=== PATIENT | female | born 1995 | race Caucasian/White ===

== ENCOUNTER 2025-03-20 10:41 | Outpatient (AMB) | payer OTHER, SELFPAY ==
--- NOTE | 2025-03-20 10:44 | A.OFFPC_ITS ---
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 The patient has breast cancer diagnosed in early 2022, leading to surgical intervention and current adjuvant therapy. The cancer diagnosis involved bilateral mastectomy, chemotherapy, and continued use of medications including Exemestane, Prolia, and Zoladex. The detection was credited to self-examination prompted by a partner. While the patient did not undergo reconstructive surgery post-mastectomy, regular imaging or mammography is reportedly unnecessary presently. Concerning the anal region, a chronic lesion described as a skin tag or possibly an external hemorrhoid causes mild discomfort primarily noted during hygiene activities. Diagnostic workup by a imaging engineer earlier this year attributed digestive concerns to stress after ruling out other underlying conditions. The patient seeks referral for potential excision. The patient?s history also includes asthma managed without significant intervention and ADHD, for which Adderall is desired. Inquiries about compatibility with ongoing cancer management have been made, but the primary oncologist has yet to respond. Family cancer history includes the mother with breast cancer and maternal figures with ovarian cancer, necessitating increased vigilance considering the patient?s BRCA mutation status. 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, abstains from recreational substances post-diagnosis [facility] Medical History (Updated 03/20/25 @ 11:44 by Theresa Cruz PA-C) Thyroid nodule Asthma ADHD Establishing care with new doctor, encounter for External hemorrhoid BRCA gene mutation positive History of breast cancer Surgical History (Updated 03/20/25 @ 11:39 by Theresa Cruz PA-C) Hx of bilateral mastectomy Family History Mother Breast CA Father Crohn's disease Social History Housing: House Alcohol intake: current Alcohol intake frequency: does not drink Patient Tobacco Use Status: Former Tobacco user service: No Current occupational status: employed Cognitive needs: No Hearing needs: No Vision needs: Yes (rx glasses) Questionnaire PHQ-9 Over the last 2 weeks, how often have you been bothered by any of the following problems? 1. Little interest or pleasure in doing things: not at all 2. Feeling down, depressed, or hopeless: not at all 3. Trouble falling or staying asleep, or sleeping too much: not at all 4. Feeling tired or having little energy: not at all 5. Poor appetite or overeating: not at all 6. Feeling bad about yourself - or that you are a failure or have let yourself or your family down: not at all 7. Trouble concentrating on things, such as reading the newspaper or watching television: not at all 8. Moving or speaking so slowly that other people could have noticed. Or the opposite - being so fidgety or restless that you have been moving around a lot more than usual: not at all 9. Thoughts that you would be better off or of hurting yourself in some way: not at all Total score: 0 Depression Screening Interpretation: Negative Depression Screening Done: Yes 96025 - PHQ-9 Billing: Yes Source: Developed by Drs. Ramos Gutierrez, Meg Ortiz, Chetan Key and colleagues, with an educational ilsa from [employer]. Thrive Questionnaire Date Thrive assessed: 03/20/25 I am a: Patient What is your living situation today?: I have a steady place to live Within the past 12 months, did the food you bought not last and you didn't have the money to get more?: Never true Within the past 12 months, did you worry whether your food would run out before you got money to buy more?: Never true Do you have trouble paying for medicines?: No Do you have trouble getting transportation to medical appointments?: No Do you have trouble paying your heating and electricity bill?: No Do you have trouble taking care of your child, family member or friend?: No Do you have trouble with day-to-day activities such as bathing, preparing meals, shopping, managing finances, etc.?: No Are you currently unemployed and looking for a job?: No Are you interested in more education?: No Please select the resources that you would like help with: None THRIVE Score: 0 AUDIT C Alcohol Use Questionnaire (AUDIT-C) 1. How often do you have a drink containing alcohol?: Never 3. How often do you have six or more drinks on one occasion?: Never Total Score: 0 Score Reviewed/Action Taken: No EZEQUIEL-7 AMB Questionnaire EZEQUIEL-7 Date EZEQUIEL - 7 assessed: 03/20/25 Feeling nervous, anxious, or on edge: 2 = More than half the days Not being able to stop or control worryin = Several days Worrying too much about different things: 1 = Several days Trouble relaxin = Several days Being so restless that it is hard to sit still: 1 = Several days Becoming easily annoyed or irritable: 0 = Not at all Feeling afraid as if something awful might happen: 1 = Several days Total EZEQUIEL-7 score (0-4 normal; 5-9 mild; 10-14 moderate; 15-21 severe): 7 Source: Developed by Drs. Ramos Gutierrez, Meg Ortiz, Chetan Key and colleagues, with an educational ilsa from [employer]. EZEQUIEL-7 Assessment Billing EZEQUIEL-7 Assessment Tool: EZEQUIEL-7 Assessment 58068 Review of Systems Const Details: - Breast: Reports history of breast cancer, post-mastectomy status, ongoing medication - Gastrointestinal: Reports skin tag/external hemorrhoid, denies significant issues except mild discomfort during hygiene - Respiratory: Denies asthma exacerbations - Neurologic: Reports ADHD - Integumentary: Reports BRCA mutation with concern for skin cancer risk - Family History: Reports extensive maternal and paternal cancer history Physical exam (Primary Care) Vital Signs: Last Vital Signs Temp 97.6 F 03/20/25 10:47 Pulse 58 03/20/25 10:47 Resp 16 03/20/25 10:47 BP 106/60 03/20/25 10:47 Pulse Ox 99 03/20/25 10:47 Oxygen Delivery Method Room Air 03/20/25 10:47 Care Plan Goal for BP management: <130/90 at Goal BMI result Body Mass Index 18.7 normal bmi Tobacco/Smoking Status: Tobacco use Status Tobacco use date assessed 03/20/25 03/20/25 10:55 Patient Tobacco Use Status Former Tobacco user 03/20/25 10:55 PHQ-9: PHQ-9 Score PHQ-9: Total score 0 03/20/25 10:55 Depression Screening Interpretation: Negative Thrive Assessment: Date of Thrive Assessment Date Thrive assessed 03/20/25 03/20/25 10:55 Const Other: Appearance: Alert. Oriented X3. No acute distress. Head: Normal external exam. Normocephalic. Atraumatic. Eyes: Pupils are equal, round, and reactive to light. Extraocular movements intact. Conjunctiva and sclera normal. Eyelids normal. Patient wears glasses for distance. Ears: External auditory canal normal. Tympanic membranes normal. Throat: Pharynx normal. Uvula midline. Moist mucous membranes. Neck: Normal inspection. Neck supple. Full range of motion. No adenopathy. No meningeal signs. No neck mass noted. Patient to be referred for thyroid ultrasound due to palpable area on right side of thyroid. Cardiovascular: Normal heart rate and rhythm. Heart sound normal. No murmurs noted. Pulses normal throughout. Respiratory: No respiratory distress. Painless inspiration. Breath sounds normal. No wheezes/rales/rhonchi noted. Chest nontender. No accessory muscle usage noted or decreased air movement noted. Abdomen: Soft and nontender. Bowel sounds normal in all 4 quadrants. No distention noted. No organomegaly noted. No visible injury noted. Back: No costovertebral angle tenderness. Full range of motion noted. Skin: Skin warm and dry. Normal skin color. Normal skin turgor. No rashes/lesions/lacerations noted. Patient has a skin tag/external hemorrhoid near the anus, referral to general surgery recommended. Extremities: No lower extremity edema. Extremities exhibit normal range of motion. Extremities nontender. Neuro: Oriented X 3. No motor deficit. No sensory deficit. Reflexes normal. Coding Level of Care Code New Pt Level 4 (39862) Complex EM visit Add On G2211 Diagnoses Establishing care with new doctor, encounter for Z76.89 History of breast cancer Z85.3 BRCA gene mutation positive Z15.01; Z15.09 External hemorrhoid K64.4 ADHD F90.9 Asthma J45.909 Additional Codes PHQ-9 - 57713 - PHQ-9 Billing: Yes ([id number]) EZEQUIEL-7 Assessment Billing - EZEQUIEL-7 Assessment Tool: EZEQUIEL-7 Assessment 61172 ([id number]) Assessment & Plan Assessment & Plan (1) Establishing care with new doctor, encounter for: Code(s): Z76.89 - Persons encountering health services in other specified circumstances Category: Medical (2) History of breast cancer: Code(s): Z85.3 - Personal history of malignant neoplasm of breast Category: Medical Plan: Status post bilateral mastectomy. Continue oncological therapies. Condition is chronic and stable continue to monitor. (3) BRCA gene mutation positive: Code(s): Z15.01 - Genetic susceptibility to malignant neoplasm of breast; Z15.09 - Genetic susceptibility to other malignant neoplasm Category: Medical Plan: Dermatology follow-up for ongoing surveillance. Condition is stable will continue to monitor. (4) External hemorrhoid: Code(s): K64.4 - Residual hemorrhoidal skin tags Category: Medical Plan: General surgery consultation for evaluation of anal lesion. Condition is chronic and stable continue to monitor. (5) ADHD: Code(s): F90.9 - Attention-deficit hyperactivity disorder, unspecified type Category: Medical Plan: Pursue medication coordination with psychiatry. Condition is chronic and stable continue to monitor. (6) Asthma: Code(s): J45.909 - Unspecified asthma, uncomplicated Category: Medical Plan: No immediate interventions required. Condition is chronic and stable continue to monitor. Plan Plan Patient was informed and verbally consented to the use of an ambient scribe for clinic note documentation during this visit. 1. Breast Cancer Continue oncological therapies; await oncologist's input on ADHD medication compatibility. 2. Skin Tag/External Hemorrhoid General surgery consultation for evaluation of anal lesion. 3. Adhd Pursue medication coordination with psychiatry. 4. Mild Asthma No immediate interventions required. 5. Brca Gene Mutation Dermatology follow-up for ongoing surveillance. 6. Family History Of Cancer Encourage ongoing vigilance due to extensive cancer history. Today, I discussed with the patient the ongoing management of her breast cancer and coordination of care concerning her ADHD treatment, particularly the use of Adderall alongside her current cancer medications. We reviewed her family?s cancer history and the significance of her BRCA status, agreeing that dermatology follow-up is essential for possible skin cancer prevention. Discussed the anal lesion, and a potential referral to general surgery was made to address it further. Emphasized routine follow-ups regarding her cancer surveillance and encouraged proactive engagement in preventive measures. Orders: Orders US thyroid Today E04.1 - Nontoxic single thyroid nodule Referrals General Surgery Referral K64.4 - Residual hemorrhoidal skin tags Dermatology Referral Z15.01 - Genetic susceptibility to malignant neoplasm of breast, Z15.09 - Genetic susceptibility to other malignant neoplasm, Z85.3 - Personal history of malignant neoplasm of breast Patient Instructions: - Continue prescribed cancer medications as directed by your oncologist. - Schedule and attend general surgery consultation for the anal lesion. - Visit a room inspector for skin examination due to BRCA mutation. - Coordinate with your psychiatrist regarding ADHD medication management. - Attend a thyroid ultrasound as scheduled. - Follow-up in six months or as needed for ongoing management.
[2025-03-20 10:47] VITALS: BP 106/60; PULSE 58; RESP 16; TEMP 36.4; O2SAT 99; BMI 18.7
--- OUTSIDE RECORDS SUMMARY | 2025-03-20 11:23 | XMS_ITS | Continuity of Care Document ---
Author Organization [facility] Address [address] [place] [address] Phone Care Team Providers Care Flosser Name Role Phone Radha Murphy PA-C, PA-C [...] Diagnoses Date Provider Providers Copied on Encounter [facility], [address] [place] [address], [address] [place] [address] , [phone] Medical Records No Information 4 Katherine Garcia. [address] [place] [address], [id number] , . tel:[phone] Office/Outpa tient Visit, [facility], [address] [place] [address], [id number] , tel:[phone] Katherine Barton patient allergy (chief complaint) Other allergic rhinitisAnterior cervical lymphadenopathyMalign ant neoplasm of left breast in female, estrogen receptor positive, unspecified site of breastEstrogen receptor positive status [ER+] 4 Katherine Garcia. [address] [place], [place], [id number] , . [phone] Referring Provider: Harmony Ewing MD, [address] [place] [address], [place], [address]. tel:[phone] Family History Family Member Type Diagnosis Age At Onset Brother Problem (finding) Alive and Doing Well Mother Problem (finding) Environmental Allergies Father Problem (finding) Environmental Allergies Mother Problem (finding) Asthma Mother Problem (finding) Cancer Mother Problem (finding) Alive and Doing Well Father Problem (finding) Alive and Doing Well Payers Payer name Insurance type Covered constitution party ID Jabier sinha(s) HUNG [id number] Social History Type Description Quantity Date Captured [...]
--- OUTSIDE RECORDS SUMMARY | 2025-03-20 11:24 | XMS_ITS ---
Author Name Interface, [id number] lity Address [address] [place] [address] [facility] matology Address [address] [place] [address] Care Team Providers Care Farrowing Manager Name Role Phone Roger Reynolds Unavailable Unavailable Allergies and Adverse Reactions Medication/Group Name Reaction Severity Date Penicillins 07/11/2024 Plan Date Type Value 08/26/2024 APPOINTMENT NON CHEMO INJECT ION 15 MIN 08/20/2024 APPOINTMENT INJECTION 15 MIN 08/15/[address] SVC E [facility] PATIENT 15 MIN 07/11/2024 APPOINTMENT TELEPHONE VISIT 15 MINS 06/12/2024 APPOINTMENT TELEHEALTH SVC E ST PATIENT 15 MIN 05/30/2024 APPOINTMENT TELEPHONE VISIT 15 MINS 05/30/2024 APPOINTMENT TELEHEALTH SVC E ST PATIENT 15 MIN 05/28/2024 APPOINTMENT NON CHEMO INJECT ION 15 MIN 05/09/2024 APPOINTMENT TELEHEALTH SVC E ST PATIENT 15 MIN 05/08/2024 APPOINTMENT TELEHEALTH SVC E ST PATIENT 15 MIN 04/30/2024 APPOINTMENT LAB 15 MIN-OV 15 MIN 04/30/2024 APPOINTMENT LAB 15 MIN-OV 15 MIN 04/24/2024 APPOINTMENT NEW PT CONSULT 4 5 MIN 04/23/2024 APPOINTMENT OUTSIDE TEST 5 M IN 04/02/2024 APPOINTMENT NEW PT CONSULT 4 5 MIN 03/28/2024 APPOINTMENT TX 1 HR 03/28/2024 APPOINTMENT OV 15 MIN 03/14/2024 APPOINTMENT OV 15 MIN-LAB 15 MIN-TX 1 HR 03/14/2024 APPOINTMENT OV 15 MIN-LAB 15 MIN-TX 1 HR 03/14/2024 APPOINTMENT OV 15 MIN-LAB 15 MIN-TX 1 HR 02/28/2024 APPOINTMENT OUTSIDE TEST 5 M IN 02/15/2024 APPOINTMENT NON CHEMO INJECT ION 15 MIN 02/15/2024 APPOINTMENT LAB 15 MIN-OV 15 MIN 02/15/2024 APPOINTMENT LAB 15 MIN-OV 15 MIN 02/15/2024 APPOINTMENT LAB/OV 02/15/2024 APPOINTMENT LAB/OV 02/14/2024 APPOINTMENT NON CHEMO INJECT ION 15 MIN 02/13/2024 APPOINTMENT LAB 15 MIN-OV 15 MIN 02/13/2024 APPOINTMENT LAB 15 MIN-OV 15 MIN 01/17/2024 APPOINTMENT NON CHEMO INJECT ION 15 MIN 12/20/2023 APPOINTMENT NON CHEMO INJECT ION 15 MIN 12/19/2023 APPOINTMENT LAB 15 MIN-OV 30 MIN 12/19/2023 APPOINTMENT LAB 15 MIN-OV 30 MIN 11/22/2023 APPOINTMENT TX 2 HR 11/20/2023 APPOINTMENT LAB 15 MIN-OV 30 MIN 11/20/2023 APPOINTMENT LAB 15 MIN-OV 30 MIN 11/15/2023 APPOINTMENT TX 2 HR 11/14/2023 APPOINTMENT LAB 15 MIN 11/08/2023 APPOINTMENT TX 2 HR 11/07/2023 APPOINTMENT LAB 15 MIN 11/01/2023 APPOINTMENT TX 2 HR 10/31/2023 APPOINTMENT LAB 15 MIN-OV 30 MIN 10/31/2023 APPOINTMENT LAB 15 MIN-OV 30 MIN 10/31/2023 APPOINTMENT LAB 15 MIN-OV 15 MIN 10/31/2023 APPOINTMENT LAB 15 MIN-OV 15 MIN 10/25/2023 APPOINTMENT TX 2 HR 10/24/2023 APPOINTMENT LAB 15 MIN 10/11/2023 APPOINTMENT TX 2 HR 10/10/2023 APPOINTMENT LAB 15 MIN 10/04/2023 APPOINTMENT TX 2 HR 10/03/2023 APPOINTMENT LAB 15 MIN-OV 30 MIN 10/03/2023 APPOINTMENT LAB 15 MIN-OV 30 MIN 09/27/2023 APPOINTMENT TX 2 HR 09/26/2023 APPOINTMENT LAB 15 MIN 09/26/2023 APPOINTMENT TX 2 HR 09/20/2023 APPOINTMENT TX 2 HR 09/19/2023 APPOINTMENT LAB 15 MIN 09/19/2023 APPOINTMENT TX 2 HR 09/17/2023 APPOINTMENT NON CHEMO INJECT ION 15 MIN 09/15/2023 APPOINTMENT NON CHEMO INJECT ION 15 MIN 09/14/2023 APPOINTMENT NON CHEMO INJECT ION 15 MIN 09/13/2023 APPOINTMENT TX 2 HR 09/12/2023 APPOINTMENT LAB 15 MIN-OV 15 MIN 09/12/2023 APPOINTMENT LAB 15 MIN-OV 15 MIN 09/12/2023 APPOINTMENT LAB 15 MIN-OV 15 MIN 09/12/2023 APPOINTMENT LAB 15 MIN-OV 15 MIN 09/06/2023 APPOINTMENT TX 2 HR 09/05/2023 APPOINTMENT LAB 15 MIN 09/03/2023 APPOINTMENT NON CHEMO INJECT ION 15 MIN 09/01/2023 APPOINTMENT NON CHEMO INJECT ION 15 MIN 08/31/2023 APPOINTMENT NON CHEMO INJECT ION 15 MIN 08/30/2023 APPOINTMENT TX 2 HR 08/29/2023 APPOINTMENT LAB 15 MIN 08/29/2023 APPOINTMENT LAB 15 MIN 08/23/2023 APPOINTMENT TX 2 HR 08/22/2023 APPOINTMENT LAB 15 MIN-OV 15 MIN 08/22/2023 APPOINTMENT LAB 15 MIN-OV 15 MIN 08/20/2023 APPOINTMENT HYDRATION 2 HR 08/17/2023 APPOINTMENT HYDRATION 2 HR 08/15/2023 APPOINTMENT HYDRATION 2 HR 08/13/2023 APPOINTMENT HYDRATION 2 HR 08/10/2023 APPOINTMENT HYDRATION 2 HR 08/10/2023 APPOINTMENT NON CHEMO INJECT ION 15 MIN 08/09/2023 APPOINTMENT TX 2 HR 08/07/2023 APPOINTMENT LAB 15 MIN-OV 15 MIN 08/07/2023 APPOINTMENT LAB 15 MIN-OV 15 MIN 08/07/2023 APPOINTMENT LAB 15 MIN-OV 15 MIN 08/07/2023 APPOINTMENT LAB 15 MIN-OV 15 MIN 08/07/2023 APPOINTMENT LAB 15 MIN-OV 15 MIN 08/06/2023 APPOINTMENT LAB 15 MIN 08/06/2023 APPOINTMENT HYDRATION 2 HR 08/03/2023 APPOINTMENT HYDRATION 2 HR 08/02/2023 APPOINTMENT LAB 15 MIN 08/02/2023 APPOINTMENT HYDRATION 2 HR 08/01/2023 APPOINTMENT HYDRATION 2 HR 07/27/2023 APPOINTMENT HYDRATION 2 HR 07/27/2023 APPOINTMENT NON CHEMO INJECT ION 15 MIN 07/26/2023 APPOINTMENT TX 2 HR 07/25/2023 APPOINTMENT LAB 15 MIN-OV 15 MIN 07/25/2023 APPOINTMENT LAB 15 MIN-OV 15 MIN 07/19/2023 APPOINTMENT NURSE VISIT 15 M IN 07/13/2023 APPOINTMENT INJECTION 30 MIN 07/12/2023 APPOINTMENT TX 2 HR 07/10/2023 APPOINTMENT LAB 15 MIN-OV 15 MIN 07/10/2023 APPOINTMENT LAB 15 MIN-OV 15 MIN 06/29/2023 APPOINTMENT NON CHEMO INJECT ION 15 MIN 06/28/2023 APPOINTMENT TX 2 HR 06/28/2023 APPOINTMENT LAB 15 MIN 06/27/2023 APPOINTMENT OUTSIDE TEST 5 M IN 06/26/2023 APPOINTMENT LAB 15 MIN-OV 15 MIN 06/26/2023 APPOINTMENT LAB 15 MIN-OV 15 MIN 06/21/2023 APPOINTMENT LAB 15 MIN 06/21/2023 APPOINTMENT TX TEACH 60 MIN 06/21/2023 APPOINTMENT OUTSIDE TEST 5 M IN 06/21/2023 APPOINTMENT LAB 15 MIN 06/21/2023 APPOINTMENT TX TEACH 60 MIN 06/11/2023 APPOINTMENT NEW PT CONSULT 6 0 MIN 01/30/2022 APPOINTMENT TELEHEALTH SVC E ST PATIENT 30 MIN 01/23/2022 APPOINTMENT TELEHEALTH SVC E ST PATIENT 30 MIN 01/12/2022 APPOINTMENT GENETICS 60 MIN- LAB 15 MIN 01/12/2022 APPOINTMENT GENETICS 60 MIN- LAB 15 MIN 06/14/2023 LABORDER Echography, M-mo de 06/21/2023 LABORDER Hepatitis C anti body panel 06/21/2023 LABORDER Hepatitis B core ab, total panel 06/21/2023 LABORDER Hepatitis B surf stephanie ab panel, qual 06/21/2023 LABORDER Hepatitis B surf stepahnie antigen panel 06/21/2023 LABORDER CMP 06/21/2023 LABORDER CBC w/ auto diff 06/21/2023 LABORDER Oncotype DX 06/28/2023 LABORDER test u rine panel 07/10/2023 LABORDER CBC w/ auto diff 07/10/2023 LABORDER CMP 07/25/2023 LABORDER CBC w/ auto diff 07/25/2023 LABORDER CMP 08/02/2023 LABORDER CMP 08/02/2023 LABORDER CBC w/ auto diff 08/02/2023 LABORDER Magnesium panel 08/06/2023 LABORDER CBC w/ auto diff 08/06/2023 LABORDER CMP 08/06/2023 LABORDER Magnesium panel 08/07/2023 LABORDER CBC w/ auto diff 08/07/2023 LABORDER CMP 08/22/2023 LABORDER CBC w/ auto diff 08/22/2023 LABORDER CMP 08/22/2023 LABORDER Magnesium panel 08/29/2023 LABORDER CBC w/ auto diff 08/29/2023 LABORDER CMP 09/05/2023 LABORDER CBC w/ auto diff 09/05/2023 LABORDER CMP 09/12/2023 LABORDER CBC w/ auto diff 09/12/2023 LABORDER CMP 09/19/2023 LABORDER CBC w/ auto diff 09/19/2023 LABORDER CMP 09/26/2023 LABORDER CBC w/ auto diff 09/26/2023 LABORDER CMP 10/03/2023 LABORDER CBC w/ auto diff 10/03/2023 LABORDER CMP 10/10/2023 LABORDER CBC w/ auto diff 10/10/2023 LABORDER CMP 10/24/2023 LABORDER CMP 10/24/2023 LABORDER CBC w/ auto diff 10/30/2023 LABORDER CMP 10/30/2023 LABORDER CBC w/ auto diff 11/07/2023 LABORDER CMP 11/07/2023 LABORDER CBC w/ auto diff 11/14/2023 LABORDER CBC w/ auto diff 11/14/2023 LABORDER CMP 11/20/2023 LABORDER CBC w/ auto diff 11/20/2023 LABORDER CMP 12/19/2023 LABORDER CBC w/ auto diff 12/19/2023 LABORDER CMP 12/19/2023 LABORDER Magnesium panel 02/15/2024 LABORDER CMP 02/15/2024 LABORDER Vitamin D monito ring panel 02/15/2024 LABORDER Estradiol, ultra sensitive panel 02/15/2024 LABORDER Magnesium panel 02/15/2024 LABORDER CBC w/auto diff with reflex 02/15/2024 LABORDER TSH panel 02/15/2024 LABORDER Phosphorus panel 02/17/2024 LABORDER DEXA scan 03/28/2024 LABORDER CBC w/auto diff with reflex 03/28/2024 LABORDER CMP 03/28/2024 LABORDER Estradiol, ultra sensitive panel 03/28/2024 LABORDER Magnesium panel 03/28/2024 LABORDER CBC w/auto diff with reflex 03/28/2024 LABORDER CMP 03/28/2024 LABORDER Magnesium panel 03/28/2024 LABORDER Estradiol, ultra sensitive panel 04/24/2024 LABORDER U/S pelvis 04/30/2024 LABORDER Estradiol, ultra sensitive panel 04/30/2024 LABORDER CA 125 panel 04/30/2024 LABORDER CBC w/auto diff with reflex 04/30/2024 LABORDER CMP 04/30/2024 LABORDER Estradiol, ultra sensitive panel 04/30/2024 LABORDER Magnesium panel Reason for Visit NON CHEMO INJECTION 15 MIN Encounters Date Name 01/12/2022 ADHD 01/12/2022 Anterior cervical ly mphadenopathy (disorder) 01/12/2022 Bone pain 01/12/2022 Breast cancer, femal e 01/12/2022 Cancer risk assessme nt 01/12/2022 Chemotherapy-induced nausea and vomiting (disorder) 01/12/2022 Diarrhea caused by d rug (disorder) 01/12/2022 Drug-induced mucosit is (disorder) 01/12/2022 Drug-related alopeci a (disorder) 01/12/2022 Dysgeusia 01/12/2022 Estrogen receptor po sitive status [ER+] 01/12/2022 Family history of BR CA2 gene mutation 01/12/2022 Family history of ma lignant neoplasm of breast (situation) 01/12/2022 Family history of ma lignant neoplasm of ovary (situation) 01/12/2022 Hot flashes 01/12/2022 Inherited mutation o f BRCA2 gene 01/12/2022 Nausea 01/12/2022 Neutropenia 01/12/2022 Other long-term curr ent use of drug therapy 01/12/2022 Vitamin D deficiency (disorder) 01/12/2022 Weight loss Immunizations Date Name Route Dose Instructions Refusal Reason Stat us Flu vaccine - Adult Other Diagnostic Results Date Type Test Units Lower Limit Upper Limit Result Flag Comments Status Ordered By Specimen Source Lab Address 06/21 Hepat itis C antib nikki panel Hepat itis C antib nikki, qual Non-ovi ctive Test performed on [employer] at [facility] [address] [place] [address] [place] [address] FINAL [facility], [address] [facility] [id number] 0 06/21 Hepat itis B surfa ce ab panel , qual Hepat itis B surfa ce ab, quant mIU/mL Reactiv e Test performed on [employer] at [facility] [address] [place] [address] [place] [address] [facility] [address] [facility] [id number] 0 06/21 Hepat itis B surfa ce antig en panel Hepat itis B surfa ce antig en Non-ovi ctive Test performed on [employer] at [facility] [address] [facility] [address] FINAL [facility] Tomeka Espinozaterda m, [address] [facility] [place] [id number] 0 06/21 Hepat itis B core ab, total panel Hepat itis B core antib nikki, total Non-ovi ctive Test performed on [employer] at [facility] [address] [facility], [place] [address] FINAL Ami Víctorandhi Amsterda m, [address] [facility] [place] [id number] 0 06/21 CBC w/ auto diff WBC x10^3/ uL 4.4 10.4 3.68 Low FINAL [facility], [address] [facility] [id number] 0 06/21 CBC w/ auto diff RBC x10^6/ uL 4.2 5.4 4.00 Low FINAL [facility], [address] [facility] [id number] 0 06/21 CBC w/ auto diff HGB g/dL 12.0 16.0 11.3 Low FINAL [facility], [address] [place], [place] [address] [facility] [id number] 0 06/21 CBC w/ auto diff HCT % 37.0 47.0 35.4 Low FINAL [facility], [address] [facility] [id number] 0 06/21 CBC w/ auto diff MCV fL 80.0 98.0 88.5 FINAL [facility], [address] [facility] [id number] 0 06/21 CBC w/ auto diff MCH pg 28.0 32.0 28.3 FINAL [facility], [address] [facility] [id number] 0 06/21 CBC w/ auto diff MCHC g/dL 30.7 34.7 31.9 FINAL [facility], [address] [facility] [id number] 0 06/21 CBC w/ auto diff RDW-S D 37.0 54.0 42.20 FINAL [facility], [address] [facility] [id number] 0 06/21 CBC w/ auto diff RDW % 11.5 14.5 13.0 FINAL [facility], [address] [facility] [id number] 0 06/21 CBC w/ auto diff PLT x10^3/ uL 120.0 400.0 236 FINAL [facility], [address] [facility] [id number] 0 06/21 CBC w/ auto diff MPV fL 6.5 12.0 8.6 FINAL [facility], [address] [facility] [id number] 0 06/21 CBC w/ auto diff Smear revie w None FINAL [facility], [address] [facility] [id number] 0 06/21 CBC w/ auto diff NRBC % /100WB C 0.0 9.0 0.0 FINAL [facility], [address] [facility] [id number] 0 06/21 CBC w/ auto diff NRBC, absol [place], x 10^3/ uL x10^3/ uL 0.0 0.1 0.00 FINAL [facility], [address] [facility] [id number] 0 06/21 CBC w/ auto diff Emily % % 40.0 70.0 57.9 FINAL [facility], [address] [facility] [id number] 0 06/21 CBC w/ auto diff LY % % 15.0 41.0 30.7 FINAL [facility], [address] [facility] [id number] 0 06/21 CBC w/ auto diff MO % % 2.0 8.0 8.4 High FINAL [facility], [address] [facility] [id number] 0 06/21 CBC w/ auto diff EO % % 0.0 3.0 2.2 FINAL [facility], [address] [facility] [id number] 0 06/21 CBC w/ auto diff BA % % 0.0 1.0 0.5 FINAL [facility] [place], [address] [facility] [id number] 0 06/21 CBC w/ auto diff IG % % 0.0 1.0 0.3 FINAL [facility] [place], [address] [facility] [id number] 0 06/21 CBC w/ auto diff Emily # (ANC) x10^3/ uL 2.0 8.4 2.13 FINAL [facility], [address] [facility] [id number] 0 06/21 CBC w/ auto diff LY # x10^3/ uL 0.7 5.1 1.13 FINAL [facility], [address] [facility] [id number] 0 06/21 CBC w/ auto diff MO # x10^3/ uL 0.0 1.6 0.31 FINAL [facility], [address] [facility] [id number] 0 06/21 CBC w/ auto diff EO # x10^3/ uL 0.0 1.1 0.08 FINAL [facility], [address] [facility] [id number] 0 06/21 CBC w/ auto diff BA # x10^3/ uL 0.0 0.2 0.02 FINAL [facility], [address] [facility] [id number] 0 06/21 CBC w/ auto diff IG # x10^3/ uL 0.0 0.1 0.01 FINAL [facility], [address] [facility] [id number] 0 06/21 CMP Bilir ubin, total mg/dL 0.3 1.0 0.5 FINAL [facility], [address] [facility] [id number] 0 06/21 CMP AST/S GOT U/L 13.0 39.0 15 FINAL [facility], [address] [facility] [id number] 0 06/21 CMP ALT/S GPT U/L 7.0 52.0 9 FINAL [facility], [address] [facility] [id number] 0 06/21 CMP Alkal ine phosp hatas e U/L 34.0 104.0 49 FINAL [facility], [address] [facility] [id number] 0 06/21 CMP Gluco se mg/dL 70.0 105.0 92 FINAL [facility], [address] [facility] [id number] 0 06/21 CMP BUN mg/dL 7.0 25.0 10 FINAL [facility], [address] [facility] [id number] 0 06/21 CMP Creat inine mg/dL 0.6 1.3 0.86 FINAL [facility], [address] [facility] [facility] [id number] 0 06/21 CMP Calci um mg/dL 8.4 10.5 9.2 FINAL [facility], [address] [facility] [id number] 0 06/21 CMP Total prote in g/dL 6.3 8.2 7.2 FINAL [facility], [address] [facility] [id number] 0 06/21 CMP Album in g/dL 3.5 5.0 4.5 FINAL [facility], [address] [facility] [facility] [id number] 0 06/21 CMP Sodiu m mEq/L 135.0 145.0 135 FINAL [facility], [address] [facility] [id number] 0 06/21 CMP Potas sium mEq/L 3.4 5.0 3.9 FINAL [facility], [address] [facility] [id number] 0 06/21 CMP Chlor uri, mEq/L mEq/L 96.0 107.0 102 FINAL [facility], [address] [facility] [id number] 0 06/21 CMP CO2 whitney nt mEq/L 21.0 31.0 30 FINAL [facility], [address] [facility] [id number] 0 06/21 CMP GFR estim ate mL/min /1.73m 2 78 Normal Range:Nor mal renal function >or= 60Moderat srinivas decreased 30 - 59Severel y decreased 15 - 29Renal Failure < 15Please note the GFR value should be multiplie d by 1.210 if the patient is -A merican. FINAL [facility], [address] [facility]. [facility] [id number] 0 06/28 Pregn brandt test urine panel Pregn brandt test, urine , qual NEGATIV E FINAL [facility], [address] [facility]. [facility] [id number] 0 07/10 CMP Bilir ubin, total mg/dL 0.3 1.0 0.2 Low FINAL [facility], [address] [facility]. [facility] [id number] 0 07/10 CMP AST/S GOT U/L 13.0 39.0 14 FINAL [facility], [address] [facility]. [facility] [id number] 0 07/10 CMP ALT/S GPT U/L 7.0 52.0 11 FINAL [facility], [address] [facility]. [facility] [id number] 0 07/10 CMP Alkal ine phosp hatas e U/L 34.0 104.0 64 FINAL [facility], [address] [facility] [id number] 0 07/10 CMP Gluco se mg/dL 70.0 105.0 96 FINAL [facility], [address] [facility] [id number] 0 07/10 CMP BUN mg/dL 7.0 25.0 11 FINAL [facility], [address] [place], [place] [address]. [facility] [id number] 0 07/10 CMP Creat inine mg/dL 0.6 1.3 0.85 FINAL [facility], [address] [facility] [id number] 0 07/10 CMP Calci um mg/dL 8.4 10.5 9.0 FINAL [facility], [address] [facility] [id number] 0 07/10 CMP Total prote in g/dL 6.3 8.2 7.2 FINAL [facility], [address] [facility] [id number] 0 07/10 CMP Album in g/dL 3.5 5.0 4.5 FINAL [facility], [address] [facility]. [facility] [id number] 0 07/10 CMP Sodiu m mEq/L 135.0 145.0 136 FINAL [facility], [address] [facility]. [facility] [id number] 0 07/10 CMP Potas sium mEq/L 3.4 5.0 4.3 FINAL [facility], [address] [facility]. [facility] [id number] 0 07/10 CMP Chlor uri, mEq/L mEq/L 96.0 107.0 104 FINAL [facility], [address] [facility]. [facility] [id number] 0 07/10 CMP CO2 whitney nt mEq/L 21.0 31.0 27 FINAL [facility], [address] [facility]. [facility] [id number] 0 07/10 CMP GFR estim ate mL/min /1.73m 2 79 Normal Range:Nor mal renal function >or= 60Moderat srinivas decreased 30 - 59Severel y decreased 15 - 29Renal Failure < 15Please note the GFR value should be multiplie d by 1.210 if the patient is -A merican. FINAL [facility], [address] [facility]. [facility] [id number] 0 07/10 CBC w/ auto diff WBC x10^3/ uL 4.4 10.4 11.18 High FINAL [facility], [address] [facility] [id number] 0 07/10 CBC w/ auto diff RBC x10^6/ uL 4.2 5.4 4.29 FINAL [facility], [address] [facility] [id number] 0 07/10 CBC w/ auto diff HGB g/dL 12.0 16.0 12.1 FINAL [facility], [address] [facility] [id number] 0 07/10 CBC w/ auto diff HCT % 37.0 47.0 37.9 FINAL [facility], [address] [facility] [id number] 0 07/10 CBC w/ auto diff MCV fL 80.0 98.0 88.3 FINAL [facility], [address] [facility] [id number] 0 07/10 CBC w/ auto diff MCH pg 28.0 32.0 28.2 FINAL [facility], [address] [facility] [id number] 0 07/10 CBC w/ auto diff MCHC g/dL 30.7 34.7 31.9 FINAL [facility], [address] [facility] [id number] 0 07/10 CBC w/ auto diff RDW-S D 37.0 54.0 41.00 FINAL [facility], [address] [facility] [id number] 0 07/10 CBC w/ auto diff RDW % 11.5 14.5 12.9 FINAL [facility], [address] [facility] [id number] 0 07/10 CBC w/ auto diff PLT x10^3/ uL 120.0 400.0 187 FINAL [facility], [address] [facility] [id number] 0 07/10 CBC w/ auto diff MPV fL 6.5 12.0 9.4 FINAL [facility], [address] [facility] [id number] 0 07/10 CBC w/ auto diff NRBC % /100WB C 0.0 9.0 0.2 FINAL [facility], [address] [facility] [id number] 0 07/10 CBC w/ auto diff NRBC, absol [place], x 10^3/ uL x10^3/ uL 0.0 0.1 0.02 FINAL [facility], [address] [facility] [id number] 0 07/10 CBC w/ auto diff Emily # (ANC) x10^3/ uL 2.0 8.4 5.21 FINAL [facility], [address] [facility] [id number] 0 07/10 Manua l diffe renti al Neutr ophil % (M) % 35.0 65.0 57 FINAL [facility], [address] [facility] [id number] 0 07/10 Manua l diffe renti al Band % % 0.0 5.0 6 High FINAL [facility], [address] [facility] [id number] 0 07/10 Manua l diffe renti al Lymph ocyte % % 15.0 41.0 10 Low FINAL [facility], [address] [facility] [id number] 0 07/10 Manua l diffe renti al Monoc yte % % 4.0 10.0 9 FINAL [facility], [address] [facility] [id number] 0 07/10 Manua l diffe renti al Eosin ophil % % 0.0 6.0 1 FINAL [facility], [address] [facility] [id number] 0 07/10 Manua l diffe renti al Basop hil % % 0.0 2.0 0 FINAL [facility], [address] [facility] [id number] 0 07/10 Manua l diffe renti al Metam yeloc yte % % 0.0 0.0 11 High FINAL [facility], [address] [place] [id number] 0 07/10 Manua l diffe renti al Myelo cyte % % 0.0 0.0 4 High FINAL [facility], [address] [place] [id number] 0 07/10 Manua l diffe renti al Promy elocy te % % 0.0 0.0 1 High FINAL [facility], [address] [place] [id number] 0 07/10 Manua l diffe renti al Blast s % % 0.0 0.0 0 FINAL [facility], [address] [place] [id number] 0 07/10 Manua l diffe renti al Atypi susan/V efren t I lymph ocyte % % 0.0 0.0 0 FINAL [facility], [address] [place] [id number] 0 07/10 Manua l diffe renti al Hairy cell % 0.0 0.0 0 FINAL [facility], [address] [place] [id number] 0 07/10 Manua l diffe renti al Plasm a cell % 0.0 0.0 0 FINAL [facility], [address] [place] [id number] 0 07/10 Manua l diffe renti al Immat ure cell, % (M) % 0.0 0.0 1 High FINAL [facility], [address] [place] [id number] 0 07/10 Manua l diffe renti al NRBC (M) % 0.0 0.0 0 FINAL [facility], [address] [place] [id number] 0 07/10 Manua l diffe renti al Plate let estim ate Adequat e FINAL [facility], [address] [place] [id number] 0 07/10 Manua l diffe renti al Manua l diff other None FINAL [facility], [address] [facility] [id number] 0 07/25 CBC w/ auto diff EO % % 0.0 3.0 0.1 FINAL [facility], [address] [facility] [id number] 0 07/25 CBC w/ auto diff BA % % 0.0 1.0 0.5 FINAL [facility], [address] [facility] [id number] 0 07/25 CBC w/ auto diff IG % % 0.0 1.0 28.8 High FINAL [facility], [address] [facility] [id number] 0 07/25 CBC w/ auto diff Emily # (ANC) x10^3/ uL 2.0 8.4 9.04 High FINAL [facility], [address] [facility] [id number] 0 07/25 CBC w/ auto diff LY # x10^3/ uL 0.7 5.1 1.43 FINAL [facility], [address] [facility] [id number] 0 07/25 CBC w/ auto diff MO # x10^3/ uL 0.0 1.6 1.29 FINAL [facility], [address] [facility] [id number] 0 07/25 CBC w/ auto diff EO # x10^3/ uL 0.0 1.1 0.01 FINAL [facility], [address] [facility] [id number] 0 07/25 CBC w/ auto diff BA # x10^3/ uL 0.0 0.2 0.08 FINAL [facility], [address] [facility] [id number] 0 07/25 CBC w/ auto diff IG # x10^3/ uL 0.0 0.1 4.80 High FINAL [facility], [address] [facility] [id number] 0 07/25 CBC w/ auto diff WBC x10^3/ uL 4.4 10.4 16.65 High FINAL [facility], [address] [facility] [id number] 0 07/25 CBC w/ auto diff RBC x10^6/ uL 4.2 5.4 3.99 Low FINAL [facility], [address] [facility] [id number] 0 07/25 CBC w/ auto diff HGB g/dL 12.0 16.0 11.3 Low FINAL [facility], [address] [facility] [id number] 0 07/25 CBC w/ auto diff HCT % 37.0 47.0 35.5 Low FINAL [facility], [address] [facility] [facility] [id number] 0 07/25 CBC w/ auto diff MCV fL 80.0 98.0 89.0 FINAL [facility], [address] [facility] [facility] [id number] 0 07/25 CBC w/ auto diff MCH pg 28.0 32.0 28.3 FINAL [facility], [address] [facility] [id number] 0 07/25 CBC w/ auto diff MCHC g/dL 30.7 34.7 31.8 FINAL [facility], [address] [place], [place] [address]on [facility] [id number] 0 07/25 CBC w/ auto diff RDW-S D 37.0 54.0 41.20 FINAL [facility], [address] [facility] [id number] 0 07/25 CBC w/ auto diff RDW % 11.5 14.5 13.5 [facility], [address] [place], [place] [address]on [facility] [id number] 0 07/25 CBC w/ auto diff PLT x10^3/ uL 120.0 400.0 181 FINAL [facility], [address] [facility] [id number] 0 07/25 CBC w/ auto diff MPV fL 6.5 12.0 8.9 FINAL [facility], [address] [facility] [id number] 0 07/25 CBC w/ auto diff Smear revie w None FINAL [facility], [address] [facility] [id number] 0 07/25 CBC w/ auto diff NRBC % /100WB C 0.0 9.0 0.1 FINAL [facility], [address] [facility] [id number] 0 07/25 CBC w/ auto diff NRBC, absol [place], x 10^3/ uL x10^3/ uL 0.0 0.1 0.02 FINAL [facility], [address] [facility] [id number] 0 07/25 CBC w/ auto diff Emily % % 40.0 70.0 54.3 FINAL [facility], [address] [facility] [id number] 0 07/25 CBC w/ auto diff LY % % 15.0 41.0 8.6 Low FINAL [facility], [address] [facility] [id number] 0 07/25 CBC w/ auto diff MO % % 2.0 8.0 7.7 FINAL [facility], [address] [facility] [id number] 0 07/25 CMP Bilir ubin, total mg/dL 0.3 1.0 0.3 FINAL [facility], [address] [facility] [id number] 0 07/25 CMP AST/S GOT U/L 13.0 39.0 15 FINAL [facility], [address] [facility] [id number] 0 07/25 CMP ALT/S GPT U/L 7.0 52.0 11 FINAL [facility], [address] [facility] [id number] 0 07/25 CMP Alkal ine phosp hatas e U/L 34.0 104.0 89 [facility], [address] [facility] [id number] 0 07/25 CMP Gluco se mg/dL 70.0 105.0 96 FINAL [facility], [address] [facility] [id number] 0 07/25 CMP BUN mg/dL 7.0 25.0 9 FINAL [facility], [address] [facility] [facility] [id number] 0 07/25 CMP Creat inine mg/dL 0.6 1.3 0.83 FINAL [facility], [address] [facility] [id number] 0 07/25 CMP Calci um mg/dL 8.4 10.5 9.0 FINAL [facility], [address] [facility] [facility] [id number] 0 07/25 CMP Total prote in g/dL 6.3 8.2 7.3 FINAL [facility], [address] [facility] [facility] [id number] 0 07/25 CMP Album in g/dL 3.5 5.0 4.5 FINAL [facility], [address] [facility] [facility] [id number] 0 07/25 CMP Sodiu m mEq/L 135.0 145.0 138 FINAL [facility], [address] [facility] [facility] [id number] 0 07/25 CMP Potas sium mEq/L 3.4 5.0 3.6 FINAL [facility], [address] [place], [place] [address]on [place] [address] [facility] [id number] 0 07/25 CMP Chlor uri, mEq/L mEq/L 96.0 107.0 103 FINAL [facility], [address] [facility] [place] [address] [facility] [id number] 0 07/25 CMP CO2 whitney nt mEq/L 21.0 31.0 28 FINAL [facility], [address] [facility] [id number] 0 07/25 CMP GFR estim ate mL/min /1.73m 2 82 Normal Range:Nor mal renal function >or= 60Moderat srinivas decreased 30 - 59Severel y decreased 15 - 29Renal Failure < 15Please note the GFR value should be multiplie d by 1.210 if the patient is -A merican. FINAL [facility], [address] [facility] [id number] 0 08/02 CMP Bilir ubin, total mg/dL 0.3 1.0 0.6 FINAL [facility], [address] [facility] [id number] 0 08/02 CMP AST/S GOT U/L 13.0 39.0 11 Low FINAL [facility], [address] [facility] [id number] 0 08/02 CMP ALT/S GPT U/L 7.0 52.0 10 FINAL [facility], [address] [facility] [id number] 0 08/02 CMP Alkal ine phosp hatas e U/L 34.0 104.0 104 FINAL [facility], [address] [facility] [id number] 0 08/02 CMP Gluco se mg/dL 70.0 105.0 102 FINAL [facility], [address] [facility] [id number] 0 08/02 CMP BUN mg/dL 7.0 25.0 12 FINAL [facility], [address] [facility] [id number] 0 08/02 CMP Creat inine mg/dL 0.6 1.3 0.69 FINAL [facility], [address] [facility] [id number] 0 08/02 CMP Calci um mg/dL 8.4 10.5 9.6 FINAL [facility], [address] [facility] [id number] 0 08/02 CMP Total prote in g/dL 6.3 8.2 7.7 FINAL [facility], [address] [facility] [id number] 0 08/02 CMP Album in g/dL 3.5 5.0 4.8 FINAL [facility], [address] [facility] [id number] 0 08/02 CMP Sodiu m mEq/L 135.0 145.0 137 FINAL [facility], [address] [facility] [address] [facility] [id number] 0 08/02 CMP Potas sium mEq/L 3.4 5.0 4.1 FINAL [facility], [address] [facility] [id number] 0 08/02 CMP Chlor uri, mEq/L mEq/L 96.0 107.0 101 FINAL [facility], [address] [facility] [id number] 0 08/02 CMP CO2 whitney nt mEq/L 21.0 31.0 28 FINAL [facility], [address] [facility] [id number] 0 08/02 CMP GFR estim ate mL/min /1.73m 2 101 Normal Range:Nor mal renal function >or= 60Moderat srinivas decreased 30 - 59Severel y decreased 15 - 29Renal Failure < 15Please note the GFR value should be multiplie d by 1.210 if the patient is -A merican. FINAL [facility], [address] [facility] [id number] 0 08/02 CBC w/ auto diff WBC x10^3/ uL 4.4 10.4 1.02 Criti susan Low FINAL [facility], [address] [facility] [facility] [id number] 0 08/02 CBC w/ auto diff RBC x10^6/ uL 4.2 5.4 3.76 Low FINAL [facility], [address] [facility] [id number] 0 08/02 CBC w/ auto diff HGB g/dL 12.0 16.0 10.6 Low FINAL [facility], [address] [facility] [id number] 0 08/02 CBC w/ auto diff HCT % 37.0 47.0 32.9 Low FINAL [facility], [address] [facility] [id number] 0 08/02 CBC w/ auto diff MCV fL 80.0 98.0 87.5 FINAL [facility], [address] [facility] [id number] 0 08/02 CBC w/ auto diff MCH pg 28.0 32.0 28.2 FINAL [facility], [address] [facility] [id number] 0 08/02 CBC w/ auto diff MCHC g/dL 30.7 34.7 32.2 FINAL [facility], [address] [facility] [id number] 0 08/02 CBC w/ auto diff RDW-S D 37.0 54.0 41.70 FINAL [facility], [address] [facility] [id number] 0 08/02 CBC w/ auto diff RDW % 11.5 14.5 13.8 FINAL [facility], [address] [facility] [id number] 0 08/02 CBC w/ auto diff PLT x10^3/ uL 120.0 400.0 182 FINAL [facility], [address] [facility] [id number] 0 08/02 CBC w/ auto diff MPV fL 6.5 12.0 9.0 FINAL [facility], [address] [facility] [id number] 0 08/02 CBC w/ auto diff Smear revie w None FINAL [facility], [address] [facility] [id number] 0 08/02 CBC w/ auto diff NRBC % /100WB C 0.0 9.0 0.0 FINAL [facility], [address] [facility] [id number] 0 08/02 CBC w/ auto diff NRBC, absol [place], x 10^3/ uL x10^3/ uL 0.0 0.1 0.00 FINAL [facility], [address] [facility] [id number] 0 08/02 CBC w/ auto diff Emily % % 40.0 70.0 55.9 FINAL [facility], [address] [facility] [id number] 0 08/02 CBC w/ auto diff LY % % 15.0 41.0 27.5 FINAL [facility], [address] [facility] [id number] 0 08/02 CBC w/ auto diff MO % % 2.0 8.0 12.7 High FINAL [facility], [address] [facility] [id number] 0 08/02 CBC w/ auto diff EO % % 0.0 3.0 0.0 FINAL [facility], [address] [facility] [id number] 0 08/02 CBC w/ auto diff BA % % 0.0 1.0 2.9 High FINAL [facility], [address] [facility] [id number] 0 08/02 CBC w/ auto diff IG % % 0.0 1.0 1.0 FINAL [facility], [address] [facility] [id number] 0 08/02 CBC w/ auto diff Emily # (ANC) x10^3/ uL 2.0 8.4 0.57 Low FINAL [facility], [address] [facility] [id number] 0 08/02 CBC w/ auto diff LY # x10^3/ uL 0.7 5.1 0.28 Low FINAL [facility], [address] [facility] [id number] 0 08/02 CBC w/ auto diff MO # x10^3/ uL 0.0 1.6 0.13 FINAL [facility], [address] [facility] [id number] 0 08/02 CBC w/ auto diff EO # x10^3/ uL 0.0 1.1 0.00 FINAL [facility], [address] [facility] [id number] 0 08/02 CBC w/ auto diff BA # x10^3/ uL 0.0 0.2 0.03 FINAL [facility], [address] [facility] [id number] 0 08/02 CBC w/ auto diff IG # x10^3/ uL 0.0 0.1 0.01 FINAL [facility], [address] [facility] [id number] 0 08/02 Magne sium panel Magne sium, mg/dL mg/dL 1.6 2.3 1.95 FINAL [facility], [address] [facility] [id number] 0 08/06 Manua l diffe renti al Neutr ophil % (M) % 35.0 65.0 58 FINAL [facility], [address] [facility] [id number] 0 08/06 Manua l diffe renti al Band % % 0.0 5.0 7 High FINAL [facility], [address] [facility] [id number] 0 08/06 Manua l diffe renti al Lymph ocyte % % 15.0 41.0 9 Low FINAL [facility], [address] [facility] [id number] 0 08/06 Manua l diffe renti al Monoc yte % % 4.0 10.0 7 FINAL [facility], [address] [facility] [id number] 0 08/06 Manua l diffe renti al Eosin ophil % % 0.0 6.0 0 FINAL [facility], [address] [facility] [id number] 0 08/06 Manua l diffe renti al Basop hil % % 0.0 2.0 1 FINAL [facility], [address] [facility] [id number] 0 08/06 Manua l diffe renti al Metam yeloc yte % % 0.0 0.0 13 High FINAL [facility], [address] [facility] [id number] 0 08/06 Manua l diffe renti al Myelo cyte % % 0.0 0.0 5 High FINAL [facility], [address] [facility] [id number] 0 08/06 Manua l diffe renti al Promy elocy te % % 0.0 0.0 0 FINAL [facility], [address] [facility] [id number] 0 08/06 Manua l diffe renti al Blast s % % 0.0 0.0 0 FINAL [facility], [address] [facility] [id number] 0 08/06 Manua l diffe renti al Atypi susan/V efren t I lymph ocyte % % 0.0 0.0 0 FINAL [facility], [address] [facility] [id number] 0 08/06 Manua l diffe renti al Hairy cell % 0.0 0.0 0 FINAL [facility], [address] [facility] [id number] 0 08/06 Manua l diffe renti al Plasm a cell % 0.0 0.0 0 FINAL [facility], [address] [facility] [id number] 0 08/06 Manua l diffe renti al Immat ure cell, % (M) % 0.0 0.0 0 FINAL [facility], [address] [facility] [id number] 0 08/06 Manua l diffe renti al NRBC (M) % 0.0 0.0 0 FINAL [facility], [address] [facility] [id number] 0 08/06 Manua l diffe renti al Plate let estim ate Adequat e FINAL [facility], [address] [facility] [id number] 0 08/06 Manua l diffe renti al Aniso cytos is (size ) 1+ FINAL [facility], [address] [facility] [id number] 0 08/06 Manua l diffe renti al Polyc hroma slim (M) 1+ FINAL [facility], [address] [facility] [id number] 0 08/06 Manua l diffe renti al Manua l diff other None FINAL [facility], [address] [facility] [id number] 0 08/06 CMP Bilir ubin, total mg/dL 0.3 1.0 0.2 Low FINAL [facility], [address] [facility] [id number] 0 08/06 CMP AST/S GOT U/L 13.0 39.0 18 FINAL [facility], [address] [facility] [id number] 0 08/06 CMP ALT/S GPT U/L 7.0 52.0 13 FINAL [facility], [address] [facility] [id number] 0 08/06 CMP Alkal ine phosp hatas e U/L 34.0 104.0 100 FINAL [facility], [address] [facility] [id number] 0 08/06 CMP Gluco se mg/dL 70.0 105.0 100 FINAL [facility], [address] [facility] [id number] 0 08/06 CMP BUN mg/dL 7.0 25.0 6 Low FINAL [facility], [address] [facility] [id number] 0 08/06 CMP Creat inine mg/dL 0.6 1.3 0.92 FINAL [facility], [address] [facility] [id number] 0 08/06 CMP Calci um mg/dL 8.4 10.5 9.8 FINAL [facility], [address] [facility] [id number] 0 08/06 CMP Total prote in g/dL 6.3 8.2 8.0 FINAL [facility], [address] [facility] [id number] 0 08/06 CMP Album in g/dL 3.5 5.0 5.0 FINAL [facility] [address] [facility] [address] [facility] [id number] 0 08/06 CMP Sodiu m mEq/L 135.0 145.0 137 FINAL [facility], [address] [facility] [id number] 0 08/06 CMP Potas sium mEq/L 3.4 5.0 4.5 FINAL [facility], [address] [facility] [id number] 0 08/06 CMP Chlor uri, mEq/L mEq/L 96.0 107.0 100 FINAL [facility], [address] [facility] [id number] 0 08/06 CMP CO2 whitney nt mEq/L 21.0 31.0 28 FINAL [facility], [address] [facility] [id number] 0 08/06 CMP GFR estim ate mL/min /1.73m 2 72 Normal Range:Nor mal renal function >or= 60Moderat srinivas decreased 30 - 59Severel y decreased 15 - 29Renal Failure < 15Please note the GFR value should be multiplie d by 1.210 if the patient is -A merican. FINAL [facility], [address] [facility] [id number] 0 08/06 Magne sium panel Magne sium, mg/dL mg/dL 1.6 2.3 2.06 FINAL [facility], [address] [facility] [id number] 0 08/06 CBC w/ auto diff WBC x10^3/ uL 4.4 10.4 18.13 High FINAL [facility], [address] [facility] [id number] 0 08/06 CBC w/ auto diff RBC x10^6/ uL 4.2 5.4 3.95 Low FINAL [facility], [address] [facility] [id number] 0 08/06 CBC w/ auto diff HGB g/dL 12.0 16.0 11.2 Low FINAL [facility], [address] [facility] [id number] 0 08/06 CBC w/ auto diff HCT % 37.0 47.0 34.5 Low FINAL [facility], [address] [facility] [id number] 0 08/06 CBC w/ auto diff MCV fL 80.0 98.0 87.3 FINAL [facility], [address] [facility] [id number] 0 08/06 CBC w/ auto diff MCH pg 28.0 32.0 28.4 FINAL [facility], [address] [facility] [id number] 0 08/06 CBC w/ auto diff MCHC g/dL 30.7 34.7 32.5 FINAL [facility], [address] [facility] [id number] 0 08/06 CBC w/ auto diff RDW-S D 37.0 54.0 41.50 FINAL [facility], [address] [facility] [id number] 0 08/06 CBC w/ auto diff RDW % 11.5 14.5 14.8 High FINAL [facility], [address] [facility] [id number] 0 08/06 CBC w/ auto diff PLT x10^3/ uL 120.0 400.0 205 FINAL [facility], [address] [facility] [id number] 0 08/06 CBC w/ auto diff MPV fL 6.5 12.0 8.8 FINAL [facility], [address] [facility] [id number] 0 08/06 CBC w/ auto diff NRBC % /100WB C 0.0 9.0 0.4 FINAL [facility], [address] [facility] [id number] 0 08/06 CBC w/ auto diff NRBC, absol [place], x 10^3/ uL x10^3/ uL 0.0 0.1 0.07 FINAL Kathrine [facility], [address] [facility] [id number] 0 08/06 CBC w/ auto diff Emily # (ANC) x10^3/ uL 2.0 8.4 9.62 High FINAL Kathrine [facility], [address] [facility] [id number] 0 08/07 Manua l diffe renti al Neutr ophil % (M) % 35.0 65.0 59 FINAL [facility], [address] [facility] [id number] 0 08/07 Manua l diffe renti al Band % % 0.0 5.0 11 High FINAL Kathrine [facility], [address] [facility] [id number] 0 08/07 Manua l diffe renti al Lymph ocyte % % 15.0 41.0 9 Low FINAL Kathrine [facility], [address] [facility] [id number] 0 08/07 Manua l diffe renti al Monoc yte % % 4.0 10.0 4 FINAL [facility], [address] [facility] [id number] 0 08/07 Manua l diffe renti al Eosin ophil % % 0.0 6.0 0 FINAL [facility], [address] [facility] [id number] 0 08/07 Manua l diffe renti al Basop hil % % 0.0 2.0 1 FINAL [facility], [address] [facility] [id number] 0 08/07 Manua l diffe renti al Metam yeloc yte % % 0.0 0.0 12 High FINAL [facility], [address] [facility] [id number] 0 08/07 Manua l diffe renti al Myelo cyte % % 0.0 0.0 4 High FINAL [facility], [address] [facility] [id number] 0 08/07 Manua l diffe renti al Promy elocy te % % 0.0 0.0 0 FINAL [facility], [address] [facility] [id number] 0 08/07 Manua l diffe renti al Blast s % % 0.0 0.0 0 FINAL [facility], [address] [facility] [id number] 0 08/07 Manua l diffe renti al Atypi susan/V efren t I lymph ocyte % % 0.0 0.0 0 FINAL [facility], [address] [facility] [id number] 0 08/07 Manua l diffe renti al Hairy cell % 0.0 0.0 0 FINAL [facility], [address] [facility] [id number] 0 08/07 Manua l diffe renti al Plasm a cell % 0.0 0.0 0 FINAL [facility], [address] [facility] [id number] 0 08/07 Manua l diffe renti al Immat ure cell, % (M) % 0.0 0.0 0 FINAL [facility], [address] [place] [id number] 0 08/07 Manua l diffe renti al NRBC (M) % 0.0 0.0 0 FINAL [facility], [address] [place] [id number] 0 08/07 Manua l diffe renti al Plate let estim ate Adequat e FINAL [facility], [address] [place] [id number] 0 08/07 Manua l diffe renti al Aniso cytos is (size ) 1+ FINAL [facility], [address] [facility] [id number] 0 08/07 Manua l diffe renti al Manua l diff other None FINAL [facility], [address] [place] [id number] 0 08/07 CMP Bilir ubin, total mg/dL 0.3 1.0 0.2 Low FINAL [facility], [address] [place] [id number] 0 08/07 CMP AST/S GOT U/L 13.0 39.0 18 FINAL [facility], [address] [facility] [id number] 0 08/07 CMP ALT/S GPT U/L 7.0 52.0 12 FINAL [facility], [address] [place] [id number] 0 08/07 CMP Alkal ine phosp hatas e U/L 34.0 104.0 98 FINAL [facility], [address] [place] [id number] 0 08/07 CMP Gluco se mg/dL 70.0 105.0 93 FINAL [facility], [address] [facility] [id number] 0 08/07 CMP BUN mg/dL 7.0 25.0 6 Low FINAL [facility], [address] [facility] [id number] 0 08/07 CMP Creat inine mg/dL 0.6 1.3 0.95 FINAL [facility], [address] [facility] [id number] 0 08/07 CMP Calci um mg/dL 8.4 10.5 9.3 FINAL [facility], [address] [facility] [id number] 0 08/07 CMP Total prote in g/dL 6.3 8.2 7.6 FINAL [facility], [address] [facility] [id number] 0 08/07 CMP Album in g/dL 3.5 5.0 4.8 FINAL [facility], [address] [facility] [id number] 0 08/07 CMP Sodiu m mEq/L 135.0 145.0 135 FINAL [facility], [address] [facility] [id number] 0 08/07 CMP Potas sium mEq/L 3.4 5.0 3.6 FINAL [facility], [address] [facility] [id number] 0 08/07 CMP Chlor uri, mEq/L mEq/L 96.0 107.0 100 FINAL [facility], [address] [facility] [id number] 0 08/07 CMP CO2 whitney nt mEq/L 21.0 31.0 29 FINAL [facility], [address] [facility] [id number] 0 08/07 CMP GFR estim ate mL/min /1.73m 2 70 Normal Range:Nor mal renal function >or= 60Moderat srinivas decreased 30 - 59Severel y decreased 15 - 29Renal Failure < 15Please note the GFR value should be multiplie d by 1.210 if the patient is -A merican. FINAL Kathrine [facility], [address] [facility] [id number] 0 08/07 CBC w/ auto diff WBC x10^3/ uL 4.4 10.4 18.48 High FINAL Kath[facility], [address] [facility] [id number] 0 08/07 CBC w/ auto diff RBC x10^6/ uL 4.2 5.4 3.78 Low FINAL Kathrine [facility], [address] [facility] [id number] 0 08/07 CBC w/ auto diff HGB g/dL 12.0 16.0 10.8 Low FINAL Kathrine [facility], [address] [facility] [id number] 0 08/07 CBC w/ auto diff HCT % 37.0 47.0 33.6 Low FINAL [facility], [address] [facility] [id number] 0 08/07 CBC w/ auto diff MCV fL 80.0 98.0 88.9 FINAL [facility], [address] [facility] [id number] 0 08/07 CBC w/ auto diff MCH pg 28.0 32.0 28.6 FINAL [facility], [address] [facility] [id number] 0 08/07 CBC w/ auto diff MCHC g/dL 30.7 34.7 32.1 FINAL [facility], [address] [facility] [id number] 0 08/07 CBC w/ auto diff RDW-S D 37.0 54.0 43.10 FINAL Kathrine [facility], [address] [facility] [id number] 0 08/07 CBC w/ auto diff RDW % 11.5 14.5 15.4 High FINAL [facility], [address] [facility] [id number] 0 08/07 CBC w/ auto diff PLT x10^3/ uL 120.0 400.0 185 FINAL [facility], [address] [facility] [id number] 0 08/07 CBC w/ auto diff MPV fL 6.5 12.0 9.3 FINAL [facility], [address] [facility] [id number] 0 08/07 CBC w/ auto diff NRBC % /100WB C 0.0 9.0 0.2 FINAL [facility], [address] [facility] [id number] 0 08/07 CBC w/ auto diff NRBC, absol [place], x 10^3/ uL x10^3/ uL 0.0 0.1 0.03 FINAL [facility], [address] [facility] [id number] 0 08/07 CBC w/ auto diff Emily # (ANC) x10^3/ uL 2.0 8.4 10.45 High FINAL [facility], [address] [facility] [id number] 0 08/22 Magne sium panel Magne sium, mg/dL mg/dL 1.6 2.3 2.03 FINAL [facility], [address] [facility] [id number] 0 08/22 CBC w/ auto diff WBC x10^3/ uL 4.4 10.4 7.93 FINAL [facility], [address] [facility] [id number] 0 08/22 CBC w/ auto diff RBC x10^6/ uL 4.2 5.4 3.45 Low FINAL [facility], [address] [facility] [id number] 0 08/22 CBC w/ auto diff HGB g/dL 12.0 16.0 9.9 Low FINAL [facility], [address] [facility] [id number] 0 08/22 CBC w/ auto diff HCT % 37.0 47.0 31.3 Low FINAL [facility], [address] [facility] [id number] 0 08/22 CBC w/ auto diff MCV fL 80.0 98.0 90.7 FINAL [facility], [address] [facility] [id number] 0 08/22 CBC w/ auto diff MCH pg 28.0 32.0 28.7 FINAL [facility], [address] [facility] [id number] 0 08/22 CBC w/ auto diff MCHC g/dL 30.7 34.7 31.6 FINAL [facility], [address] [facility] [id number] 0 08/22 CBC w/ auto diff RDW-S D 37.0 54.0 49.40 FINAL [facility], [address] [facility] [id number] 0 08/22 CBC w/ auto diff RDW % 11.5 14.5 16.8 High FINAL [facility], [address] [facility] [id number] 0 08/22 CBC w/ auto diff PLT x10^3/ uL 120.0 400.0 149 FINAL [facility], [address] [facility] [id number] 0 08/22 CBC w/ auto diff MPV fL 6.5 12.0 9.7 FINAL [facility], [address] [facility] [id number] 0 08/22 CBC w/ auto diff Smear revie w None FINAL [facility], [address] [facility] [id number] 0 08/22 CBC w/ auto diff NRBC % /100WB C 0.0 9.0 0.3 FINAL [facility], [address] [facility] [id number] 0 08/22 CBC w/ auto diff NRBC, absol [place], x 10^3/ uL x10^3/ uL 0.0 0.1 0.02 FINAL [facility], [address] [place] [id number] 0 08/22 CBC w/ auto diff Emily % % 40.0 70.0 51.4 FINAL [facility] [place], [address] [place] [id number] 0 08/22 CBC w/ auto diff LY % % 15.0 41.0 10.2 Low FINAL [facility], [address] [place] [id number] 0 08/22 CBC w/ auto diff MO % % 2.0 8.0 10.5 High FINAL [facility], [address] [place] [id number] 0 08/22 CBC w/ auto diff EO % % 0.0 3.0 0.1 FINAL [facility], [address] [place] [id number] 0 08/22 CBC w/ auto diff BA % % 0.0 1.0 0.6 FINAL [facility], [address] [place] [id number] 0 08/22 CBC w/ auto diff IG % % 0.0 1.0 27.2 High FINAL [facility], [address] [place] [id number] 0 08/22 CBC w/ auto diff Emily # (ANC) x10^3/ uL 2.0 8.4 4.07 FINAL [facility], [address] [place] [id number] 0 08/22 CBC w/ auto diff LY # x10^3/ uL 0.7 5.1 0.81 FINAL [facility], [address] [place] [id number] 0 08/22 CBC w/ auto diff MO # x10^3/ uL 0.0 1.6 0.83 FINAL [facility] [place], [address] [place] [id number] 0 08/22 CBC w/ auto diff EO # x10^3/ uL 0.0 1.1 0.01 FINAL [facility] [place], [address] [facility] [id number] 0 08/22 CBC w/ auto diff BA # x10^3/ uL 0.0 0.2 0.05 FINAL [facility], [address] [facility] [id number] 0 08/22 CBC w/ auto diff IG # x10^3/ uL 0.0 0.1 2.16 High FINAL [facility], [address] [facility] [id number] 0 08/22 CMP Bilir ubin, total mg/dL 0.3 1.0 0.3 FINAL [facility], [address] [facility] [id number] 0 08/22 CMP AST/S GOT U/L 13.0 39.0 13 FINAL [facility], [address] [facility] [id number] 0 08/22 CMP ALT/S GPT U/L 7.0 52.0 9 FINAL [facility], [address] [facility] [id number] 0 08/22 CMP Alkal ine phosp hatas e U/L 34.0 104.0 79 FINAL [facility], [address] [facility] [id number] 0 08/22 CMP Gluco se mg/dL 70.0 105.0 88 FINAL [facility], [address] [facility] [id number] 0 08/22 CMP BUN mg/dL 7.0 25.0 12 FINAL [facility], [address] [facility] [id number] 0 08/22 CMP Creat inine mg/dL 0.6 1.3 0.66 FINAL [facility], [address] [facility] [id number] 0 08/22 CMP Calci um mg/dL 8.4 10.5 9.2 FINAL [facility], [address] [facility] [id number] 0 09/27 /2023 CMP Total prote in g/dL 6.3 8.2 7.0 FINAL [facility] [address] [facility] [address] [facility] [id number] 0 08/22 CMP Album in g/dL 3.5 5.0 4.6 FINAL [facility] [address] [facility] [address] [address] [facility] [id number] 0 08/22 CMP Sodiu m mEq/L 135.0 145.0 137 FINAL [facility] [address] [facility] [facility] [id number] 0 08/22 CMP Potas sium mEq/L 3.4 5.0 3.9 FINAL [facility] [address] [facility] [address] [facility] [id number] 0 08/22 CMP Chlor uri, mEq/L mEq/L 96.0 107.0 102 FINAL [facility] [address] [facility] [id number] 0 08/22 CMP CO2 whitney nt mEq/L 21.0 31.0 30 FINAL [facility] [address] [facility] [id number] 0 08/22 CMP GFR estim ate mL/min /1.73m 2 106 Normal Range:Nor mal renal function >or= 60Moderat srinivas decreased 30 - 59Severel y decreased 15 - 29Renal Failure < 15Please note the GFR value should be multiplie d by 1.210 if the patient is -A merican. FINAL [facility] [address] [facility] [id number] 0 08/29 CMP Bilir ubin, total mg/dL 0.3 1.0 0.4 FINAL [facility] [address] [facility] [id number] 0 08/29 CMP AST/S GOT U/L 13.0 39.0 24 FINAL [facility] [address] [facility] [facility] [id number] 0 08/29 CMP ALT/S GPT U/L 7.0 52.0 36 FINAL [facility], [address] [facility] [id number] 0 08/29 CMP Alkal ine phosp hatas e U/L 34.0 104.0 62 FINAL [facility], [address] [facility] [id number] 0 08/29 CMP Gluco se mg/dL 70.0 105.0 93 FINAL [facility], [address] [facility] [id number] 0 08/29 CMP BUN mg/dL 7.0 25.0 12 FINAL [facility], [address] [facility] [id number] 0 08/29 CMP Creat inine mg/dL 0.6 1.3 0.67 FINAL [facility] [address] [facility] [place] [facility] [address] [id number] 0 08/29 CMP Calci um mg/dL 8.4 10.5 9.1 FINAL [facility] [address] [facility] [address] [id number] 0 08/29 CMP Total prote in g/dL 6.3 8.2 7.0 FINAL [facility], [address] [facility] [id number] 0 08/29 CMP Album in g/dL 3.5 5.0 4.5 FINAL [facility], [address] [facility] [id number] 0 08/29 CMP Sodiu m mEq/L 135.0 145.0 138 FINAL [facility], [address] [facility] [id number] 0 08/29 CMP Potas sium mEq/L 3.4 5.0 4.1 FINAL [facility], [address] [facility] [id number] 0 08/29 CMP Chlor uri, mEq/L mEq/L 96.0 107.0 101 FINAL [facility], [address] [facility] [id number] 0 08/29 CMP CO2 whitney nt mEq/L 21.0 31.0 29 FINAL [facility], [address] [facility] [id number] 0 08/29 CMP GFR estim ate mL/min /1.73m 2 104 Normal Range:Nor mal renal function >or= 60Moderat srinivas decreased 30 - 59Severel y decreased 15 - 29Renal Failure < 15Please note the GFR value should be multiplie d by 1.210 if the patient is -A merican. FINAL [facility] [address] [facility] [facility] [id number] 0 08/29 CBC w/ auto diff WBC x10^3/ uL 4.4 10.4 1.89 Low FINAL [facility], [address] [facility] [facility] [id number] 0 08/29 CBC w/ auto diff RBC x10^6/ uL 4.2 5.4 3.26 Low FINAL [facility], [address] [place], [place] [address]on [facility] [id number] 0 08/29 CBC w/ auto diff HGB g/dL 12.0 16.0 9.5 Low FINAL [facility], [address] [place], [place] [address]on [facility] [id number] 0 08/29 CBC w/ auto diff HCT % 37.0 47.0 29.9 Low FINAL [facility], [address] [facility] [place] [facility] [address] [id number] 0 08/29 CBC w/ auto diff MCV fL 80.0 98.0 91.7 FINAL [facility] [address] [facility] [address] [id number] 0 08/29 CBC w/ auto diff MCH pg 28.0 32.0 29.1 FINAL [facility], [address] [facility] [place] [facility] [address] [id number] 0 08/29 CBC w/ auto diff MCHC g/dL 30.7 34.7 31.8 FINAL [facility] [address] [facility] [facility] [id number] 0 08/29 CBC w/ auto diff RDW-S D 37.0 54.0 55.50 High FINAL [facility], [address] [place], [place] [address]on [address] [facility] [id number] 0 08/29 CBC w/ auto diff RDW % 11.5 14.5 17.5 High FINAL [facility], [address] [address] [facility] [id number] 0 08/29 CBC w/ auto diff PLT x10^3/ uL 120.0 400.0 285 FINAL [facility], [address] [facility] [id number] 0 08/29 CBC w/ auto diff MPV fL 6.5 12.0 9.2 FINAL [facility], [address] [facility] [id number] 0 08/29 CBC w/ auto diff Smear revie w None FINAL [facility], [address] [facility] [id number] 0 08/29 CBC w/ auto diff NRBC % /100WB C 0.0 9.0 0.0 FINAL [facility], [address] [facility] [id number] 0 08/29 CBC w/ auto diff NRBC, absol [place], x 10^3/ uL x10^3/ uL 0.0 0.1 0.00 FINAL [facility], [address] [facility] [id number] 0 08/29 CBC w/ auto diff Emily % % 40.0 70.0 62.4 FINAL [facility], [address] [facility] [id number] 0 08/29 CBC w/ auto diff LY % % 15.0 41.0 18.0 FINAL [facility], [address] [facility] [id number] 0 08/29 CBC w/ auto diff MO % % 2.0 8.0 15.9 High FINAL [facility], [address] [facility] [id number] 0 08/29 CBC w/ auto diff EO % % 0.0 3.0 0.5 FINAL [facility], [address] [facility] [id number] 0 08/29 CBC w/ auto diff BA % % 0.0 1.0 2.1 High FINAL Ami Negandhi [facility], [address] [place] [id number] 0 08/29 CBC w/ auto diff IG % % 0.0 1.0 1.1 High FINAL Ami Negandhi Geraldine, [address] [place] [id number] 0 08/29 CBC w/ auto diff Emily # (ANC) x10^3/ uL 2.0 8.4 1.18 Low [facility], [address] [facility] [id number] 0 08/29 CBC w/ auto diff LY # x10^3/ uL 0.7 5.1 0.34 Low [facility], [address] [facility] [id number] 0 08/29 CBC w/ auto diff MO # x10^3/ uL 0.0 1.6 0.30 FINAL [facility] [address] [facility] [id number] 0 08/29 CBC w/ auto diff EO # x10^3/ uL 0.0 1.1 0.01 FINAL [facility] [address] [facility] [id number] 0 08/29 CBC w/ auto diff BA # x10^3/ uL 0.0 0.2 0.04 FINAL [facility] [address] [facility] [id number] 0 08/29 CBC w/ auto diff IG # x10^3/ uL 0.0 0.1 0.02 FINAL [facility], [address] [facility] [id number] 0 09/05 CMP Bilir ubin, total mg/dL 0.3 1.0 0.5 FINAL Ami Negandhi Geraldine, [address] [facility] [id number] 0 09/05 CMP AST/S GOT U/L 13.0 39.0 21 FINAL Ami [facility] [place], [address] [facility] [id number] 0 09/05 CMP ALT/S GPT U/L 7.0 52.0 30 FINAL Ami [facility], [address] [facility] [id number] 0 09/05 CMP Alkal ine phosp hatas e U/L 34.0 104.0 66 FINAL Ami [facility], [address] [facility] [id number] 0 09/05 CMP Gluco se mg/dL 70.0 105.0 113 High FINAL [facility], [address] [facility] [id number] 0 09/05 CMP BUN mg/dL 7.0 25.0 9 FINAL [facility], [address] [facility] [id number] 0 09/05 CMP Creat inine mg/dL 0.6 1.3 0.77 FINAL [facility], [address] [facility] [id number] 0 09/05 CMP Calci um mg/dL 8.4 10.5 9.5 FINAL [facility], [address] [facility] [id number] 0 09/05 CMP Total prote in g/dL 6.3 8.2 7.5 FINAL [facility], [address] [facility] [id number] 0 09/05 CMP Album in g/dL 3.5 5.0 4.8 FINAL [facility], [address] [facility] [id number] 0 09/05 CMP Sodiu m mEq/L 135.0 145.0 136 FINAL [facility], [address] [facility] [id number] 0 09/05 CMP Potas sium mEq/L 3.4 5.0 3.5 FINAL Am[facility], [address] [facility] [id number] 0 09/05 CMP Chlor uri, mEq/L mEq/L 96.0 107.0 101 FINAL Am[facility], [address] [facility] [id number] 0 09/05 CMP CO2 whitney nt mEq/L 21.0 31.0 29 FINAL [facility], [address] [facility] [id number] 0 09/05 CMP GFR estim ate mL/min /1.73m 2 89 Normal Range:Nor mal renal function >or= 60Moderat srinivas decreased 30 - 59Severel y decreased 15 - 29Renal Failure < 15Please note the GFR value should be multiplie d by 1.210 if the patient is -A merican. FINAL Ami [facility], [address] [facility]. [facility] [id number] 0 09/05 CBC w/ auto diff WBC x10^3/ uL 4.4 10.4 2.66 Low FINAL [facility], [address] [facility]. [facility] [id number] 0 09/05 CBC w/ auto diff RBC x10^6/ uL 4.2 5.4 3.68 Low FINAL [facility], [address] [place] [address]. [facility] [id number] 0 09/05 CBC w/ auto diff HGB g/dL 12.0 16.0 10.9 Low FINAL [facility], [address] [facility]. [facility] [id number] 0 09/05 CBC w/ auto diff HCT % 37.0 47.0 33.9 Low FINAL [facility], [address] [place] [address]. [facility] [id number] 0 09/05 CBC w/ auto diff MCV fL 80.0 98.0 92.1 FINAL [facility], [address] [facility]. [facility] [id number] 0 09/05 CBC w/ auto diff MCH pg 28.0 32.0 29.6 FINAL [facility], [address] [facility] [id number] 0 09/05 CBC w/ auto diff MCHC g/dL 30.7 34.7 32.2 FINAL Am[facility], [address] [facility] [id number] 0 09/05 CBC w/ auto diff RDW-S D 37.0 54.0 59.20 High FINAL Am[facility], [address] [facility] [id number] 0 09/05 CBC w/ auto diff RDW % 11.5 14.5 18.6 High FINAL Am[facility], [address] [facility] [id number] 0 09/05 CBC w/ auto diff PLT x10^3/ uL 120.0 400.0 235 FINAL [facility], [address] [facility] [id number] 0 09/05 CBC w/ auto diff MPV fL 6.5 12.0 9.3 FINAL [facility], [address] [facility] [id number] 0 09/05 CBC w/ auto diff Smear revie w None FINAL [facility], [address] [facility] [id number] 0 09/05 CBC w/ auto diff NRBC % /100WB C 0.0 9.0 0.8 FINAL [facility], [address] [facility] [id number] 0 09/05 CBC w/ auto diff NRBC, absol [place], x 10^3/ uL x10^3/ uL 0.0 0.1 0.02 FINAL [facility], [address] [facility] [id number] 0 09/05 CBC w/ auto diff Emily % % 40.0 70.0 7.5 Low FINAL [facility], [address] [facility] [id number] 0 09/05 CBC w/ auto diff LY % % 15.0 41.0 16.9 FINAL [facility], [address] [facility] [id number] 0 09/05 CBC w/ auto diff MO % % 2.0 8.0 39.5 High FINAL Am[facility], [address] [facility] [id number] 0 09/05 CBC w/ auto diff EO % % 0.0 3.0 1.5 FINAL Ami Negandhi Geraldine, [address] [place] [id number] 0 09/05 CBC w/ auto diff BA % % 0.0 1.0 1.5 High FINAL Ami Negandhi Geraldine, [address] [place] [id number] 0 09/05 CBC w/ auto diff IG % % 0.0 1.0 33.1 High FINAL Ami Negandhi Geraldine, [address] [place] [id number] 0 09/05 CBC w/ auto diff EO # x10^3/ uL 0.0 1.1 0.04 FINAL Ami Negandhi Geraldine, [address] [place] [id number] 0 09/05 CBC w/ auto diff Emily # (ANC) x10^3/ uL 2.0 8.4 0.20 Low [facility]AL [facility], [address] [facility] [id number] 0 09/05 CBC w/ auto diff LY # x10^3/ uL 0.7 5.1 0.45 Low FINAL [facility], [address] [place] [id number] 0 09/05 CBC w/ auto diff MO # x10^3/ uL 0.0 1.6 1.05 FINAL [facility], [address] [place] [id number] 0 09/05 CBC w/ auto diff BA # x10^3/ uL 0.0 0.2 0.04 FINAL Ami Negandhi [place], [address] [place] [id number] 0 09/05 CBC w/ auto diff IG # x10^3/ uL 0.0 0.1 0.88 High FINAL Ami Negandhi Geraldine, [address] [place] [id number] 0 09/12 CMP Bilir ubin, total mg/dL 0.3 1.0 0.5 FINAL Debbie e [place] Geraldine, [address] [facility] [id number] 0 09/12 CMP AST/S GOT U/L 13.0 39.0 19 FINAL Debbie jolly [facility], [address] [facility] [id number] 0 09/12 CMP ALT/S GPT U/L 7.0 52.0 22 FINAL Debbie jolly [facility], [address] [facility] [id number] 0 09/12 CMP Alkal ine phosp hatas e U/L 34.0 104.0 58 FINAL Debbie jolly [facility], [address] [facility] [id number] 0 09/12 CMP Gluco se mg/dL 70.0 105.0 97 FINAL [facility] jolly [facility], [address] [facility] [id number] 0 09/12 CMP BUN mg/dL 7.0 25.0 10 FINAL [facility] jolly [facility], [address] [facility] [id number] 0 09/12 CMP Creat inine mg/dL 0.6 1.3 0.88 FINAL Debbie jolly [facility], [address] [facility] [id number] 0 09/12 CMP Calci um mg/dL 8.4 10.5 9.4 FINAL [facility] jolly [facility], [address] [facility] [id number] 0 09/12 CMP Total prote in g/dL 6.3 8.2 7.6 FINAL Debbie jolly [facility], [address] [facility] [id number] 0 09/12 CMP Album in g/dL 3.5 5.0 4.7 FINAL Debbie jolly [facility], [address] [facility] [id number] 0 09/12 CMP Sodiu m mEq/L 135.0 145.0 136 FINAL Debbie jolly [facility], [address] [facility] [id number] 0 09/12 CMP Potas sium mEq/L 3.4 5.0 3.7 FINAL [place], [address] [facility] [address] [facility] [id number] 0 09/12 CMP Chlor uri, mEq/L mEq/L 96.0 107.0 102 FINAL Rosendo Hines, [address] [facility] [address] [address] [facility] [id number] 0 09/12 CMP CO2 whitney nt mEq/L 21.0 31.0 29 FINAL [place], [address] [facility] [address] [facility] [id number] 0 09/12 CMP GFR estim ate mL/min /1.73m 2 76 Normal Range:Nor mal renal function >or= 60Moderat srinivas decreased 30 - 59Severel y decreased 15 - 29Renal Failure < 15Please note the GFR value should be multiplie d by 1.210 if the patient is -A merican. FINAL [facility] [place], [address] [facility] [id number] 0 09/12 CBC w/ auto diff WBC x10^3/ uL 4.4 10.4 3.40 Low FINAL Debbie Sánchez Geraldine, [address] [facility]. [facility] [id number] 0 09/12 CBC w/ auto diff RBC x10^6/ uL 4.2 5.4 3.95 Low FINAL Debbie Sánchez Geraldine, [address] [facility]. [facility] [id number] 0 09/12 CBC w/ auto diff HGB g/dL 12.0 16.0 11.4 Low FINAL [place], [address] [facility] [id number] 0 09/12 CBC w/ auto diff HCT % 37.0 47.0 36.2 Low FINAL Rosendo Hines, [address] [facility] [address] [facility] [id number] 0 09/12 CBC w/ auto diff MCV fL 80.0 98.0 91.6 FINAL [place], [address] [facility] [address] [facility] [id number] 0 09/12 CBC w/ auto diff MCH pg 28.0 32.0 28.9 FINAL Debbie Sánchez Geraldine, [address] [facility] [id number] 0 09/12 CBC w/ auto diff MCHC g/dL 30.7 34.7 31.5 FINAL Debbie Sánchez [place], [address] [facility] [id number] 0 09/12 CBC w/ auto diff RDW-S D 37.0 54.0 59.10 High FINAL Debbie Sánchez [place], [address] [facility] [id number] 0 09/12 CBC w/ auto diff RDW % 11.5 14.5 17.7 High FINAL Debbie Sánchez Gerald[place], [address] [facility] [id number] 0 09/12 CBC w/ auto diff PLT x10^3/ uL 120.0 400.0 183 FINAL Debbie Sánchez [place], [address] [facility] [id number] 0 09/12 CBC w/ auto diff MPV fL 6.5 12.0 8.9 FINAL Debbie Sánchez [place], [address] [facility] [id number] 0 09/12 CBC w/ auto diff Smear revie w None FINAL Debbie Sánchez Gerald[place], [address] [facility] [id number] 0 09/12 CBC w/ auto diff NRBC % /100WB C 0.0 9.0 0.0 FINAL Debbie Sánchez Gerald[place], [address] [facility] [id number] 0 09/12 CBC w/ auto diff NRBC, absol [place], x 10^3/ uL x10^3/ uL 0.0 0.1 0.00 FINAL Debbie Sánchez Gerald[place], [address] [facility] [id number] 0 09/12 CBC w/ auto diff Emily % % 40.0 70.0 32.0 Low FINAL Debbie Sánchez [place], [address] [facility] [id number] 0 09/12 CBC w/ auto diff LY % % 15.0 41.0 45.3 High FINAL Debbie e [place], [address] [place] [id number] 0 09/12 CBC w/ auto diff MO % % 2.0 8.0 10.9 High FINAL Debbie e [place] Geraldine, [address] [facility] [id number] 0 09/12 CBC w/ auto diff EO % % 0.0 3.0 3.8 High FINAL Debbie e [place], [address] [facility] [id number] 0 09/12 CBC w/ auto diff BA % % 0.0 1.0 1.8 High FINAL Debbie e [place], [address] [facility] [id number] 0 09/12 CBC w/ auto diff IG % % 0.0 1.0 6.2 High FINAL Debbie e [place] Geraldine, [address] [facility] [id number] 0 09/12 CBC w/ auto diff Emily # (ANC) x10^3/ uL 2.0 8.4 1.09 Low FINAL Debbie e [place] Geraldine, [address] [facility] [id number] 0 09/12 CBC w/ auto diff LY # x10^3/ uL 0.7 5.1 1.54 FINAL Debbie e [place] Geraldine, [address] [facility] [id number] 0 09/12 CBC w/ auto diff MO # x10^3/ uL 0.0 1.6 0.37 FINAL Debbie e [place] Geraldine, [address] [facility] [id number] 0 09/12 CBC w/ auto diff EO # x10^3/ uL 0.0 1.1 0.13 FINAL Debbie e [place]ine, [address] [facility] [id number] 0 09/12 CBC w/ auto diff BA # x10^3/ uL 0.0 0.2 0.06 FINAL Debbie e [place]ine, [address] [facility] [id number] 0 09/12 CBC w/ auto diff IG # x10^3/ uL 0.0 0.1 0.21 High FINAL Debbie Sánchez Gerald[place], [address] [facility] [id number] 0 09/19 Magne sium panel Magne sium, mg/dL mg/dL 1.6 2.3 1.96 FINAL [facility], [address] [facility] [id number] 0 09/19 CBC w/ auto diff WBC x10^3/ uL 4.4 10.4 7.11 FINAL [facility], [address] [facility] [id number] 0 09/19 CBC w/ auto diff RBC x10^6/ uL 4.2 5.4 3.70 Low FINAL [facility], [address] [facility] [id number] 0 09/19 CBC w/ auto diff HGB g/dL 12.0 16.0 11.0 Low FINAL [facility], [address] [facility] [id number] 0 09/19 CBC w/ auto diff HCT % 37.0 47.0 34.1 Low FINAL [facility], [address] [facility] [id number] 0 09/19 CBC w/ auto diff MCV fL 80.0 98.0 92.2 FINAL [facility], [address] [facility] [id number] 0 09/19 CBC w/ auto diff MCH pg 28.0 32.0 29.7 FINAL [facility], [address] [facility] [id number] 0 09/19 CBC w/ auto diff MCHC g/dL 30.7 34.7 32.3 FINAL [facility], [address] [facility] [id number] 0 09/19 CBC w/ auto diff RDW-S D 37.0 54.0 58.20 High FINAL [facility], [address] [facility] [id number] 0 09/19 CBC w/ auto diff RDW % 11.5 14.5 17.2 High FINAL [facility], [address] [facility] [id number] 0 09/19 CBC w/ auto diff PLT x10^3/ uL 120.0 400.0 207 FINAL [facility], [address] [facility] [id number] 0 09/19 CBC w/ auto diff MPV fL 6.5 12.0 8.9 FINAL [facility], [address] [facility] [id number] 0 09/19 CBC w/ auto diff Smear revie w None FINAL [facility], [address] [facility] [id number] 0 09/19 CBC w/ auto diff NRBC % /100WB C 0.0 9.0 0.0 FINAL [facility], [address] [facility] [id number] 0 09/19 CBC w/ auto diff NRBC, absol [place], x 10^3/ uL x10^3/ uL 0.0 0.1 0.00 FINAL [facility], [address] [facility] [id number] 0 09/19 CBC w/ auto diff Emily % % 40.0 70.0 59.6 FINAL [facility], [address] [facility] [id number] 0 09/19 CBC w/ auto diff LY % % 15.0 41.0 13.9 Low FINAL [facility], [address] [facility] [id number] 0 09/19 CBC w/ auto diff MO % % 2.0 8.0 13.1 High FINAL [facility], [address] [facility] [id number] 0 09/19 CBC w/ auto diff EO % % 0.0 3.0 4.2 High FINAL [facility], [address] [facility] [id number] 0 09/19 CBC w/ auto diff BA % % 0.0 1.0 2.0 High FINAL [facility], [address] [facility] [id number] 0 09/19 CBC w/ auto diff IG % % 0.0 1.0 7.2 High FINAL [facility], [address] [facility] [id number] 0 09/19 CBC w/ auto diff Emily # (ANC) x10^3/ uL 2.0 8.4 4.24 FINAL [facility], [address] [facility] [id number] 0 09/19 CBC w/ auto diff LY # x10^3/ uL 0.7 5.1 0.99 FINAL [facility], [address] [facility] [id number] 0 09/19 CBC w/ auto diff MO # x10^3/ uL 0.0 1.6 0.93 FINAL [facility], [address] [facility] [id number] 0 09/19 CBC w/ auto diff EO # x10^3/ uL 0.0 1.1 0.30 FINAL [facility], [address] [facility] [id number] 0 09/19 CBC w/ auto diff BA # x10^3/ uL 0.0 0.2 0.14 FINAL [facility], [address] [facility] [id number] 0 09/19 CBC w/ auto diff IG # x10^3/ uL 0.0 0.1 0.51 High FINAL [facility], [address] [facility] [id number] 0 09/19 CMP Bilir ubin, total mg/dL 0.3 1.0 0.3 FINAL [facility], [address] [facility] [id number] 0 09/19 CMP AST/S GOT U/L 13.0 39.0 16 FINAL [facility], [address] [facility] [id number] 0 09/19 CMP ALT/S GPT U/L 7.0 52.0 20 FINAL [facility], [address] [place] [address] [facility] [id number] 0 09/19 CMP Alkal ine phosp hatas e U/L 34.0 104.0 107 High FINAL [facility], [address] [facility] [id number] 0 09/19 CMP Gluco se mg/dL 70.0 105.0 86 FINAL [facility], [address] [facility] [id number] 0 09/19 CMP BUN mg/dL 7.0 25.0 11 FINAL [facility] [address] [facility] [place] [address] [facility] [id number] 0 09/19 CMP Creat inine mg/dL 0.6 1.3 0.71 FINAL [facility], [address] [facility] [id number] 0 09/19 CMP Calci um mg/dL 8.4 10.5 9.3 FINAL [facility], [address] [place] [address] [facility] [id number] 0 09/19 CMP Total prote in g/dL 6.3 8.2 7.5 FINAL [facility], [address] [facility] [place] [address] [facility] [id number] 0 09/19 CMP Album in g/dL 3.5 5.0 4.7 FINAL [facility], [address] [place] [address] [facility] [id number] 0 09/19 CMP Sodiu m mEq/L 135.0 145.0 139 FINAL [facility], [address] [facility] [id number] 0 09/19 CMP Potas sium mEq/L 3.4 5.0 3.5 FINAL [facility], [address] [facility] [id number] 0 09/19 CMP Chlor uri, mEq/L mEq/L 96.0 107.0 102 FINAL [facility], [address] [facility] [id number] 0 09/19 CMP CO2 whitney nt mEq/L 21.0 31.0 33 High FINAL [facility], [address] [facility] [id number] 0 09/19 CMP GFR estim ate mL/min /1.73m 2 98 Normal Range:Nor mal renal function >or= 60Moderat srinivas decreased 30 - 59Severel y decreased 15 - 29Renal Failure < 15Please note the GFR value should be multiplie d by 1.210 if the patient is -A merican. FINAL [facility], [address] [facility] [id number] 0 09/26 CBC w/ auto diff WBC x10^3/ uL 4.4 10.4 10.01 FINAL [facility], [address] [facility] [id number] 0 09/26 CBC w/ auto diff RBC x10^6/ uL 4.2 5.4 3.61 Low FINAL [facility], [address] [place] [address]. [facility] [id number] 0 09/26 CBC w/ auto diff HGB g/dL 12.0 16.0 10.8 Low FINAL [facility], [address] [place] [address]. [facility] [id number] 0 09/26 CBC w/ auto diff HCT % 37.0 47.0 34.3 Low FINAL [facility], [address] [facility] [id number] 0 09/26 CBC w/ auto diff MCV fL 80.0 98.0 95.0 FINAL [facility], [address] [facility] [id number] 0 09/26 CBC w/ auto diff MCH pg 28.0 32.0 29.9 FINAL [facility], [address] [facility] [place] [address] [facility] [id number] 0 09/26 CBC w/ auto diff MCHC g/dL 30.7 34.7 31.5 FINAL [facility], [address] [facility] [id number] 0 09/26 CBC w/ auto diff RDW-S D 37.0 54.0 60.20 High FINAL [facility], [address] [facility] [id number] 0 09/26 CBC w/ auto diff RDW % 11.5 14.5 17.4 High FINAL [facility], [address] [facility] [id number] 0 09/26 CBC w/ auto diff PLT x10^3/ uL 120.0 400.0 211 FINAL [facility], [address] [facility] [id number] 0 09/26 CBC w/ auto diff MPV fL 6.5 12.0 9.1 FINAL [facility], [address] [facility] [id number] 0 09/26 CBC w/ auto diff Smear revie w None FINAL [facility], [address] [facility] [id number] 0 09/26 CBC w/ auto diff NRBC % /100WB C 0.0 9.0 0.0 FINAL [facility], [address] [facility] [id number] 0 09/26 CBC w/ auto diff NRBC, absol [place], x 10^3/ uL x10^3/ uL 0.0 0.1 0.00 FINAL [facility], [address] [facility] [id number] 0 09/26 CBC w/ auto diff Emily % % 40.0 70.0 65.6 FINAL [facility], [address] [facility] [id number] 0 09/26 CBC w/ auto diff LY % % 15.0 41.0 11.0 Low FINAL [facility], [address] [facility] [id number] 0 09/26 CBC w/ auto diff MO % % 2.0 8.0 7.6 FINAL [facility], [address] [facility] [id number] 0 09/26 CBC w/ auto diff EO % % 0.0 3.0 2.2 FINAL [facility] [address] [facility] [id number] 0 09/26 CBC w/ auto diff BA % % 0.0 1.0 0.6 FINAL [facility], [address] [facility] [id number] 0 09/26 CBC w/ auto diff IG % % 0.0 1.0 13.0 High FINAL [facility], [address] [facility] [id number] 0 09/26 CBC w/ auto diff Emily # (ANC) x10^3/ uL 2.0 8.4 6.57 FINAL [facility], [address] [facility] [id number] 0 09/26 CBC w/ auto diff LY # x10^3/ uL 0.7 5.1 1.10 FINAL [facility], [address] [facility] [id number] 0 09/26 CBC w/ auto diff MO # x10^3/ uL 0.0 1.6 0.76 FINAL [facility], [address] [facility] [id number] 0 09/26 CBC w/ auto diff EO # x10^3/ uL 0.0 1.1 0.22 FINAL [facility], [address] [facility] [id number] 0 09/26 CBC w/ auto diff BA # x10^3/ uL 0.0 0.2 0.06 FINAL [facility], [address] [facility] [id number] 0 09/26 CBC w/ auto diff IG # x10^3/ uL 0.0 0.1 1.30 High FINAL [facility], [address] [facility] [id number] 0 09/26 CMP Bilir ubin, total mg/dL 0.3 1.0 0.4 FINAL [facility], [address] [facility] [id number] 0 11/01 /2023 CMP AST/S GOT U/L 13.0 39.0 17 FINAL [facility], [address] [facility] [id number] 0 09/26 CMP ALT/S GPT U/L 7.0 52.0 19 FINAL [facility], [address] [facility] [id number] 0 09/26 CMP Alkal ine phosp hatas e U/L 34.0 104.0 142 High FINAL [facility], [address] [facility] [id number] 0 09/26 CMP Gluco se mg/dL 70.0 105.0 90 FINAL [facility], [address] [facility] [id number] 0 09/26 CMP BUN mg/dL 7.0 25.0 9 FINAL [facility], [address] [facility] [id number] 0 09/26 CMP Creat inine mg/dL 0.6 1.3 0.70 FINAL [facility], [address] [facility] [id number] 0 09/26 CMP Calci um mg/dL 8.4 10.5 9.4 FINAL [facility], [address] [facility] [id number] 0 09/26 CMP Total prote in g/dL 6.3 8.2 7.3 FINAL [facility], [address] [facility] [id number] 0 09/26 CMP Album in g/dL 3.5 5.0 4.5 FINAL [facility], [address] [facility] [id number] 0 09/26 CMP Sodiu m mEq/L 135.0 145.0 137 FINAL [facility], [address] [facility] [id number] 0 09/26 CMP Potas sium mEq/L 3.4 5.0 4.1 FINAL [facility], [address] [facility] [id number] 0 09/26 CMP Chlor uri, mEq/L mEq/L 96.0 107.0 102 FINAL [facility], [address] [facility] [id number] 0 09/26 CMP CO2 whitney nt mEq/L 21.0 31.0 31 FINAL [facility], [address] [place] [address]. [facility] [id number] 0 09/26 CMP GFR estim ate mL/min /1.73m 2 99 Normal Range:Nor mal renal function >or= 60Moderat srinivas decreased 30 - 59Severel y decreased 15 - 29Renal Failure < 15Please note the GFR value should be multiplie d by 1.210 if the patient is -A merican. FINAL [facility], [address] [place] [address] [id number] 0 10/03 CMP Bilir ubin, total mg/dL 0.3 1.0 0.[address] [id number] 0 10/03 CMP AST/S GOT U/L 13.0 39.0 26 FINAL [facility], [address] [place] [address] [id number] 0 10/03 CMP ALT/S GPT U/L 7.0 52.0 [address] [id number] 0 10/03 CMP Alkal ine phosp hatas e U/L 34.0 104.0 137 High FINAL [address] [id number] 0 10/03 CMP Gluco se mg/dL 70.0 105.0 91 FINAL [facility], [address] [place] [address] [id number] 0 10/03 CMP BUN mg/dL 7.0 25.0 [address] [id number] 0 10/03 CMP Creat inine mg/dL 0.6 1.3 0.73 FINAL [facility], [address] [facility]. [facility] [id number] 0 10/03 CMP Calci um mg/dL 8.4 10.5 9.5 FINAL [facility], [address] [facility]. [facility] [id number] 0 10/03 CMP Total prote in g/dL 6.3 8.2 7.4 FINAL [facility], [address] [facility]. [facility] [id number] 0 10/03 CMP Album in g/dL 3.5 5.0 4.8 FINAL [facility], [address] [facility]. [facility] [id number] 0 10/03 CMP Sodiu m mEq/L 135.0 145.0 139 FINAL [facility], [address] [facility]. [facility] [id number] 0 10/03 CMP Potas sium mEq/L 3.4 5.0 3.8 FINAL [facility], [address] [facility]. [facility] [id number] 0 10/03 CMP Chlor uri, mEq/L mEq/L 96.0 107.0 102 FINAL [facility], [address] [facility]. [facility] [id number] 0 10/03 CMP CO2 whitney nt mEq/L 21.0 31.0 30 FINAL [facility], [address] [facility]. [facility] [id number] 0 10/03 CMP GFR estim ate mL/min /1.73m 2 95 Normal Range:Nor mal renal function >or= 60Moderat srinivas decreased 30 - 59Severel y decreased 15 - 29Renal Failure < 15Please note the GFR value should be multiplie d by 1.210 if the patient is -A merican. FINAL [facility], [address] [facility]. [facility] [id number] 0 10/03 CBC w/ auto diff WBC x10^3/ uL 4.4 10.4 7.48 FINAL [facility], [address] [facility]. [facility] [id number] 0 10/03 CBC w/ auto diff RBC x10^6/ uL 4.2 5.4 3.67 Low FINAL [facility], [address] [facility] [id number] 0 10/03 CBC w/ auto diff HGB g/dL 12.0 16.0 11.1 Low FINAL [facility], [address] [facility] [id number] 0 10/03 CBC w/ auto diff HCT % 37.0 47.0 35.0 Low FINAL [facility], [address] [facility] [id number] 0 10/03 CBC w/ auto diff MCV fL 80.0 98.0 95.4 FINAL [facility], [address] [facility] [id number] 0 10/03 CBC w/ auto diff MCH pg 28.0 32.0 30.2 FINAL [facility], [address] [facility] [id number] 0 10/03 CBC w/ auto diff MCHC g/dL 30.7 34.7 31.7 FINAL [facility], [address] [facility] [id number] 0 10/03 CBC w/ auto diff RDW-S D 37.0 54.0 59.40 High FINAL [facility], [address] [facility] [id number] 0 10/03 CBC w/ auto diff RDW % 11.5 14.5 17.0 High FINAL [facility], [address] [facility] [id number] 0 10/03 CBC w/ auto diff PLT x10^3/ uL 120.0 400.0 253 FINAL [facility], [address] [facility] [id number] 0 10/03 CBC w/ auto diff MPV fL 6.5 12.0 8.8 FINAL [facility], [address] [facility] [id number] 0 10/03 CBC w/ auto diff Smear revie w None FINAL [facility], [address] [facility] [id number] 0 10/03 CBC w/ auto diff NRBC % /100WB C 0.0 9.0 0.0 FINAL [facility], [address] [facility] [id number] 0 10/03 CBC w/ auto diff NRBC, absol [place], x 10^3/ uL x10^3/ uL 0.0 0.1 0.00 FINAL [facility], [address] [facility] [id number] 0 10/03 CBC w/ auto diff Emily % % 40.0 70.0 61.6 FINAL [facility], [address] [facility] [id number] 0 10/03 CBC w/ auto diff LY % % 15.0 41.0 12.7 Low FINAL [facility], [address] [facility] [id number] 0 10/03 CBC w/ auto diff MO % % 2.0 8.0 10.3 High FINAL [facility], [address] [facility] [id number] 0 10/03 CBC w/ auto diff EO % % 0.0 3.0 2.4 FINAL [facility], [address] [facility] [id number] 0 10/03 CBC w/ auto diff BA % % 0.0 1.0 2.7 High FINAL [facility], [address] [facility] [id number] 0 10/03 CBC w/ auto diff IG % % 0.0 1.0 10.3 High [facility]AL [facility] [address] [facility] [id number] 0 10/03 CBC w/ auto diff Emily # (ANC) x10^3/ uL 2.0 8.4 4.61 FINAL [facility] [address] [facility] [id number] 0 10/03 CBC w/ auto diff LY # x10^3/ uL 0.7 5.1 0.95 FINAL [facility], [address] [facility] [id number] 0 10/03 CBC w/ auto diff MO # x10^3/ uL 0.0 1.6 0.77 FINAL [facility], [address] [facility] [id number] 0 10/03 CBC w/ auto diff EO # x10^3/ uL 0.0 1.1 0.18 FINAL [facility], [address] [facility] [id number] 0 10/03 CBC w/ auto diff BA # x10^3/ uL 0.0 0.2 0.20 FINAL [facility], [address] [facility] [id number] 0 10/03 CBC w/ auto diff IG # x10^3/ uL 0.0 0.1 0.77 High FINAL [facility], [address] [facility] [id number] 0 10/10 Manua l diffe renti al Neutr ophil % (M) % 35.0 65.0 56 FINAL [facility], [address] [facility] [id number] 0 10/10 Manua l diffe renti al Band % % 0.0 5.0 6 High FINAL [facility], [address] [facility] [id number] 0 10/10 Manua l diffe renti al Lymph ocyte % % 15.0 41.0 23 FINAL [facility], [address] [facility] [id number] 0 10/10 Manua l diffe renti al Monoc yte % % 4.0 10.0 11 High FINAL [facility], [address] [facility] [id number] 0 10/10 Manua l diffe renti al Eosin ophil % % 0.0 6.0 0 FINAL [facility], [address] [facility] [id number] 0 10/10 Manua l diffe renti al Basop hil % % 0.0 2.0 0 FINAL [facility], [address] [place] [id number] 0 10/10 Manua l diffe renti al Metam yeloc yte % % 0.0 0.0 2 High FINAL [facility], [address] [facility] [id number] 0 10/10 Manua l diffe renti al Myelo cyte % % 0.0 0.0 2 High FINAL [facility], [address] [facility] [id number] 0 10/10 Manua l diffe renti al Promy elocy te % % 0.0 0.0 0 FINAL [facility], [address] [facility] [id number] 0 10/10 Manua l diffe renti al Blast s % % 0.0 0.0 0 FINAL [facility], [address] [facility] [id number] 0 10/10 Manua l diffe renti al Atypi susan/V efren t I lymph ocyte % % 0.0 0.0 0 FINAL [facility], [address] [facility] [id number] 0 10/10 Manua l diffe renti al Hairy cell % 0.0 0.0 0 FINAL [facility], [address] [facility] [id number] 0 10/10 Manua l diffe renti al Plasm a cell % 0.0 0.0 0 FINAL [facility], [address] [facility] [id number] 0 10/10 Manua l diffe renti al Immat ure cell, % (M) % 0.0 0.0 0 FINAL [facility], [address] [facility] [id number] 0 10/10 Manua l diffe renti al NRBC (M) % 0.0 0.0 0 FINAL [facility], [address] [facility] [id number] 0 10/10 Manua l diffe renti al Plate let estim ate Adequat e FINAL [facility], [address] [place] [id number] 0 10/10 Manua l diffe renti al Aniso cytos is (size ) 1+ FINAL [facility], [address] [place] [id number] 0 10/10 Manua l diffe renti al Ovalo cyte SLIGHT FINAL [facility], [address] [place] [id number] 0 10/10 Manua l diffe renti al Schis tocyt e Slight FINAL [facility], [address] [place] [id number] 0 10/10 Manua l diffe renti al Teard rop cells Slight FINAL [facility], [address] [facility] [id number] 0 10/10 Manua l diffe renti al Manua l diff other None FINAL [facility], [address] [facility] [id number] 0 10/10 CMP Bilir ubin, total mg/dL 0.3 1.0 0.4 FINAL [facility], [address] [facility] [id number] 0 10/10 CMP AST/S GOT U/L 13.0 39.0 27 FINAL [facility], [address] [place] [id number] 0 10/10 CMP ALT/S GPT U/L 7.0 52.0 51 FINAL [facility], [address] [facility] [id number] 0 10/10 CMP Alkal ine phosp hatas e U/L 34.0 104.0 117 High FINAL [facility], [address] [place] [id number] 0 10/10 CMP Gluco se mg/dL 70.0 105.0 87 FINAL [facility], [address] [place] [id number] 0 10/10 CMP BUN mg/dL 7.0 25.0 14 FINAL [facility] [address] [facility] [place] [facility] [address] [facility] [id number] 0 10/10 CMP Creat inine mg/dL 0.6 1.3 0.81 FINAL [facility], [address] [facility] [place] [facility] [address] [facility] [id number] 0 10/10 CMP Calci um mg/dL 8.4 10.5 9.2 FINAL [facility], [address] [facility] [place] [facility] [address] [facility] [id number] 0 10/10 CMP Total prote in g/dL 6.3 8.2 7.2 FINAL [facility] [address] [facility] [id number] 0 10/10 CMP Album in g/dL 3.5 5.0 4.6 FINAL [facility] [address] [facility] [id number] 0 10/10 CMP Sodiu m mEq/L 135.0 145.0 136 FINAL [facility] [address] [facility] [id number] 0 10/10 CMP Potas sium mEq/L 3.4 5.0 3.6 FINAL [facility] [address] [facility] [id number] 0 10/10 CMP Chlor uri, mEq/L mEq/L 96.0 107.0 102 FINAL [facility], [address] [facility] [id number] 0 10/10 CMP CO2 whitney nt mEq/L 21.0 31.0 29 FINAL [facility] [address] [facility] [id number] 0 10/10 CMP GFR estim ate mL/min /1.73m 2 84 Normal Range:Nor mal renal function >or= 60Moderat srinivas decreased 30 - 59Severel y decreased 15 - 29Renal Failure < 15Please note the GFR value should be multiplie d by 1.210 if the patient is -A merican. FINAL [facility] [place], [address] [address] [facility] [id number] 0 10/10 CBC w/ auto diff WBC x10^3/ uL 4.4 10.4 4.43 FINAL [facility], [address] [facility] [id number] 0 10/10 CBC w/ auto diff RBC x10^6/ uL 4.2 5.4 3.51 Low FINAL [facility], [address] [facility] [id number] 0 10/10 CBC w/ auto diff HGB g/dL 12.0 16.0 10.8 Low FINAL [facility], [address] [facility] [id number] 0 10/10 CBC w/ auto diff HCT % 37.0 47.0 33.5 Low FINAL [facility], [address] [facility] [id number] 0 10/10 CBC w/ auto diff MCV fL 80.0 98.0 95.4 FINAL [facility], [address] [facility] [id number] 0 10/10 CBC w/ auto diff MCH pg 28.0 32.0 30.8 FINAL [facility], [address] [facility] [id number] 0 10/10 CBC w/ auto diff MCHC g/dL 30.7 34.7 32.2 FINAL [facility], [address] [facility] [id number] 0 10/10 CBC w/ auto diff RDW-S D 37.0 54.0 57.60 High FINAL [facility], [address] [facility] [id number] 0 10/10 CBC w/ auto diff RDW % 11.5 14.5 16.5 High FINAL [facility], [address] [facility] [id number] 0 10/10 CBC w/ auto diff PLT x10^3/ uL 120.0 400.0 252 FINAL [facility], [address] [facility] [id number] 0 10/10 CBC w/ auto diff MPV fL 6.5 12.0 9.4 FINAL [facility] [address] [facility] [id number] 0 10/10 CBC w/ auto diff NRBC % /100WB C 0.0 9.0 0.0 FINAL [facility], [address] [facility] [id number] 0 10/10 CBC w/ auto diff NRBC, absol [place], x 10^3/ uL x10^3/ uL 0.0 0.1 0.00 FINAL [facility], [address] [facility] [id number] 0 10/10 CBC w/ auto diff Emily # (ANC) x10^3/ uL 2.0 8.4 2.46 FINAL [facility], [address] [facility] [id number] 0 10/24 CBC w/ auto diff WBC x10^3/ uL 4.4 10.4 2.47 Low FINAL [facility], [address] [facility] [id number] 0 10/24 CBC w/ auto diff RBC x10^6/ uL 4.2 5.4 3.48 Low FINAL [facility], [address] [facility] [id number] 0 10/24 CBC w/ auto diff HGB g/dL 12.0 16.0 10.6 Low FINAL [facility], [address] [facility] [id number] 0 10/24 CBC w/ auto diff HCT % 37.0 47.0 34.5 Low FINAL [facility], [address] [facility] [address] [facility] [id number] 0 10/24 CBC w/ auto diff MCV fL 80.0 98.0 99.1 High FINAL [facility], [address] [facility] [facility] [id number] 0 10/24 CBC w/ auto diff MCH pg 28.0 32.0 30.5 FINAL [facility], [address] [facility] [id number] 0 10/24 CBC w/ auto diff MCHC g/dL 30.7 34.7 30.7 FINAL [facility], [address] [facility] [id number] 0 10/24 CBC w/ auto diff RDW-S D 37.0 54.0 53.90 FINAL [facility], [address] [facility] [id number] 0 10/24 CBC w/ auto diff RDW % 11.5 14.5 14.7 High FINAL [facility], [address] [facility] [id number] 0 10/24 CBC w/ auto diff PLT x10^3/ uL 120.0 400.0 262 FINAL [facility], [address] [facility] [id number] 0 10/24 CBC w/ auto diff MPV fL 6.5 12.0 9.0 FINAL [facility], [address] [facility] [id number] 0 10/24 CBC w/ auto diff Smear revie w None FINAL [facility], [address] [facility] [id number] 0 10/24 CBC w/ auto diff NRBC % /100WB C 0.0 9.0 0.0 [facility], [address] [facility] [id number] 0 10/24 CBC w/ auto diff NRBC, absol [place], x 10^3/ uL x10^3/ uL 0.0 0.1 0.00 FINAL [facility], [address] [facility] [id number] 0 10/24 CBC w/ auto diff Emily % % 40.0 70.0 46.5 [facility], [address] [facility] [id number] 0 10/24 CBC w/ auto diff LY % % 15.0 41.0 33.6 FINAL [facility], [address] [place] [id number] 0 10/24 CBC w/ auto diff MO % % 2.0 8.0 12.6 High FINAL [facility], [address] [place] [id number] 0 10/24 CBC w/ auto diff EO % % 0.0 3.0 4.9 High FINAL [facility], [address] [place] [id number] 0 10/24 CBC w/ auto diff BA % % 0.0 1.0 1.2 High FINAL [facility], [address] [place] [id number] 0 10/24 CBC w/ auto diff IG % % 0.0 1.0 1.2 High FINAL [facility], [address] [facility] [id number] 0 10/24 CBC w/ auto diff Emily # (ANC) x10^3/ uL 2.0 8.4 1.15 Low [facility], [address] [facility] [id number] 0 10/24 CBC w/ auto diff LY # x10^3/ uL 0.7 5.1 0.83 [facility] [address] [facility] [id number] 0 10/24 CBC w/ auto diff MO # x10^3/ uL 0.0 1.6 0.31 [facility], [address] [facility] [id number] 0 10/24 CBC w/ auto diff EO # x10^3/ uL 0.0 1.1 0.12 FINAL [facility], [address] [place] [id number] 0 10/24 CBC w/ auto diff BA # x10^3/ uL 0.0 0.2 0.03 FINAL [facility], [address] [place] [id number] 0 10/24 CBC w/ auto diff IG # x10^3/ uL 0.0 0.1 0.03 [facility], [address] [facility] [id number] 0 10/24 CMP Bilir ubin, total mg/dL 0.3 1.0 0.5 FINAL [facility], [address] [facility] [id number] 0 10/24 CMP AST/S GOT U/L 13.0 39.0 17 FINAL [facility], [address] [facility] [id number] 0 10/24 CMP ALT/S GPT U/L 7.0 52.0 20 FINAL [facility], [address] [facility] [id number] 0 10/24 CMP Alkal ine phosp hatas e U/L 34.0 104.0 78 FINAL [facility], [address] [facility] [id number] 0 10/24 CMP Gluco se mg/dL 70.0 105.0 88 FINAL [facility], [address] [facility] [id number] 0 10/24 CMP BUN mg/dL 7.0 25.0 11 FINAL [facility], [address] [facility] [id number] 0 10/24 CMP Creat inine mg/dL 0.6 1.3 0.73 FINAL [facility], [address] [facility] [id number] 0 10/24 CMP Calci um mg/dL 8.4 10.5 9.4 FINAL [facility], [address] [facility] [id number] 0 10/24 CMP Total prote in g/dL 6.3 8.2 7.0 FINAL [facility], [address] [facility] [id number] 0 10/24 CMP Album in g/dL 3.5 5.0 4.5 FINAL [facility], [address] [facility] [id number] 0 10/24 CMP Sodiu m mEq/L 135.0 145.0 139 FINAL [facility], [address] [facility] [id number] 0 10/24 CMP Potas sium mEq/L 3.4 5.0 4.0 FINAL [facility], [address] [facility] [id number] 0 10/24 CMP Chlor uri, mEq/L mEq/L 96.0 107.0 103 FINAL [facility], [address] [facility] [facility] [id number] 0 10/24 CMP CO2 whitney nt mEq/L 21.0 31.0 31 FINAL [facility], [address] [facility] [id number] 0 10/24 CMP GFR estim ate mL/min /1.73m 2 94 Normal Range:Nor mal renal function >or= 60Moderat srinivas decreased 30 - 59Severel y decreased 15 - 29Renal Failure < 15Please note the GFR value should be multiplie d by 1.210 if the patient is -A merican. FINAL [facility], [address] [facility]. [facility] [id number] 0 10/31 Manua l diffe renti al Neutr ophil % (M) % 35.0 65.0 63 FINAL [facility], [address] [place] [address] [facility] [id number] 0 10/31 Manua l diffe renti al Band % % 0.0 5.0 2 FINAL [facility], [address] [facility] [id number] 0 10/31 Manua l diffe renti al Lymph ocyte % % 15.0 41.0 15 FINAL [facility], [address] [facility] [id number] 0 10/31 Manua l diffe renti al Monoc yte % % 4.0 10.0 9 FINAL [facility], [address] [facility] [id number] 0 10/31 Manua l diffe renti al Eosin ophil % % 0.0 6.0 1 FINAL [facility], [address] [facility] [id number] 0 10/31 Manua l diffe renti al Basop hil % % 0.0 2.0 1 FINAL [facility], [address] [facility] [id number] 0 10/31 Manua l diffe renti al Metam yeloc yte % % 0.0 0.0 7 High FINAL [facility], [address] [facility] [id number] 0 10/31 Manua l diffe renti al Myelo cyte % % 0.0 0.0 2 High FINAL [facility], [address] [facility] [id number] 0 10/31 Manua l diffe renti al Promy elocy te % % 0.0 0.0 0 FINAL [facility], [address] [facility] [id number] 0 10/31 Manua l diffe renti al Blast s % % 0.0 0.0 0 FINAL [facility], [address] [facility] [id number] 0 10/31 Manua l diffe renti al Atypi susan/V efren t I lymph ocyte % % 0.0 0.0 0 FINAL [facility], [address] [facility] [id number] 0 10/31 Manua l diffe renti al Hairy cell % 0.0 0.0 0 FINAL [facility], [address] [facility] [id number] 0 10/31 Manua l diffe renti al Plasm a cell % 0.0 0.0 0 FINAL [facility], [address] [facility] [id number] 0 10/31 Manua l diffe renti al Immat ure cell, % (M) % 0.0 0.0 0 FINAL [facility], [address] [facility] [id number] 0 10/31 Manua l diffe renti al NRBC (M) % 0.0 0.0 0 FINAL [facility], [address] [place] [id number] 0 10/31 Manua l diffe renti al Plate let estim ate Adequat e FINAL [facility], [address] [facility] [id number] 0 10/31 Manua l diffe renti al Aniso cytos is (size ) 1+ FINAL [facility], [address] [facility] [id number] 0 10/31 Manua l diffe renti al Poiki locyt osis (shap e) 1+ FINAL [facility], [address] [facility] [id number] 0 10/31 Manua l diffe renti al Polyc hroma slim (M) Slight FINAL [facility], [address] [facility] [id number] 0 10/31 Manua l diffe renti al Manua l diff other None FINAL [facility], [address] [facility] [id number] 0 10/31 CMP Bilir ubin, total mg/dL 0.3 1.0 0.3 FINAL [facility], [address] [facility] [id number] 0 10/31 CMP AST/S GOT U/L 13.0 39.0 19 FINAL [facility], [address] [facility] [id number] 0 10/31 CMP ALT/S GPT U/L 7.0 52.0 19 FINAL [facility], [address] [facility] [id number] 0 10/31 CMP Alkal ine phosp hatas e U/L 34.0 104.0 111 High FINAL [facility], [address] [facility] [id number] 0 10/31 CMP Gluco se mg/dL 70.0 105.0 91 FINAL [facility], [address] [facility] [id number] 0 10/31 CMP BUN mg/dL 7.0 25.0 11 FINAL [facility], [address] [facility] [id number] 0 10/31 CMP Creat inine mg/dL 0.6 1.3 0.79 FINAL [facility], [address] [facility] [facility] [id number] 0 10/31 CMP Calci um mg/dL 8.4 10.5 9.5 FINAL [facility], [address] [facility] [id number] 0 10/31 CMP Total prote in g/dL 6.3 8.2 7.4 FINAL [facility], [address] [facility]. [facility] [id number] 0 10/31 CMP Album in g/dL 3.5 5.0 4.6 FINAL [facility], [address] [facility]. [facility] [id number] 0 10/31 CMP Sodiu m mEq/L 135.0 145.0 136 FINAL [facility], [address] [facility] [id number] 0 10/31 CMP Potas sium mEq/L 3.4 5.0 3.9 FINAL [facility], [address] [facility] [id number] 0 10/31 CMP Chlor uri, mEq/L mEq/L 96.0 107.0 102 FINAL [facility], [address] [facility] [id number] 0 10/31 CMP CO2 whitney nt mEq/L 21.0 31.0 29 FINAL [facility], [address] [facility] [place] [facility] [address] [facility] [id number] 0 10/31 CMP GFR estim ate mL/min /1.73m 2 86 Normal Range:Nor mal renal function >or= 60Moderat srinivas decreased 30 - 59Severel y decreased 15 - 29Renal Failure < 15Please note the GFR value should be multiplie d by 1.210 if the patient is -A merican. FINAL [facility], [address] [facility] [id number] 0 10/31 CBC w/ auto diff WBC x10^3/ uL 4.4 10.4 7.46 FINAL [facility], [address] [facility] [id number] 0 10/31 CBC w/ auto diff RBC x10^6/ uL 4.2 5.4 3.48 Low FINAL [facility], [address] [facility] [id number] 0 10/31 CBC w/ auto diff HGB g/dL 12.0 16.0 10.7 Low FINAL [facility], [address] [facility] [address] [facility] [id number] 0 10/31 CBC w/ auto diff HCT % 37.0 47.0 33.6 Low FINAL [facility], [address] [facility] [address] [facility] [id number] 0 10/31 CBC w/ auto diff MCV fL 80.0 98.0 96.6 FINAL [facility], [address] [place], [place] [address] [facility] [id number] 0 10/31 CBC w/ auto diff MCH pg 28.0 32.0 30.7 FINAL [facility], [facility] [address] [facility] [id number] 0 10/31 CBC w/ auto diff MCHC g/dL 30.7 34.7 31.8 FINAL [facility], [address] [facility] [address] [facility] [id number] 0 10/31 CBC w/ auto diff RDW-S D 37.0 54.0 50.90 FINAL [facility], [facility] [address] [facility] [id number] 0 10/31 CBC w/ auto diff RDW % 11.5 14.5 14.6 High FINAL [facility], [address] [facility] [id number] 0 10/31 CBC w/ auto diff PLT x10^3/ uL 120.0 400.0 226 FINAL [facility], [address] [facility] [id number] 0 10/31 CBC w/ auto diff MPV fL 6.5 12.0 9.1 FINAL [facility], [address] [facility] [id number] 0 10/31 CBC w/ auto diff NRBC % /100WB C 0.0 9.0 0.0 FINAL [facility], [address] [facility] [id number] 0 10/31 CBC w/ auto diff NRBC, absol [place], x 10^3/ uL x10^3/ uL 0.0 0.1 0.00 FINAL [facility], [address] [facility] [id number] 0 10/31 CBC w/ auto diff Emily # (ANC) x10^3/ uL 2.0 8.4 4.26 FINAL [facility], [address] [facility] [id number] 0 11/07 CBC w/ auto diff WBC x10^3/ uL 4.4 10.4 9.63 FINAL [facility], [address] [facility] [id number] 0 11/07 CBC w/ auto diff RBC x10^6/ uL 4.2 5.4 3.59 Low FINAL [facility], [address] [facility] [id number] 0 11/07 CBC w/ auto diff HGB g/dL 12.0 16.0 10.9 Low FINAL [facility], [address] [facility] [id number] 0 11/07 CBC w/ auto diff HCT % 37.0 47.0 34.8 Low FINAL [facility], [address] [facility] [id number] 0 11/07 CBC w/ auto diff MCV fL 80.0 98.0 96.9 FINAL [facility], [address] [facility] [id number] 0 11/07 CBC w/ auto diff MCH pg 28.0 32.0 30.4 FINAL [facility], [address] [facility] [id number] 0 11/07 CBC w/ auto diff MCHC g/dL 30.7 34.7 31.3 FINAL [facility], [address] [facility] [id number] 0 11/07 CBC w/ auto diff RDW-S D 37.0 54.0 51.10 FINAL [facility], [address] [facility] [id number] 0 11/07 CBC w/ auto diff RDW % 11.5 14.5 14.5 FINAL [facility], [address] [facility] [id number] 0 11/07 CBC w/ auto diff PLT x10^3/ uL 120.0 400.0 188 FINAL [facility], [address] [facility] [address] [id number] 0 11/07 CBC w/ auto diff MPV fL 6.5 12.0 9.4 [facility], [address] [facility] [facility] [id number] 0 11/07 CBC w/ auto diff Smear revie w None FINAL [facility], [address] [facility] [id number] 0 11/07 CBC w/ auto diff NRBC % /100WB C 0.0 9.0 0.0 FINAL [facility], [address] [facility] [id number] 0 11/07 CBC w/ auto diff NRBC, absol [place], x 10^3/ uL x10^3/ uL 0.0 0.1 0.00 FINAL [facility], [address] [facility] [id number] 0 11/07 CBC w/ auto diff Emily % % 40.0 70.0 75.9 High [facility]AL [facility] [address] [facility] [id number] 0 11/07 CBC w/ auto diff LY % % 15.0 41.0 9.9 Low [facility]AL [facility] [address] [facility] [id number] 0 11/07 CBC w/ auto diff MO % % 2.0 8.0 6.7 [facility]AL [facility], [address] [facility] [id number] 0 11/07 CBC w/ auto diff EO % % 0.0 3.0 1.2 FINAL [facility], [address] [facility] [id number] 0 11/07 CBC w/ auto diff BA % % 0.0 1.0 0.4 FINAL [facility], [address] [facility] [id number] 0 11/07 CBC w/ auto diff IG % % 0.0 1.0 5.9 High FINAL [facility], [address] [facility] [id number] 0 11/07 CBC w/ auto diff Emily # (ANC) x10^3/ uL 2.0 8.4 7.30 FINAL [facility], [address] [facility] [id number] 0 11/07 CBC w/ auto diff LY # x10^3/ uL 0.7 5.1 0.95 FINAL [facility], [address] [facility] [id number] 0 11/07 CBC w/ auto diff MO # x10^3/ uL 0.0 1.6 0.65 FINAL [facility], [address] [facility] [id number] 0 11/07 CBC w/ auto diff EO # x10^3/ uL 0.0 1.1 0.12 [facility]AL [facility] [address] [facility] [id number] 0 11/07 CBC w/ auto diff BA # x10^3/ uL 0.0 0.2 0.04 FINAL [facility], [address] [facility] [id number] 0 11/07 CBC w/ auto diff IG # x10^3/ uL 0.0 0.1 0.57 High FINAL [facility], [address] [place] [facility] [address] [facility] [id number] 0 11/07 CMP Bilir ubin, total mg/dL 0.3 1.0 0.3 FINAL [facility], [address] [facility] [id number] 0 11/07 CMP AST/S GOT U/L 13.0 39.0 22 FINAL [facility], [address] [facility] [id number] 0 11/07 CMP ALT/S GPT U/L 7.0 52.0 25 FINAL [facility], [address] [facility] [id number] 0 11/07 CMP Alkal ine phosp hatas e U/L 34.0 104.0 146 High FINAL [facility], [address] [facility] [id number] 0 11/07 CMP Gluco se mg/dL 70.0 105.0 97 FINAL [facility], [address] [facility] [id number] 0 11/07 CMP BUN mg/dL 7.0 25.0 11 FINAL [facility], [address] [facility] [id number] 0 11/07 CMP Creat inine mg/dL 0.6 1.3 0.72 FINAL [facility], [address] [facility] [id number] 0 11/07 CMP Calci um mg/dL 8.4 10.5 9.5 FINAL [facility], [address] [facility] [id number] 0 11/07 CMP Total prote in g/dL 6.3 8.2 7.2 FINAL [facility], [address] [facility] [place] [facility] [address] [facility] [id number] 0 11/07 CMP Album in g/dL 3.5 5.0 4.4 FINAL [facility], [address] [facility] [place] [facility] [address] [facility] [id number] 0 11/07 CMP Sodiu m mEq/L 135.0 145.0 137 FINAL [facility], [address] [facility] [place] [facility] [address] [facility] [id number] 11/07 CMP Potas sium mEq/L 3.4 5.0 4.3 FINAL [facility], [address] [facility] [id number] 0 11/07 CMP Chlor uri, mEq/L mEq/L 96.0 107.0 103 FINAL [facility], [address] [facility] [id number] 0 11/07 CMP CO2 whitney nt mEq/L 21.0 31.0 30 FINAL [facility], [address] [facility] [id number] 0 11/07 CMP GFR estim ate mL/min /1.73m 2 96 Normal Range:Nor mal renal function >or= 60Moderat srinivas decreased 30 - 59Severel y decreased 15 - 29Renal Failure < 15Please note the GFR value should be multiplie d by 1.210 if the patient is -A merican. FINAL [facility], [address] [facility] [id number] 0 11/14 CMP Bilir ubin, total mg/dL 0.3 1.0 0.3 FINAL [facility], [address] [facility] [id number] 0 11/14 CMP AST/S GOT U/L 13.0 39.0 17 FINAL [facility], [address] [facility] [place] [facility] [address] [facility] [id number] 0 11/14 CMP ALT/S GPT U/L 7.0 52.0 19 FINAL [facility], [address] [facility] [place] [facility] [address] [facility] [id number] 0 11/14 CMP Alkal ine phosp hatas e U/L 34.0 104.0 139 High FINAL [facility], [address] [facility] [id number] 0 11/14 CMP Gluco se mg/dL 70.0 105.0 88 FINAL [facility], [address] [facility] [id number] 0 11/14 CMP BUN mg/dL 7.0 25.0 10 FINAL [facility], [address] [facility] [id number] 0 11/14 CMP Creat inine mg/dL 0.6 1.3 0.72 FINAL [facility], [address] [facility] [id number] 0 11/14 CMP Calci um mg/dL 8.4 10.5 9.0 FINAL [facility], [address] [facility] [facility] [id number] 0 11/14 CMP Total prote in g/dL 6.3 8.2 6.8 FINAL [facility], [address] [facility] [id number] 0 11/14 CMP Album in g/dL 3.5 5.0 4.3 FINAL [facility], [address] [address] [facility] [id number] 0 11/14 CMP Sodiu m mEq/L 135.0 145.0 136 FINAL [facility], [address] [facility] [facility] [id number] 0 11/14 CMP Potas sium mEq/L 3.4 5.0 4.0 FINAL [facility], [address] [facility] [id number] 0 11/14 CMP GFR estim ate mL/min /1.73m 2 96 Normal Range:Nor mal renal function >or= 60Moderat srinivas decreased 30 - 59Severel y decreased 15 - 29Renal Failure < 15Please note the GFR value should be multiplie d by 1.210 if the patient is -A merican. FINAL [facility], [address] [facility] [id number] 0 11/14 CMP Chlor uri, mEq/L mEq/L 96.0 107.0 103 FINAL [facility], [address] [facility] [id number] 0 11/14 CMP CO2 whitney nt mEq/L 21.0 31.0 29 FINAL [facility], [address] [facility] [facility] [id number] 0 11/14 CBC w/ auto diff BA % % 0.0 1.0 1.9 High FINAL [facility], [address] [facility] [id number] 0 11/14 CBC w/ auto diff IG % % 0.0 1.0 7.4 High FINAL [facility], [address] [facility] [id number] 0 11/14 CBC w/ auto diff Emily # (ANC) x10^3/ uL 2.0 8.4 5.05 FINAL [facility], [address] [facility] [facility] [id number] 0 11/14 CBC w/ auto diff LY # x10^3/ uL 0.7 5.1 1.07 FINAL [facility], [address] [facility] [address] [facility] [id number] 0 11/14 CBC w/ auto diff MO # x10^3/ uL 0.0 1.6 0.77 FINAL [facility], [address] [facility] [id number] 0 11/14 CBC w/ auto diff EO # x10^3/ uL 0.0 1.1 0.12 FINAL [facility], [address] [facility] [id number] 0 11/14 CBC w/ auto diff BA # x10^3/ uL 0.0 0.2 0.15 FINAL [facility], [address] [facility] [id number] 0 11/14 CBC w/ auto diff IG # x10^3/ uL 0.0 0.1 0.57 High FINAL [facility], [address] [facility] [id number] 0 11/14 CBC w/ auto diff WBC x10^3/ uL 4.4 10.4 7.73 FINAL [facility], [address] [facility] [id number] 0 11/14 CBC w/ auto diff RBC x10^6/ uL 4.2 5.4 3.55 Low FINAL [facility], [address] [facility] [id number] 0 11/14 CBC w/ auto diff HGB g/dL 12.0 16.0 10.7 Low FINAL [facility], [address] [facility] [id number] 0 11/14 CBC w/ auto diff HCT % 37.0 47.0 35.1 Low FINAL [facility], [address] [facility] [id number] 0 11/14 CBC w/ auto diff MCV fL 80.0 98.0 98.9 High FINAL [facility], [address] [facility] [id number] 0 11/14 CBC w/ auto diff MCH pg 28.0 32.0 30.1 FINAL [facility], [address] [facility] [id number] 0 11/14 CBC w/ auto diff MCHC g/dL 30.7 34.7 30.5 Low FINAL [facility], [address] [facility] [facility] [id number] 0 11/14 CBC w/ auto diff RDW-S D 37.0 54.0 53.20 FINAL [facility], [address] [facility] [id number] 0 11/14 CBC w/ auto diff RDW % 11.5 14.5 14.6 High FINAL [facility], [address] [facility] [id number] 0 11/14 CBC w/ auto diff PLT x10^3/ uL 120.0 400.0 237 FINAL [facility], [address] [facility] [id number] 0 11/14 CBC w/ auto diff MPV fL 6.5 12.0 9.6 FINAL [facility], [address] [facility] [id number] 0 11/14 CBC w/ auto diff Smear revie w None FINAL [facility], [address] [facility] [id number] 0 11/14 CBC w/ auto diff NRBC % /100WB C 0.0 9.0 0.0 FINAL [facility], [address] [facility] [id number] 0 11/14 CBC w/ auto diff NRBC, absol [place], x 10^3/ uL x10^3/ uL 0.0 0.1 0.00 FINAL [facility], [address] [facility] [id number] 0 11/14 CBC w/ auto diff Emily % % 40.0 70.0 65.3 FINAL [facility], [address] [facility] [id number] 0 11/14 CBC w/ auto diff LY % % 15.0 41.0 13.8 Low FINAL [facility], [address] [facility] [id number] 0 11/14 CBC w/ auto diff MO % % 2.0 8.0 10.0 High FINAL [facility], [address] [facility] [id number] 0 11/14 CBC w/ auto diff EO % % 0.0 3.0 1.6 FINAL [facility], [address] [facility] [id number] 0 11/20 CBC w/ auto diff WBC x10^3/ uL 4.4 10.4 25.84 High FINAL Lou Shaw [facility]ine, [address] [facility] [id number] 0 11/20 CBC w/ auto diff RBC x10^6/ uL 4.2 5.4 3.79 Low FINAL Lou Shaw Geraldine, [address] [facility] [id number] 0 11/20 CBC w/ auto diff HGB g/dL 12.0 16.0 11.5 Low FINAL [facility] [place], [address] [facility] [id number] 0 11/20 CBC w/ auto diff HCT % 37.0 47.0 36.1 Low FINAL Lou [place], [address] [facility] [id number] 0 11/20 CBC w/ auto diff MCV fL 80.0 98.0 95.3 FINAL Lou [place], [address] [facility] [id number] 0 11/20 CBC w/ auto diff MCH pg 28.0 32.0 30.3 FINAL Lou [place], [address] [facility] [id number] 0 11/20 CBC w/ auto diff MCHC g/dL 30.7 34.7 31.9 FINAL Lou [place], [address] [facility] [id number] 0 11/20 CBC w/ auto diff RDW-S D 37.0 54.0 51.00 FINAL Lou Shaw [facility]ine, [address] [facility] [id number] 0 11/20 CBC w/ auto diff RDW % 11.5 14.5 14.6 High FINAL Lou [facility], [address] [facility] [id number] 0 11/20 CBC w/ auto diff PLT x10^3/ uL 120.0 400.0 263 FINAL Lou Shaw [facility]ine, [address] [facility] [id number] 0 11/20 CBC w/ auto diff MPV fL 6.5 12.0 9.7 FINAL Lou [place], [address] [facility] [id number] 0 11/20 CBC w/ auto diff Smear revie w None FINAL Lou [facility], [address] [facility] [id number] 0 11/20 CBC w/ auto diff NRBC % /100WB C 0.0 9.0 0.0 FINAL Lou [place], [address] [facility] [id number] 0 11/20 CBC w/ auto diff NRBC, absol [place], x 10^3/ uL x10^3/ uL 0.0 0.1 0.00 FINAL Lou [place], [address] [facility] [id number] 0 11/20 CBC w/ auto diff Emily % % 40.0 70.0 91.0 High FINAL Lou [place], [address] [facility] [id number] 0 11/20 CBC w/ auto diff LY % % 15.0 41.0 4.3 Low FINAL Lou [place], [address] [facility] [id number] 0 11/20 CBC w/ auto diff MO % % 2.0 8.0 2.6 FINAL Lou Shaw Geraldine, [address] [facility] [id number] 0 11/20 CBC w/ auto diff EO % % 0.0 3.0 0.3 FINAL Lou [place], [address] [facility] [id number] 0 11/20 CBC w/ auto diff BA % % 0.0 1.0 0.2 FINAL Lou [place], [address] [facility] [id number] 0 11/20 CBC w/ auto diff IG % % 0.0 1.0 1.6 High FINAL Loucecile Shaw Geraldine, [address] [facility] [id number] 0 11/20 CBC w/ auto diff Emily # (ANC) x10^3/ uL 2.0 8.4 23.52 High FINAL Lou Hines, [address] [facility] [id number] 0 11/20 CBC w/ auto diff LY # x10^3/ uL 0.7 5.1 1.12 FINAL Loucecile [place], [address] [facility] [id number] 0 11/20 CBC w/ auto diff MO # x10^3/ uL 0.0 1.6 0.67 FINAL Lou Hines, [address] [facility] [id number] 0 11/20 CBC w/ auto diff EO # x10^3/ uL 0.0 1.1 0.07 FINAL Lou [place], [address] [facility] [id number] 0 11/20 CBC w/ auto diff BA # x10^3/ uL 0.0 0.2 0.04 FINAL Lou [place], [address] [facility] [id number] 0 11/20 CBC w/ auto diff IG # x10^3/ uL 0.0 0.1 0.42 High FINAL Lou [place], [address] [facility] [id number] 0 11/20 CMP Bilir ubin, total mg/dL 0.3 1.0 0.3 FINAL Lou [place], [address] [facility] [id number] 0 11/20 CMP AST/S GOT U/L 13.0 39.0 18 FINAL Lou Hines, [address] [facility] [id number] 0 11/20 CMP ALT/S GPT U/L 7.0 52.0 21 FINAL Lou [place], [address] [facility] [id number] 0 11/20 CMP Alkal ine phosp hatas e U/L 34.0 104.0 174 High FINAL Lou Hines, [address] [facility] [id number] 0 11/20 CMP Gluco se mg/dL 70.0 105.0 87 FINAL Lou [place], [address] [facility] [id number] 0 11/20 CMP BUN mg/dL 7.0 25.0 8 FINAL Lou [place], [address] [facility] [id number] 0 11/20 CMP Creat inine mg/dL 0.6 1.3 0.68 FINAL Lou [place], [address] [facility] [id number] 0 11/20 CMP Calci um mg/dL 8.4 10.5 9.8 FINAL Lou [place], [address] [facility] [address] [facility] [id number] 0 11/20 CMP Total prote in g/dL 6.3 8.2 7.5 FINAL Lou Proctor Geraldine, [address] [facility] [facility] [id number] 0 11/20 CMP Album in g/dL 3.5 5.0 4.7 FINAL Lou [place], [address] [facility] [facility] [id number] 0 11/20 CMP Sodiu m mEq/L 135.0 145.0 139 FINAL Lou [place], [address] [facility] [id number] 0 11/20 CMP Potas sium mEq/L 3.4 5.0 3.6 FINAL Lou Proctor [place], [address] [facility] [place] [facility] [address] [facility] [id number] 0 11/20 CMP Chlor uri, mEq/L mEq/L 96.0 107.0 100 FINAL Lou Proctor Geraldine, [address] [facility] [place] [facility] [address] [facility] [id number] 0 11/20 CMP CO2 whitney nt mEq/L 21.0 31.0 34 High FINAL Lou [place], [address] [facility] [id number] 0 11/20 CMP GFR estim ate mL/min /1.73m 2 102 Normal Range:Nor mal renal function >or= 60Moderat srinivas decreased 30 - 59Severel y decreased 15 - 29Renal Failure < 15Please note the GFR value should be multiplie d by 1.210 if the patient is -A merican. [facility] [address] [facility] [id number] 0 12/19 Magne sium panel Magne sium, mg/dL mg/dL 1.6 2.3 1.95 FINAL [facility], [address] [facility] [id number] 0 12/19 CMP Bilir ubin, total mg/dL 0.3 1.0 0.6 FINAL [facility], [address] [facility] [id number] 0 12/19 CMP AST/S GOT U/L 13.0 39.0 17 FINAL [facility], [address] [facility] [id number] 0 12/19 CMP ALT/S GPT U/L 7.0 52.0 13 FINAL [facility], [address] [facility] [id number] 0 12/19 CMP Alkal ine phosp hatas e U/L 34.0 104.0 74 FINAL [facility], [address] [facility] [id number] 0 12/19 CMP Gluco se mg/dL 70.0 105.0 90 FINAL [facility], [address] [facility] [id number] 0 12/19 CMP BUN mg/dL 7.0 25.0 11 FINAL [facility], [address] [facility] [id number] 0 12/19 CMP Creat inine mg/dL 0.6 1.3 0.83 FINAL [facility], [address] [facility] [id number] 0 12/19 CMP Calci um mg/dL 8.4 10.5 9.5 FINAL [facility], [address] [facility] [id number] 0 12/19 CMP Total prote in g/dL 6.3 8.2 7.6 FINAL [facility], [address] [facility] [id number] 0 12/19 CMP Album in g/dL 3.5 5.0 4.7 FINAL [facility], [address] [facility] [id number] 0 12/19 CMP Sodiu m mEq/L 135.0 145.0 137 FINAL [facility], [address] [facility] [id number] 0 12/19 CMP Potas sium mEq/L 3.4 5.0 3.6 FINAL [facility], [address] [facility] [facility] [id number] 0 12/19 CMP Chlor uri, mEq/L mEq/L 96.0 107.0 99 FINAL [facility], [address] [facility] [facility] [id number] 0 12/19 CMP CO2 whitney nt mEq/L 21.0 31.0 33 High FINAL [facility], [address] [facility] [facility] [id number] 0 12/19 CMP GFR estim ate mL/min /1.73m 2 81 Normal Range:Nor mal renal function >or= 60Moderat srinivas decreased 30 - 59Severel y decreased 15 - 29Renal Failure < 15Please note the GFR value should be multiplie d by 1.210 if the patient is -A merican. FINAL [facility], [address] [facility] [id number] 0 12/19 CBC w/ auto diff WBC x10^3/ uL 4.4 10.4 4.43 FINAL [facility], [address] [facility] [id number] 0 12/19 CBC w/ auto diff RBC x10^6/ uL 4.2 5.4 4.14 Low FINAL [facility], [address] [place], [place] [address]. [facility] [id number] 0 12/19 CBC w/ auto diff HGB g/dL 12.0 16.0 12.2 FINAL [facility], [address] [facility] [place] [facility] [address] [id number] 0 12/19 CBC w/ auto diff HCT % 37.0 47.0 37.8 FINAL [facility], [address] [facility] [id number] 0 12/19 CBC w/ auto diff MCV fL 80.0 98.0 91.3 FINAL [facility], [address] [facility] [id number] 0 12/19 CBC w/ auto diff MCH pg 28.0 32.0 29.5 FINAL [facility], [address] [facility] [id number] 0 12/19 CBC w/ auto diff MCHC g/dL 30.7 34.7 32.3 FINAL [facility], [address] [facility] [id number] 0 12/19 CBC w/ auto diff RDW-S D 37.0 54.0 46.10 FINAL [facility], [address] [facility] [id number] 0 12/19 CBC w/ auto diff RDW % 11.5 14.5 13.8 FINAL [facility], [address] [facility] [id number] 0 12/19 CBC w/ auto diff PLT x10^3/ uL 120.0 400.0 204 FINAL [facility], [address] [facility] [id number] 0 12/19 CBC w/ auto diff MPV fL 6.5 12.0 8.5 FINAL [facility], [address] [facility] [id number] 0 12/19 CBC w/ auto diff Smear revie w None FINAL [facility], [address] [facility] [id number] 0 12/19 CBC w/ auto diff NRBC % /100WB C 0.0 9.0 0.0 FINAL [facility], [address] [facility] [id number] 0 12/19 CBC w/ auto diff NRBC, absol [place], x 10^3/ uL x10^3/ uL 0.0 0.1 0.00 FINAL [facility], [address] [place] [id number] 0 12/19 CBC w/ auto diff Emily % % 40.0 70.0 66.4 FINAL Ami Negandhi Geraldine, [address] [facility] [id number] 0 12/19 CBC w/ auto diff LY % % 15.0 41.0 19.9 FINAL Ami Negandhi Geraldine, [address] [facility] [id number] 0 12/19 CBC w/ auto diff MO % % 2.0 8.0 8.1 High [facility] [address] [facility] [id number] 0 12/19 CBC w/ auto diff EO % % 0.0 3.0 4.5 High [facility], [address] [facility] [id number] 0 12/19 CBC w/ auto diff BA % % 0.0 1.0 0.9 FINAL [facility], [address] [facility] [id number] 0 12/19 CBC w/ auto diff IG % % 0.0 1.0 0.2 FINAL [facility], [address] [facility] [id number] 0 12/19 CBC w/ auto diff Emily # (ANC) x10^3/ uL 2.0 8.4 2.94 FINAL [facility], [address] [facility] [id number] 0 12/19 CBC w/ auto diff LY # x10^3/ uL 0.7 5.1 0.88 FINAL [facility], [address] [facility] [id number] 0 12/19 CBC w/ auto diff MO # x10^3/ uL 0.0 1.6 0.36 FINAL Ami Negand[facility], [address] [facility] [id number] 0 12/19 CBC w/ auto diff EO # x10^3/ uL 0.0 1.1 0.20 FINAL [facility], [address] [facility] [id number] 0 12/19 CBC w/ auto diff BA # x10^3/ uL 0.0 0.2 0.04 FINAL [facility], [address] [facility] [id number] 0 12/19 CBC w/ auto diff IG # x10^3/ uL 0.0 0.1 0.01 FINAL [facility], [address] [facility] [id number] 0 02/14 CBC w/aut o diff with refle x WBC x10^3/ uL 4.4 10.4 2.80 Low FINAL [facility], [address] [facility] [id number] 0 02/14 CBC w/aut o diff with refle x RBC x10^6/ uL 4.2 5.4 4.79 FINAL [facility], [address] [facility] [id number] 0 02/14 CBC w/aut o diff with refle x HGB g/dL 12.0 16.0 14.3 FINAL [facility], [address] [facility] [id number] 0 02/14 CBC w/aut o diff with refle x HCT % 37.0 47.0 42.1 FINAL [facility], [address] [facility] [id number] 0 02/14 CBC w/aut o diff with refle x MCV fL 80.0 98.0 87.9 FINAL [facility], [address] [facility] [id number] 0 02/14 CBC w/aut o diff with refle x MCH pg 28.0 32.0 29.9 FINAL [facility], [address] [facility] [id number] 0 02/14 CBC w/aut o diff with refle x MCHC g/dL 30.7 34.7 34.0 FINAL [facility], [address] [facility] [id number] 0 02/14 CBC w/aut o diff with refle x RDW-S D 37.0 54.0 43.00 FINAL [facility], [address] [facility] [id number] 0 02/14 CBC w/aut o diff with refle x RDW % 11.5 14.5 13.2 FINAL [facility], [address] [facility] [id number] 0 02/14 CBC w/aut o diff with refle x PLT x10^3/ uL 120.0 400.0 241 FINAL [facility], [address] [facility] [id number] 0 02/14 CBC w/aut o diff with refle x MPV fL 6.5 12.0 8.5 FINAL [facility], [address] [facility] [id number] 0 02/14 CBC w/aut o diff with refle x Smear revie w None FINAL [facility], [address] [facility] [id number] 0 02/14 CBC w/aut o diff with refle x NRBC % /100WB C 0.0 9.0 0.0 FINAL [facility], [address] [facility] [id number] 0 02/14 CBC w/aut o diff with refle x NRBC, absol [place], x 10^3/ uL x10^3/ uL 0.0 0.1 0.00 FINAL [facility], [address] [facility] [id number] 0 02/14 CBC w/aut o diff with refle x Emily % % 40.0 70.0 68.2 FINAL [facility], [address] [facility] [id number] 0 02/14 CBC w/aut o diff with refle x LY % % 15.0 41.0 18.6 FINAL [facility], [address] [facility] [id number] 0 02/14 CBC w/aut o diff with refle x MO % % 2.0 8.0 9.6 High FINAL [facility] [place], [address] [place] [id number] 0 02/14 CBC w/aut o diff with refle x EO % % 0.0 3.0 2.5 FINAL [facility] [place], [address] [place] [id number] 0 02/14 CBC w/aut o diff with refle x BA % % 0.0 1.0 0.7 FINAL Kath[facility] [place], [address] [place] [id number] 0 02/14 CBC w/aut o diff with refle x IG % % 0.0 1.0 0.4 FINAL [facility] [place], [address] [place] [id number] 0 02/14 CBC w/aut o diff with refle x Emily # (ANC) x10^3/ uL 2.0 8.4 1.91 Low FINAL [facility] [place], [address] [place] [id number] 0 02/14 CBC w/aut o diff with refle x LY # x10^3/ uL 0.7 5.1 0.52 Low FINAL [facility] [place], [address] [place] [id number] 0 02/14 CBC w/aut o diff with refle x MO # x10^3/ uL 0.0 1.6 0.27 FINAL [facility] [place], [address] [place] [id number] 0 02/14 CBC w/aut o diff with refle x EO # x10^3/ uL 0.0 1.1 0.07 FINAL Kath[facility] [place], [address] [place] [id number] 0 02/14 CBC w/aut o diff with refle x BA # x10^3/ uL 0.0 0.2 0.02 FINAL [facility] [place], [address] [facility] [id number] 0 02/14 CBC w/aut o diff with refle x IG # x10^3/ uL 0.0 0.1 0.01 FINAL [facility], [address] [facility] [id number] 0 02/14 Magne sium panel Magne sium, mg/dL mg/dL 1.6 2.3 2.00 FINAL [facility], [address] [facility] [id number] 0 02/14 CMP Bilir ubin, total mg/dL 0.3 1.0 0.6 FINAL [facility], [address] [facility] [id number] 0 02/14 CMP AST/S GOT U/L 13.0 39.0 20 FINAL [facility], [address] [facility] [id number] 0 02/14 CMP ALT/S GPT U/L 7.0 52.0 14 FINAL [facility], [address] [facility] [id number] 0 02/14 CMP Alkal ine phosp hatas e U/L 34.0 104.0 84 FINAL [facility], [address] [facility] [id number] 0 02/14 CMP Gluco se mg/dL 70.0 105.0 101 FINAL [facility], [address] [facility] [id number] 0 02/14 CMP BUN mg/dL 7.0 25.0 11 FINAL [facility], [address] [facility] [id number] 0 02/14 CMP Creat inine mg/dL 0.6 1.3 0.84 FINAL [facility], [address] [facility] [id number] 0 02/14 CMP Calci um mg/dL 8.4 10.5 9.9 FINAL [facility], [address] [facility] [id number] 0 02/14 CMP Total prote in g/dL 6.3 8.2 8.2 FINAL [facility], [address] [facility] [id number] 0 02/14 CMP Album in g/dL 3.5 5.0 5.1 High FINAL [facility], [address] [facility] [id number] 0 02/14 CMP Sodiu m mEq/L 135.0 145.0 137 FINAL [facility], [address] [facility] [id number] 0 02/14 CMP Potas sium mEq/L 3.4 5.0 3.5 FINAL [facility], [address] [facility] [facility] [id number] 0 02/14 CMP Chlor uri, mEq/L mEq/L 96.0 107.0 99 FINAL [facility], [address] [facility] [address] [facility] [id number] 0 02/14 CMP CO2 whitney nt mEq/L 21.0 31.0 29 FINAL [facility], [address] [facility] [id number] 0 02/14 CMP GFR estim ate mL/min /1.73m 2 80 Normal Range:Nor mal renal function >or= 60Moderat srinivas decreased 30 - 59Severel y decreased 15 - 29Renal Failure < 15Please note the GFR value should be multiplie d by 1.210 if the patient is -A merican. FINAL [facility], [address] [facility] [address] [facility] [id number] 0 02/14 Estra diol, ultra sensi tive panel Sendo uts I/F See Manual Report [facility], [address] [facility] [id number] 0 02/14 Vitam in D monit oring panel Vitam in D, 25-hy droxy ng/mL 30.0 100.0 35.36 Test performed on YiBai-shoppings [employer]chan[employer] at [facility] [address], [place] [address] FINAL Kathrine May n [place], [address] [place] [id number] 0 02/14 TSH panel TSH ulU/mL 0.35 5.5 1.52 Test performed on SiemEinspect's Centaur at [facility] [address] [place], [place] [address] FINAL Kathrine May n [place], [address] [place] [id number] 0 02/14 Phosp horus panel Phosp horus mg/dL 2.5 4.5 4.2 Test performed on the Estela Isaban AU 480 at [facility], [address] [facility], [facility], [address] FINAL Kathrine May n [facility], [address] [place] [address] Ave., Mail Code 7 [facility] [id number] 0 03/28 Estra diol, ultra sensi tive panel [facility] SCAN RESUL T See Scanned Result FINAL Kathrine ferrari [facility] EPIC, [address] [facility] [id number] 0 03/28 CBC w/aut o diff with refle x WBC x10^3/ uL 4.4 10.4 2.87 Low FINAL Kathrinehailey May [facility], [address] [facility] [id number] 0 03/28 CBC w/aut o diff with refle x RBC x10^6/ uL 4.2 5.4 4.54 FINAL [facility], [address] [facility] [id number] 0 03/28 CBC w/aut o diff with refle x HGB g/dL 12.0 16.0 13.4 FINAL Kathrine May [facility], [address] [facility] [id number] 0 03/28 CBC w/aut o diff with refle x HCT % 37.0 47.0 40.9 FINAL Kathrine May [facility], [address] [facility] [id number] 0 03/28 CBC w/aut o diff with refle x MCV fL 80.0 98.0 90.1 FINAL [facility], [address] [facility] [id number] 0 03/28 CBC w/aut o diff with refle x MCH pg 28.0 32.0 29.5 FINAL [facility], [address] [facility] [id number] 0 03/28 CBC w/aut o diff with refle x MCHC g/dL 30.7 34.7 32.8 FINAL [facility], [address] [facility] [id number] 0 03/28 CBC w/aut o diff with refle x RDW-S D 37.0 54.0 43.00 FINAL [facility], [address] [facility] [id number] 0 03/28 CBC w/aut o diff with refle x RDW % 11.5 14.5 13.0 FINAL [facility], [address] [facility] [id number] 0 03/28 CBC w/aut o diff with refle x PLT x10^3/ uL 120.0 400.0 216 FINAL [facility], [address] [facility] [id number] 0 03/28 CBC w/aut o diff with refle x MPV fL 6.5 12.0 8.6 FINAL [facility], [address] [facility] [id number] 0 03/28 CBC w/aut o diff with refle x Smear revie w None FINAL [facility], [address] [facility] [id number] 0 03/28 CBC w/aut o diff with refle x NRBC % /100WB C 0.0 9.0 0.0 FINAL [facility], [address] [facility] [id number] 0 03/28 CBC w/aut o diff with refle x NRBC, absol [place], x 10^3/ uL x10^3/ uL 0.0 0.1 0.00 FINAL Kathrine [place] [place], [address] [place] [id number] 0 03/28 CBC w/aut o diff with refle x Emily % % 40.0 70.0 66.9 FINAL Kathrine [facility] [place], [address] [place] [id number] 0 03/28 CBC w/aut o diff with refle x LY % % 15.0 41.0 19.5 FINAL Kathrine Toul[place]ma n [place], [address] [place] [id number] 0 03/28 CBC w/aut o diff with refle x MO % % 2.0 8.0 9.4 High FINAL Kathrine Asmitama n [place], [address] [facility] [id number] 0 03/28 CBC w/aut o diff with refle x EO % % 0.0 3.0 3.5 High FINAL Kathrine T[place] n [place], [address] [facility] [id number] 0 03/28 CBC w/aut o diff with refle x BA % % 0.0 1.0 0.7 FINAL [facility] [place], [address] [facility] [id number] 0 03/28 CBC w/aut o diff with refle x IG % % 0.0 1.0 0.0 FINAL [facility] [place], [address] [facility] [id number] 0 03/28 CBC w/aut o diff with refle x Emily # (ANC) x10^3/ uL 2.0 8.4 1.92 Low FINAL Kathrine [place], [address] [place] [id number] 0 03/28 CBC w/aut o diff with refle x LY # x10^3/ uL 0.7 5.1 0.56 Low FINAL Kathrine [place] n [place], [address] [facility] [id number] 0 03/28 CBC w/aut o diff with refle x MO # x10^3/ uL 0.0 1.6 0.27 FINAL [facility], [address] [facility] [id number] 0 03/28 CBC w/aut o diff with refle x EO # x10^3/ uL 0.0 1.1 0.10 FINAL [facility], [address] [facility] [id number] 0 03/28 CBC w/aut o diff with refle x BA # x10^3/ uL 0.0 0.2 0.02 FINAL [facility], [address] [facility] [id number] 0 03/28 CBC w/aut o diff with refle x IG # x10^3/ uL 0.0 0.1 0.00 FINAL [facility], [address] [facility] [id number] 0 03/28 CMP Bilir ubin, total mg/dL 0.3 1.0 0.5 FINAL [facility], [address] [facility] [id number] 0 03/28 CMP AST/S GOT U/L 13.0 39.0 25 FINAL [facility], [address] [facility] [id number] 0 03/28 CMP ALT/S GPT U/L 7.0 52.0 17 FINAL [facility], [address] [facility] [id number] 0 03/28 CMP Alkal ine phosp hatas e U/L 34.0 104.0 78 FINAL [facility], [address] [facility] [id number] 0 03/28 CMP Gluco se mg/dL 70.0 105.0 104 FINAL [facility], [address] [facility] [id number] 0 03/28 CMP BUN mg/dL 7.0 25.0 11 FINAL [facility], [address] [facility] [id number] 0 03/28 CMP Creat inine mg/dL 0.6 1.3 0.82 FINAL [facility], [address] [facility] [id number] 0 03/28 CMP Calci um mg/dL 8.4 10.5 9.6 FINAL [facility], [address] [facility] [id number] 0 03/28 CMP Total prote in g/dL 6.3 8.2 7.7 FINAL [facility], [address] [facility] [id number] 0 03/28 CMP Album in g/dL 3.5 5.0 4.7 FINAL [facility], [address] [facility] [id number] 0 03/28 CMP Sodiu m mEq/L 135.0 145.0 138 FINAL [facility], [address] [facility]. [facility] [id number] 0 03/28 CMP Potas sium mEq/L 3.4 5.0 3.7 FINAL [facility], [address] [facility]. [facility] [id number] 0 03/28 CMP Chlor uri, mEq/L mEq/L 96.0 107.0 102 FINAL [facility], [address] [facility]. [facility] [id number] 0 03/28 CMP CO2 whitney nt mEq/L 21.0 31.0 29 FINAL [facility], [address] [facility]. [facility] [id number] 0 03/28 CMP GFR estim ate mL/min /1.73m 2 82 Normal Range:Nor mal renal function >or= 60Moderat srinivas decreased 30 - 59Severel y decreased 15 - 29Renal Failure < 15Please note the GFR value should be multiplie d by 1.210 if the patient is -A merican. FINAL [facility], [address] [facility]. [facility] [id number] 0 03/28 Magne sium panel Magne sium, mg/dL mg/dL 1.6 2.3 1.97 FINAL Kathrine May n [place], [address] [facility] [id number] 0 04/30 Estra diol, ultra sensi tive panel [facility] RP ESTRA DIOL MS pg/mL <1.0 This test was developed and its performan ce character isticsdet ermined by [facility]. It has not been cleared or approvedb y the Food and Drug Administr [facility].Ref erence Range:Ambrocio lt Females Follicula r: 30 - 100 Luteal: 70 - 300 Postmenop ausal: <15 FINAL [facility] EPIC, [address] [facility] [id number] 0 04/30 CMP Bilir ubin, total mg/dL 0.3 1.0 0.7 FINAL [facility], [address] [facility] [id number] 0 04/30 CMP AST/S GOT U/L 13.0 39.0 22 FINAL [facility], [address] [place] [address] [facility] [address] [facility] [id number] 0 04/30 CMP ALT/S GPT U/L 7.0 52.0 16 FINAL [facility], [address] [facility] [id number] 0 04/30 CMP Alkal ine phosp hatas e U/L 34.0 104.0 71 FINAL [facility], [facility] [address] [facility] [id number] 0 04/30 CMP Gluco se mg/dL 70.0 105.0 89 FINAL [facility], [address] [facility] [id number] 0 04/30 CMP BUN mg/dL 7.0 25.0 7 FINAL [facility], [facility] [address] [facility] [id number] 0 04/30 CMP Creat inine mg/dL 0.6 1.3 0.75 FINAL [facility], [facility] [address] [facility] [id number] 0 04/30 CMP Calci um mg/dL 8.4 10.5 9.1 FINAL [facility], [address] [facility] [id number] 0 04/30 CMP Total prote in g/dL 6.3 8.2 7.4 FINAL [facility], [address] [facility] [facility] [id number] 0 04/30 CMP Album in g/dL 3.5 5.0 4.9 FINAL [facility], [address] [facility] [place] [address] [facility] [id number] 0 04/30 CMP Sodiu m mEq/L 135.0 145.0 136 FINAL [facility], [address] [facility] [id number] 0 04/30 CMP Potas sium mEq/L 3.4 5.0 3.8 FINAL [facility], [address] [facility] [id number] 0 04/30 CMP Chlor uri, mEq/L mEq/L 96.0 107.0 101 FINAL [facility], [address] [facility] [id number] 0 04/30 CMP CO2 whitney nt mEq/L 21.0 31.0 28 FINAL [facility], [address] [facility] [id number] 0 04/30 CMP GFR estim ate mL/min /1.73m 2 91 Normal Range:Nor mal renal function >or= 60Moderat srinivas decreased 30 - 59Severel y decreased 15 - 29Renal Failure < 15Please note the GFR value should be multiplie d by 1.210 if the patient is -A merican. FINAL [facility], [address] [facility] [id number] 0 04/30 CBC w/aut o diff with refle x WBC x10^3/ uL 4.4 10.4 3.24 Low FINAL [facility], [address] [facility] [facility] [id number] 0 04/30 CBC w/aut o diff with refle x RBC x10^6/ uL 4.2 5.4 4.52 FINAL Ami [facility], [address] [facility] [id number] 0 04/30 CBC w/aut o diff with refle x HGB g/dL 12.0 16.0 13.3 FINAL [facility], [address] [facility] [id number] 0 04/30 CBC w/aut o diff with refle x HCT % 37.0 47.0 40.6 FINAL [facility], [address] [facility] [id number] 0 04/30 CBC w/aut o diff with refle x MCV fL 80.0 98.0 89.8 FINAL [facility], [address] [facility] [id number] 0 04/30 CBC w/aut o diff with refle x MCH pg 28.0 32.0 29.4 FINAL [facility], [address] [facility] [id number] 0 04/30 CBC w/aut o diff with refle x MCHC g/dL 30.7 34.7 32.8 FINAL [facility], [address] [facility] [id number] 0 04/30 CBC w/aut o diff with refle x RDW-S D 37.0 54.0 44.30 FINAL [facility], [address] [facility] [id number] 0 04/30 CBC w/aut o diff with refle x RDW % 11.5 14.5 13.5 [facility], [address] [facility] [id number] 0 04/30 CBC w/aut o diff with refle x PLT x10^3/ uL 120.0 400.0 220 FINAL [facility] [facility] [address] [facility] [id number] 0 04/30 CBC w/aut o diff with refle x MPV fL 6.5 12.0 9.0 FINAL [facility], [address] [facility] [id number] 0 04/30 CBC w/aut o diff with refle x Smear revie w None FINAL [facility], [address] [facility] [id number] 0 04/30 CBC w/aut o diff with refle x NRBC % /100WB C 0.0 9.0 0.0 FINAL [facility], [address] [facility] [id number] 0 04/30 CBC w/aut o diff with refle x NRBC, absol [place], x 10^3/ uL x10^3/ uL 0.0 0.1 0.00 FINAL [facility], [address] [facility] [id number] 0 04/30 CBC w/aut o diff with refle x Emily % % 40.0 70.0 66.1 FINAL [facility], [address] [facility] [id number] 0 04/30 CBC w/aut o diff with refle x LY % % 15.0 41.0 22.2 FINAL [facility], [address] [facility] [id number] 0 04/30 CBC w/aut o diff with refle x MO % % 2.0 8.0 8.6 High FINAL [facility], [address] [facility] [id number] 0 04/30 CBC w/aut o diff with refle x EO % % 0.0 3.0 1.9 FINAL [facility], [address] [facility] [id number] 0 04/30 CBC w/aut o diff with refle x BA % % 0.0 1.0 0.9 FINAL [facility], [address] [facility] [id number] 0 04/30 CBC w/aut o diff with refle x IG % % 0.0 1.0 0.3 FINAL [facility], [address] [facility] [id number] 0 04/30 CBC w/aut o diff with refle x Emily # (ANC) x10^3/ uL 2.0 8.4 2.14 FINAL [facility], [address] [facility] [id number] 0 04/30 CBC w/aut o diff with refle x LY # x10^3/ uL 0.7 5.1 0.72 FINAL [facility], [address] [facility] [id number] 0 04/30 CBC w/aut o diff with refle x MO # x10^3/ uL 0.0 1.6 0.28 FINAL [facility], [address] [facility] [id number] 0 04/30 CBC w/aut o diff with refle x EO # x10^3/ uL 0.0 1.1 0.06 FINAL [facility], [address] [facility] [id number] 0 04/30 CBC w/aut o diff with refle x BA # x10^3/ uL 0.0 0.2 0.03 FINAL [facility], [address] [facility] [id number] 0 04/30 CBC w/aut o diff with refle x IG # x10^3/ uL 0.0 0.1 0.01 FINAL [facility], [address] [facility] [id number] 0 04/30 Magne sium panel Magne sium, mg/dL mg/dL 1.6 2.3 2.12 FINAL [facility], [address] [facility] [id number] 0 04/30 CA 125 panel CA 125 U/ml 6.0 Test performed on [employer] at [facility] [address] [facility], [place] [address] FINAL [facility], [address] [facility] [id number] 0 Medications Date Name Route Dose Frequency Instructions Start Date End Date Status Amphetamine-Dex troamphetamine Oral orally 1.0 tablet as needed active 08/11 famotidine 10 MG/ML Injectable Solution intravenously 20.0 mg Re-initiate treatment only upon physician approval. 2035 active 08/11 1 ML leuprolide acetate 11.25 MG/ML Prefilled Syringe intramuscularly 11.25 mg once NOTE: This product is equivalent to Lupron Depot. 2035 active 08/11 methylprednisol one 2000 MG Injection intravenously 125.0 mg Re-initiate treatment only upon physician approval. 2035 active 08/11 diphenhydramine hydrochloride 0.5 MG/ML Injectable Solution intravenously 50.0 mg Re-initiate treatment only upon physician approval. 2035 active 08/11 1 ML epinephrine 1 MG/ML Injection intramuscularly 0.3 mg once Re-initiate treatment only upon physician approval. 2035 active 08/11 hydrocortisone 100 MG Injection intravenously 100.0 mg Re-initiate treatment only upon physician approval. 2035 active 05/19 1 ML leuprolide acetate 11.25 MG/ML Prefilled Syringe intramuscularly 11.25 mg once NOTE: This product is equivalent to Lupron Depot. 2035 active 05/19 diphenhydramine hydrochloride 0.5 MG/ML Injectable Solution intravenously 50.0 mg Re-initiate treatment only upon physician approval. 2035 active 05/19 methylprednisol one 2000 MG Injection intravenously 125.0 mg Re-initiate treatment only upon physician approval. 2035 active 05/19 hydrocortisone 100 MG Injection intravenously 100.0 mg Re-initiate treatment only upon physician approval. 2035 active 05/19 famotidine 10 MG/ML Injectable Solution intravenously 20.0 mg Re-initiate treatment only upon physician approval. 2035 active 05/19 1 ML epinephrine 1 MG/ML Injection intramuscularly 0.3 mg once Re-initiate treatment only upon physician approval. 2035 active 02/24 diphenhydramine hydrochloride 0.5 MG/ML Injectable Solution intravenously 50.0 mg Re-initiate treatment only upon physician approval. 2035 active 02/24 hydrocortisone 100 MG Injection intravenously 100.0 mg Re-initiate treatment only upon physician approval. 2035 active 02/24 methylprednisol one 2000 MG Injection intravenously 125.0 mg Re-initiate treatment only upon physician approval. 2035 active 02/24 famotidine 10 MG/ML Injectable Solution intravenously 20.0 mg Re-initiate treatment only upon physician approval. 2035 active 02/24 1 ML leuprolide acetate 11.25 MG/ML Prefilled Syringe intramuscularly 11.25 mg once NOTE: This product is equivalent to Lupron Depot. 2035 active 02/24 1 ML epinephrine 1 MG/ML Injection intramuscularly 0.3 mg once Re-initiate treatment only upon physician approval. 2035 active 12/03 hydrocortisone 100 MG Injection intravenously 100.0 mg Re-initiate treatment only upon physician approval. 2035 active 12/03 famotidine 10 MG/ML Injectable Solution intravenously 20.0 mg Re-initiate treatment only upon physician approval. 2035 active 12/03 1 ML epinephrine 1 MG/ML Injection intramuscularly 0.3 mg once Re-initiate treatment only upon physician approval. 2035 active 12/03 1 ML leuprolide acetate 11.25 MG/ML Prefilled Syringe intramuscularly 11.25 mg once NOTE: This product is equivalent to Lupron Depot. 2035 active 12/03 diphenhydramine hydrochloride 0.5 MG/ML Injectable Solution intravenously 50.0 mg Re-initiate treatment only upon physician approval. 2035 active 12/03 methylprednisol one 2000 MG Injection intravenously 125.0 mg Re-initiate treatment only upon physician approval. 2035 active 09/10 methylprednisol one 2000 MG Injection intravenously 125.0 mg Re-initiate treatment only upon physician approval. 2034 active 09/10 1 ML epinephrine 1 MG/ML Injection intramuscularly 0.3 mg once Re-initiate treatment only upon physician approval. 2034 active 09/10 1 ML leuprolide acetate 11.25 MG/ML Prefilled Syringe intramuscularly 11.25 mg once NOTE: This product is equivalent to Lupron Depot. 2034 active 09/10 diphenhydramine hydrochloride 0.5 MG/ML Injectable Solution intravenously 50.0 mg Re-initiate treatment only upon physician approval. 2034 active 09/10 famotidine 10 MG/ML Injectable Solution intravenously 20.0 mg Re-initiate treatment only upon physician approval. 2034 active 09/10 hydrocortisone 100 MG Injection intravenously 100.0 mg Re-initiate treatment only upon physician approval. 2034 active 06/18 methylprednisol one 2000 MG Injection intravenously 125.0 mg Re-initiate treatment only upon physician approval. 2034 active 06/18 1 ML epinephrine 1 MG/ML Injection intramuscularly 0.3 mg once Re-initiate treatment only upon physician approval. 2034 active 06/18 1 ML leuprolide acetate 11.25 MG/ML Prefilled Syringe intramuscularly 11.25 mg once NOTE: This product is equivalent to Lupron Depot. 2034 active 06/18 famotidine 10 MG/ML Injectable Solution intravenously 20.0 mg Re-initiate treatment only upon physician approval. 2034 active 06/18 hydrocortisone 100 MG Injection intravenously 100.0 mg Re-initiate treatment only upon physician approval. 2034 active 06/18 diphenhydramine hydrochloride 0.5 MG/ML Injectable Solution intravenously 50.0 mg Re-initiate treatment only upon physician approval. 2034 active 03/26 famotidine 10 MG/ML Injectable Solution intravenously 20.0 mg Re-initiate treatment only upon physician approval. 2034 active 03/26 diphenhydramine hydrochloride 0.5 MG/ML Injectable Solution intravenously 50.0 mg Re-initiate treatment only upon physician approval. 2034 active 03/26 hydrocortisone 100 MG Injection intravenously 100.0 mg Re-initiate treatment only upon physician approval. 2034 active 03/26 methylprednisol one 2000 MG Injection intravenously 125.0 mg Re-initiate treatment only upon physician approval. 2034 active 03/26 1 ML leuprolide acetate 11.25 MG/ML Prefilled Syringe intramuscularly 11.25 mg once NOTE: This product is equivalent to Lupron Depot. 2034 active 03/26 1 ML epinephrine 1 MG/ML Injection intramuscularly 0.3 mg once Re-initiate treatment only upon physician approval. 2034 active 01/01 methylprednisol one 2000 MG Injection intravenously 125.0 mg Re-initiate treatment only upon physician approval. 2034 active 01/01 1 ML epinephrine 1 MG/ML Injection intramuscularly 0.3 mg once Re-initiate treatment only upon physician approval. 2034 active 01/01 diphenhydramine hydrochloride 0.5 MG/ML Injectable Solution intravenously 50.0 mg Re-initiate treatment only upon physician approval. 2034 active 01/01 hydrocortisone 100 MG Injection intravenously 100.0 mg Re-initiate treatment only upon physician approval. 2034 active 01/01 1 ML leuprolide acetate 11.25 MG/ML Prefilled Syringe intramuscularly 11.25 mg once NOTE: This product is equivalent to Lupron Depot. 2034 active 01/01 famotidine 10 MG/ML Injectable Solution intravenously 20.0 mg Re-initiate treatment only upon physician approval. 2034 active 10/09 hydrocortisone 100 MG Injection intravenously 100.0 mg Re-initiate treatment only upon physician approval. 2033 active 10/09 famotidine 10 MG/ML Injectable Solution intravenously 20.0 mg Re-initiate treatment only upon physician approval. 2033 active 10/09 diphenhydramine hydrochloride 0.5 MG/ML Injectable Solution intravenously 50.0 mg Re-initiate treatment only upon physician approval. 2033 active 10/09 methylprednisol one 2000 MG Injection intravenously 125.0 mg Re-initiate treatment only upon physician approval. 2033 active 10/09 1 ML leuprolide acetate 11.25 MG/ML Prefilled Syringe intramuscularly 11.25 mg once NOTE: This product is equivalent to Lupron Depot. 2033 active 10/09 1 ML epinephrine 1 MG/ML Injection intramuscularly 0.3 mg once Re-initiate treatment only upon physician approval. 2033 active 07/17 diphenhydramine hydrochloride 0.5 MG/ML Injectable Solution intravenously 50.0 mg Re-initiate treatment only upon physician approval. 2033 active 07/17 methylprednisol one 2000 MG Injection intravenously 125.0 mg Re-initiate treatment only upon physician approval. 2033 active 07/17 1 ML epinephrine 1 MG/ML Injection intramuscularly 0.3 mg once Re-initiate treatment only upon physician approval. 2033 active 07/17 1 ML leuprolide acetate 11.25 MG/ML Prefilled Syringe intramuscularly 11.25 mg once NOTE: This product is equivalent to Lupron Depot. 2033 active 07/17 hydrocortisone 100 MG Injection intravenously 100.0 mg Re-initiate treatment only upon physician approval. 2033 active 07/17 famotidine 10 MG/ML Injectable Solution intravenously 20.0 mg Re-initiate treatment only upon physician approval. 2033 active 04/24 1 ML leuprolide acetate 11.25 MG/ML Prefilled Syringe intramuscularly 11.25 mg once NOTE: This product is equivalent to Lupron Depot. 2033 active 04/24 famotidine 10 MG/ML Injectable Solution intravenously 20.0 mg Re-initiate treatment only upon physician approval. 2033 active 04/24 diphenhydramine hydrochloride 0.5 MG/ML Injectable Solution intravenously 50.0 mg Re-initiate treatment only upon physician approval. 2033 active 04/24 methylprednisol one 2000 MG Injection intravenously 125.0 mg Re-initiate treatment only upon physician approval. 2033 active 04/24 hydrocortisone 100 MG Injection intravenously 100.0 mg Re-initiate treatment only upon physician approval. 2033 active 04/24 1 ML epinephrine 1 MG/ML Injection intramuscularly 0.3 mg once Re-initiate treatment only upon physician approval. 2033 active 01/30 methylprednisol one 2000 MG Injection intravenously 125.0 mg Re-initiate treatment only upon physician approval. 2033 active 01/30 1 ML epinephrine 1 MG/ML Injection intramuscularly 0.3 mg once Re-initiate treatment only upon physician approval. 2033 active 01/30 diphenhydramine hydrochloride 0.5 MG/ML Injectable Solution intravenously 50.0 mg Re-initiate treatment only upon physician approval. 2033 active 01/30 hydrocortisone 100 MG Injection intravenously 100.0 mg Re-initiate treatment only upon physician approval. 2033 active 01/30 famotidine 10 MG/ML Injectable Solution intravenously 20.0 mg Re-initiate treatment only upon physician approval. 2033 active 01/30 1 ML leuprolide acetate 11.25 MG/ML Prefilled Syringe intramuscularly 11.25 mg once NOTE: This product is equivalent to Lupron Depot. 2033 active 11/07 methylprednisol one 2000 MG Injection intravenously 125.0 mg Re-initiate treatment only upon physician approval. 2032 active 11/07 hydrocortisone 100 MG Injection intravenously 100.0 mg Re-initiate treatment only upon physician approval. 2032 active 11/07 famotidine 10 MG/ML Injectable Solution intravenously 20.0 mg Re-initiate treatment only upon physician approval. 2032 active 11/07 1 ML epinephrine 1 MG/ML Injection intramuscularly 0.3 mg once Re-initiate treatment only upon physician approval. 2032 active 11/07 1 ML leuprolide acetate 11.25 MG/ML Prefilled Syringe intramuscularly 11.25 mg once NOTE: This product is equivalent to Lupron Depot. 2032 active 11/07 diphenhydramine hydrochloride 0.5 MG/ML Injectable Solution intravenously 50.0 mg Re-initiate treatment only upon physician approval. 2032 active 08/15 diphenhydramine hydrochloride 0.5 MG/ML Injectable Solution intravenously 50.0 mg Re-initiate treatment only upon physician approval. 2032 active 08/15 hydrocortisone 100 MG Injection intravenously 100.0 mg Re-initiate treatment only upon physician approval. 2032 active 08/15 famotidine 10 MG/ML Injectable Solution intravenously 20.0 mg Re-initiate treatment only upon physician approval. 2032 active 08/15 1 ML leuprolide acetate 11.25 MG/ML Prefilled Syringe intramuscularly 11.25 mg once NOTE: This product is equivalent to Lupron Depot. 2032 active 08/15 methylprednisol one 2000 MG Injection intravenously 125.0 mg Re-initiate treatment only upon physician approval. 2032 active 08/15 1 ML epinephrine 1 MG/ML Injection intramuscularly 0.3 mg once Re-initiate treatment only upon physician approval. 2032 active 05/23 diphenhydramine hydrochloride 0.5 MG/ML Injectable Solution intravenously 50.0 mg Re-initiate treatment only upon physician approval. 2032 active 05/23 methylprednisol one 2000 MG Injection intravenously 125.0 mg Re-initiate treatment only upon physician approval. 2032 active 05/23 1 ML leuprolide acetate 11.25 MG/ML Prefilled Syringe intramuscularly 11.25 mg once NOTE: This product is equivalent to Lupron Depot. 2032 active 05/23 1 ML epinephrine 1 MG/ML Injection intramuscularly 0.3 mg once Re-initiate treatment only upon physician approval. 2032 active 05/23 famotidine 10 MG/ML Injectable Solution intravenously 20.0 mg Re-initiate treatment only upon physician approval. 2032 active 05/23 hydrocortisone 100 MG Injection intravenously 100.0 mg Re-initiate treatment only upon physician approval. 2032 active 02/28 1 ML leuprolide acetate 11.25 MG/ML Prefilled Syringe intramuscularly 11.25 mg once NOTE: This product is equivalent to Lupron Depot. 2032 active 02/28 hydrocortisone 100 MG Injection intravenously 100.0 mg Re-initiate treatment only upon physician approval. 2032 active 02/28 methylprednisol one 2000 MG Injection intravenously 125.0 mg Re-initiate treatment only upon physician approval. 2032 active 02/28 1 ML epinephrine 1 MG/ML Injection intramuscularly 0.3 mg once Re-initiate treatment only upon physician approval. 2032 active 02/28 diphenhydramine hydrochloride 0.5 MG/ML Injectable Solution intravenously 50.0 mg Re-initiate treatment only upon physician approval. 2032 active 02/28 famotidine 10 MG/ML Injectable Solution intravenously 20.0 mg Re-initiate treatment only upon physician approval. 2032 active 12/06 1 ML leuprolide acetate 11.25 MG/ML Prefilled Syringe intramuscularly 11.25 mg once NOTE: This product is equivalent to Lupron Depot. 2032 active 12/06 hydrocortisone 100 MG Injection intravenously 100.0 mg Re-initiate treatment only upon physician approval. 2032 active 12/06 diphenhydramine hydrochloride 0.5 MG/ML Injectable Solution intravenously 50.0 mg Re-initiate treatment only upon physician approval. 2032 active 12/06 famotidine 10 MG/ML Injectable Solution intravenously 20.0 mg Re-initiate treatment only upon physician approval. 2032 active 12/06 methylprednisol one 2000 MG Injection intravenously 125.0 mg Re-initiate treatment only upon physician approval. 2032 active 12/06 1 ML epinephrine 1 MG/ML Injection intramuscularly 0.3 mg once Re-initiate treatment only upon physician approval. 2032 active 09/13 diphenhydramine hydrochloride 0.5 MG/ML Injectable Solution intravenously 50.0 mg Re-initiate treatment only upon physician approval. 2031 active 09/13 methylprednisol one 2000 MG Injection intravenously 125.0 mg Re-initiate treatment only upon physician approval. 2031 active 09/13 1 ML epinephrine 1 MG/ML Injection intramuscularly 0.3 mg once Re-initiate treatment only upon physician approval. 2031 active 09/13 hydrocortisone 100 MG Injection intravenously 100.0 mg Re-initiate treatment only upon physician approval. 2031 active 09/13 1 ML leuprolide acetate 11.25 MG/ML Prefilled Syringe intramuscularly 11.25 mg once NOTE: This product is equivalent to Lupron Depot. 2031 active 09/13 famotidine 10 MG/ML Injectable Solution intravenously 20.0 mg Re-initiate treatment only upon physician approval. 2031 active 06/21 methylprednisol one 2000 MG Injection intravenously 125.0 mg Re-initiate treatment only upon physician approval. 2031 active 06/21 diphenhydramine hydrochloride 0.5 MG/ML Injectable Solution intravenously 50.0 mg Re-initiate treatment only upon physician approval. 2031 active 06/21 hydrocortisone 100 MG Injection intravenously 100.0 mg Re-initiate treatment only upon physician approval. 2031 active 06/21 1 ML epinephrine 1 MG/ML Injection intramuscularly 0.3 mg once Re-initiate treatment only upon physician approval. 2031 active 06/21 1 ML leuprolide acetate 11.25 MG/ML Prefilled Syringe intramuscularly 11.25 mg once NOTE: This product is equivalent to Lupron Depot. 2031 active 06/21 famotidine 10 MG/ML Injectable Solution intravenously 20.0 mg Re-initiate treatment only upon physician approval. 2031 active 03/29 methylprednisol one 2000 MG Injection intravenously 125.0 mg Re-initiate treatment only upon physician approval. 2031 active 03/29 hydrocortisone 100 MG Injection intravenously 100.0 mg Re-initiate treatment only upon physician approval. 2031 active 03/29 1 ML epinephrine 1 MG/ML Injection intramuscularly 0.3 mg once Re-initiate treatment only upon physician approval. 2031 active 03/29 famotidine 10 MG/ML Injectable Solution intravenously 20.0 mg Re-initiate treatment only upon physician approval. 2031 active 03/29 diphenhydramine hydrochloride 0.5 MG/ML Injectable Solution intravenously 50.0 mg Re-initiate treatment only upon physician approval. 2031 active 03/29 1 ML leuprolide acetate 11.25 MG/ML Prefilled Syringe intramuscularly 11.25 mg once NOTE: This product is equivalent to Lupron Depot. 2031 active 01/05 methylprednisol one 2000 MG Injection intravenously 125.0 mg Re-initiate treatment only upon physician approval. 2031 active 01/05 hydrocortisone 100 MG Injection intravenously 100.0 mg Re-initiate treatment only upon physician approval. 2031 active 01/05 famotidine 10 MG/ML Injectable Solution intravenously 20.0 mg Re-initiate treatment only upon physician approval. 2031 active 01/05 1 ML leuprolide acetate 11.25 MG/ML Prefilled Syringe intramuscularly 11.25 mg once NOTE: This product is equivalent to Lupron Depot. 2031 active 01/05 1 ML epinephrine 1 MG/ML Injection intramuscularly 0.3 mg once Re-initiate treatment only upon physician approval. 2031 active 01/05 diphenhydramine hydrochloride 0.5 MG/ML Injectable Solution intravenously 50.0 mg Re-initiate treatment only upon physician approval. 2031 active 10/13 famotidine 10 MG/ML Injectable Solution intravenously 20.0 mg Re-initiate treatment only upon physician approval. 2030 active 10/13 1 ML leuprolide acetate 11.25 MG/ML Prefilled Syringe intramuscularly 11.25 mg once NOTE: This product is equivalent to Lupron Depot. 2030 active 10/13 methylprednisol one 2000 MG Injection intravenously 125.0 mg Re-initiate treatment only upon physician approval. 2030 active 10/13 hydrocortisone 100 MG Injection intravenously 100.0 mg Re-initiate treatment only upon physician approval. 2030 active 10/13 1 ML epinephrine 1 MG/ML Injection intramuscularly 0.3 mg once Re-initiate treatment only upon physician approval. 2030 active 10/13 diphenhydramine hydrochloride 0.5 MG/ML Injectable Solution intravenously 50.0 mg Re-initiate treatment only upon physician approval. 2030 active 07/21 1 ML epinephrine 1 MG/ML Injection intramuscularly 0.3 mg once Re-initiate treatment only upon physician approval. 2030 active 07/21 1 ML leuprolide acetate 11.25 MG/ML Prefilled Syringe intramuscularly 11.25 mg once NOTE: This product is equivalent to Lupron Depot. 2030 active 07/21 diphenhydramine hydrochloride 0.5 MG/ML Injectable Solution intravenously 50.0 mg Re-initiate treatment only upon physician approval. 2030 active 07/21 hydrocortisone 100 MG Injection intravenously 100.0 mg Re-initiate treatment only upon physician approval. 2030 active 07/21 methylprednisol one 2000 MG Injection intravenously 125.0 mg Re-initiate treatment only upon physician approval. 2030 active 07/21 famotidine 10 MG/ML Injectable Solution intravenously 20.0 mg Re-initiate treatment only upon physician approval. 2030 active 04/28 famotidine 10 MG/ML Injectable Solution intravenously 20.0 mg Re-initiate treatment only upon physician approval. 2030 active 04/28 hydrocortisone 100 MG Injection intravenously 100.0 mg Re-initiate treatment only upon physician approval. 2030 active 04/28 diphenhydramine hydrochloride 0.5 MG/ML Injectable Solution intravenously 50.0 mg Re-initiate treatment only upon physician approval. 2030 active 04/28 1 ML leuprolide acetate 11.25 MG/ML Prefilled Syringe intramuscularly 11.25 mg once NOTE: This product is equivalent to Lupron Depot. 2030 active 04/28 1 ML epinephrine 1 MG/ML Injection intramuscularly 0.3 mg once Re-initiate treatment only upon physician approval. 2030 active 04/28 methylprednisol one 2000 MG Injection intravenously 125.0 mg Re-initiate treatment only upon physician approval. 2030 active 02/03 1 ML leuprolide acetate 11.25 MG/ML Prefilled Syringe intramuscularly 11.25 mg once NOTE: This product is equivalent to Lupron Depot. 2030 active 02/03 famotidine 10 MG/ML Injectable Solution intravenously 20.0 mg Re-initiate treatment only upon physician approval. 2030 active 02/03 diphenhydramine hydrochloride 0.5 MG/ML Injectable Solution intravenously 50.0 mg Re-initiate treatment only upon physician approval. 2030 active 02/03 methylprednisol one 2000 MG Injection intravenously 125.0 mg Re-initiate treatment only upon physician approval. 2030 active 02/03 1 ML epinephrine 1 MG/ML Injection intramuscularly 0.3 mg once Re-initiate treatment only upon physician approval. 2030 active 02/03 hydrocortisone 100 MG Injection intravenously 100.0 mg Re-initiate treatment only upon physician approval. 2030 active 11/11 methylprednisol one 2000 MG Injection intravenously 125.0 mg Re-initiate treatment only upon physician approval. 2029 active 11/11 1 ML epinephrine 1 MG/ML Injection intramuscularly 0.3 mg once Re-initiate treatment only upon physician approval. 2029 active 11/11 hydrocortisone 100 MG Injection intravenously 100.0 mg Re-initiate treatment only upon physician approval. 2029 active 11/11 1 ML leuprolide acetate 11.25 MG/ML Prefilled Syringe intramuscularly 11.25 mg once NOTE: This product is equivalent to Lupron Depot. 2029 active 11/11 famotidine 10 MG/ML Injectable Solution intravenously 20.0 mg Re-initiate treatment only upon physician approval. 2029 active 11/11 diphenhydramine hydrochloride 0.5 MG/ML Injectable Solution intravenously 50.0 mg Re-initiate treatment only upon physician approval. 2029 active 08/19 1 ML epinephrine 1 MG/ML Injection intramuscularly 0.3 mg once Re-initiate treatment only upon physician approval. 2029 active 08/19 1 ML leuprolide acetate 11.25 MG/ML Prefilled Syringe intramuscularly 11.25 mg once NOTE: This product is equivalent to Lupron Depot. 2029 active 08/19 famotidine 10 MG/ML Injectable Solution intravenously 20.0 mg Re-initiate treatment only upon physician approval. 2029 active 08/19 diphenhydramine hydrochloride 0.5 MG/ML Injectable Solution intravenously 50.0 mg Re-initiate treatment only upon physician approval. 2029 active 08/19 hydrocortisone 100 MG Injection intravenously 100.0 mg Re-initiate treatment only upon physician approval. 2029 active 08/19 methylprednisol one 2000 MG Injection intravenously 125.0 mg Re-initiate treatment only upon physician approval. 2029 active 05/27 hydrocortisone 100 MG Injection intravenously 100.0 mg Re-initiate treatment only upon physician approval. 2029 active 05/27 1 ML leuprolide acetate 11.25 MG/ML Prefilled Syringe intramuscularly 11.25 mg once NOTE: This product is equivalent to Lupron Depot. 2029 active 05/27 diphenhydramine hydrochloride 0.5 MG/ML Injectable Solution intravenously 50.0 mg Re-initiate treatment only upon physician approval. 2029 active 05/27 1 ML epinephrine 1 MG/ML Injection intramuscularly 0.3 mg once Re-initiate treatment only upon physician approval. 2029 active 05/27 famotidine 10 MG/ML Injectable Solution intravenously 20.0 mg Re-initiate treatment only upon physician approval. 2029 active 05/27 methylprednisol one 2000 MG Injection intravenously 125.0 mg Re-initiate treatment only upon physician approval. 2029 active 03/04 1 ML epinephrine 1 MG/ML Injection intramuscularly 0.3 mg once Re-initiate treatment only upon physician approval. 2029 active 03/04 1 ML leuprolide acetate 11.25 MG/ML Prefilled Syringe intramuscularly 11.25 mg once NOTE: This product is equivalent to Lupron Depot. 2029 active 03/04 famotidine 10 MG/ML Injectable Solution intravenously 20.0 mg Re-initiate treatment only upon physician approval. 2029 active 03/04 methylprednisol one 2000 MG Injection intravenously 125.0 mg Re-initiate treatment only upon physician approval. 2029 active 03/04 hydrocortisone 100 MG Injection intravenously 100.0 mg Re-initiate treatment only upon physician approval. 2029 active 03/04 diphenhydramine hydrochloride 0.5 MG/ML Injectable Solution intravenously 50.0 mg Re-initiate treatment only upon physician approval. 2029 active 12/10 diphenhydramine hydrochloride 0.5 MG/ML Injectable Solution intravenously 50.0 mg Re-initiate treatment only upon physician approval. 2029 active 12/10 methylprednisol one 2000 MG Injection intravenously 125.0 mg Re-initiate treatment only upon physician approval. 2029 active 12/10 famotidine 10 MG/ML Injectable Solution intravenously 20.0 mg Re-initiate treatment only upon physician approval. 2029 active 12/10 1 ML leuprolide acetate 11.25 MG/ML Prefilled Syringe intramuscularly 11.25 mg once NOTE: This product is equivalent to Lupron Depot. 2029 active 12/10 hydrocortisone 100 MG Injection intravenously 100.0 mg Re-initiate treatment only upon physician approval. 2029 active 12/10 1 ML epinephrine 1 MG/ML Injection intramuscularly 0.3 mg once Re-initiate treatment only upon physician approval. 2029 active 09/17 1 ML leuprolide acetate 11.25 MG/ML Prefilled Syringe intramuscularly 11.25 mg once NOTE: This product is equivalent to Lupron Depot. 2028 active 09/17 hydrocortisone 100 MG Injection intravenously 100.0 mg Re-initiate treatment only upon physician approval. 2028 active 09/17 famotidine 10 MG/ML Injectable Solution intravenously 20.0 mg Re-initiate treatment only upon physician approval. 2028 active 09/17 1 ML epinephrine 1 MG/ML Injection intramuscularly 0.3 mg once Re-initiate treatment only upon physician approval. 2028 active 09/17 methylprednisol one 2000 MG Injection intravenously 125.0 mg Re-initiate treatment only upon physician approval. 2028 active 09/17 diphenhydramine hydrochloride 0.5 MG/ML Injectable Solution intravenously 50.0 mg Re-initiate treatment only upon physician approval. 2028 active 06/25 diphenhydramine hydrochloride 0.5 MG/ML Injectable Solution intravenously 50.0 mg Re-initiate treatment only upon physician approval. 2028 active 06/25 famotidine 10 MG/ML Injectable Solution intravenously 20.0 mg Re-initiate treatment only upon physician approval. 2028 active 06/25 1 ML epinephrine 1 MG/ML Injection intramuscularly 0.3 mg once Re-initiate treatment only upon physician approval. 2028 active 06/25 hydrocortisone 100 MG Injection intravenously 100.0 mg Re-initiate treatment only upon physician approval. 2028 active 06/25 methylprednisol one 2000 MG Injection intravenously 125.0 mg Re-initiate treatment only upon physician approval. 2028 active 06/25 1 ML leuprolide acetate 11.25 MG/ML Prefilled Syringe intramuscularly 11.25 mg once NOTE: This product is equivalent to Lupron Depot. 2028 active 04/02 hydrocortisone 100 MG Injection intravenously 100.0 mg Re-initiate treatment only upon physician approval. 2028 active 04/02 1 ML epinephrine 1 MG/ML Injection intramuscularly 0.3 mg once Re-initiate treatment only upon physician approval. 2028 active 04/02 methylprednisol one 2000 MG Injection intravenously 125.0 mg Re-initiate treatment only upon physician approval. 2028 active 04/02 famotidine 10 MG/ML Injectable Solution intravenously 20.0 mg Re-initiate treatment only upon physician approval. 2028 active 04/02 diphenhydramine hydrochloride 0.5 MG/ML Injectable Solution intravenously 50.0 mg Re-initiate treatment only upon physician approval. 2028 active 04/02 1 ML leuprolide acetate 11.25 MG/ML Prefilled Syringe intramuscularly 11.25 mg once NOTE: This product is equivalent to Lupron Depot. 2028 active 01/08 diphenhydramine hydrochloride 0.5 MG/ML Injectable Solution intravenously 50.0 mg Re-initiate treatment only upon physician approval. 2028 active 01/08 1 ML epinephrine 1 MG/ML Injection intramuscularly 0.3 mg once Re-initiate treatment only upon physician approval. 2028 active 01/08 1 ML leuprolide acetate 11.25 MG/ML Prefilled Syringe intramuscularly 11.25 mg once NOTE: This product is equivalent to Lupron Depot. 2028 active 01/08 methylprednisol one 2000 MG Injection intravenously 125.0 mg Re-initiate treatment only upon physician approval. 2028 active 01/08 hydrocortisone 100 MG Injection intravenously 100.0 mg Re-initiate treatment only upon physician approval. 2028 active 01/08 famotidine 10 MG/ML Injectable Solution intravenously 20.0 mg Re-initiate treatment only upon physician approval. 2028 active 10/16 1 ML epinephrine 1 MG/ML Injection intramuscularly 0.3 mg once Re-initiate treatment only upon physician approval. 2027 active 10/16 famotidine 10 MG/ML Injectable Solution intravenously 20.0 mg Re-initiate treatment only upon physician approval. 2027 active 10/16 hydrocortisone 100 MG Injection intravenously 100.0 mg Re-initiate treatment only upon physician approval. 2027 active 10/16 1 ML leuprolide acetate 11.25 MG/ML Prefilled Syringe intramuscularly 11.25 mg once NOTE: This product is equivalent to Lupron Depot. 2027 active 10/16 methylprednisol one 2000 MG Injection intravenously 125.0 mg Re-initiate treatment only upon physician approval. 2027 active 10/16 diphenhydramine hydrochloride 0.5 MG/ML Injectable Solution intravenously 50.0 mg Re-initiate treatment only upon physician approval. 2027 active 07/24 1 ML leuprolide acetate 11.25 MG/ML Prefilled Syringe intramuscularly 11.25 mg once NOTE: This product is equivalent to Lupron Depot. 2027 active 07/24 diphenhydramine hydrochloride 0.5 MG/ML Injectable Solution intravenously 50.0 mg Re-initiate treatment only upon physician approval. 2027 active 07/24 famotidine 10 MG/ML Injectable Solution intravenously 20.0 mg Re-initiate treatment only upon physician approval. 2027 active 07/24 1 ML epinephrine 1 MG/ML Injection intramuscularly 0.3 mg once Re-initiate treatment only upon physician approval. 2027 active 07/24 methylprednisol one 2000 MG Injection intravenously 125.0 mg Re-initiate treatment only upon physician approval. 2027 active 07/24 hydrocortisone 100 MG Injection intravenously 100.0 mg Re-initiate treatment only upon physician approval. 2027 active 05/01 methylprednisol one 2000 MG Injection intravenously 125.0 mg Re-initiate treatment only upon physician approval. 2027 active 05/01 diphenhydramine hydrochloride 0.5 MG/ML Injectable Solution intravenously 50.0 mg Re-initiate treatment only upon physician approval. 2027 active 05/01 1 ML leuprolide acetate 11.25 MG/ML Prefilled Syringe intramuscularly 11.25 mg once NOTE: This product is equivalent to Lupron Depot. 2027 active 05/01 1 ML epinephrine 1 MG/ML Injection intramuscularly 0.3 mg once Re-initiate treatment only upon physician approval. 2027 active 05/01 famotidine 10 MG/ML Injectable Solution intravenously 20.0 mg Re-initiate treatment only upon physician approval. 2027 active 05/01 hydrocortisone 100 MG Injection intravenously 100.0 mg Re-initiate treatment only upon physician approval. 2027 active 02/06 diphenhydramine hydrochloride 0.5 MG/ML Injectable Solution intravenously 50.0 mg Re-initiate treatment only upon physician approval. 2027 active 02/06 methylprednisol one 2000 MG Injection intravenously 125.0 mg Re-initiate treatment only upon physician approval. 2027 active 02/06 1 ML epinephrine 1 MG/ML Injection intramuscularly 0.3 mg once Re-initiate treatment only upon physician approval. 2027 active 02/06 1 ML leuprolide acetate 11.25 MG/ML Prefilled Syringe intramuscularly 11.25 mg once NOTE: This product is equivalent to Lupron Depot. 2027 active 02/06 hydrocortisone 100 MG Injection intravenously 100.0 mg Re-initiate treatment only upon physician approval. 2027 active 02/06 famotidine 10 MG/ML Injectable Solution intravenously 20.0 mg Re-initiate treatment only upon physician approval. 2027 active 11/15 1 ML epinephrine 1 MG/ML Injection intramuscularly 0.3 mg once Re-initiate treatment only upon physician approval. 2026 active 11/15 1 ML leuprolide acetate 11.25 MG/ML Prefilled Syringe intramuscularly 11.25 mg once NOTE: This product is equivalent to Lupron Depot. 2026 active 11/15 famotidine 10 MG/ML Injectable Solution intravenously 20.0 mg Re-initiate treatment only upon physician approval. 2026 active 11/15 methylprednisol one 2000 MG Injection intravenously 125.0 mg Re-initiate treatment only upon physician approval. 2026 active 11/15 diphenhydramine hydrochloride 0.5 MG/ML Injectable Solution intravenously 50.0 mg Re-initiate treatment only upon physician approval. 2026 active 11/15 hydrocortisone 100 MG Injection intravenously 100.0 mg Re-initiate treatment only upon physician approval. 2026 active 08/23 diphenhydramine hydrochloride 0.5 MG/ML Injectable Solution intravenously 50.0 mg Re-initiate treatment only upon physician approval. 2026 active 08/23 famotidine 10 MG/ML Injectable Solution intravenously 20.0 mg Re-initiate treatment only upon physician approval. 2026 active 08/23 methylprednisol one 2000 MG Injection intravenously 125.0 mg Re-initiate treatment only upon physician approval. 2026 active 08/23 1 ML leuprolide acetate 11.25 MG/ML Prefilled Syringe intramuscularly 11.25 mg once NOTE: This product is equivalent to Lupron Depot. 2026 active 08/23 hydrocortisone 100 MG Injection intravenously 100.0 mg Re-initiate treatment only upon physician approval. 2026 active 08/23 1 ML epinephrine 1 MG/ML Injection intramuscularly 0.3 mg once Re-initiate treatment only upon physician approval. 2026 active 05/31 1 ML leuprolide acetate 11.25 MG/ML Prefilled Syringe intramuscularly 11.25 mg once NOTE: This product is equivalent to Lupron Depot. 2026 active 05/31 diphenhydramine hydrochloride 0.5 MG/ML Injectable Solution intravenously 50.0 mg Re-initiate treatment only upon physician approval. 2026 active 05/31 1 ML epinephrine 1 MG/ML Injection intramuscularly 0.3 mg once Re-initiate treatment only upon physician approval. 2026 active 05/31 methylprednisol one 2000 MG Injection intravenously 125.0 mg Re-initiate treatment only upon physician approval. 2026 active 05/31 famotidine 10 MG/ML Injectable Solution intravenously 20.0 mg Re-initiate treatment only upon physician approval. 2026 active 05/31 hydrocortisone 100 MG Injection intravenously 100.0 mg Re-initiate treatment only upon physician approval. 2026 active 03/08 famotidine 10 MG/ML Injectable Solution intravenously 20.0 mg Re-initiate treatment only upon physician approval. 2026 active 03/08 hydrocortisone 100 MG Injection intravenously 100.0 mg Re-initiate treatment only upon physician approval. 2026 active 03/08 diphenhydramine hydrochloride 0.5 MG/ML Injectable Solution intravenously 50.0 mg Re-initiate treatment only upon physician approval. 2026 active 03/08 1 ML epinephrine 1 MG/ML Injection intramuscularly 0.3 mg once Re-initiate treatment only upon physician approval. 2026 active 03/08 methylprednisol one 2000 MG Injection intravenously 125.0 mg Re-initiate treatment only upon physician approval. 2026 active 03/08 1 ML leuprolide acetate 11.25 MG/ML Prefilled Syringe intramuscularly 11.25 mg once NOTE: This product is equivalent to Lupron Depot. 2026 active 12/14 diphenhydramine hydrochloride 0.5 MG/ML Injectable Solution intravenously 50.0 mg Re-initiate treatment only upon physician approval. 2026 active 12/14 famotidine 10 MG/ML Injectable Solution intravenously 20.0 mg Re-initiate treatment only upon physician approval. 2026 active 12/14 1 ML epinephrine 1 MG/ML Injection intramuscularly 0.3 mg once Re-initiate treatment only upon physician approval. 2026 active 12/14 hydrocortisone 100 MG Injection intravenously 100.0 mg Re-initiate treatment only upon physician approval. 2026 active 12/14 methylprednisol one 2000 MG Injection intravenously 125.0 mg Re-initiate treatment only upon physician approval. 2026 active 12/14 1 ML leuprolide acetate 11.25 MG/ML Prefilled Syringe intramuscularly 11.25 mg once NOTE: This product is equivalent to Lupron Depot. 2026 active 09/21 famotidine 10 MG/ML Injectable Solution intravenously 20.0 mg Re-initiate treatment only upon physician approval. 2025 active 09/21 hydrocortisone 100 MG Injection intravenously 100.0 mg Re-initiate treatment only upon physician approval. 2025 active 09/21 methylprednisol one 2000 MG Injection intravenously 125.0 mg Re-initiate treatment only upon physician approval. 2025 active 09/21 diphenhydramine hydrochloride 0.5 MG/ML Injectable Solution intravenously 50.0 mg Re-initiate treatment only upon physician approval. 2025 active 09/21 1 ML epinephrine 1 MG/ML Injection intramuscularly 0.3 mg once Re-initiate treatment only upon physician approval. 2025 active 09/21 1 ML leuprolide acetate 11.25 MG/ML Prefilled Syringe intramuscularly 11.25 mg once NOTE: This product is equivalent to Lupron Depot. 2025 active 09/14 diphenhydramine hydrochloride 0.5 MG/ML Injectable Solution intravenously 50.0 mg Re-initiate treatment only upon physician approval. 2025 active 09/14 1 ML epinephrine 1 MG/ML Injection intramuscularly 0.3 mg once Re-initiate treatment only upon physician approval. 2025 active 09/14 5 ML zoledronic acid 0.8 MG/ML Injection intravenously 4.0 mg once 2025 active 09/14 hydrocortisone 100 MG Injection intravenously 100.0 mg Re-initiate treatment only upon physician approval. 2025 active 09/14 famotidine 10 MG/ML Injectable Solution intravenously 20.0 mg Re-initiate treatment only upon physician approval. 2025 active 09/14 methylprednisol one 2000 MG Injection intravenously 125.0 mg Re-initiate treatment only upon physician approval. 2025 active 06/29 1 ML epinephrine 1 MG/ML Injection intramuscularly 0.3 mg once Re-initiate treatment only upon physician approval. 2025 active 06/29 famotidine 10 MG/ML Injectable Solution intravenously 20.0 mg Re-initiate treatment only upon physician approval. 2025 active 06/29 methylprednisol one 2000 MG Injection intravenously 125.0 mg Re-initiate treatment only upon physician approval. 2025 active 06/29 diphenhydramine hydrochloride 0.5 MG/ML Injectable Solution intravenously 50.0 mg Re-initiate treatment only upon physician approval. 2025 active 06/29 1 ML leuprolide acetate 11.25 MG/ML Prefilled Syringe intramuscularly 11.25 mg once NOTE: This product is equivalent to Lupron Depot. 2025 active 06/29 hydrocortisone 100 MG Injection intravenously 100.0 mg Re-initiate treatment only upon physician approval. 2025 active 04/06 hydrocortisone 100 MG Injection intravenously 100.0 mg Re-initiate treatment only upon physician approval. 2025 active 04/06 1 ML epinephrine 1 MG/ML Injection intramuscularly 0.3 mg once Re-initiate treatment only upon physician approval. 2025 active 04/06 diphenhydramine hydrochloride 0.5 MG/ML Injectable Solution intravenously 50.0 mg Re-initiate treatment only upon physician approval. 2025 active 04/06 1 ML leuprolide acetate 11.25 MG/ML Prefilled Syringe intramuscularly 11.25 mg once NOTE: This product is equivalent to Lupron Depot. 2025 active 04/06 famotidine 10 MG/ML Injectable Solution intravenously 20.0 mg Re-initiate treatment only upon physician approval. 2025 active 04/06 methylprednisol one 2000 MG Injection intravenously 125.0 mg Re-initiate treatment only upon physician approval. 2025 active 03/18 diphenhydramine hydrochloride 0.5 MG/ML Injectable Solution intravenously 50.0 mg Re-initiate treatment only upon physician approval. 2025 active 03/18 famotidine 10 MG/ML Injectable Solution intravenously 20.0 mg Re-initiate treatment only upon physician approval. 2025 active 03/18 methylprednisol one 2000 MG Injection intravenously 125.0 mg Re-initiate treatment only upon physician approval. 2025 active 03/18 5 ML zoledronic acid 0.8 MG/ML Injection intravenously 4.0 mg once 2025 active 03/18 hydrocortisone 100 MG Injection intravenously 100.0 mg Re-initiate treatment only upon physician approval. 2025 active 03/18 1 ML epinephrine 1 MG/ML Injection intramuscularly 0.3 mg once Re-initiate treatment only upon physician approval. 2025 active 01/12 hydrocortisone 100 MG Injection intravenously 100.0 mg Re-initiate treatment only upon physician approval. 2025 active 01/12 1 ML leuprolide acetate 11.25 MG/ML Prefilled Syringe intramuscularly 11.25 mg once NOTE: This product is equivalent to Lupron Depot. 2025 active 01/12 1 ML epinephrine 1 MG/ML Injection intramuscularly 0.3 mg once Re-initiate treatment only upon physician approval. 2025 active 01/12 methylprednisol one 2000 MG Injection intravenously 125.0 mg Re-initiate treatment only upon physician approval. 2025 active 01/12 famotidine 10 MG/ML Injectable Solution intravenously 20.0 mg Re-initiate treatment only upon physician approval. 2025 active 01/12 diphenhydramine hydrochloride 0.5 MG/ML Injectable Solution intravenously 50.0 mg Re-initiate treatment only upon physician approval. 2025 active 10/20 methylprednisol one 2000 MG Injection intravenously 125.0 mg Re-initiate treatment only upon physician approval. 2024 active 10/20 hydrocortisone 100 MG Injection intravenously 100.0 mg Re-initiate treatment only upon physician approval. 2024 active 10/20 diphenhydramine hydrochloride 0.5 MG/ML Injectable Solution intravenously 50.0 mg Re-initiate treatment only upon physician approval. 2024 active 10/20 famotidine 10 MG/ML Injectable Solution intravenously 20.0 mg Re-initiate treatment only upon physician approval. 2024 active 10/20 1 ML leuprolide acetate 11.25 MG/ML Prefilled Syringe intramuscularly 11.25 mg once NOTE: This product is equivalent to Lupron Depot. 2024 active 10/20 1 ML epinephrine 1 MG/ML Injection intramuscularly 0.3 mg once Re-initiate treatment only upon physician approval. 2024 active 09/19 methylprednisol one 2000 MG Injection intravenously 125.0 mg Re-initiate treatment only upon physician approval. 2024 active 09/19 hydrocortisone 100 MG Injection intravenously 100.0 mg Re-initiate treatment only upon physician approval. 2024 active 09/19 diphenhydramine hydrochloride 0.5 MG/ML Injectable Solution intravenously 50.0 mg Re-initiate treatment only upon physician approval. 2024 active 09/19 famotidine 10 MG/ML Injectable Solution intravenously 20.0 mg Re-initiate treatment only upon physician approval. 2024 active 09/19 5 ML zoledronic acid 0.8 MG/ML Injection intravenously 4.0 mg once 2024 active 09/19 1 ML epinephrine 1 MG/ML Injection intramuscularly 0.3 mg once Re-initiate treatment only upon physician approval. 2024 active 07/28 hydrocortisone 100 MG Injection intravenously 100.0 mg Re-initiate treatment only upon physician approval. 2024 active 07/28 1 ML epinephrine 1 MG/ML Injection intramuscularly 0.3 mg once Re-initiate treatment only upon physician approval. 2024 active 07/28 famotidine 10 MG/ML Injectable Solution intravenously 20.0 mg Re-initiate treatment only upon physician approval. 2024 active 07/28 diphenhydramine hydrochloride 0.5 MG/ML Injectable Solution intravenously 50.0 mg Re-initiate treatment only upon physician approval. 2024 active 07/28 1 ML leuprolide acetate 11.25 MG/ML Prefilled Syringe intramuscularly 11.25 mg once NOTE: This product is equivalent to Lupron Depot. 2024 active 07/28 methylprednisol one 2000 MG Injection intravenously 125.0 mg Re-initiate treatment only upon physician approval. 2024 active 05/05 1 ML leuprolide acetate 11.25 MG/ML Prefilled Syringe intramuscularly 11.25 mg once NOTE: This product is equivalent to Lupron Depot. 2024 active 05/05 hydrocortisone 100 MG Injection intravenously 100.0 mg Re-initiate treatment only upon physician approval. 2024 active 05/05 diphenhydramine hydrochloride 0.5 MG/ML Injectable Solution intravenously 50.0 mg Re-initiate treatment only upon physician approval. 2024 active 05/05 1 ML epinephrine 1 MG/ML Injection intramuscularly 0.3 mg once Re-initiate treatment only upon physician approval. 2024 active 05/05 famotidine 10 MG/ML Injectable Solution intravenously 20.0 mg Re-initiate treatment only upon physician approval. 2024 active 05/05 methylprednisol one 2000 MG Injection intravenously 125.0 mg Re-initiate treatment only upon physician approval. 2024 active 03/23 5 ML zoledronic acid 0.8 MG/ML Injection intravenously 4.0 mg once 2024 active 03/23 1 ML epinephrine 1 MG/ML Injection intramuscularly 0.3 mg once Re-initiate treatment only upon physician approval. 2024 active 03/23 hydrocortisone 100 MG Injection intravenously 100.0 mg Re-initiate treatment only upon physician approval. 2024 active 03/23 methylprednisol one 2000 MG Injection intravenously 125.0 mg Re-initiate treatment only upon physician approval. 2024 active 03/23 diphenhydramine hydrochloride 0.5 MG/ML Injectable Solution intravenously 50.0 mg Re-initiate treatment only upon physician approval. 2024 active 03/23 famotidine 10 MG/ML Injectable Solution intravenously 20.0 mg Re-initiate treatment only upon physician approval. 2024 active 02/10 famotidine 10 MG/ML Injectable Solution intravenously 20.0 mg Re-initiate treatment only upon physician approval. 2024 active 02/10 diphenhydramine hydrochloride 0.5 MG/ML Injectable Solution intravenously 50.0 mg Re-initiate treatment only upon physician approval. 2024 active 02/10 hydrocortisone 100 MG Injection intravenously 100.0 mg Re-initiate treatment only upon physician approval. 2024 active 02/10 methylprednisol one 2000 MG Injection intravenously 125.0 mg Re-initiate treatment only upon physician approval. 2024 active 02/10 1 ML leuprolide acetate 11.25 MG/ML Prefilled Syringe intramuscularly 11.25 mg once NOTE: This product is equivalent to Lupron Depot. 2024 active 02/10 1 ML epinephrine 1 MG/ML Injection intramuscularly 0.3 mg once Re-initiate treatment only upon physician approval. 2024 active 11/18 methylprednisol one 2000 MG Injection intravenously 125.0 mg Re-initiate treatment only upon physician approval. 2023 active 11/18 diphenhydramine hydrochloride 0.5 MG/ML Injectable Solution intravenously 50.0 mg Re-initiate treatment only upon physician approval. 2023 active 11/18 hydrocortisone 100 MG Injection intravenously 100.0 mg Re-initiate treatment only upon physician approval. 2023 active 11/18 famotidine 10 MG/ML Injectable Solution intravenously 20.0 mg Re-initiate treatment only upon physician approval. 2023 active 11/18 1 ML epinephrine 1 MG/ML Injection intramuscularly 0.3 mg once Re-initiate treatment only upon physician approval. 2023 active 11/18 1 ML leuprolide acetate 11.25 MG/ML Prefilled Syringe intramuscularly 11.25 mg once NOTE: This product is equivalent to Lupron Depot. 2023 active 09/24 famotidine 10 MG/ML Injectable Solution intravenously 20.0 mg Re-initiate treatment only upon physician approval. 2023 active 09/24 methylprednisol one 2000 MG Injection intravenously 125.0 mg Re-initiate treatment only upon physician approval. 2023 active 09/24 1 ML epinephrine 1 MG/ML Injection intramuscularly 0.3 mg once Re-initiate treatment only upon physician approval. 2023 active 09/24 diphenhydramine hydrochloride 0.5 MG/ML Injectable Solution intravenously 50.0 mg Re-initiate treatment only upon physician approval. 2023 active 09/24 hydrocortisone 100 MG Injection intravenously 100.0 mg Re-initiate treatment only upon physician approval. 2023 active 09/24 5 ML zoledronic acid 0.8 MG/ML Injection intravenously 4.0 mg once 2023 active 08/26 diphenhydramine hydrochloride 0.5 MG/ML Injectable Solution intravenously 50.0 mg Re-initiate treatment only upon physician approval. 2023 active 08/26 hydrocortisone 100 MG Injection intravenously 100.0 mg Re-initiate treatment only upon physician approval. 2023 active 08/26 1 ML epinephrine 1 MG/ML Injection intramuscularly 0.3 mg once Re-initiate treatment only upon physician approval. 2023 active 08/26 methylprednisol one 2000 MG Injection intravenously 125.0 mg Re-initiate treatment only upon physician approval. 2023 active 08/26 1 ML leuprolide acetate 11.25 MG/ML Prefilled Syringe intramuscularly 11.25 mg once NOTE: This product is equivalent to Lupron Depot. 2023 active 08/26 famotidine 10 MG/ML Injectable Solution intravenously 20.0 mg Re-initiate treatment only upon physician approval. 2023 active 07/11 exemestane 25 MG Oral Tablet orally 1.0 tablet every other day Take once daily after a meal. 2023 active 07/11 exemestane 25 MG Oral Tablet orally 1.0 tablet every day Take once daily after a meal. 2023 active 05/30 exemestane 25 MG Oral Tablet orally 1.0 tablet every other day Take once daily after a meal. 2023 active 05/28 1 ML epinephrine 1 MG/ML Injection intramuscularly 0.3 mg once Re-initiate treatment only upon physician approval. 2023 active 05/28 hydrocortisone 100 MG Injection intravenously 100.0 mg Re-initiate treatment only upon physician approval. 2023 active 05/28 famotidine 10 MG/ML Injectable Solution intravenously 20.0 mg Re-initiate treatment only upon physician approval. 2023 active 05/28 diphenhydramine hydrochloride 0.5 MG/ML Injectable Solution intravenously 50.0 mg Re-initiate treatment only upon physician approval. 2023 active 05/28 methylprednisol one 2000 MG Injection intravenously 125.0 mg Re-initiate treatment only upon physician approval. 2023 active 04/30 diphenhydramine hydrochloride 0.5 MG/ML Injectable Solution intravenously 50.0 mg Re-initiate treatment only upon physician approval. 2023 active 04/30 1 ML epinephrine 1 MG/ML Injection intramuscularly 0.3 mg once Re-initiate treatment only upon physician approval. 2023 active 04/30 hydrocortisone 100 MG Injection intravenously 100.0 mg Re-initiate treatment only upon physician approval. 2023 active 04/30 methylprednisol one 2000 MG Injection intravenously 125.0 mg Re-initiate treatment only upon physician approval. 2023 active 04/30 famotidine 10 MG/ML Injectable Solution intravenously 20.0 mg Re-initiate treatment only upon physician approval. 2023 active 03/28 diphenhydramine hydrochloride 0.5 MG/ML Injectable Solution intravenously 50.0 mg Re-initiate treatment only upon physician approval. 2023 active 03/28 methylprednisol one 2000 MG Injection intravenously 125.0 mg Re-initiate treatment only upon physician approval. 2023 active 03/28 famotidine 10 MG/ML Injectable Solution intravenously 20.0 mg Re-initiate treatment only upon physician approval. 2023 active 03/28 1 ML epinephrine 1 MG/ML Injection intramuscularly 0.3 mg once Re-initiate treatment only upon physician approval. 2023 active 03/28 hydrocortisone 100 MG Injection intravenously 100.0 mg Re-initiate treatment only upon physician approval. 2023 active 02/14 hydrocortisone 100 MG Injection intravenously 100.0 mg Re-initiate treatment only upon physician approval. 2023 active 02/14 1 ML epinephrine 1 MG/ML Injection intramuscularly 0.3 mg once Re-initiate treatment only upon physician approval. 2023 active 02/14 famotidine 10 MG/ML Injectable Solution intravenously 20.0 mg Re-initiate treatment only upon physician approval. 2023 active 02/14 methylprednisol one 2000 MG Injection intravenously 125.0 mg Re-initiate treatment only upon physician approval. 2023 active 02/14 diphenhydramine hydrochloride 0.5 MG/ML Injectable Solution intravenously 50.0 mg Re-initiate treatment only upon physician approval. 2023 active 01/17 famotidine 10 MG/ML Injectable Solution intravenously 20.0 mg Re-initiate treatment only upon physician approval. 2023 active 01/17 1 ML epinephrine 1 MG/ML Injection intramuscularly 0.3 mg once Re-initiate treatment only upon physician approval. 2023 active 01/17 hydrocortisone 100 MG Injection intravenously 100.0 mg Re-initiate treatment only upon physician approval. 2023 active 01/17 diphenhydramine hydrochloride 0.5 MG/ML Injectable Solution intravenously 50.0 mg Re-initiate treatment only upon physician approval. 2023 active 01/17 methylprednisol one 2000 MG Injection intravenously 125.0 mg Re-initiate treatment only upon physician approval. 2023 active 12/20 diphenhydramine hydrochloride 0.5 MG/ML Injectable Solution intravenously 50.0 mg Re-initiate treatment only upon physician approval. 2023 active 12/20 methylprednisol one 2000 MG Injection intravenously 125.0 mg Re-initiate treatment only upon physician approval. 2023 active 12/20 1 ML epinephrine 1 MG/ML Injection intramuscularly 0.3 mg once Re-initiate treatment only upon physician approval. 2023 active 12/20 hydrocortisone 100 MG Injection intravenously 100.0 mg Re-initiate treatment only upon physician approval. 2023 active 12/20 famotidine 10 MG/ML Injectable Solution intravenously 20.0 mg Re-initiate treatment only upon physician approval. 2023 active 11/22 dexamethasone sodium phosphate intravenously 10.0 mg once NOTE: Administer ONLY if patient missed 1-2 doses of oral dexamethasone at home (recommended 12 and 6 hours prior to paclitaxel to reduce risk of infusion reaction). Administer 30-60 minutes prior to paclitaxel. 11/22 on hold 11/22 hydrocortisone 100 MG Injection intravenously 100.0 mg Re-initiate treatment only upon physician approval. 2022 active 11/22 diphenhydramine hydrochloride 0.5 MG/ML Injectable Solution intravenously 50.0 mg Re-initiate treatment only upon physician approval. 2022 active 11/22 famotidine 10 MG/ML Injectable Solution intravenously 20.0 mg Re-initiate treatment only upon physician approval. 2022 active 11/22 1 ML epinephrine 1 MG/ML Injection intramuscularly 0.3 mg once Re-initiate treatment only upon physician approval. 2022 active 11/22 methylprednisol one 2000 MG Injection intravenously 125.0 mg Re-initiate treatment only upon physician approval. 2022 active 11/15 diphenhydramine hydrochloride 0.5 MG/ML Injectable Solution intravenously 50.0 mg Re-initiate treatment only upon physician approval. 2022 active 11/15 hydrocortisone 100 MG Injection intravenously 100.0 mg Re-initiate treatment only upon physician approval. 2022 active 11/15 methylprednisol one 2000 MG Injection intravenously 125.0 mg Re-initiate treatment only upon physician approval. 2022 active 11/15 1 ML epinephrine 1 MG/ML Injection intramuscularly 0.3 mg once Re-initiate treatment only upon physician approval. 2022 active 11/15 dexamethasone sodium phosphate intravenously 10.0 mg once NOTE: Administer ONLY if patient missed 1-2 doses of oral dexamethasone at home (recommended 12 and 6 hours prior to paclitaxel to reduce risk of infusion reaction). Administer 30-60 minutes prior to paclitaxel. 11/15 on hold 11/15 famotidine 10 MG/ML Injectable Solution intravenously 20.0 mg Re-initiate treatment only upon physician approval. 2022 active 11/08 dexamethasone sodium phosphate intravenously 10.0 mg once NOTE: Administer ONLY if patient missed 1-2 doses of oral dexamethasone at home (recommended 12 and 6 hours prior to paclitaxel to reduce risk of infusion reaction). Administer 30-60 minutes prior to paclitaxel. 11/08 on hold 11/08 methylprednisol one 2000 MG Injection intravenously 125.0 mg Re-initiate treatment only upon physician approval. 2022 active 11/08 hydrocortisone 100 MG Injection intravenously 100.0 mg Re-initiate treatment only upon physician approval. 2022 active 11/08 1 ML epinephrine 1 MG/ML Injection intramuscularly 0.3 mg once Re-initiate treatment only upon physician approval. 2022 active 11/08 famotidine 10 MG/ML Injectable Solution intravenously 20.0 mg Re-initiate treatment only upon physician approval. 2022 active 11/08 diphenhydramine hydrochloride 0.5 MG/ML Injectable Solution intravenously 50.0 mg Re-initiate treatment only upon physician approval. 2022 active 11/01 diphenhydramine hydrochloride 0.5 MG/ML Injectable Solution intravenously 50.0 mg Re-initiate treatment only upon physician approval. 2022 active 11/01 1 ML epinephrine 1 MG/ML Injection intramuscularly 0.3 mg once Re-initiate treatment only upon physician approval. 2022 active 11/01 dexamethasone sodium phosphate intravenously 10.0 mg once NOTE: Administer ONLY if patient missed 1-2 doses of oral dexamethasone at home (recommended 12 and 6 hours prior to paclitaxel to reduce risk of infusion reaction). Administer 30-60 minutes prior to paclitaxel. 2022 active 11/01 hydrocortisone 100 MG Injection intravenously 100.0 mg Re-initiate treatment only upon physician approval. 2022 active 11/01 methylprednisol one 2000 MG Injection intravenously 125.0 mg Re-initiate treatment only upon physician approval. 2022 active 11/01 famotidine 10 MG/ML Injectable Solution intravenously 20.0 mg Re-initiate treatment only upon physician approval. 2022 active 10/25 1 ML epinephrine 1 MG/ML Injection intramuscularly 0.3 mg once Re-initiate treatment only upon physician approval. 2022 active 10/25 dexamethasone sodium phosphate intravenously 10.0 mg once NOTE: Administer ONLY if patient missed 1-2 doses of oral dexamethasone at home (recommended 12 and 6 hours prior to paclitaxel to reduce risk of infusion reaction). Administer 30-60 minutes prior to paclitaxel. 2022 active 10/25 hydrocortisone 100 MG Injection intravenously 100.0 mg Re-initiate treatment only upon physician approval. 2022 active 10/25 diphenhydramine hydrochloride 0.5 MG/ML Injectable Solution intravenously 50.0 mg Re-initiate treatment only upon physician approval. 2022 active 10/25 methylprednisol one 2000 MG Injection intravenously 125.0 mg Re-initiate treatment only upon physician approval. 2022 active 10/25 famotidine 10 MG/ML Injectable Solution intravenously 20.0 mg Re-initiate treatment only upon physician approval. 2022 active 10/11 methylprednisol one 2000 MG Injection intravenously 125.0 mg Re-initiate treatment only upon physician approval. 2022 active 10/11 diphenhydramine hydrochloride 0.5 MG/ML Injectable Solution intravenously 50.0 mg Re-initiate treatment only upon physician approval. 2022 active 10/11 1 ML epinephrine 1 MG/ML Injection intramuscularly 0.3 mg once Re-initiate treatment only upon physician approval. 2022 active 10/11 hydrocortisone 100 MG Injection intravenously 100.0 mg Re-initiate treatment only upon physician approval. 2022 active 10/11 famotidine 10 MG/ML Injectable Solution intravenously 20.0 mg Re-initiate treatment only upon physician approval. 2022 active 10/11 dexamethasone sodium phosphate intravenously 10.0 mg once NOTE: Administer ONLY if patient missed 1-2 doses of oral dexamethasone at home (recommended 12 and 6 hours prior to paclitaxel to reduce risk of infusion reaction). Administer 30-60 minutes prior to paclitaxel. 2022 active 10/04 dexamethasone sodium phosphate intravenously 10.0 mg once NOTE: Administer ONLY if patient missed 1-2 doses of oral dexamethasone at home (recommended 12 and 6 hours prior to paclitaxel to reduce risk of infusion reaction). Administer 30-60 minutes prior to paclitaxel. 2022 active 10/04 diphenhydramine hydrochloride 0.5 MG/ML Injectable Solution intravenously 50.0 mg Re-initiate treatment only upon physician approval. 2022 active 10/04 hydrocortisone 100 MG Injection intravenously 100.0 mg Re-initiate treatment only upon physician approval. 2022 active 10/04 famotidine 10 MG/ML Injectable Solution intravenously 20.0 mg Re-initiate treatment only upon physician approval. 2022 active 10/04 methylprednisol one 2000 MG Injection intravenously 125.0 mg Re-initiate treatment only upon physician approval. 2022 active 10/04 1 ML epinephrine 1 MG/ML Injection intramuscularly 0.3 mg once Re-initiate treatment only upon physician approval. 2022 active 09/27 famotidine 10 MG/ML Injectable Solution intravenously 20.0 mg Re-initiate treatment only upon physician approval. 2022 active 09/27 diphenhydramine hydrochloride 0.5 MG/ML Injectable Solution intravenously 50.0 mg Re-initiate treatment only upon physician approval. 2022 active 09/27 hydrocortisone 100 MG Injection intravenously 100.0 mg Re-initiate treatment only upon physician approval. 2022 active 09/27 1 ML epinephrine 1 MG/ML Injection intramuscularly 0.3 mg once Re-initiate treatment only upon physician approval. 2022 active 09/27 methylprednisol one 2000 MG Injection intravenously 125.0 mg Re-initiate treatment only upon physician approval. 2022 active 09/27 dexamethasone sodium phosphate intravenously 10.0 mg once NOTE: Administer ONLY if patient missed 1-2 doses of oral dexamethasone at home (recommended 12 and 6 hours prior to paclitaxel to reduce risk of infusion reaction). Administer 30-60 minutes prior to paclitaxel. 2022 active 09/20 famotidine 10 MG/ML Injectable Solution intravenously 20.0 mg Re-initiate treatment only upon physician approval. 2022 active 09/20 1 ML epinephrine 1 MG/ML Injection intramuscularly 0.3 mg once Re-initiate treatment only upon physician approval. 2022 active 09/20 methylprednisol one 2000 MG Injection intravenously 125.0 mg Re-initiate treatment only upon physician approval. 2022 active 09/20 hydrocortisone 100 MG Injection intravenously 100.0 mg Re-initiate treatment only upon physician approval. 2022 active 09/20 diphenhydramine hydrochloride 0.5 MG/ML Injectable Solution intravenously 50.0 mg Re-initiate treatment only upon physician approval. 2022 active 09/20 dexamethasone sodium phosphate intravenously 10.0 mg once NOTE: Administer ONLY if patient missed 1-2 doses of oral dexamethasone at home (recommended 12 and 6 hours prior to paclitaxel to reduce risk of infusion reaction). Administer 30-60 minutes prior to paclitaxel. 09/20 on hold 09/19 0.8 ML filgrastim-sndz 0.6 MG/ML Prefilled Syringe [Zarxio] subcutaneously 480.0 mcg once NOTE: This is Zarxio. 2022 active 09/17 0.8 ML filgrastim-sndz 0.6 MG/ML Prefilled Syringe [Zarxio] subcutaneously 480.0 mcg once NOTE: This is Zarxio. 2022 active 09/15 0.8 ML filgrastim-sndz 0.6 MG/ML Prefilled Syringe [Zarxio] subcutaneously 480.0 mcg once NOTE: This is Zarxio. 2022 active 09/14 0.8 ML filgrastim-sndz 0.6 MG/ML Prefilled Syringe [Zarxio] subcutaneously 480.0 mcg once NOTE: This is Zarxio. 2022 active 09/13 diphenhydramine hydrochloride 0.5 MG/ML Injectable Solution intravenously 50.0 mg Re-initiate treatment only upon physician approval. 2022 active 09/13 hydrocortisone 100 MG Injection intravenously 100.0 mg Re-initiate treatment only upon physician approval. 2022 active 09/13 famotidine 10 MG/ML Injectable Solution intravenously 20.0 mg Re-initiate treatment only upon physician approval. 2022 active 09/13 methylprednisol one 2000 MG Injection intravenously 125.0 mg Re-initiate treatment only upon physician approval. 2022 active 09/13 1 ML epinephrine 1 MG/ML Injection intramuscularly 0.3 mg once Re-initiate treatment only upon physician approval. 2022 active 09/05 0.8 ML filgrastim-sndz 0.6 MG/ML Prefilled Syringe [Zarxio] subcutaneously 480.0 mcg daily Administer x4 days beginning on day 1 after chemotherapy. 2022 active 08/30 diphenhydramine hydrochloride 0.5 MG/ML Injectable Solution intravenously 50.0 mg Re-initiate treatment only upon physician approval. 2022 active 08/30 hydrocortisone 100 MG Injection intravenously 100.0 mg Re-initiate treatment only upon physician approval. 2022 active 08/30 methylprednisol one 2000 MG Injection intravenously 125.0 mg Re-initiate treatment only upon physician approval. 2022 active 08/30 famotidine 10 MG/ML Injectable Solution intravenously 20.0 mg Re-initiate treatment only upon physician approval. 2022 active 08/30 1 ML epinephrine 1 MG/ML Injection intramuscularly 0.3 mg once Re-initiate treatment only upon physician approval. 2022 active 08/23 dexamethasone sodium phosphate intravenously 10.0 mg once NOTE: Administer ONLY if patient missed 1-2 doses of oral dexamethasone at home (recommended 12 and 6 hours prior to paclitaxel to reduce risk of infusion reaction). Administer 30-60 minutes prior to paclitaxel. 2022 active 08/23 diphenhydramine hydrochloride 0.5 MG/ML Injectable Solution intravenously 50.0 mg Re-initiate treatment only upon physician approval. 2022 active 08/23 hydrocortisone 100 MG Injection intravenously 100.0 mg Re-initiate treatment only upon physician approval. 2022 active 08/23 methylprednisol one 2000 MG Injection intravenously 125.0 mg Re-initiate treatment only upon physician approval. 2022 active 08/23 famotidine 10 MG/ML Injectable Solution intravenously 20.0 mg Re-initiate treatment only upon physician approval. 2022 active 08/23 1 ML epinephrine 1 MG/ML Injection intramuscularly 0.3 mg once Re-initiate treatment only upon physician approval. 2022 active 08/20 Sodium Chloride IV 0.9 % intravenously 1000.0 mL once 2022 active 08/20 2 ML palonosetron 0.125 MG/ML Injection intravenously 0.25 mg once 2022 active 08/17 Sodium Chloride IV 0.9 % intravenously 1000.0 mL once 2022 active 08/17 2 ML palonosetron 0.125 MG/ML Injection intravenously 0.25 mg once 2022 active 08/15 Sodium Chloride IV 0.9 % intravenously 1000.0 mL once 2022 active 08/15 2 ML palonosetron 0.125 MG/ML Injection intravenously 0.25 mg once 2022 active 08/13 2 ML palonosetron 0.125 MG/ML Injection intravenously 0.25 mg once 08/13 on hold 08/10 2 ML palonosetron 0.125 MG/ML Injection intravenously 0.25 mg once 08/10 on hold 08/09 hydrocortisone 100 MG Injection intravenously 100.0 mg Re-initiate treatment only upon physician approval. 2022 active 08/09 methylprednisol one 2000 MG Injection intravenously 125.0 mg Re-initiate treatment only upon physician approval. 2022 active 08/09 diphenhydramine hydrochloride 0.5 MG/ML Injectable Solution intravenously 50.0 mg Re-initiate treatment only upon physician approval. 2022 active 08/09 1 ML epinephrine 1 MG/ML Injection intramuscularly 0.3 mg once Re-initiate treatment only upon physician approval. 2022 active 08/09 famotidine 10 MG/ML Injectable Solution intravenously 20.0 mg Re-initiate treatment only upon physician approval. 2022 active 08/06 2 ML palonosetron 0.125 MG/ML Injection intravenously 0.25 mg once 08/06 on hold 07/26 diphenhydramine hydrochloride 0.5 MG/ML Injectable Solution intravenously 50.0 mg Re-initiate treatment only upon physician approval. 2022 active 07/26 famotidine 10 MG/ML Injectable Solution intravenously 20.0 mg Re-initiate treatment only upon physician approval. 2022 active 07/26 methylprednisol one 2000 MG Injection intravenously 125.0 mg Re-initiate treatment only upon physician approval. 2022 active 07/26 hydrocortisone 100 MG Injection intravenously 100.0 mg Re-initiate treatment only upon physician approval. 2022 active 07/26 1 ML epinephrine 1 MG/ML Injection intramuscularly 0.3 mg once Re-initiate treatment only upon physician approval. 2022 active 07/12 1 ML epinephrine 1 MG/ML Injection intramuscularly 0.3 mg once Re-initiate treatment only upon physician approval. 2022 active 07/12 diphenhydramine hydrochloride 0.5 MG/ML Injectable Solution intravenously 50.0 mg Re-initiate treatment only upon physician approval. 2022 active 07/12 methylprednisol one 2000 MG Injection intravenously 125.0 mg Re-initiate treatment only upon physician approval. 2022 active 07/12 hydrocortisone 100 MG Injection intravenously 100.0 mg Re-initiate treatment only upon physician approval. 2022 active 07/12 famotidine 10 MG/ML Injectable Solution intravenously 20.0 mg Re-initiate treatment only upon physician approval. 2022 active 06/28 methylprednisol one 2000 MG Injection intravenously 125.0 mg Re-initiate treatment only upon physician approval. 2022 active 06/28 1 ML epinephrine 1 MG/ML Injection intramuscularly 0.3 mg once Re-initiate treatment only upon physician approval. 2022 active 06/28 hydrocortisone 100 MG Injection intravenously 100.0 mg Re-initiate treatment only upon physician approval. 2022 active 06/28 famotidine 10 MG/ML Injectable Solution intravenously 20.0 mg Re-initiate treatment only upon physician approval. 2022 active 06/28 diphenhydramine hydrochloride 0.5 MG/ML Injectable Solution intravenously 50.0 mg Re-initiate treatment only upon physician approval. 2022 active Problems Diagnosis Status Date of Diagnosi s Breast cancer, female Active Estrogen receptor positive status [ER+] Active Neutropenia Active Nausea Active Drug-induced mucositis (disorder) Active Dysgeusia Active Weight loss Active Diarrhea caused by drug (disorder) Active Vitamin D deficiency (disorder) Active Hot flashes Active Drug-related alopecia (disorder) Active ADHD Active Inherited mutation of BRCA2 gene Active Anterior cervical lymphadenopathy (disorder) Act queenie Other long-term current use of drug therapy Acti ve Family history of BRCA2 gene mutation Active Family history of malignant neoplasm of ovary (s ituation) Active Cancer risk assessment Active Family history of malignant neoplasm of breast ( situation) Active Chemotherapy-induced nausea and vomiting (disord er) Active Bone pain Active Vital Signs Date Type Value 06/11/2023 Body Temperature 97.70 06/11/2023 Heart Beat 72.00 06/11/2023 Respiratory Rate 20.00 06/11/2023 Oxygen Saturation 99.00 06/11/2023 BSA 1.67 06/11/2023 Pain Scale 1.00 06/11/2023 Weight 56.30 06/11/2023 Height 172.70 06/11/2023 BMI 18.88 06/11/2023 Intravascular Systolic 109 06/11/2023 Intravascular Diastolic 68 06/26/2023 Respiratory Rate 21.00 06/26/2023 Pain Scale 0.00 06/26/2023 Intravascular Systolic 100 06/26/2023 Intravascular Diastolic 61 06/26/2023 Oxygen Saturation 99.00 06/26/2023 Heart Beat 71.00 06/26/2023 Body Temperature 96.90 06/26/2023 BSA 1.65 06/26/2023 BMI 18.47 06/26/2023 Weight 55.10 06/26/2023 Height 172.70 06/28/2023 Respiratory Rate 20.00 06/28/2023 Heart Beat 96.00 06/28/2023 Body Temperature 97.90 06/28/2023 Pain Scale 0.00 06/28/2023 Intravascular Systolic 121 06/28/2023 Intravascular Diastolic 75 06/28/2023 Oxygen Saturation 100.00 06/28/2023 Height 172.70 07/10/2023 BMI 19.38 07/10/2023 BSA 1.69 07/10/2023 Height 172.70 07/10/2023 Weight 57.80 07/10/2023 Pain Scale 1.00 07/10/2023 Intravascular Systolic 95 07/10/2023 Intravascular Diastolic 61 07/10/2023 Oxygen Saturation 98.00 07/10/2023 Respiratory Rate 16.00 07/10/2023 Heart Beat 68.00 07/10/2023 Body Temperature 97.10 07/12/2023 Pain Scale 0.00 07/12/2023 Respiratory Rate 18.00 07/12/2023 Intravascular Systolic 104 07/12/2023 Intravascular Diastolic 71 07/12/2023 Oxygen Saturation 100.00 07/12/2023 Height 172.70 07/12/2023 Heart Beat 97.00 07/12/2023 Body Temperature 97.50 07/13/2023 Pain Scale 0.00 07/19/2023 Respiratory Rate 14.00 07/19/2023 Oxygen Saturation 99.00 07/19/2023 Intravascular Systolic 91 07/19/2023 Intravascular Diastolic 63 07/19/2023 Pain Scale 0.00 07/19/2023 Height 172.70 07/19/2023 Heart Beat 63.00 07/19/2023 Body Temperature 98.30 07/25/2023 Pain Scale 0.00 07/25/2023 Intravascular Systolic 124 07/25/2023 Intravascular Diastolic 60 07/25/2023 Oxygen Saturation 99.00 07/25/2023 Heart Beat 75.00 07/25/2023 Respiratory Rate 18.00 07/25/2023 Weight 54.20 07/25/2023 Height 172.70 07/25/2023 BMI 18.17 07/25/2023 BSA 1.64 07/25/2023 Body Temperature 97.50 07/26/2023 Oxygen Saturation 99.00 07/26/2023 Intravascular Systolic 111 07/26/2023 Intravascular Diastolic 72 07/26/2023 Height 172.70 07/26/2023 Heart Beat 80.00 07/26/2023 Body Temperature 98.40 07/27/2023 Intravascular Systolic 100 07/27/2023 Intravascular Diastolic 64 07/27/2023 Oxygen Saturation 98.00 07/27/2023 Respiratory Rate 16.00 07/27/2023 Heart Beat 70.00 07/27/2023 Body Temperature 98.20 07/27/2023 Height 172.70 08/01/2023 Oxygen Saturation 97.00 08/01/2023 Height 172.70 08/01/2023 Intravascular Systolic 105 08/01/2023 Intravascular Diastolic 61 08/01/2023 Respiratory Rate 22.00 08/01/2023 Heart Beat 76.00 08/01/2023 Body Temperature 97.80 08/01/2023 Pain Scale 0.00 08/02/2023 Body Temperature 97.90 08/02/2023 Heart Beat 65.00 08/02/2023 Respiratory Rate 16.00 08/02/2023 Pain Scale 0.00 08/02/2023 Oxygen Saturation 96.00 08/02/2023 Intravascular Systolic 134 08/02/2023 Intravascular Diastolic 69 08/02/2023 Height 172.70 08/03/2023 Pain Scale 0.00 08/03/2023 Body Temperature 97.70 08/03/2023 Height 172.70 08/03/2023 Oxygen Saturation 98.00 08/03/2023 Respiratory Rate 20.00 08/03/2023 Intravascular Systolic 105 08/03/2023 Intravascular Diastolic 70 08/03/2023 Heart Beat 89.00 08/06/2023 Oxygen Saturation 99.00 08/06/2023 Intravascular Systolic 127 08/06/2023 Intravascular Diastolic 77 08/06/2023 Pain Scale 0.00 08/06/2023 Height 172.70 08/06/2023 Heart Beat 80.00 08/06/2023 Body Temperature 97.60 08/06/2023 Respiratory Rate 14.00 08/07/2023 Body Temperature 96.60 08/07/2023 Heart Beat 70.00 08/07/2023 Oxygen Saturation 100.00 08/07/2023 Intravascular Systolic 114 08/07/2023 Intravascular Diastolic 82 08/07/2023 Respiratory Rate 21.00 08/07/2023 Pain Scale 0.00 08/07/2023 BSA 1.62 08/07/2023 BMI 17.70 08/07/2023 Weight 52.80 08/07/2023 Height 172.70 08/09/2023 Body Temperature 97.10 08/09/2023 Heart Beat 70.00 08/09/2023 Respiratory Rate 18.00 08/09/2023 Oxygen Saturation 99.00 08/09/2023 Intravascular Systolic 109 08/09/2023 Intravascular Diastolic 66 08/09/2023 Height 172.70 08/10/2023 Respiratory Rate 18.00 08/10/2023 Oxygen Saturation 98.00 08/10/2023 Intravascular Systolic 102 08/10/2023 Intravascular Diastolic 68 08/10/2023 Height 172.70 08/10/2023 Body Temperature 98.20 08/10/2023 Pain Scale 0.00 08/10/2023 Heart Beat 68.00 08/13/2023 Body Temperature 97.20 08/13/2023 Heart Beat 86.00 08/13/2023 Respiratory Rate 14.00 08/13/2023 Oxygen Saturation 99.00 08/13/2023 Intravascular Systolic 144 08/13/2023 Intravascular Diastolic 84 08/13/2023 Pain Scale 0.00 08/13/2023 Height 172.70 08/22/2023 BSA 1.66 08/22/2023 BMI 18.71 08/22/2023 Height 172.70 08/22/2023 Weight 55.80 08/22/2023 Pain Scale 0.00 08/22/2023 Intravascular Systolic 90 08/22/2023 Intravascular Diastolic 59 08/22/2023 Oxygen Saturation 99.00 08/22/2023 Respiratory Rate 16.00 08/22/2023 Body Temperature 97.80 08/22/2023 Heart Beat 65.00 08/23/2023 Intravascular Systolic 115 08/23/2023 Intravascular Diastolic 76 08/23/2023 Oxygen Saturation 100.00 08/23/2023 Respiratory Rate 18.00 08/23/2023 Heart Beat 101.00 08/23/2023 Body Temperature 97.80 08/23/2023 Pain Scale 0.00 08/23/2023 Height 172.70 08/30/2023 Body Temperature 97.70 08/30/2023 Heart Beat 77.00 08/30/2023 Respiratory Rate 18.00 08/30/2023 Oxygen Saturation 98.00 08/30/2023 Intravascular Systolic 104 08/30/2023 Intravascular Diastolic 68 08/30/2023 Height 172.70 08/30/2023 Pain Scale 0.00 08/31/2023 Pain Scale 0.00 09/03/2023 Pain Scale 0.00 09/12/2023 Body Temperature 96.30 09/12/2023 Oxygen Saturation 99.00 09/12/2023 Intravascular Systolic 101 09/12/2023 Intravascular Diastolic 69 09/12/2023 Weight 53.10 09/12/2023 Height 172.70 09/12/2023 BMI 17.80 09/12/2023 BSA 1.63 09/12/2023 Heart Beat 62.00 09/12/2023 Respiratory Rate 16.00 09/12/2023 Pain Scale 0.00 09/13/2023 Height 172.70 09/13/2023 Intravascular Systolic 117 09/13/2023 Intravascular Diastolic 77 09/13/2023 Oxygen Saturation 99.00 09/13/2023 Respiratory Rate 18.00 09/13/2023 Heart Beat 120.00 09/13/2023 Body Temperature 97.80 09/13/2023 Pain Scale 0.00 09/20/2023 Body Temperature 98.80 09/20/2023 Heart Beat 74.00 09/20/2023 Height 172.70 09/20/2023 Intravascular Systolic 111 09/20/2023 Intravascular Diastolic 75 09/20/2023 Oxygen Saturation 100.00 09/20/2023 Respiratory Rate 17.00 09/27/2023 Respiratory Rate 18.00 09/27/2023 Heart Beat 87.00 09/27/2023 Body Temperature 97.20 09/27/2023 Oxygen Saturation 97.00 09/27/2023 Pain Scale 0.00 09/27/2023 Height 172.70 09/27/2023 Intravascular Systolic 145 09/27/2023 Intravascular Diastolic 80 10/03/2023 Weight 54.00 10/03/2023 Heart Beat 83.00 10/03/2023 BSA 1.64 10/03/2023 Body Temperature 97.30 10/03/2023 Respiratory Rate 16.00 10/03/2023 Oxygen Saturation 99.00 10/03/2023 Intravascular Systolic 94 10/03/2023 Intravascular Diastolic 58 10/03/2023 Pain Scale 0.00 10/03/2023 BMI 18.11 10/03/2023 Height 172.70 10/04/2023 Height 172.70 10/04/2023 Intravascular Systolic 121 10/04/2023 Intravascular Diastolic 68 10/04/2023 Oxygen Saturation 100.00 10/04/2023 Respiratory Rate 20.00 10/04/2023 Heart Beat 69.00 10/04/2023 Body Temperature 96.90 10/04/2023 Pain Scale 0.00 10/11/2023 Pain Scale 0.00 10/25/2023 Pain Scale 0.00 10/25/2023 Intravascular Systolic 103 10/25/2023 Intravascular Diastolic 67 10/25/2023 Oxygen Saturation 100.00 10/25/2023 Respiratory Rate 18.00 10/25/2023 Heart Beat 98.00 10/25/2023 Body Temperature 97.70 10/25/2023 Height 172.70 10/31/2023 Pain Scale 0.00 10/31/2023 Weight 54.90 10/31/2023 Height 172.70 10/31/2023 BMI 18.41 10/31/2023 BSA 1.65 10/31/2023 Body Temperature 96.40 10/31/2023 Heart Beat 60.00 10/31/2023 Intravascular Systolic 117 10/31/2023 Intravascular Diastolic 70 10/31/2023 Oxygen Saturation 100.00 10/31/2023 Respiratory Rate 21.00 11/01/2023 Body Temperature 97.10 11/01/2023 Heart Beat 66.00 11/01/2023 Respiratory Rate 18.00 11/01/2023 Height 172.70 11/01/2023 Oxygen Saturation 96.00 11/01/2023 Intravascular Systolic 132 11/01/2023 Intravascular Diastolic 80 11/01/2023 Pain Scale 0.00 11/08/2023 Body Temperature 97.80 11/08/2023 Heart Beat 79.00 11/08/2023 Respiratory Rate 18.00 11/08/2023 Height 172.70 11/08/2023 Oxygen Saturation 100.00 11/08/2023 Intravascular Systolic 123 11/08/2023 Intravascular Diastolic 77 11/20/2023 Intravascular Systolic 99 11/20/2023 Intravascular Diastolic 58 11/20/2023 BSA 1.65 11/20/2023 Height 172.70 11/20/2023 Weight 55.00 11/20/2023 Pain Scale 0.00 11/20/2023 Respiratory Rate 17.00 11/20/2023 Oxygen Saturation 99.00 11/20/2023 Heart Beat 80.00 11/20/2023 Body Temperature 96.90 11/20/2023 BMI 18.44 11/22/2023 Height 172.70 11/22/2023 Intravascular Systolic 138 11/22/2023 Intravascular Diastolic 71 11/22/2023 Oxygen Saturation 99.00 11/22/2023 Respiratory Rate 16.00 11/22/2023 Heart Beat 94.00 11/22/2023 Body Temperature 97.30 11/22/2023 Pain Scale 0.00 12/19/2023 BMI 18.61 12/19/2023 Body Temperature 97.20 12/19/2023 Heart Beat 98.00 12/19/2023 Respiratory Rate 17.00 12/19/2023 Oxygen Saturation 99.00 12/19/2023 Height 172.70 12/19/2023 Intravascular Systolic 100 12/19/2023 Intravascular Diastolic 68 12/19/2023 Pain Scale 0.00 12/19/2023 Weight 55.50 12/19/2023 BSA 1.66 12/20/2023 Pain Scale 0.00 02/15/2024 Body Temperature 96.30 02/15/2024 Heart Beat 100.00 02/15/2024 Respiratory Rate 16.00 02/15/2024 Oxygen Saturation 98.00 02/15/2024 Pain Scale 0.00 02/15/2024 Weight 54.90 02/15/2024 Height 172.70 02/15/2024 BMI 18.41 02/15/2024 BSA 1.65 02/15/2024 Intravascular Systolic 104 02/15/2024 Intravascular Diastolic 76 03/28/2024 BSA 1.65 03/28/2024 Body Temperature 96.60 03/28/2024 Heart Beat 86.00 03/28/2024 Respiratory Rate 16.00 03/28/2024 Height 172.70 03/28/2024 Intravascular Systolic 100 03/28/2024 Intravascular Diastolic 56 03/28/2024 BMI 18.27 03/28/2024 Pain Scale 0.00 03/28/2024 Weight 54.50 03/28/2024 Oxygen Saturation 98.00 04/24/2024 BSA 1.65 04/24/2024 BMI 18.44 04/24/2024 Height 172.70 04/24/2024 Weight 55.00 04/24/2024 Intravascular Systolic 112 04/24/2024 Intravascular Diastolic 58 04/24/2024 Oxygen Saturation 98.00 04/24/2024 Respiratory Rate 16.00 04/24/2024 Heart Beat 90.00 04/24/2024 Body Temperature 97.50 04/24/2024 Pain Scale 0.00 04/30/2024 BSA 1.66 04/30/2024 BMI 18.61 04/30/2024 Body Temperature 97.50 04/30/2024 Heart Beat 60.00 04/30/2024 Oxygen Saturation 99.00 04/30/2024 Intravascular Systolic 92 04/30/2024 Intravascular Diastolic 53 04/30/2024 Height 172.70 04/30/2024 Weight 55.50 04/30/2024 Pain Scale 0.00 04/30/2024 Respiratory Rate 17.00 05/28/2024 Pain Scale 0.00 05/30/2024 Pain Scale 0.00 05/30/2024 Height 172.70 07/11/2024 Pain Scale 0.00 07/11/2024 Height 172.70 Notes Section * Nurse Note for: 28-MAY-24 [facility] Nurse Note Print Location: Unknown Date/Time Printed: 03/20/2025 11:22 AM ([facility]) Patient: IVANA HENDRICKS Sex: Female : 1995 Date of Service: 05/28/2024 Allergies : Penicillins Vital Signs : Time: 03:00 AM. Pain Scale: 0. Entered by Trina Carlos RN 05/28/2024 01:45 PM Patient Assessment : Positive results Assessment : Alert, oriented with appropriate behavior. Negative results Assessment : Labs Verified: No, Gait Changes. Denies Neuropathy , Pain -0-No pain, Fatigue , Anxiety/Depression , Fever, Chills or Night Sweats ,Signs of Infection , Skin Changes , Dizziness , Headaches , Nausea , Breathing Changes , Cough , Mouth Sores/Stomatitis/Mucositis , Changes in Appetite , Vomiting , Diarrhea , Constipation , Urinary Changes , Bleeding . Entered By Trina Carlos RN on 01:45 PM Discharge Note : Comments-Therapy completed without adverse event, Discharged from clinic, Stable, Accompanied By-Self, Discharge-Ambulatory Entered By Trina Carlos RN on 01:45 PM Medication Administration : Incident to: Alexandria Eckert MD Exemestane + Leuprolide Q28D (5 years) Hormone Therapy Leuprolide IM, 11.25 mg kit, 11.25 mg intramuscularly once, Instructions: NOTE: This product is equivalent to Lupron Depot., Allow Substitution GIVEN: 11.25 mg Pharmacy plan: Dispense/Waste: 11.25/0 mg Pharmacy dispense: [facility]: [id number] Dispense/Waste: 11.25/0 mg Given Dose/Discard: 11.25/0 mg Admin Details: Injection Location: Left-Dorsogluteal Time: 01:44 PM Free Text Note : injection complete without incident Entered By Trina Carlos RN on 01:45 PM * Nurse Note for: 30-APR-24 [facility] Nurse Note Print Location: Unknown Date/Time Printed: 03/20/2025 11:22 AM ([facility]) Patient: IVANA HENDRICKS Sex: Female : 1995 Date of Service: 04/30/2024 Allergies : Penicillins Vital Signs : Time: 02:35 PM. Temperature: 97.5 F (36.39 C) tympanic. Pulse: 60 (/min) sitting. Blood pressure: 92/53 (mm Hg) right arm Regular manual. O2 Saturation: 99 (%) at rest. Entered by Roseline Fernandez MA 04/30/2024 02:39 PM Time: 02:35 PM. Weight: 55.5 kg (122.36 lb). Height: 172.7 cm (67.99 in). BMI: 18.61 (kg/m2) . BSA:1.66 (m2) . Respirations: 17 (/min) . Pain Scale: 0. Entered by Roseline Fernandez MA 04/30/2024 02:35 PM Patient Assessment : Positive results Assessment : Labs Verified: Yes, Alert, oriented with appropriate behavior. Negative results Assessment : Denies Pain -0-No pain. Entered By Edward Perfecto, RN on 04:00 PM Discharge Note : Comments-Therapy completed without adverse event, Discharged from clinic, Stable, Accompanied By-Self, Discharge-Ambulatory, Discharge Time-04/30/2024 04:00 PM Entered By Cristo Grove RN on 04:00 PM Medication Administration : Incident to: Alexandria Eckert MD Exemestane + Leuprolide Q28D (5 years) Hormone Therapy Leuprolide IM, 7.5 mg intramuscularly once, Instructions: NOTE: This product is equivalent to Lupron Depot., Allow Substitution GIVEN: 7.5 mg Pharmacy plan: Dispense/Waste: 7.5/0 mg Pharmacy dispense: [facility]: [id number] Dispense/Waste: 7.5/0 mg Given Dose/Discard: 7.5/0 mg Admin Details: Injection Location: Right-Dorsogluteal Time: 03:58 PM Free Text Note : Pt seen and eval in clinic by Dr. Eckert. Injection without incident. Entered By Cristo Gorve RN on 04:01 PM * Nurse Note for: 28-MAR-24 [facility] Nurse Note Print Location: Unknown Date/Time Printed: 03/20/2025 11:22 AM ([facility]) Patient: IVANA HENDRICKS Sex: Female : 1995 Date of Service: 03/28/2024 Allergies : Penicillins Vital Signs : Time: 09:10 AM. Weight: 54.5 kg (120.15 lb). Height: 172.7 cm (67.99 in). BMI: 18.27 (kg/m2) . BSA:1.65 (m2) . Temperature: 96.6 F (35.89 C) tympanic. Pulse: 86 (/min) sitting. Respirations: 16 (/min) . Blood pressure: 100/56 (mm Hg) right arm Regular manual. Pain Scale: 0. O2 Saturation: 98 (%) at rest. Entered by Roseline Fernandez MA 03/28/2024 09:12 AM Patient Assessment : Positive results Assessment : Alert, oriented with appropriate behavior. Negative results Assessment : Denies Pain -0-No pain, Fever, Chills or Night Sweats , Signs of Infection , Breathing Changes , Cough , Mouth Sores/Stomatitis/Mucositis . Entered By Tenisha Murrieta RN on 03:05 PM IV Access/Lab Draw : IV Access-Peripheral - New Start, Needle Type-Iv Cath, Needle Size-24 Gauge, Needle Length-3/4 inch, Access Site-Left Arm, Flush-10ml NS, Site Assess List- Blood Return,No Redness,No Swelling,No Tenderness,No Bruising, Site Care Checklist-Aseptic Technique, Lab Drawn-No, Access Attempts-1 time(s), Entered By Tenisha Murrieta RN on 02:32 PM IV De-Access : IV Access Method-Peripheral - New Start, IV Access Type-Iv Cath, Line Flushed- 10ml NS, Catheter-Dc'd, Site Care-Bandage Applied, Site Assess-Line Intact,No Redness,No Swelling,No Tenderness,No Bruising, Entered By Tenisha Murrieta RN on 03:06 PM Discharge Note : Comments-Therapy completed without adverse event, Discharged from clinic, Stable, Patient instructed to call office with any questions or problems, Accompanied By-Self, Discharge-Ambulatory, Discharge Time-03/28/2024 03:06 PM Entered By Tenisha Murrieta RN on 03:06 PM Medication Administration : Incident to: Evans Royal MD Exemestane + Leuprolide Q28D (5 years) Hormone Therapy Leuprolide IM, 7.5 mg intramuscularly once, Instructions: NOTE: This product is equivalent to Lupron Depot., Allow Substitution GIVEN: 7.5 mg Pharmacy plan: Dispense/Waste: 7.5/0 mg Pharmacy dispense: [facility]: [id number] Dispense/Waste: 7.5/0 mg Given Dose/Discard: 7.5/0 mg Admin Details: Injection Location: Left-Dorsogluteal Time: 03:03 PM, Entered By: Tenisha Murrieta RN Incident to: Evans Royal MD Zoledronic acid (Zometa) Q6M Medications Zoledronic Acid IV (Zometa), 4 mg/5 mL solution, 4 mg intravenously Piggyback once, Admin over: 15 minutes to 30 minutes, Allow Substitution GIVEN: 4 mg Pharmacy plan: Dispense/Waste: 4/0 mg Amount in mL: 5 Pharmacy dispense: [facility]: [id number] Dispense/Waste: 4/0 mg Given Dose/Discard: 4/0 mg Start Time: 02:30 PM, Entered By: Tenisha Murrieta RN, Stop Time: 02:56 PM, Entered By: Tenisha Murrieta RN Admix Fluid: 0.9 % sodium chloride, Admix Fluid Volume: 100mL, Total Volume: 105mL * Nurse Note for: 15-FEB-24 [facility] Nurse Note Print Location: Unknown Date/Time Printed: 03/20/2025 11:22 AM ([facility]) Patient: IVANA HENDRICKS Sex: Female : 1995 Date of Service: 02/15/2024 Allergies : Penicillins Vital Signs : Time: 11:16 AM. Weight: 54.9 kg (121.03 lb). Height: 172.7 cm (67.99 in). BMI: 18.41 (kg/m2) . BSA:1.65 (m2) . Temperature: 96.3 F (35.72 C) tympanic. Pulse: 100 (/min) sitting. Respirations: 16 (/min) . Blood pressure: 104/76 (mm Hg) left arm Regular manual. Pain Scale: 0. O2 Saturation: 98 (%) at rest. Entered by Roseline Fernandez MA 02/15/2024 11:18 AM Patient Assessment : Positive results Assessment : Labs Verified: Yes, Alert, oriented with appropriate behavior. Negative results Assessment : Gait Changes. Denies Neuropathy , Pain -0-No pain, Fatigue , Anxiety/Depression , Fever, Chills or Night Sweats ,Signs of Infection , Skin Changes , Dizziness , Headaches , Nausea , Breathing Changes , Cough , Mouth Sores/Stomatitis/Mucositis , Changes in Appetite , Vomiting , Diarrhea , Constipation , Urinary Changes , Bleeding . Entered By Trina Carlos RN on 12:07 PM Discharge Note : Comments-Therapy completed without adverse event, Discharged from clinic, Stable, Accompanied By-Self, Discharge-Ambulatory Entered By Trina Carlos RN on 12:07 PM Medication Administration : Incident to: Alexandria Eckert MD Exemestane + Leuprolide Q28D (5 years) Hormone Therapy Leuprolide IM, 7.5 mg intramuscularly once, Instructions: NOTE: This product is equivalent to Lupron Depot., Allow Substitution GIVEN: 7.5 mg Pharmacy plan: Dispense/Waste: 7.5/0 mg Pharmacy dispense: [facility]: [id number] Dispense/Waste: 7.5/0 mg Given Dose/Discard: 7.5/0 mg Admin Details: Injection Location: Left-Dorsogluteal Time: 12:07 PM Free Text Note : injection complete without incident Entered By Trina Carlos RN on 12:07 PM * Nurse Note for: 17-JAN-24 [facility] Nurse Note Print Location: Unknown Date/Time Printed: 03/20/2025 11:22 AM ([facility]) Patient: IVANA HENDRICKS Sex: Female : 1995 Date of Service: 01/17/2024 Allergies : Penicillins Patient Assessment : Positive results Assessment : Alert, oriented with appropriate behavior. Entered By Kathrin Gordillo RN on 01:46 PM Discharge Note : Comments-Discharged from clinic, Stable, Accompanied By-Self, Discharge- Ambulatory, Discharge Time-01/17/2024 01:46 PM Entered By Kathrin Gordillo RN on 01:46 PM Medication Administration : Incident to: Evans Royal MD Exemestane + Leuprolide Q28D (5 years) Hormone Therapy Leuprolide IM, 7.5 mg intramuscularly once, Instructions: NOTE: This product is equivalent to Lupron Depot., Allow Substitution GIVEN: 7.5 mg Pharmacy plan: Dispense/Waste: 7.5/0 mg Pharmacy dispense: [facility]: [id number] Dispense/Waste: 7.5/0 mg Given Dose/Discard: 7.5/0 mg Admin Details: Injection Location: Right-Dorsogluteal Time: 01:46 PM Free Text Note : Injection completed without incident. Entered By Kathrin Gordillo RN on 01:46 PM * Nurse Note for: 20-DEC-23 [facility] Nurse Note Print Location: Unknown Date/Time Printed: 03/20/2025 11:22 AM ([facility]) Patient: IVANA HENDRICKS Sex: Female : 1995 Date of Service: 12/20/2023 Allergies : Penicillins Vital Signs : Time: 03:00 AM. Pain Scale: 0. Entered by Monalisa Cunha RN 12/20/2023 02:51 PM Patient Assessment : Positive results Assessment : Alert, oriented with appropriate behavior. Negative results Assessment : Denies Pain -0-No pain. Entered By Monalisa Cunha RN on 02:51 PM Discharge Note : Comments-Therapy completed without adverse event, Stable, No new complaints, Accompanied By-Self, Discharge-Ambulatory, Discharge Time-12/20/2023 01:30 PM Entered By Monalisa Cunha RN on 02:51 PM Medication Administration : Incident to: Puja Avalos MD Exemestane + Leuprolide Q28D (5 years) Hormone Therapy Leuprolide IM, 7.5 mg intramuscularly once, Instructions: NOTE: This product is equivalent to Lupron Depot., Allow Substitution GIVEN: 7.5 mg Pharmacy plan: Dispense/Waste: 7.5/0 mg Pharmacy dispense: [facility]: [id number] Dispense/Waste: 7.5/0 mg Given Dose/Discard: 7.5/0 mg Admin Details: Injection Location: Right-Dorsogluteal Time: 01:25 PM * Nurse Note for: 22-NOV-23 [facility] Nurse Note Print Location: Unknown Date/Time Printed: 03/20/2025 11:22 AM ([facility]) Patient: IVANA HENDRICKS Sex: Female : 1995 Date of Service: 11/22/2023 Allergies : Penicillins Vital Signs : Time: 01:05 PM. Pain Scale: 0. Entered by Zohreh Santos RN 11/22/2023 01:24 PM Time: 01:05 PM. Height: 172.7 cm (67.99 in). Temperature: 97.3 F (36.28 C) forehead. Pulse: 94 (/min) sitting. Respirations: 16 (/min) . Blood pressure: 138/71 (mm Hg) Wrist. O2 Saturation: 99 (%) atrest. Entered by Roxana Kelley MA 11/22/2023 01:06 PM Patient Assessment : Positive results Assessment : Labs Verified: Yes, Alert, oriented with appropriate behavior. Negative results Assessment : Gait Changes. Denies Neuropathy , Pain -0-No pain, Fatigue , Anxiety/Depression , Fever, Chills or Night Sweats ,Signs of Infection , Skin Changes , Dizziness , Headaches , Nausea , Breathing Changes , Cough , Mouth Sores/Stomatitis/Mucositis , Changes in Appetite , Vomiting , Diarrhea , Constipation , Urinary Changes , Bleeding . Entered By Zohreh Santos RN on 03:45 PM IV Access/Lab Draw : IV Access-CVC - Port-A-Cath, Primary Bag Fluid-0.9% Sodium Chloride, Primary Bag Volume-500 mL, Primary Bag Start Time-01:13 PM, Primary Bag Stop Time-02:57 PM, Needle Type-Bailey, Needle Size-20 Gauge, Needle Length-3/4 inch, Access Site- Right Chest, Flush-20ml NS,500u Heparin, Site Assess List-Blood Return,No Redness,No Swelling,No Tenderness,No Bruising, Site Care Checklist-Aseptic Technique, Entered By Zohreh Santos RN on 03:45 PM IV De-Access : IV Access Method-CVC - Port-A-Cath, IV Access Type-Bailey, Catheter-Dc'd, Site Care-Site Dressing Applied,IV Infusion Completed,Therapy Completed Without Adverse Event,Port Deaccessed,Discontinued Bailey Set, Site Assess-Line Intact,No Redness,No Swelling,No Tenderness,No Bruising, Entered By Zohreh Santos RN on 03:45 PM Discharge Note : Comments-Therapy completed without adverse event, Stable, Accompanied By-Self, Discharge Time-11/22/2023 03:00 PM Entered By Zohreh Santos, RN on 03:45 PM Medication Administration : Incident to: Mohan Prescott MD Doxorubicin + Cyclophosphamide (AC) Q14D Dose Dense fb Paclitaxel Weekly D1,8 Q14D Chemotherapy Paclitaxel IV, 6 mg/mL concentrate, 132 mg intravenously Piggyback once, Admin over: 1 hours to 1 hours, Instructions: CYCLES 5-10 ONLY.Dilute in 250-500 mL NS. Final product concentration must be 0.3-1.2 mg/mL. Administer using [id number] equipment and through an in-line 0.22 micron filter. Paclitaxel is a vascular irritant., Allow Substitution GIVEN: 132 mg Pharmacy plan: Dispense/Waste: 132/0 mg Amount in mL: 22 Pharmacy dispense: [facility]: [id number] Dispense/Waste: 132/0 mg Given Dose/Discard: 132/0 mg Start Time: 01:38 PM, Entered By: Zohreh Santos RN, Stop Time: 02:43 PM, Entered By: Zohreh Santos RN Admix Fluid: 0.9 % sodium chloride, Admix Fluid Volume: 250mL, Total Volume: 272mL Double Checked By: Joel Yañez RN on 11/22/2023 03:28 PM and Zohreh Santos RN on 11/22/2023 03:44 PM Incident to: Mohan Prescott MD Doxorubicin + Cyclophosphamide (AC) Q14D Dose Dense fb Paclitaxel Weekly D1,8 Q14D Premedications Granisetron IV, 1000 mcg intravenously once, Instructions: CYCLES 5-10 ONLY., Allow Substitution GIVEN: 1000 mcg Pharmacy plan: Dispense/Waste: 1000/0 mcg Amount in mL: 1 Pharmacy dispense: [facility]: [id number] Dispense/Waste: 1000/0 mcg Given Dose/Discard: 1000/0 mcg Start Time: 01:23 PM, Entered By: Zohreh Santos RN, Stop Time: 01:24 PM, Entered By: Zohreh Santos RN Checked By: Zohreh Santos RN on 11/22/2023 03:44 PM Incident to: Mohan Prescott MD Doxorubicin + Cyclophosphamide (AC) Q14D Dose Dense fb Paclitaxel Weekly D1,8 Q14D Premedications Dexamethasone IV, 10 mg intravenously Piggyback once as needed, Admin over: 20 minutes to 20 minutes, Instructions: NOTE: Administer ONLY if patient missed 1-2 doses of oral dexamethasone at home (recommended 12 and 6 hours prior to paclitaxel to reduce risk of infusion reaction). Administer 30-60 minutes prior to paclitaxel., Allow Substitution HELD (Reason: Parent declined/rejected) Entered By: Zohreh Santos RN Incident to: Mohan Prescott MD Doxorubicin + Cyclophosphamide (AC) Q14D Dose Dense fb Paclitaxel Weekly D1,8 Q14D Premedications Diphenhydramine IV, 25 mg intravenously once, Instructions: Administer 30-60 minutes prior to paclitaxel., Allow Substitution GIVEN: 25 mg Pharmacy plan: Dispense/Waste: 25/0 mg Amount in mL: 0.5 Pharmacy dispense: [facility]: [id number] Dispense/Waste: 25/0 mg Given Dose/Discard: 25/0 mg Start Time: 01:25 PM, Entered By: Zohreh Santos RN, Stop Time: 01:26 PM, Entered By: Zohreh Santos RN Checked By: Zohreh Santos RN on 11/22/2023 03:44 PM Incident to: Mohan Prescott MD Doxorubicin + Cyclophosphamide (AC) Q14D Dose Dense fb Paclitaxel Weekly D1,8 Q14D Premedications Famotidine IV, 20 mg intravenously once, Instructions: Administer 30-60 minutes prior to paclitaxel., Allow Substitution GIVEN: 20 mg Pharmacy plan: Dispense/Waste: 20/0 mg Amount in mL: 2 Pharmacy dispense: [facility]: [id number] Dispense/Waste: 20/0 mg Given Dose/Discard: 20/0 mg Start Time: 01:27 PM, Entered By: Zohreh Santos RN, Stop Time: 01:28 PM, Entered By: Zohreh Santos RN Admix Fluid: 0.9 % sodium chloride, Admix Fluid Volume: 3mL, Total Volume: 5mL Checked By: Zohreh Santos RN on 11/22/2023 03:44 PM Incident to: Mohan Prescott MD Exemestane + Leuprolide Q28D (5 years) Hormone Therapy Leuprolide IM, 7.5 mg intramuscularly once, Instructions: NOTE: This product is equivalent to Lupron Depot., Allow Substitution GIVEN: 7.5 mg Pharmacy plan: Dispense/Waste: 7.5/0 mg Pharmacy dispense: [facility]: [id number] Dispense/Waste: 7.5/0 mg Given Dose/Discard: 7.5/0 mg Admin Details: Injection Location: Left-Dorsogluteal Time: 02:58 PM, Entered By: Zohreh Santos RN Checked By: Zohreh Santos RN on 11/22/2023 03:44 PM * Nurse Note for: 15-NOV-23 [facility] Nurse Note Print Location: Unknown Date/Time Printed: 03/20/2025 11:22 AM ([facility]) Patient: IVANA HENDRICKS Sex: Female : 1995 Date of Service: 11/15/2023 Allergies : Penicillins Patient Assessment : Positive results Assessment : Labs Verified: Yes, Alert, oriented with appropriate behavior. Entered By Joel Yañez RN on 04:47 PM IV Access/Lab Draw : IV Access-CVC - Port-A-Cath, Needle Type-Bailey, Needle Size-20 Gauge, Needle Length-3/4 inch, Access Site-Right Chest, Flush-10ml NS,500u Heparin, Site Assess List-Blood Return,No Redness,No Swelling,No Tenderness,No Bruising, Site Care Checklist-Aseptic Technique, Access Attempts-1 time(s), Entered By Joel Yañez RN on 04:47 PM IV De-Access : IV Access Method-CVC - Port-A-Cath, IV Access Type-Bailey, Line Flushed-10ml NS, Catheter-Dc'd, SiteCare-Bandage Applied,IV Infusion Completed,Blood Return Noted During Administration,Therapy Completed Without Adverse Event, Site Assess-Line Intact,No Redness,No Swelling,No Tenderness,No Bruising, Entered By Joel Yañez RN on 04:48 PM Discharge Note : Comments-Therapy completed without adverse event, Discharged from clinic, Stable, Patient instructed to call office with any questions or problems, Accompanied By-Self, Discharge-Ambulatory Entered By Joel Yañez RN on 04:48 PM Medication Administration : Incident to: Evans Royal MD Doxorubicin + Cyclophosphamide (AC) Q14D Dose Dense fb Paclitaxel Weekly D1,8 Q14D Chemotherapy Paclitaxel IV, 6 mg/mL concentrate, 132 mg intravenously Piggyback once, Admin over: 1 hours to 1 hours, Instructions: CYCLES 5-10 ONLY.Dilute in 250-500 mL NS. Final product concentration must be 0.3-1.2 mg/mL. Administer using [id number]-tlkanzkcgs equipment and through an in-line 0.22 micron filter. Paclitaxel is a vascular irritant., Allow Substitution GIVEN: 132 mg Pharmacy plan: Dispense/Waste: 132/0 mg Amount in mL: 22 Pharmacy dispense: [facility]: [id number] Dispense/Waste: 132/0 mg Given Dose/Discard: 132/0 mg Start Time: 01:30 PM, Entered By: Joel Yañez RN, Stop Time: 02:30 PM, Entered By: Joel Yañez RN Admix Fluid: 0.9 % sodium chloride, Admix Fluid Volume: 250mL, Total Volume: 272mL Double Checked By: Tenisha Murrieta RN on 11/15/2023 02:00 PM and Joel Yañez RN on 11/15/2023 04:48 PM Incident to: Evans Royal MD Doxorubicin + Cyclophosphamide (AC) Q14D Dose Dense fb Paclitaxel Weekly D1,8 Q14D Premedications Granisetron IV, 1000 mcg intravenously once, Instructions: CYCLES 5-10 ONLY., Allow Substitution GIVEN: 1000 mcg Pharmacy plan: Dispense/Waste: 1000/0 mcg Amount in mL: 1 Pharmacy dispense: [facility]: [id number] Dispense/Waste: 1000/0 mcg Given Dose/Discard: 1000/0 mcg Start Time: 01:15 PM, Entered By: Joel Yañez RN, Stop Time: 01:16 PM, Entered By: Joel Yañez RN Incident to: Evans Royal MD Doxorubicin + Cyclophosphamide (AC) Q14D Dose Dense fb Paclitaxel Weekly D1,8 Q14D Premedications Dexamethasone IV, 10 mg intravenously Piggyback once as needed, Admin over: 20 minutes to 20 minutes, Instructions: NOTE: Administer ONLY if patient missed 1-2 doses of oral dexamethasone at home (recommended 12 and 6 hours prior to paclitaxel to reduce risk of infusion reaction). Administer 30-60 minutes prior to paclitaxel., Allow Substitution HELD (Reason: Not given - other reason - Not needed) Entered By: Joel Yañez RN Incident to: Evans Royal MD Doxorubicin + Cyclophosphamide (AC) Q14D Dose Dense fb Paclitaxel Weekly D1,8 Q14D Premedications Diphenhydramine IV, 25 mg intravenously once, Instructions: Administer 30-60 minutes prior to paclitaxel., Allow Substitution GIVEN: 25 mg Pharmacy plan: Dispense/Waste: 25/0 mg Amount in mL: 0.5 Pharmacy dispense: [facility]: [id number] Dispense/Waste: 25/0 mg Given Dose/Discard: 25/0 mg Start Time: 01:16 PM, Entered By: Joel Yañez RN, Stop Time: 01:17 PM, Entered By: Joel Yañez RN Incident to: Evans Royal MD Doxorubicin + Cyclophosphamide (AC) Q14D Dose Dense fb Paclitaxel Weekly D1,8 Q14D Premedications Famotidine IV, 20 mg intravenously once, Instructions: Administer 30-60 minutes prior to paclitaxel., Allow Substitution GIVEN: 20 mg Pharmacy plan: Dispense/Waste: 20/0 mg Amount in mL: 2 Pharmacy dispense: [facility]: [id number] Dispense/Waste: 20/0 mg Given Dose/Discard: 20/0 mg Start Time: 01:17 PM, Entered By: Joel Yañez RN, Stop Time: 01:18 PM, Entered By: Joel Yañez RN Admix Fluid: 0.9 % sodium chloride, Admix Fluid Volume: 3mL, Total Volume: 5mL Free Text Note : Patient tolerated infusion without incident. Entered By Joel Yañez RN on 04:48 PM * Nurse Note for: 08-NOV-23 [facility] Nurse Note Print Location: Unknown Date/Time Printed: 03/20/2025 11:22 AM ([facility]) Patient: IVANA HENDRICKS Sex: Female : 1995 Date of Service: 11/08/2023 Allergies : Penicillins Vital Signs : Time: 03:00 AM. Height: 172.7 cm (67.99 in). Temperature: 97.8 F (36.56 C). Pulse: 79 (/min) . Respirations: 18 (/min) . Blood pressure: 123/77 (mm Hg). O2 Saturation: 100 (%) . Entered by Roxana Kelley MA 11/08/2023 03:18 PM Patient Assessment : Positive results Assessment : Labs Verified: Yes, Alert, oriented with appropriate behavior. Negative results Assessment : Denies Fever, Chills or Night Sweats , Signs of Infection , Cough . Entered By Keri Forrest RN on 01:50 PM IV Access/Lab Draw : IV Access-CVC - Port-A-Cath, Needle Type-Bailey, Needle Size-20 Gauge, Needle Length-3/4 inch, Access Site-Right Chest, Flush-10ml NS,500u Heparin, Site Assess List-Blood Return,No Redness,No Swelling,No Tenderness,No Bruising, Site Care Checklist-Aseptic Technique, Lab Drawn-No, Access Attempts-1 time(s), Entered By Keri Forrest RN on 01:50 PM IV De-Access : IV Access Method-CVC - Port-A-Cath, IV Access Type-Bailey, Line Flushed-10ml NS, Catheter-Dc'd, SiteCare-Bandage Applied,IV Infusion Completed,Blood Return Noted During Administration,Therapy Completed Without Adverse Event,Port Deaccessed, Site Assess-Line Intact,No Redness,No Swelling,No Tenderness,No Bruising, Entered By Keri Forrest RN on 02:49 PM Discharge Note : Comments-Therapy completed without adverse event, Discharged from clinic, Stable, Patient instructed to call office with any questions or problems, Accompanied By-Self, Discharge-Ambulatory, Discharge Time-11/08/2023 02:49 PM Entered By Keri Forrest RN on 02:49 PM Medication Administration : Incident to: Alexandria Eckert MD Doxorubicin + Cyclophosphamide (AC) Q14D Dose Dense fb Paclitaxel Weekly D1,8 Q14D Chemotherapy Paclitaxel IV, 6 mg/mL concentrate, 132 mg intravenously Piggyback once, Admin over: 1 hours to 1 hours, Instructions: CYCLES 5-10 ONLY.Dilute in 250-500 mL NS. Final product concentration must be 0.3-1.2 mg/mL. Administer using Vmn-HEOM-hcektohcjo equipment and through an in-line 0.22 micron filter. Paclitaxel is a vascular irritant., Allow Substitution GIVEN: 132 mg Pharmacy plan: Dispense/Waste: 132/0 mg Amount in mL: 22 Pharmacy dispense: [facility]: [id number] Dispense/Waste: 132/0 mg Given Dose/Discard: 132/0 mg Admin Details: IV Administration: Piggyback Start Time: 01:40 PM, Entered By: Keri Forrest RN, Stop Time: 02:43 PM, Entered By: Keri Forrest RN Admix Fluid: 0.9 % sodium chloride, Admix Fluid Volume: 250mL, Total Volume: 272mL Double Checked By: Keri Forrest RN on 11/08/2023 01:45 PM and Tenisha Murrieta RN on 11/08/2023 02:43 PM Incident to: Alexandria Eckert MD Doxorubicin + Cyclophosphamide (AC) Q14D Dose Dense fb Paclitaxel Weekly D1,8 Q14D Premedications Granisetron IV, 1000 mcg intravenously once, Instructions: CYCLES 5-10 ONLY., Allow Substitution GIVEN: 1000 mcg Pharmacy plan: Dispense/Waste: 1000/0 mcg Amount in mL: 1 Pharmacy dispense: [facility]: [id number] Dispense/Waste: 1000/0 mcg Given Dose/Discard: 1000/0 mcg Admin Details: IV Administration: Push Start Time: 01:25 PM, Entered By: Keri Forrest RN, Stop Time: 01:26 PM, Entered By: Keri Forrest RN Incident to: Alexandria Eckert MD Doxorubicin + Cyclophosphamide (AC) Q14D Dose Dense fb Paclitaxel Weekly D1,8 Q14D Premedications Dexamethasone IV, 10 mg intravenously Piggyback once as needed, Admin over: 20 minutes to 20 minutes, Instructions: NOTE: Administer ONLY if patient missed 1-2 doses of oral dexamethasone at home (recommended 12 and 6 hours prior to paclitaxel to reduce risk of infusion reaction). Administer 30-60 minutes prior to paclitaxel., Allow Substitution HELD (Reason: Not given - other reason - No longer needed) Entered By: Keri Forrest RN Incident to: Alexandria Eckert MD Doxorubicin + Cyclophosphamide (AC) Q14D Dose Dense fb Paclitaxel Weekly D1,8 Q14D Premedications Diphenhydramine IV, 25 mg intravenously once, Instructions: Administer 30-60 minutes prior to paclitaxel., Allow Substitution GIVEN: 25 mg Pharmacy plan: Dispense/Waste: 25/0 mg Amount in mL: 0.5 Pharmacy dispense: [facility]: [id number] Dispense/Waste: 25/0 mg Given Dose/Discard: 25/0 mg Admin Details: IV Administration: Push Start Time: 01:27 PM, Entered By: Keri Forrest RN, Stop Time: 01:29 PM, Entered By: Keri Forrest RN Incident to: Alexandria Eckert MD Doxorubicin + Cyclophosphamide (AC) Q14D Dose Dense fb Paclitaxel Weekly D1,8 Q14D Premedications Famotidine IV, 20 mg intravenously once, Instructions: Administer 30-60 minutes prior to paclitaxel., Allow Substitution GIVEN: 20 mg Pharmacy plan: Dispense/Waste: 20/0 mg Amount in mL: 2 Pharmacy dispense: [facility]: [id number] Dispense/Waste: 20/0 mg Given Dose/Discard: 20/0 mg Admin Details: IV Administration: Push Start Time: 01:22 PM, Entered By: Keri Forrest RN, Stop Time: 01:24 PM, Entered By: Keri Forrest RN Admix Fluid: 0.9 % sodium chloride, Admix Fluid Volume: 3mL, Total Volume: 5mL Free Text Note : Cryotherapy used Entered By Keri Forrest RN on 02:49 PM * Nurse Note for: 01-NOV-23 [facility] Nurse Note Print Location: Unknown Date/Time Printed: 03/20/2025 11:22 AM ([facility]) Patient: IVANA HENDRICKS Sex: Female : 1995 Date of Service: 11/01/2023 Allergies : Penicillins Vital Signs : Time: 01:10 PM. Pain Scale: 0. Entered by Suzanna Bailey RN 11/01/2023 01:27 PM Time: 01:10 PM. Height: 172.7 cm (67.99 in). Temperature: 97.1 F (36.17 C) forehead. Pulse: 66 (/min) sitting. Respirations: 18 (/min) . Blood pressure: 132/80 (mm Hg) right arm. O2 Saturation: 96 (%) at rest. Entered by Roxana Kelley MA 11/01/2023 01:11 PM Patient Assessment : Positive results Assessment : Labs Verified: Yes, Alert, oriented with appropriate behavior. Negative results Assessment : Gait Changes. Denies Neuropathy , Pain -0-No pain, Fatigue , Anxiety/Depression , Fever, Chills or Night Sweats ,Signs of Infection , Skin Changes , Dizziness , Headaches , Nausea , Breathing Changes , Cough , Mouth Sores/Stomatitis/Mucositis , Changes in Appetite , Vomiting , Diarrhea , Constipation , Urinary Changes , Bleeding . Entered By Suzanna Bailey RN on 01:27 PM IV Access/Lab Draw : IV Access-CVC - Port-A-Cath, Primary Bag Fluid-0.9% Sodium Chloride, Primary Bag Volume-100 mLNeedle Type-Bailey, Needle Size-20 Gauge, Needle Length-3/4 inch, Access Site-Right Chest, Flush-10ml NS,500u Heparin, Site Assess List-Blood Return,No Redness,No Swelling,No Tenderness,No Bruising, Lab Drawn-No, Access Attempts-1 time(s), Entered By Suzanna Bailey RN on 01:28 PM IV De-Access : IV Access Method-CVC - Port-A-Cath, IV Access Type-Bailey, Line Flushed-10ml NS,500u Heparin, Catheter-Dc'd, Site Care-Bandage Applied,IV Infusion Completed,Blood Return Noted During Administration,Therapy Completed Without Adverse Event,Port Deaccessed, Site Assess-Line Intact,No Redness,No Swelling,No Tenderness,No Bruising, Entered By Suzanna Bailey RN on 03:05 PM Discharge Note : Comments-Therapy completed without adverse event, Discharged from clinic, Stable, No new complaints, Plan for next patient visit confirmed, Patient instructed to call office with any questions or problems, Accompanied By-Self, Discharge-Ambulatory, Discharge Time-11/01/2023 03:00 PM Entered By Suzanna Bailey RN on 03:06 PM Medication Administration : Incident to: Puja Avalos MD Doxorubicin + Cyclophosphamide (AC) Q14D Dose Dense fb Paclitaxel Weekly D1,8 Q14D Chemotherapy Paclitaxel IV, 6 mg/mL concentrate, 132 mg intravenously Piggyback once, Admin over: 1 hours to 1 hours, Instructions: CYCLES 5-10 ONLY.Dilute in 250-500 mL NS. Final product concentration must be 0.3-1.2 mg/mL. Administer using Jva-ELHR-sltgqgwqtn equipment and through an in-line 0.22 micron filter. Paclitaxel is a vascular irritant., Allow Substitution GIVEN: 132 mg Pharmacy plan: Dispense/Waste: 132/0 mg Amount in mL: 22 Pharmacy dispense: [facility]: [id number] Dispense/Waste: 132/0 mg Given Dose/Discard: 132/0 mg Start Time: 01:52 PM, Entered By: Suzanna Bailey RN, Stop Time: 02:55 PM, Entered By: Suzanna Bailey RN Admix Fluid: 0.9 % sodium chloride, Admix Fluid Volume: 250mL, Total Volume: 272mL Double Checked By: Suzanna Bailey RN on 11/01/2023 01:28 PM and Trina Carlos RN on 11/01/2023 01:49 PM Incident to: uPja Avalos MD Doxorubicin + Cyclophosphamide (AC) Q14D Dose Dense fb Paclitaxel Weekly D1,8 Q14D Premedications Granisetron IV, 1000 mcg intravenously once, Instructions: CYCLES 5-10 ONLY., Allow Substitution GIVEN: 1000 mcg Pharmacy plan: Dispense/Waste: 1000/0 mcg Amount in mL: 1 Pharmacy dispense: [facility]: [id number] Dispense/Waste: 1000/0 mcg Given Dose/Discard: 1000/0 mcg Start Time: 01:15 PM, Entered By: Suzanna Bailey RN, Stop Time: 01:16 PM, Entered By: Suzanna Bailey RN Incident to: Puja Avalos MD Doxorubicin + Cyclophosphamide (AC) Q14D Dose Dense fb Paclitaxel Weekly D1,8 Q14D Premedications Diphenhydramine IV, 25 mg intravenously once, Instructions: Administer 30-60 minutes prior to paclitaxel., Allow Substitution GIVEN: 25 mg Pharmacy plan: Dispense/Waste: 25/0 mg Amount in mL: 0.5 Pharmacy dispense: [facility]: [id number] Dispense/Waste: 25/0 mg Given Dose/Discard: 25/0 mg Start Time: 01:17 PM, Entered By: Suzanna Bailey RN, Stop Time: 01:18 PM, Entered By: Suzanna Bailey RN Incident to: Puja Avalos MD Doxorubicin + Cyclophosphamide (AC) Q14D Dose Dense fb Paclitaxel Weekly D1,8 Q14D Premedications Famotidine IV, 20 mg intravenously once, Instructions: Administer 30-60 minutes prior to paclitaxel., Allow Substitution GIVEN: 20 mg Pharmacy plan: Dispense/Waste: 20/0 mg Amount in mL: 2 Pharmacy dispense: [facility]: [id number] Dispense/Waste: 20/0 mg Given Dose/Discard: 20/0 mg Start Time: 01:19 PM, Entered By: Suzanna Bailey RN, Stop Time: 01:20 PM, Entered By: Suzanna Bailey RN Admix Fluid: 0.9 % sodium chloride, Admix Fluid Volume: 3mL, Total Volume: 5mL Free Text Note : Cryotherapy applied throughout Taxol infusion. Entered By Suzanna Bailey RN on 03:05 PM * Nurse Note for: 25-OCT-23 [facility] Nurse Note Print Location: Unknown Date/Time Printed: 03/20/2025 11:22 AM ([facility]) Patient: IVANA HENDRICKS Sex: Female : 1995 Date of Service: 10/25/2023 Allergies : Penicillins Vital Signs : Time: 02:21 PM. Height: 172.7 cm (67.99 in). Temperature: 97.7 F (36.50 C) forehead. Pulse: 98 (/min) sitting. Respirations: 18 (/min) . Blood pressure: 103/67 (mm Hg) right arm Wrist. O2 Saturation:100 (%) at rest. Entered by Roxana Kelley MA 10/25/2023 02:35 PM Time: 03:00 AM. Pain Scale: 0. Entered by Trina Carlos RN 10/25/2023 02:29 PM Patient Assessment : Positive results Assessment : Labs Verified: Yes, Alert, oriented with appropriate behavior. Negative results Assessment : Gait Changes. Denies Neuropathy , Pain -0-No pain, Fatigue , Anxiety/Depression , Fever, Chills or Night Sweats ,Signs of Infection , Skin Changes , Dizziness , Headaches , Nausea , Breathing Changes , Cough , Mouth Sores/Stomatitis/Mucositis , Changes in Appetite , Vomiting , Diarrhea , Constipation , Urinary Changes , Bleeding . Entered By Trina Carlos RN on 02:29 PM IV Access/Lab Draw : IV Access-CVC - Port-A-Cath, Primary Bag Fluid-0.9% Sodium Chloride, Primary Bag Volume-100 mL, Primary Bag Start Time-02:29 PM, Primary Bag Stop Time-03:47 PM, Needle Type-Bailey, Needle Size-20 Gauge, Needle Length-3/4 inch, Access Site- Right Chest, Flush-10ml NS,500u Heparin, Site Assess List-Blood Return,No Redness,No Swelling,No Tenderness,No Bruising, Site Care Checklist-Aseptic Technique, Lab Drawn-No, Access Attempts-1 time(s), Entered By Trina Carlos RN on 03:32 PM Discharge Note : Comments-Therapy completed without adverse event, Discharged from clinic, Stable, Accompanied By-Self, Discharge-Ambulatory Entered By Trina Carlos RN on 03:32 PM Medication Administration : Incident to: Evans Royal MD Doxorubicin + Cyclophosphamide (AC) Q14D Dose Dense fb Paclitaxel Weekly D1,8 Q14D Chemotherapy Paclitaxel IV, 6 mg/mL concentrate, 132 mg intravenously Piggyback once, Admin over: 1 hours to 1 hours, Instructions: CYCLES 5-10 ONLY.Dilute in 250-500 mL NS. Final product concentration must be 0.3-1.2 mg/mL. Administer using Dzl-KXPK-ugmaibofhq equipment and through an in-line 0.22 micron filter. Paclitaxel is a vascular irritant., Allow Substitution GIVEN: 132 mg Pharmacy plan: Dispense/Waste: 132/0 mg Amount in mL: 22 Given Dose/Discard: 132/0 mg Admin Details: IV Administration: Piggyback Start Time: 02:46 PM, Entered By: Trina Carlos RN, Stop Time: 03:47 PM, Entered By: Trina Carlos RN Admix Fluid: 0.9 % sodium chloride, Admix Fluid Volume: 250mL, Total Volume: 272mL Double Checked By: Trina Carlos RN on 10/25/2023 02:46 PM and Keri Forrest RN on 10/25/2023 03:19 PM Incident to: Evans Royal MD Doxorubicin + Cyclophosphamide (AC) Q14D Dose Dense fb Paclitaxel Weekly D1,8 Q14D Premedications Granisetron IV, 1000 mcg intravenously once, Instructions: CYCLES 5-10 ONLY., Allow Substitution GIVEN: 1000 mcg Pharmacy plan: Dispense/Waste: 1000/0 mcg Amount in mL: 1 Given Dose/Discard: 1000/0 mcg Admin Details: IV Administration: Push Start Time: 02:30 PM, Entered By: Trina Carlos RN, Stop Time: 02:31 PM, Entered By: Trina Carlos RN Incident to: Evans Royal MD Doxorubicin + Cyclophosphamide (AC) Q14D Dose Dense fb Paclitaxel Weekly D1,8 Q14D Premedications Diphenhydramine IV, 25 mg intravenously once, Instructions: Administer 30-60 minutes prior to paclitaxel., Allow Substitution GIVEN: 25 mg Pharmacy plan: Dispense/Waste: 25/0 mg Amount in mL: 0.5 Given Dose/Discard: 25/0 mg Admin Details: IV Administration: Push Start Time: 02:32 PM, Entered By: Trina Carlos RN, Stop Time: 02:33 PM, Entered By: Trina Carlos RN Incident to: Evans Royal MD Doxorubicin + Cyclophosphamide (AC) Q14D Dose Dense fb Paclitaxel Weekly D1,8 Q14D Premedications Famotidine IV, 20 mg intravenously once, Instructions: Administer 30-60 minutes prior to paclitaxel., Allow Substitution GIVEN: 20 mg Pharmacy plan: Dispense/Waste: 20/0 mg Amount in mL: 2 Given Dose/Discard: 20/0 mg Admin Details: IV Administration: Push Start Time: 02:33 PM, Entered By: Trina Carlos RN, Stop Time: 02:34 PM, Entered By: Trina Carlos RN Admix Fluid: 0.9 % sodium chloride, Admix Fluid Volume: 3mL, Total Volume: 5mL Free Text Note : tx complete without incident. cryotherapy applied Entered By Trina Carlos RN on 03:33 PM * Nurse Note for: 11-OCT-23 [facility] Nurse Note Print Location: Unknown Date/Time Printed: 03/20/2025 11:22 AM ([facility]) Patient: IVANA HENDRICKS Sex: Female : 1995 Date of Service: 10/11/2023 Allergies : Penicillins Vital Signs : Time: 03:00 AM. Pain Scale: 0. Entered by Cristo Grove RN 10/11/2023 02:14 PM Patient Assessment : Positive results Assessment : Labs Verified: Yes, Alert, oriented with appropriate behavior. Negative results Assessment : Gait Changes. Denies Neuropathy , Pain -0-No pain, Fatigue , Anxiety/Depression , Fever, Chills or Night Sweats ,Signs of Infection , Skin Changes , Dizziness , Headaches , Nausea , Breathing Changes , Cough , Mouth Sores/Stomatitis/Mucositis , Changes in Appetite , Vomiting , Diarrhea , Constipation , Urinary Changes , Bleeding . Entered By Cristo Grove RN on 02:14 PM IV Access/Lab Draw : IV Access-CVC - Port-A-Cath, Primary Bag Fluid-0.9% Sodium Chloride, Primary Bag Volume-100 mL, Primary Bag Start Time-01:25 PM, Primary Bag Stop Time-03:02 PM, Needle Type-Bailey, Needle Size-20 Gauge, Needle Length-3/4 inch, Access Site- Right Chest, Flush-20ml NS,500u Heparin, Site Assess List-Blood Return,No Redness,No Swelling,No Tenderness,No Bruising, Site Care Checklist-Aseptic Technique, Dressing Change-Chlorhexadine, Lab Drawn-No, Access Attempts-1 time(s), Comments-Heparin on de-access. Entered By Cristo Grove RN on 04:19 PM IV De-Access : IV Access Method-CVC - Port-A-Cath, IV Access Type-Bailey, Line Flushed-20ml NS, Catheter-Dc'd, SiteCare-Bandage Applied,IV Infusion Completed,Therapy Completed Without Adverse Event,Port Deaccessed,Site Assess-Line Intact,No Redness,No Swelling,No Tenderness,No Bruising, Entered By Cristo Grove RN on 04:19 PM Discharge Note : Comments-Therapy completed without adverse event, Discharged from clinic, Stable, No new complaints, No Weakness, No c/o dizziness, Plan for next patient visit confirmed, Patient instructed to call office with any questions or problems, Accompanied By-Self, Discharge-Ambulatory, Discharge Time-10/11/2023 03:05 PM Entered By Cristo Grove RN on 04:20 PM Medication Administration : Incident to: Puja Avalos MD Doxorubicin + Cyclophosphamide (AC) Q14D Dose Dense fb Paclitaxel Weekly D1,8 Q14D Chemotherapy Paclitaxel IV, 6 mg/mL concentrate, 132 mg intravenously Piggyback once, Admin over: 1 hours to 1 hours, Instructions: CYCLES 5-10 ONLY.Dilute in 250-500 mL NS. Final product concentration must be 0.3-1.2 mg/mL. Administer using Fsj-XYQY-xrmebkvmrb equipment and through an in-line 0.22 micron filter. Paclitaxel is a vascular irritant., Allow Substitution GIVEN: 132 mg Pharmacy plan: Dispense/Waste: 132/0 mg Amount in mL: 22 Pharmacy dispense: [facility]: [phone] Dispense/Waste: 132/0 mg Given Dose/Discard: 132/0 mg Admin Details: IV Administration: Piggyback, Comments: ice packs in use on hands and feet. Start Time: 01:55 PM, Entered By: Cristo Grove RN, Stop Time: 03:00 PM, Entered By: Cristo Grove RN Admix Fluid: 0.9 % sodium chloride, Admix Fluid Volume: 250mL, Total Volume: 272mL Double Checked By: Cristo Grove RN on 10/11/2023 02:16 PM and Joel Yañez RN on 10/11/2023 03:59 PM Incident to: Puja Avalos MD Doxorubicin + Cyclophosphamide (AC) Q14D Dose Dense fb Paclitaxel Weekly D1,8 Q14D Premedications Granisetron IV, 1000 mcg intravenously once, Instructions: CYCLES 5-10 ONLY., Allow Substitution GIVEN: 1000 mcg Pharmacy plan: Dispense/Waste: 1000/0 mcg Amount in mL: 1 Pharmacy dispense: [facility]: [id number] Dispense/Waste: 1000/0 mcg Given Dose/Discard: 1000/0 mcg Admin Details: IV Administration: Push Start Time: 01:26 PM, Entered By: Cristo Grove RN, Stop Time: 01:27 PM, Entered By: Cristo Grove RN Incident to: Puja Avalos MD Doxorubicin + Cyclophosphamide (AC) Q14D Dose Dense fb Paclitaxel Weekly D1,8 Q14D Premedications Diphenhydramine IV, 25 mg intravenously once, Instructions: Administer 30-60 minutes prior to paclitaxel., Allow Substitution GIVEN: 25 mg Pharmacy plan: Dispense/Waste: 25/0 mg Amount in mL: 0.5 Pharmacy dispense: [facility]: [id number] Dispense/Waste: 25/0 mg Given Dose/Discard: 25/0 mg Admin Details: IV Administration: Push Start Time: 01:28 PM, Entered By: Cristo Grove RN, Stop Time: 01:29 PM, Entered By: Cristo Grove RN Incident to: Puja Avalos MD Doxorubicin + Cyclophosphamide (AC) Q14D Dose Dense fb Paclitaxel Weekly D1,8 Q14D Premedications Famotidine IV, 20 mg intravenously once, Instructions: Administer 30-60 minutes prior to paclitaxel., Allow Substitution GIVEN: 20 mg Pharmacy plan: Dispense/Waste: 20/0 mg Amount in mL: 2 Pharmacy dispense: [facility]: [id number] Dispense/Waste: 20/0 mg Given Dose/Discard: 20/0 mg Admin Details: IV Administration: Push Start Time: 01:30 PM, Entered By: Cristo Grove RN, Stop Time: 01:31 PM, Entered By: Cristo Grove RN Admix Fluid: 0.9 % sodium chloride, Admix Fluid Volume: 3mL, Total Volume: 5mL Free Text Note : Pt offers no c/o. Entered By Cristo Grove RN on 02:15 PM * Nurse Note for: 04-OCT-23 [facility] Nurse Note Print Location: Unknown Date/Time Printed: 03/20/2025 11:22 AM ([facility]) Patient: IVANA HENDRICKS Sex: Female : 1995 Date of Service: 10/04/2023 Allergies : Penicillins Vital Signs : Time: 01:24 PM. Height: 172.7 cm (67.99 in). Temperature: 96.9 F (36.06 C) tympanic. Pulse: 69 (/min) sitting. Respirations: 20 (/min) . Blood pressure: 121/68 (mm Hg) right arm Regular. Pain Scale: 0. O2 Saturation: 100 (%) at rest. Entered by Trina Carlos RN 10/04/2023 01:25 PM Time: 03:00 AM. Pain Scale: 0. Entered by Trina Carlos RN 10/04/2023 01:23 PM Patient Assessment : Positive results Assessment : Labs Verified: Yes, Alert, oriented with appropriate behavior. Negative results Assessment : Gait Changes. Denies Neuropathy , Pain -0-No pain, Fatigue , Anxiety/Depression , Fever, Chills or Night Sweats ,Signs of Infection , Skin Changes , Dizziness , Headaches , Nausea , Breathing Changes , Cough , Mouth Sores/Stomatitis/Mucositis , Changes in Appetite , Vomiting , Diarrhea , Constipation , Urinary Changes , Bleeding . Entered By Trina Carlos RN on 01:23 PM IV Access/Lab Draw : IV Access-CVC - Port-A-Cath, Primary Bag Fluid-0.9% Sodium Chloride, Primary Bag Volume-100 mL, Primary Bag Start Time-01:23 PM, Primary Bag Stop Time-02:40 PM, Needle Type-Bailey, Needle Size-20 Gauge, Needle Length-3/4 inch, Access Site- Right Chest, Flush-10ml NS,500u Heparin, Site Assess List-Blood Return,No Redness,No Swelling,No Tenderness,No Bruising, Site Care Checklist-Aseptic Technique, Lab Drawn-No, Access Attempts-1 time(s), Entered By Trina Carlos RN on 02:55 PM IV De-Access : IV Access Method-CVC - Port-A-Cath, IV Access Type-Bailey, Catheter-Dc'd, Entered By Trina Carlos RN on 02:55 PM Discharge Note : Comments-Therapy completed without adverse event, Discharged from clinic, Stable, Accompanied By-Self, Discharge-Ambulatory Entered By Trina Carlos RN on 02:55 PM Medication Administration : Incident to: Puja Avalos MD Doxorubicin + Cyclophosphamide (AC) Q14D Dose Dense fb Paclitaxel Weekly D1,8 Q14D Chemotherapy Paclitaxel IV, 6 mg/mL concentrate, 132 mg intravenously Piggyback once, Admin over: 1 hours to 1 hours, Instructions: CYCLES 5-10 ONLY.Dilute in 250-500 mL NS. Final product concentration must be 0.3-1.2 mg/mL. Administer using Twh-WDAE-hartdbagml equipment and through an in-line 0.22 micron filter. Paclitaxel is a vascular irritant., Allow Substitution GIVEN: 132 mg Pharmacy plan: Dispense/Waste: 132/0 mg Amount in mL: 22 Pharmacy dispense: [facility]: [id number] Dispense/Waste: 132/0 mg Given Dose/Discard: 132/0 mg Admin Details: IV Administration: Piggyback Start Time: 01:38 PM, Entered By: Trina Carlos RN, Stop Time: 02:40 PM, Entered By: Trina Carlos RN Admix Fluid: 0.9 % sodium chloride, Admix Fluid Volume: 250mL, Total Volume: 272mL Double Checked By: Trina Carlos RN on 10/04/2023 01:38 PM and Suzanna Bailey RN on 10/04/2023 01:43 PM Incident to: Puja Avalos MD Doxorubicin + Cyclophosphamide (AC) Q14D Dose Dense fb Paclitaxel Weekly D1,8 Q14D Premedications Granisetron IV, 1000 mcg intravenously once, Instructions: CYCLES 5-10 ONLY., Allow Substitution GIVEN: 1000 mcg Pharmacy plan: Dispense/Waste: 1000/0 mcg Amount in mL: 1 Pharmacy dispense: [facility]: [id number] Dispense/Waste: 1000/0 mcg Given Dose/Discard: 1000/0 mcg Admin Details: IV Administration: Push Start Time: 01:24 PM, Entered By: Trina Carlos RN, Stop Time: 01:25 PM, Entered By: Trina Carlos RN Incident to: Puja Avalos MD Doxorubicin + Cyclophosphamide (AC) Q14D Dose Dense fb Paclitaxel Weekly D1,8 Q14D Premedications Diphenhydramine IV, 25 mg intravenously once, Instructions: Administer 30-60 minutes prior to paclitaxel., Allow Substitution GIVEN: 25 mg Pharmacy plan: Dispense/Waste: 25/0 mg Amount in mL: 0.5 Pharmacy dispense: [facility]: [id number] Dispense/Waste: 25/0 mg Given Dose/Discard: 25/0 mg Admin Details: IV Administration: Push Start Time: 01:23 PM, Entered By: Trina Carlos RN, Stop Time: 01:24 PM, Entered By: Trina Carlos RN Incident to: Puja Avalos MD Doxorubicin + Cyclophosphamide (AC) Q14D Dose Dense fb Paclitaxel Weekly D1,8 Q14D Premedications Famotidine IV, 20 mg intravenously once, Instructions: Administer 30-60 minutes prior to paclitaxel., Allow Substitution GIVEN: 20 mg Pharmacy plan: Dispense/Waste: 20/0 mg Amount in mL: 2 Pharmacy dispense: [facility]: [id number] Dispense/Waste: 20/0 mg Given Dose/Discard: 20/0 mg Admin Details: IV Administration: Push Start Time: 01:25 PM, Entered By: Trina Carlos RN, Stop Time: 01:26 PM, Entered By: Trina Carlos RN Admix Fluid: 0.9 % sodium chloride, Admix Fluid Volume: 3mL, Total Volume: 5mL Free Text Note : tx complete without incident, cryotherapy applied Entered By Trina Carlos RN on 02:55 PM * Nurse Note for: 27-SEP-23 [facility] Nurse Note Print Location: Unknown Date/Time Printed: 03/20/2025 11:22 AM ([facility]) Patient: IVANA HENDRICKS Sex: Female : 1995 Date of Service: 09/27/2023 Allergies : Penicillins Vital Signs : Time: 03:00 AM. Height: 172.7 cm (67.99 in). Temperature: 97.2 F (36.22 C) forehead. Pulse: 87 (/min) sitting. Respirations: 18 (/min) . Blood pressure: 145/80 (mm Hg) right arm Wrist. O2 Saturation:97 (%) at rest. Entered by Roxana Kelley MA 09/27/2023 01:16 PM Time: 03:00 AM. Pain Scale: 0. Entered by Trina Carlos RN 09/27/2023 12:55 PM Patient Assessment : Positive results Assessment : Labs Verified: Yes, Alert, oriented with appropriate behavior. Negative results Assessment : Gait Changes. Denies Neuropathy , Pain -0-No pain, Fatigue , Anxiety/Depression , Fever, Chills or Night Sweats ,Signs of Infection , Skin Changes , Dizziness , Headaches , Nausea , Breathing Changes , Cough , Mouth Sores/Stomatitis/Mucositis , Changes in Appetite , Vomiting , Diarrhea , Constipation , Urinary Changes , Bleeding . Entered By Trina Carlos RN on 12:55 PM IV Access/Lab Draw : IV Access-CVC - Port-A-Cath, Primary Bag Fluid-0.9% Sodium Chloride, Primary Bag Volume-100 mL, Primary Bag Start Time-01:13 PM, Primary Bag Stop Time-02:46 PM, Needle Type-Bailey, Needle Size-20 Gauge, Needle Length-3/4 inch, Access Site- Right Chest, Flush-10ml NS,500u Heparin, Site Assess List-Blood Return,No Redness,No Swelling,No Tenderness,No Bruising, Site Care Checklist-Aseptic Technique, Lab Drawn-No, Access Attempts-1 time(s), Entered By Trina Carlos RN on 02:46 PM Discharge Note : Comments-Therapy completed without adverse event, Discharged from clinic, Stable, Accompanied By-Self, Discharge-Ambulatory, Discharge Time-09/27/2023 02:46 PM Entered By Trina Carlos RN on 02:46 PM Medication Administration : Incident to: Evans Royal MD Doxorubicin + Cyclophosphamide (AC) Q14D Dose Dense fb Paclitaxel Weekly D1,8 Q14D Chemotherapy Paclitaxel IV, 6 mg/mL concentrate, 132 mg intravenously Piggyback once, Admin over: 1 hours to 1 hours, Instructions: CYCLES 5-10 ONLY.Dilute in 250-500 mL NS. Final product concentration must be 0.3-1.2 mg/mL. Administer using Tjf-THYM-gzfbdomszq equipment and through an in-line 0.22 micron filter. Paclitaxel is a vascular irritant., Allow Substitution GIVEN: 132 mg Pharmacy plan: Dispense/Waste: 132/0 mg Amount in mL: 22 Pharmacy dispense: [facility]: [id number] Dispense/Waste: 132/0 mg Given Dose/Discard: 132/0 mg Admin Details: IV Administration: Piggyback Start Time: 01:40 PM, Entered By: Trina Carlos RN, Stop Time: 02:46 PM, Entered By: Trina Carlos RN Admix Fluid: 0.9 % sodium chloride, Admix Fluid Volume: 250mL, Total Volume: 272mL Double Checked By: Cristo Grove RN on 09/27/2023 01:41 PM and Suzanna Bailey RN on 09/27/2023 02:27 PM Incident to: Evans Royal MD Doxorubicin + Cyclophosphamide (AC) Q14D Dose Dense fb Paclitaxel Weekly D1,8 Q14D Premedications Granisetron IV, 1000 mcg intravenously once, Instructions: CYCLES 5-10 ONLY., Allow Substitution GIVEN: 1000 mcg Pharmacy plan: Dispense/Waste: 1000/0 mcg Amount in mL: 1 Pharmacy dispense: [facility]: [id number] Dispense/Waste: 1000/0 mcg Given Dose/Discard: 1000/0 mcg Admin Details: IV Administration: Push Start Time: 01:14 PM, Entered By: Trina Carlos RN, Stop Time: 01:15 PM, Entered By: Trina Carlos RN Incident to: Evans Royal MD Doxorubicin + Cyclophosphamide (AC) Q14D Dose Dense fb Paclitaxel Weekly D1,8 Q14D Premedications Diphenhydramine IV, 25 mg intravenously once, Instructions: Administer 30-60 minutes prior to paclitaxel., Allow Substitution GIVEN: 25 mg Pharmacy plan: Dispense/Waste: 25/0 mg Amount in mL: 0.5 Pharmacy dispense: [facility]: [phone] Dispense/Waste: 25/0 mg Given Dose/Discard: 25/0 mg Admin Details: IV Administration: Push Start Time: 01:13 PM, Entered By: Trina Carlos RN, Stop Time: 01:14 PM, Entered By: Trina Carlos RN Incident to: Evans Royal MD Doxorubicin + Cyclophosphamide (AC) Q14D Dose Dense fb Paclitaxel Weekly D1,8 Q14D Premedications Famotidine IV, 20 mg intravenously once, Instructions: Administer 30-60 minutes prior to paclitaxel., Allow Substitution GIVEN: 20 mg Pharmacy plan: Dispense/Waste: 20/0 mg Amount in mL: 2 Pharmacy dispense: [facility]: [id number] Dispense/Waste: 20/0 mg Given Dose/Discard: 20/0 mg Admin Details: IV Administration: Push Start Time: 01:12 PM, Entered By: Trina Carlos RN, Stop Time: 01:13 PM, Entered By: Trina Carlos RN Admix Fluid: 0.9 % sodium chloride, Admix Fluid Volume: 3mL, Total Volume: 5mL Free Text Note : tx complete without incident, cryotherapy applied Entered By Trina Carlos RN on 02:46 PM * Nurse Note for: 20-SEP-23 [facility] Nurse Note Print Location: Unknown Date/Time Printed: 03/20/2025 11:22 AM ([facility]) Patient: IVANA HENDRICKS Sex: Female : 1995 Date of Service: 09/20/2023 Allergies : Penicillins Vital Signs : Time: 01:23 PM. Height: 172.7 cm (67.99 in). Temperature: 98.8 F (37.11 C). Pulse: 74 (/min) . Respirations: 17 (/min) . Blood pressure: 111/75 (mm Hg). O2 Saturation: 100 (%) . Entered by Dorothea Espitia RN 09/20/2023 01:23 PM Patient Assessment : IV Access/Lab Draw : IV Access-CVC - [place], Primary Bag Fluid-0.9% Sodium Chloride, Primary Bag Volume-250 mL, Primary Bag Start Time-01:10 PM, Needle Type-Bailey, Needle Size- 20 Gauge, Needle Length-3/4 inch, Access Site-Right Chest, Flush-10ml NS,500u Heparin, Site Assess List-Blood Return,No Redness,No Swelling,No Tenderness,No Bruising, Site Care Checklist-Aseptic Technique, Lab Drawn-No, Entered By Dorothea Espitia RN on 01:23 PM IV De-Access : IV Access Method-CVC - Powerport, IV Access Type-Bailey, Line Flushed-20ml NS, Catheter-Dc'd, Site Care-Blood Return Noted During Administration,Therapy Completed Without Adverse Event,Discontinued Bailey Set,Occlusive Dressing Applied, Site Assess-Line Intact,No Redness,No Swelling,No Tenderness,No B ruising, Entered By Dorothea Espitia RN on 12:59 PM Discharge Note : Comments-Discharged from clinic, Stable, No new complaints, No Weakness, Plan for next patient visit confirmed, Accompanied By-Self, Discharge-Ambulatory, Discharge Time-09/20/2023 03:22 PM Entered By Dorothea Espitia RN on 03:22 PM Medication Administration : Incident to: Puja Avalos MD Doxorubicin + Cyclophosphamide (AC) Q14D Dose Dense fb Paclitaxel Weekly D1,8 Q14D Chemotherapy Paclitaxel IV, 6 mg/mL concentrate, 132 mg intravenously Piggyback once, Admin over: 1 hours to 1 hours, Instructions: CYCLES 5-10 ONLY.Dilute in 250-500 mL NS. Final product concentration must be 0.3-1.2 mg/mL. Administer using Nbj-GYWA-lsoujembgp equipment and through an in-line 0.22 micron filter. Paclitaxel is a vascular irritant., Allow Substitution GIVEN: 132 mg Pharmacy plan: Dispense/Waste: 132/0 mg Amount in mL: 22 Pharmacy dispense: [facility]: [id number] Dispense/Waste: 132/0 mg Given Dose/Discard: 132/0 mg Start Time: 01:42 PM, Entered By: Dorothea Espitia RN, Stop Time: 03:20 PM, Entered By: Dorothea Espitia RN Admix Fluid: 0.9 % sodium chloride, Admix Fluid Volume: 250mL, Total Volume: 272mL Double Checked By: Dorothea Espitia RN on 09/20/2023 01:43 PM and Cristo Grove RN on 09/20/2023 03:28 PM Incident to: Puja Avalos MD Doxorubicin + Cyclophosphamide (AC) Q14D Dose Dense fb Paclitaxel Weekly D1,8 Q14D Premedications Granisetron IV, 1000 mcg intravenously once, Instructions: CYCLES 5-10 ONLY., Allow Substitution GIVEN: 1000 mcg Pharmacy plan: Dispense/Waste: 1000/0 mcg Amount in mL: 1 Pharmacy dispense: [facility]: [id number] Dispense/Waste: 1000/0 mcg Given Dose/Discard: 1000/0 mcg Admin Details: IV Administration: IVPSAFFIV Start Time: 01:11 PM, Entered By: Dorothea Espitia RN, Stop Time: 01:13 PM, Entered By: Dorothea Espitia RN Incident to: Puja Avalos MD Doxorubicin + Cyclophosphamide (AC) Q14D Dose Dense fb Paclitaxel Weekly D1,8 Q14D Premedications Dexamethasone IV, 10 mg intravenously Piggyback once as needed, Admin over: 20 minutes to 20 minutes, Instructions: NOTE: Administer ONLY if patient missed 1-2 doses of oral dexamethasone at home (recommended 12 and 6 hours prior to paclitaxel to reduce risk of infusion reaction). Administer 30-60 minutes prior to paclitaxel., Allow Substitution HELD (Reason: Not given - other reason - Not needed) Entered By: Dorothea Espitia RN Incident to: Puja Avalos MD Doxorubicin + Cyclophosphamide (AC) Q14D Dose Dense fb Paclitaxel Weekly D1,8 Q14D Premedications Diphenhydramine IV, 25 mg intravenously once, Instructions: Administer 30-60 minutes prior to paclitaxel., Allow Substitution GIVEN: 25 mg Pharmacy plan: Dispense/Waste: 25/0 mg Amount in mL: 0.5 Pharmacy dispense: [facility]: [id number] Dispense/Waste: 25/0 mg Given Dose/Discard: 25/0 mg Admin Details: IV Administration: IVPSAFFIV Start Time: 01:14 PM, Entered By: Dorothea Espitia RN, Stop Time: 01:16 PM, Entered By: Dorothea Espitia RN Incident to: Puja Avalos MD Doxorubicin + Cyclophosphamide (AC) Q14D Dose Dense fb Paclitaxel Weekly D1,8 Q14D Premedications Famotidine IV, 20 mg intravenously once, Instructions: Administer 30-60 minutes prior to paclitaxel., Allow Substitution GIVEN: 20 mg Pharmacy plan: Dispense/Waste: 20/0 mg Amount in mL: 2 Pharmacy dispense: [facility]: [id number] Dispense/Waste: 20/0 mg Given Dose/Discard: 20/0 mg Admin Details: IV Administration: IVPSAFFIV Start Time: 01:17 PM, Entered By: Dorothea Espitia RN, Stop Time: 01:19 PM, Entered By: Dorothea Espitia RN Admix Fluid: 0.9 % sodium chloride, Admix Fluid Volume: 3mL, Total Volume: 5mL Free Text Note : Pt here for tx. No complaints. Entered By Dorothea Espitia RN on 01:00 PM * Nurse Note for: 13-SEP-23 [facility] Nurse Note Print Location: Unknown Date/Time Printed: 03/20/2025 11:22 AM ([facility]) Patient: IVANA HENDRICKS Sex: Female : 1995 Date of Service: 09/13/2023 Allergies : Penicillins Vital Signs : Time: 03:00 AM. Height: 172.7 cm (67.99 in). Temperature: 97.8 F (36.56 C) tympanic. Pulse: 120 (/min) sitting. Respirations: 18 (/min) . Blood pressure: 117/77 (mm Hg) right arm Regular. O2 Saturation: 99 (%) at rest. Entered by Trina Carlos RN 09/13/2023 01:38 PM Time: 03:00 AM. Pain Scale: 0. Entered by Trina Carlos RN 09/13/2023 01:08 PM Patient Assessment : Positive results Assessment : Labs Verified: Yes, Alert, oriented with appropriate behavior. Negative results Assessment : Gait Changes. Denies Neuropathy , Pain -0-No pain, Fatigue , Anxiety/Depression , Fever, Chills or Night Sweats ,Signs of Infection , Skin Changes , Dizziness , Headaches , Nausea , Breathing Changes , Cough , Mouth Sores/Stomatitis/Mucositis , Changes in Appetite , Vomiting , Diarrhea , Constipation , Urinary Changes , Bleeding . Entered By Trina Carlos RN on 01:08 PM IV Access/Lab Draw : IV Access-CVC - Port-A-Cath, Primary Bag Fluid-0.9% Sodium Chloride, Primary Bag Volume-100 mL, Primary Bag Start Time-01:08 PM, Primary Bag Stop Time-02:41 PM, Needle Type-Bailey, Needle Size-20 Gauge, Needle Length-3/4 inch, Access Site- Right Chest, Flush-10ml NS,500u Heparin, Site Assess List-Blood Return,No Redness,No Swelling,No Tenderness,No Bruising, Site Care Checklist-Aseptic Technique, Lab Drawn-No, Access Attempts-1 time(s), Entered By Trina Carlos RN on 02:41 PM IV De-Access : IV Access Method-CVC - Port-A-Cath, IV Access Type-Bailey, Catheter-Dc'd, Entered By Trina Carlos RN on 02:41 PM Discharge Note : Comments-Therapy completed without adverse event, Discharged from clinic, Stable, Accompanied By-Self, Discharge-Ambulatory, Discharge Time-09/13/2023 02:41 PM Entered By Trina Carlos RN on 02:41 PM Medication Administration : Incident to: Puja Avalos MD Doxorubicin + Cyclophosphamide (AC) Q14D Dose Dense fb Paclitaxel Weekly D1,8 Q14D Chemotherapy Paclitaxel IV, 6 mg/mL concentrate, 132 mg intravenously Piggyback once, Admin over: 1 hours to 1 hours, Instructions: CYCLES 5-10 ONLY.Dilute in 250-500 mL NS. Final product concentration must be 0.3-1.2 mg/mL. Administer using Lrd-DQWG-spvcwwpvjr equipment and through an in-line 0.22 micron filter. Paclitaxel is a vascular irritant., Allow Substitution GIVEN: 132 mg Pharmacy plan: Dispense/Waste: 132/0 mg Amount in mL: 22 Pharmacy dispense: [facility]: [phone] Dispense/Waste: 132/0 mg Given Dose/Discard: 132/0 mg Admin Details: IV Administration: Piggyback Start Time: 01:37 PM, Entered By: Trina Carlos RN, Stop Time: 02:40 PM, Entered By: Trina Carlos RN Admix Fluid: 0.9 % sodium chloride, Admix Fluid Volume: 250mL, Total Volume: 272mL Double Checked By: Trina Carlos RN on 09/13/2023 01:38 PM and Cristo Grove RN on 09/13/2023 03:20 PM Incident to: Puja Avalos MD Doxorubicin + Cyclophosphamide (AC) Q14D Dose Dense fb Paclitaxel Weekly D1,8 Q14D Premedications Granisetron IV, 1000 mcg intravenously once, Instructions: CYCLES 5-10 ONLY., Allow Substitution GIVEN: 1000 mcg Pharmacy plan: Dispense/Waste: 1000/0 mcg Amount in mL: 1 Pharmacy dispense: [facility]: [id number] Dispense/Waste: 1000/0 mcg Given Dose/Discard: 1000/0 mcg Admin Details: IV Administration: Push Start Time: 01:13 PM, Entered By: Trina Carlos RN, Stop Time: 01:14 PM, Entered By: Trina Carlos RN Incident to: Puja Avalos MD Doxorubicin + Cyclophosphamide (AC) Q14D Dose Dense fb Paclitaxel Weekly D1,8 Q14D Premedications Dexamethasone IV, 10 mg intravenously Piggyback once as needed, Admin over: 20 minutes to 20 minutes, Instructions: NOTE: Administer ONLY if patient missed 1-2 doses of oral dexamethasone at home (recommended 12 and 6 hours prior to paclitaxel to reduce risk of infusion reaction). Administer 30-60 minutes prior to paclitaxel., Allow Substitution GIVEN: 10 mg Pharmacy plan: Dispense/Waste: 10/0 mg Pharmacy dispense: [facility]: [id number] Dispense/Waste: 10/0 mg Given Dose/Discard: 10/0 mg Admin Details: IV Administration: Piggyback, Comments: pt missed PO dose Start Time: 01:16 PM, Entered By: Trina Carlos RN, Stop Time: 01:37 PM, Entered By: Trina Carlos RN Admix Fluid: 0.9 % sodium chloride, Admix Fluid Volume: 50mL Incident to: uPja Avalos MD Doxorubicin + Cyclophosphamide (AC) Q14D Dose Dense fb Paclitaxel Weekly D1,8 Q14D Premedications Diphenhydramine IV, 25 mg intravenously once, Instructions: Administer 30-60 minutes prior to paclitaxel., Allow Substitution GIVEN: 25 mg Pharmacy plan: Dispense/Waste: 25/0 mg Amount in mL: 0.5 Pharmacy dispense: [facility]: [id number] Dispense/Waste: 25/0 mg Given Dose/Discard: 25/0 mg Admin Details: IV Administration: Push Start Time: 01:15 PM, Entered By: Trina Carlos RN, Stop Time: 01:16 PM, Entered By: Trina Carlos RN Incident to: Puja Avalos MD Doxorubicin + Cyclophosphamide (AC) Q14D Dose Dense fb Paclitaxel Weekly D1,8 Q14D Premedications Famotidine IV, 20 mg intravenously once, Instructions: Administer 30-60 minutes prior to paclitaxel., Allow Substitution GIVEN: 20 mg Pharmacy plan: Dispense/Waste: 20/0 mg Amount in mL: 2 Pharmacy dispense: [facility]: [id number] Dispense/Waste: 20/0 mg Given Dose/Discard: 20/0 mg Admin Details: IV Administration: Push Start Time: 01:14 PM, Entered By: Trina Carlos RN, Stop Time: 01:15 PM, Entered By: Trina Carlos RN Admix Fluid: 0.9 % sodium chloride, Admix Fluid Volume: 3mL, Total Volume: 5mL Free Text Note : tx complete without incident, cryotherapy applied. nivestym education provided to patient Entered By Trina Carlos RN on 02:42 PM * Nurse Note for: 03-SEP-23 [facility] Nurse Note Print Location: Unknown Date/Time Printed: 03/20/2025 11:22 AM ([facility]) Patient: IVANA HENDRICKS Sex: Female : 1995 Date of Service: 09/03/2023 Allergies : Penicillins Vital Signs : Time: 03:00 AM. Pain Scale: 0. Entered by Monalisa Cunha RN 09/03/2023 04:41 PM Patient Assessment : Positive results Assessment : Alert, oriented with appropriate behavior. Negative results Assessment : Denies Pain -0-No pain. Entered By Monalisa Cunha RN on 04:42 PM Discharge Note : Comments-Therapy completed without adverse event, Stable, No new complaints, Accompanied By-Self, Discharge-Ambulatory, Discharge Time-09/03/2023 03:30 PM Entered By Monalisa Cunha RN on 04:41 PM Medication Administration : Incident to: Mohan Prescott MD Filgrastim Medications Zarxio (Filgrastim-Sndz Subcutaneous), 300 mcg/0.5 mL syringe, 300 mcg subcutaneously once, Instructions: NOTE: This is Zarxio., Allow Substitution GIVEN: 300 mcg Pharmacy plan: Dispense/Waste: 300/0 mcg Pharmacy dispense: [facility]: [id number] Dispense/Waste: 300/0 mcg Given Dose/Discard: 300/0 mcg Admin Details: Injection Location: Right-Upper Arm Time: 03:30 PM * Nurse Note for: 01-SEP-23 [facility] Nurse Note Print Location: Unknown Date/Time Printed: 03/20/2025 11:22 AM ([facility]) Patient: IVANA HENDRICKS Sex: Female : 1995 Date of Service: 09/01/2023 Allergies : Penicillins Patient Assessment : Medication Administration : Incident to: Britta Nelson NP Filgrastim Medications Zarxio (Filgrastim-Sndz Subcutaneous), 300 mcg/0.5 mL syringe, 300 mcg subcutaneously once, Instructions: NOTE: This is Zarxio., Allow Substitution GIVEN: 300 mcg Pharmacy plan: Dispense/Waste: 300/0 mcg Pharmacy dispense: [facility]: [id number] Dispense/Waste: 300/0 mcg Given Dose/Discard: 300/0 mcg Admin Details: Injection Location: Left-Upper Arm Time: 11:25 AM * Nurse Note for: 31-AUG-23 [facility] Nurse Note Print Location: Unknown Date/Time Printed: 03/20/2025 11:22 AM ([facility]) Patient: IVANA HENDRICKS Sex: Female : 1995 Date of Service: 08/31/2023 Allergies : Penicillins Vital Signs : Time: 03:00 AM. Pain Scale: 0. Entered by Cristo Grove RN 08/31/2023 03:54 PM Patient Assessment : Positive results Assessment : Labs Verified: Yes, Alert, oriented with appropriate behavior. Negative results Assessment : Gait Changes. Denies Neuropathy , Pain -0-No pain, Fatigue , Anxiety/Depression , Fever, Chills or Night Sweats ,Signs of Infection , Skin Changes , Dizziness , Headaches , Nausea , Breathing Changes , Cough , Mouth Sores/Stomatitis/Mucositis , Changes in Appetite , Vomiting , Diarrhea , Constipation , Urinary Changes , Bleeding . Entered By Cristo Grove RN on 03:54 PM Discharge Note : Comments-Therapy completed without adverse event, Discharged from clinic, Stable, No new complaints, No Weakness, No c/o dizziness, Plan for next patient visit confirmed, Patient instructed to call office with any questions or problems, Accompanied By-Self, Discharge-Ambulatory, Discharge Time-08/31/2023 03:55 PM Entered By Cristo Grove RN on 03:55 PM Medication Administration : Incident to: Alexandria Eckert MD Filgrastim Medications Zarxio (Filgrastim-Sndz Subcutaneous), 300 mcg/0.5 mL syringe, 300 mcg subcutaneously once, Instructions: NOTE: This is Zarxio., Allow Substitution GIVEN: 300 mcg Pharmacy plan: Dispense/Waste: 300/0 mcg Given Dose/Discard: 300/0 mcg Admin Details: Injection Location: Right-Upper Arm Time: 03:50 PM Free Text Note : Pt denies c/o. Consent obtained for Zarxio and education given. Pt advised to take claritin 10mg daily for 5 days to treat any bone pain that may occur. Pt v/u. Entered By Cristo Grove RN on 03:55 PM * Nurse Note for: 30-AUG-23 [facility] Nurse Note Print Location: Unknown Date/Time Printed: 03/20/2025 11:22 AM ([facility]) Patient: IVANA HENDRICKS Sex: Female : 1995 Date of Service: 08/30/2023 Allergies : Penicillins Vital Signs : Time: 01:16 PM. Pain Scale: 0. Entered by Monalisa Cunha RN 08/30/2023 03:03 PM Time: 01:16 PM. Height: 172.7 cm (67.99 in). Temperature: 97.7 F (36.50 C) forehead. Pulse: 77 (/min) sitting. Respirations: 18 (/min) . Blood pressure: 104/68 (mm Hg) left arm Wrist. O2 Saturation: 98 (%) at rest. Entered by Roxana Kelley MA 08/30/2023 01:20 PM Patient Assessment : Positive results Assessment : Labs Verified: Yes, Alert, oriented with appropriate behavior. Negative results Assessment : Gait Changes. Denies Neuropathy , Pain -0-No pain, Fatigue , Anxiety/Depression , Fever, Chills or Night Sweats ,Signs of Infection , Skin Changes , Dizziness , Headaches , Nausea , Breathing Changes , Cough , Mouth Sores/Stomatitis/Mucositis , Changes in Appetite , Vomiting , Diarrhea , Constipation , Urinary Changes , Bleeding . Entered By Monalisa Cunha RN on 04:45 PM IV Access/Lab Draw : IV Access-CVC - Port-A-Cath, Primary Bag Fluid-0.9% Sodium Chloride, Primary Bag Volume-100 mL, Primary Bag Start Time-01:00 PM, Needle Type-Bailey, Needle Size- 20 Gauge, Needle Length-3/4 inch, Access Site-Right Chest, Flush-10ml NS,500u Heparin, Site Assess List-Blood Return,No Redness,No Swelling,No Tenderness,No Bruising, Site Care Checklist-Aseptic Technique, Lab Drawn-No, Access Attempts-1 time(s), Comments-500 units of heparin admin on de-access Entered By Monalisa Cunha RN on 03:03 PM IV De-Access : IV Access Method-CVC - Port-A-Cath, IV Access Type-Bailey, Line Flushed-10ml NS, Catheter-Dc'd, SiteCare-Site Dressing Applied, Site Assess-Line Intact,No Redness,No Swelling,No Tenderness,No Bruising, Entered By Monalisa Cunha RN on 03:03 PM Discharge Note : Comments-Therapy completed without adverse event, Stable, No new complaints, Accompanied By-Self, Discharge-Ambulatory, Discharge Time-08/30/2023 03:45 PM Entered By Monalisa Cunha RN on 04:45 PM Medication Administration : Incident to: Analia Keating MD Doxorubicin + Cyclophosphamide (AC) Q14D Dose Dense fb Paclitaxel Weekly D1,8 Q14D Chemotherapy Paclitaxel IV, 6 mg/mL concentrate, 132 mg intravenously Piggyback once, Admin over: 1 hours to 1 hours, Instructions: CYCLES 5-10 ONLY.Dilute in 250-500 mL NS. Final product concentration must be 0.3-1.2 mg/mL. Administer using [id number] equipment and through an in-line 0.22 micron filter. Paclitaxel is a vascular irritant., Allow Substitution GIVEN: 132 mg Pharmacy plan: Dispense/Waste: 132/0 mg Amount in mL: 22 Pharmacy dispense: [facility]: [id number] Dispense/Waste: 132/0 mg Given Dose/Discard: 132/0 mg Admin Details: IV Administration: Piggyback Start Time: 02:00 PM, Entered By: Monalisa Cunha RN, Stop Time: 03:45 PM, Entered By: Monalisa Cunha RN Admix Fluid: 0.9 % sodium chloride, Admix Fluid Volume: 250mL, Total Volume: 272mL Double Checked By: Suzanna Bailey RN on 08/30/2023 02:06 PM and Monalisa Cunha RN on 08/30/2023 03:06 PM Incident to: Analia Keating MD Doxorubicin + Cyclophosphamide (AC) Q14D Dose Dense fb Paclitaxel Weekly D1,8 Q14D Premedications Granisetron IV, 1000 mcg intravenously once, Instructions: CYCLES 5-10 ONLY., Allow Substitution GIVEN: 1000 mcg Pharmacy plan: Dispense/Waste: 1000/0 mcg Amount in mL: 1 Pharmacy dispense: [facility]: [id number] Dispense/Waste: 1000/0 mcg Given Dose/Discard: 1000/0 mcg Start Time: 01:00 PM, Entered By: Monalisa Cunha RN, Stop Time: 01:02 PM, Entered By: Monalisa Cunha RN Incident to: Analia Keating MD Doxorubicin + Cyclophosphamide (AC) Q14D Dose Dense fb Paclitaxel Weekly D1,8 Q14D Premedications Dexamethasone IV, 10 mg intravenously Piggyback once as needed, Admin over: 20 minutes to 20 minutes, Instructions: NOTE: Administer ONLY if patient missed 1-2 doses of oral dexamethasone at home (recommended 12 and 6 hours prior to paclitaxel to reduce risk of infusion reaction). Administer 30-60 minutes prior to paclitaxel., Allow Substitution GIVEN: 10 mg Pharmacy plan: Dispense/Waste: 10/0 mg Pharmacy dispense: [facility]: [id number] Dispense/Waste: 10/0 mg Given Dose/Discard: 10/0 mg Admin Details: IV Administration: Piggyback Start Time: 01:02 PM, Entered By: Monalisa Cunha RN, Stop Time: 01:22 PM, Entered By: Monalisa Cunha RN Admix Fluid: 0.9 % sodium chloride, Admix Fluid Volume: 50mL Incident to: Analia Keating MD Doxorubicin + Cyclophosphamide (AC) Q14D Dose Dense fb Paclitaxel Weekly D1,8 Q14D Premedications Diphenhydramine IV, 25 mg intravenously once, Instructions: Administer 30-60 minutes prior to paclitaxel., Allow Substitution GIVEN: 25 mg Pharmacy plan: Dispense/Waste: 25/0 mg Amount in mL: 0.5 Pharmacy dispense: [facility]: [id number] Dispense/Waste: 25/0 mg Given Dose/Discard: 25/0 mg Admin Details: IV Administration: Push Start Time: 01:22 PM, Entered By: Monalisa Cunha RN, Stop Time: 02:24 PM, Entered By: Monalisa Cunha RN Incident to: Analia Keating MD Doxorubicin + Cyclophosphamide (AC) Q14D Dose Dense fb Paclitaxel Weekly D1,8 Q14D Premedications Famotidine IV, 20 mg intravenously once, Instructions: Administer 30-60 minutes prior to paclitaxel., Allow Substitution GIVEN: 20 mg Pharmacy plan: Dispense/Waste: 20/0 mg Amount in mL: 2 Pharmacy dispense: [facility]: [id number] Dispense/Waste: 20/0 mg Given Dose/Discard: 20/0 mg Admin Details: IV Administration: Push Start Time: 01:25 PM, Entered By: Monalisa Cunha RN, Stop Time: 01:27 PM, Entered By: Monalisa Cunha RN Admix Fluid: 0.9 % sodium chloride, Admix Fluid Volume: 3mL, Total Volume: 5mL * Nurse Note for: 23-AUG-23 [facility] Nurse Note Print Location: Unknown Date/Time Printed: 03/20/2025 11:23 AM ([facility]) Patient: IVANA HENDRICKS Sex: Female : 1995 Date of Service: 08/23/2023 Allergies : Penicillins Vital Signs : Time: 03:00 AM. Height: 172.7 cm (67.99 in). Temperature: 97.8 F (36.56 C) tympanic. Pulse: 101 (/min) sitting. Respirations: 18 (/min) . Blood pressure: 115/76 (mm Hg) left arm Regular. O2 Saturation: 100 (%) at rest. Entered by Trina Carlos RN 08/23/2023 01:55 PM Time: 03:00 AM. Pain Scale: 0. Entered by Trina Carlos RN 08/23/2023 01:42 PM Patient Assessment : Positive results Assessment : Labs Verified: Yes, Alert, oriented with appropriate behavior. Negative results Assessment : Gait Changes. Denies Neuropathy , Pain -0-No pain, Fatigue , Anxiety/Depression , Fever, Chills or Night Sweats ,Signs of Infection , Skin Changes , Dizziness , Headaches , Nausea , Breathing Changes , Cough , Mouth Sores/Stomatitis/Mucositis , Changes in Appetite , Vomiting , Diarrhea , Constipation , Urinary Changes , Bleeding . Entered By Trina aCrlos RN on 01:42 PM IV Access/Lab Draw : IV Access-CVC - Port-A-Cath, Primary Bag Fluid-0.9% Sodium Chloride, Primary Bag Volume-100 mL, Primary Bag Start Time-01:42 PM, Primary Bag Stop Time-03:46 PM, Needle Type-Bailey, Needle Size-20 Gauge, Needle Length-3/4 inch, Access Site- Right Chest, Flush-10ml NS,500u Heparin, Site Assess List-Blood Return,No Redness,No Swelling,No Tenderness,No Bruising, Site Care Checklist-Aseptic Technique, Lab Drawn-No, Access Attempts-1 time(s), Entered By Trina Carlos RN on 03:46 PM IV De-Access : IV Access Method-CVC - Port-A-Cath, IV Access Type-Bailey, Catheter-Dc'd, Entered By Trina Carlos RN on 03:46 PM Discharge Note : Comments-Therapy completed without adverse event, Discharged from clinic, Stable, Accompanied By-Self, Discharge-Ambulatory, Discharge Time-08/23/2023 03:46 PM Entered By rTina Carlos RN on 03:46 PM Medication Administration : Incident to: Evans Royal MD Doxorubicin + Cyclophosphamide (AC) Q14D Dose Dense fb Paclitaxel Weekly D1,8 Q14D Chemotherapy Paclitaxel IV, 6 mg/mL concentrate, 132 mg intravenously Piggyback once, Admin over: 1 hours to 1 hours, Instructions: CYCLES 5-10 ONLY.Dilute in 250-500 mL NS. Final product concentration must be 0.3-1.2 mg/mL. Administer using [id number] equipment and through an in-line 0.22 micron filter. Paclitaxel is a vascular irritant., Allow Substitution GIVEN: 132 mg Pharmacy plan: Dispense/Waste: 132/0 mg Amount in mL: 22 Pharmacy dispense: [facility]: [id number] Dispense/Waste: 132/0 mg Given Dose/Discard: 132/0 mg Admin Details: IV Administration: Piggyback Start Time: 02:09 PM, Entered By: Trina Carlos RN, Stop Time: 03:46 PM, Entered By: Trina Carlos RN Admix Fluid: 0.9 % sodium chloride, Admix Fluid Volume: 250mL, Total Volume: 272mL Double Checked By: Tenisha Murrieta RN on 08/23/2023 02:07 PM and Trina Carlos RN on 08/23/2023 02:10 PM Incident to: Evans Royal MD Doxorubicin + Cyclophosphamide (AC) Q14D Dose Dense fb Paclitaxel Weekly D1,8 Q14D Premedications Granisetron IV, 1000 mcg intravenously once, Instructions: CYCLES 5-10 ONLY., Allow Substitution GIVEN: 1000 mcg Pharmacy plan: Dispense/Waste: 1000/0 mcg Amount in mL: 1 Pharmacy dispense: [facility]: [id number] Dispense/Waste: 1000/0 mcg Given Dose/Discard: 1000/0 mcg Admin Details: IV Administration: Push Start Time: 01:47 PM, Entered By: Trina Carlos RN, Stop Time: 01:48 PM, Entered By: Trina Carlos RN Incident to: Evans Royal MD Doxorubicin + Cyclophosphamide (AC) Q14D Dose Dense fb Paclitaxel Weekly D1,8 Q14D Premedications Diphenhydramine IV, 25 mg intravenously once, Instructions: Administer 30-60 minutes prior to paclitaxel., Allow Substitution GIVEN: 25 mg Pharmacy plan: Dispense/Waste: 25/0 mg Amount in mL: 0.5 Pharmacy dispense: [facility]: [id number] Dispense/Waste: 25/0 mg Given Dose/Discard: 25/0 mg Admin Details: IV Administration: Push Start Time: 01:48 PM, Entered By: Trina Carlos RN, Stop Time: 01:49 PM, Entered By: Trina Carlos RN Incident to: Evans Royal MD Doxorubicin + Cyclophosphamide (AC) Q14D Dose Dense fb Paclitaxel Weekly D1,8 Q14D Premedications Famotidine IV, 20 mg intravenously once, Instructions: Administer 30-60 minutes prior to paclitaxel., Allow Substitution GIVEN: 20 mg Pharmacy plan: Dispense/Waste: 20/0 mg Amount in mL: 2 Pharmacy dispense: [facility]: [id number] Dispense/Waste: 20/0 mg Given Dose/Discard: 20/0 mg Admin Details: IV Administration: Push Start Time: 01:46 PM, Entered By: Trina Carlos RN, Stop Time: 01:47 PM, Entered By: Trina Carlos RN Admix Fluid: 0.9 % sodium chloride, Admix Fluid Volume: 3mL, Total Volume: 5mL Free Text Note : tx complete without incident, cryotherapy applied Entered By Trina Carlos RN on 03:46 PM * Nurse Note for: 13-AUG-23 [facility] Nurse Note Print Location: Unknown Date/Time Printed: 03/20/2025 11:23 AM ([facility]) Patient: IVANA HENDRICKS Sex: Female : 1995 Date of Service: 08/13/2023 Allergies : Penicillins Vital Signs : Time: 01:22 PM. Height: 172.7 cm (67.99 in). Temperature: 97.2 F (36.22 C) tympanic. Pulse: 86 (/min) radial sitting. Respirations: 14 (/min) . Blood pressure: 144/84 (mm Hg) left arm Wrist. Pain Scale: 0. O2 Saturation: 99 (%) at rest. Entered by Cristo Grove RN 08/13/2023 01:22 PM Patient Assessment : Positive results Assessment : Labs Verified: Yes, Alert, oriented with appropriate behavior. Negative results Assessment : Gait Changes. Denies Neuropathy , Pain -0-No pain, Fatigue , Anxiety/Depression , Fever, Chills or Night Sweats ,Signs of Infection , Skin Changes , Dizziness , Headaches , Nausea , Breathing Changes , Cough , Mouth Sores/Stomatitis/Mucositis , Changes in Appetite , Vomiting , Diarrhea , Constipation , Urinary Changes , Bleeding . Entered By Cristo Grove RN on 01:30 PM IV Access/Lab Draw : IV Access-CVC - Port-A-Cath, Needle Type-Bailey, Needle Size-20 Gauge, Needle Length-3/4 inch, Access Site-Right Chest, Flush-20ml NS,500u Heparin, Site Assess List-Blood Return,No Redness,No Swelling,No Tenderness,No Bruising, Site Care Checklist-Aseptic Technique, Dressing Change-Chlorhexadine, Lab Drawn-No, Access Attempts-1 time(s), Comments-heparin on de-access Entered By Cristo Grove RN on 02:54 PM IV De-Access : IV Access Method-CVC - Port-A-Cath, IV Access Type-Bailey, Line Flushed-20ml NS, Catheter-Dc'd, SiteCare-Bandage Applied,IV Infusion Completed,Therapy Completed Without Adverse Event,Port Deaccessed,Site Assess-Line Intact,No Redness,No Swelling,No Tenderness,No Bruising, Entered By Cristo Grove RN on 02:55 PM Discharge Note : Comments-Therapy completed without adverse event, Discharged from clinic, Stable, No new complaints, No Weakness, No c/o dizziness, Plan for next patient visit confirmed, Patient instructed to call office with any questions or problems, Accompanied By-Other, Discharge-Ambulatory, Discharge Time-08/13/2023 02:56 PM Entered By Cristo Grove RN on 02:56 PM Medication Administration : Incident to: Alexandria Eckert MD IV Hydration - [facility] Fluids Sodium Chloride IV 0.9 %, 1000 mL intravenously once, Allow Substitution GIVEN: 1000 mL Pharmacy plan: Dispense/Waste: 1000/0 mL Pharmacy dispense: [facility]: [id number] Dispense/Waste: 1000/0 ML Given Dose/Discard: 1000/0 mL Admin Details: IV Administration: Infusion (Drip) Start Time: 01:28 PM, Entered By: Cristo Grove RN, Stop Time: 02:50 PM, Entered By: Cristo Grove RN Incident to: Alexandria Eckert MD IV Hydration - NYHI Additional Medications Palonosetron IV, 0.25 mg intravenously once, Allow Substitution HELD (Reason: Patient declined/rejected) Entered By: Cristo Grove RN Free Text Note : Pt offers no c/o. Pt reporting nausea well controlled with consistent use of lorazepam. Entered By Cristo Grove RN on 01:31 PM * Nurse Note for: 10-AUG-23 [facility] Nurse Note Print Location: Unknown Date/Time Printed: 03/20/2025 11:23 AM ([facility]) Patient: IVANA HENDRICKS Sex: Female : 1995 Date of Service: 08/10/2023 Allergies : Penicillins Vital Signs : Time: 03:00 AM. Height: 172.7 cm (67.99 in). Temperature: 98.2 F (36.78 C) tympanic. Pulse: 68 (/min) sitting. Respirations: 18 (/min) . Blood pressure: 102/68 (mm Hg) left arm Regular. O2 Saturation: 98 (%) . Entered by Trina Carlos RN 08/10/2023 01:04 PM Time: 03:00 AM. Pain Scale: 0. Entered by Trina Carlos RN 08/10/2023 01:03 PM Patient Assessment : Positive results Assessment : Alert, oriented with appropriate behavior. Negative results Assessment : Labs Verified: No, Gait Changes. Denies Neuropathy , Pain -0-No pain, Fatigue , Anxiety/Depression , Fever, Chills or Night Sweats ,Signs of Infection , Skin Changes , Dizziness , Headaches , Nausea , Breathing Changes , Cough , Mouth Sores/Stomatitis/Mucositis , Changes in Appetite , Vomiting , Diarrhea , Constipation , Urinary Changes , Bleeding . Entered By Trina Carlos RN on 01:03 PM IV Access/Lab Draw : IV Access-CVC - Port-A-Cath, Needle Type-Bailey, Needle Size-20 Gauge, Needle Length-3/4 inch, Access Site-Right Chest, Flush-10ml NS,500u Heparin, Site Assess List-Blood Return,No Redness,No Swelling,No Tenderness,No Bruising, Site Care Checklist-Aseptic Technique, Lab Drawn-No, Access Attempts-1 time(s), Entered By Trina Carlos RN on 01:03 PM IV De-Access : IV Access Method-CVC - Port-A-Cath, IV Access Type-Bailey, Catheter-Dc'd, Entered By Trina Carlos RN on 02:30 PM Discharge Note : Comments-Therapy completed without adverse event, Discharged from clinic, Stable, Accompanied By-Self, Discharge-Ambulatory, Discharge Time-08/10/2023 02:30 PM Entered By Trina Carlos RN on 02:30 PM Medication Administration : Incident to: Analia Keating MD Doxorubicin + Cyclophosphamide (AC) Q14D Dose Dense fb Paclitaxel Weekly D1,8 Q14D Additional Medications [employer] (Pegfilgrastim-apgf Subcutaneous), 6 mg/0.6 mL syringe, 6 mg subcutaneously once, Instructions: Administer once per cycle at least 24 hours after and 14 days before chemotherapy. NOTE: This is [employer]., Allow Substitution GIVEN: 6 mg Pharmacy plan: Dose Form Description: 6 mg/0.6 mL syringe Dispense/Waste: 6/0 mg Pharmacy dispense: [facility]: [id number] Dispense/Waste: 6/0 mg Given Dose/Discard: 6/0 mg Admin Details: Injection Location: Left-Upper Arm Time: 02:26 PM, Entered By: Trina Carlos RN Incident to: Analia Keating MD IV Hydration - [facility] Fluids Sodium Chloride IV 0.9 %, 1000 mL intravenously once, Allow Substitution GIVEN: 1000 mL Pharmacy plan: Dispense/Waste: 1000/0 mL Pharmacy dispense: [facility]: [id number] Dispense/Waste: 1000/0 ML Given Dose/Discard: 1000/0 mL Admin Details: IV Administration: Infusion (Drip) Start Time: 01:03 PM, Entered By: Trina Carlos RN, Stop Time: 02:23 PM, Entered By: Trina Carlos RN Incident to: Analia Keating MD IV Hydration - [facility] Additional Medications Palonosetron IV, 0.25 mg intravenously once, Allow Substitution HELD (Reason: Not given - other reason) Entered By: Mallory Cooper Pharmacist Free Text Note : hydration and injection complete without incident Entered By Trina Carlos RN on 02:30 PM * Nurse Note for: 09-AUG-23 [facility] Nurse Note Print Location: Unknown Date/Time Printed: 03/20/2025 11:23 AM ([facility]) Patient: IVANA HENDRICKS Sex: Female : 1995 Date of Service: 08/09/2023 Allergies : Penicillins Vital Signs : Time: 01:08 PM. Height: 172.7 cm (67.99 in). Temperature: 97.1 F (36.17 C) forehead. Pulse: 70 (/min) sitting. Respirations: 18 (/min) . Blood pressure: 109/66 (mm Hg). O2 Saturation: 99 (%) at rest.Entered by Roxana Kelley MA 08/09/2023 01:09 PM Patient Assessment : Positive results Assessment : Labs Verified: Yes, Alert, oriented with appropriate behavior. Negative results Assessment : Denies Signs of Infection , Skin Changes , Breathing Changes , Cough . Entered By Tenisha Murrieta RN on 01:11 PM IV Access/Lab Draw : IV Access-CVC - Port-A-Cath, Primary Bag Fluid-0.9% Sodium Chloride, Primary Bag Volume-100 mL, Primary Bag Start Time-01:00 PM, Primary Bag Stop Time-03:35 PM, Needle Type-Bailey, Needle Size-20 Gauge, Needle Length-3/4 inch, Access Site- Right Chest, Flush-10ml NS,500u Heparin, Site Assess List-Blood Return,No Redness,No Swelling,No Tenderness,No Bruising, Site Care Checklist-Aseptic Technique, Lab Drawn-No, Access Attempts-1 time(s), Comments-500 u heparin given on de-access Entered By Tenisha Murrieta RN on 03:37 PM IV De-Access : IV Access Method-CVC - Port-A-Cath, IV Access Type-Bailey, Line Flushed-10ml NS, Catheter-Dc'd, SiteCare-Bandage Applied,Port Deaccessed, Site Assess-Line Intact,No Redness,No Swelling,No Tenderness,No Bruising, Entered By Tenisha Murrieta RN on 03:36 PM Discharge Note : Comments-Therapy completed without adverse event, Discharged from clinic, Stable, Patient instructed to call office with any questions or problems, Accompanied By-Self, Discharge-Ambulatory, Discharge Time-08/09/2023 03:37 PM Entered By Tenisha Murrieta RN on 03:37 PM Medication Administration : Incident to: Evans Royal MD Doxorubicin + Cyclophosphamide (AC) Q14D Dose Dense fb Paclitaxel Weekly D1,8 Q14D Chemotherapy Doxorubicin IV, 100 mg intravenously Push once, Instructions: CYCLES 1-4 ONLY. Doxorubicin is a vesicant., Allow Substitution GIVEN: 100 mg Pharmacy plan: Dispense/Waste: 100/0 mg Amount in mL: 50 Pharmacy dispense: [facility]: [id number] Dispense/Waste: 100/0 mg Given Dose/Discard: 100/0 mg Admin Details: IV Administration: Push Start Time: 02:15 PM, Entered By: Tenisha Murrieta RN, Stop Time: 02:25 PM, Entered By: Tenisha Murrieta RN Double Checked By: Suzanna Bailey RN on 08/09/2023 01:54 PM and Tenisha Murrieta RN on 08/09/2023 03:37 PM Incident to: Evans Royal MD Doxorubicin + Cyclophosphamide (AC) Q14D Dose Dense fb Paclitaxel Weekly D1,8 Q14D Chemotherapy Cyclophosphamide IV, 1000 mg intravenously Piggyback once, Instructions: CYCLES 1-4 ONLY.Dilute in D5W or NS. Cyclophosphamide is an irritant., Allow Substitution GIVEN: 1000 mg Pharmacy plan: Dispense/Waste: 1000/0 mg Amount in mL: 50 Pharmacy dispense: [facility]: [id number] Dispense/Waste: 1000/0 mg Given Dose/Discard: 1000/0 mg Admin Details: IV Administration: Piggyback Start Time: 02:27 PM, Entered By: Tenisha Murrieta RN, Stop Time: 03:29 PM, Entered By: Tenisha Murrieta RN Admix Fluid: 0.9 % sodium chloride, Admix Fluid Volume: 250mL, Total Volume: 300mL Double Checked By: Suzanna Bailey RN on 08/09/2023 01:54 PM and Tenisha Murrieta RN on 08/09/2023 03:37 PM Incident to: Evans Royal MD Doxorubicin + Cyclophosphamide (AC) Q14D Dose Dense fb Paclitaxel Weekly D1,8 Q14D Premedications Palonosetron IV, 0.25 mg intravenously Push once, Instructions: CYCLES 1-4 ONLY., Allow Substitution GIVEN: 0.25 mg Pharmacy plan: Dispense/Waste: 0.25/0 mg Amount in mL: 5 Pharmacy dispense: [facility]: [id number] Dispense/Waste: 0.25/0 mg Given Dose/Discard: 0.25/0 mg Admin Details: IV Administration: Push Start Time: 01:07 PM, Entered By: Tenisha Murrieta RN, Stop Time: 01:09 PM, Entered By: Tenisha Murrieta RN Incident to: Evans Royal MD Doxorubicin + Cyclophosphamide (AC) Q14D Dose Dense fb Paclitaxel Weekly D1,8 Q14D Premedications Dexamethasone IV, 8 mg intravenously Piggyback once, Admin over: 20 minutes to 20 minutes, Instructions: CYCLES 1-4 ONLY., Allow Substitution GIVEN: 8 mg Pharmacy plan: Dispense/Waste: 8/0 mg Amount in mL: 0.8 Pharmacy dispense: [facility]: [phone] Dispense/Waste: 8/0 mg Given Dose/Discard: 8/0 mg Admin Details: IV Administration: Piggyback Start Time: 01:10 PM, Entered By: Tenisha Murrieta RN, Stop Time: 01:31 PM, Entered By: Tenisha Murrieta RN Admix Fluid: 0.9 % sodium chloride, Admix Fluid Volume: 50mL, Total Volume: 50.8mL Incident to: Evans Royal MD Doxorubicin + Cyclophosphamide (AC) Q14D Dose Dense fb Paclitaxel Weekly D1,8 Q14D Premedications Fosaprepitant IV, 150 mg intravenously Piggyback once, Instructions: CYCLES 1-4 ONLY., Allow Substitution GIVEN: 150 mg Pharmacy plan: Dispense/Waste: 150/0 mg Amount in mL: 5 Pharmacy dispense: [facility]: [phone] Dispense/Waste: 150/0 mg Given Dose/Discard: 150/0 mg Admin Details: IV Administration: Piggyback Start Time: 01:32 PM, Entered By: Tenisha Murrieta RN, Stop Time: 02:02 PM, Entered By: Tenisha Murrieta RN Admix Fluid: 0.9 % sodium chloride, Admix Fluid Volume: 150mL, Total Volume: 155mL * Nurse Note for: 06-AUG-23 [facility] Nurse Note Print Location: Unknown Date/Time Printed: 03/20/2025 11:23 AM ([facility]) Patient: IVANA HENDRICKS Sex: Female : 1995 Date of Service: 08/06/2023 Allergies : Penicillins Vital Signs : Time: 01:36 PM. Height: 172.7 cm (67.99 in). Temperature: 97.6 F (36.44 C) tympanic. Pulse: 80 (/min) radial sitting. Respirations: 14 (/min) . Blood pressure: 127/77 (mm Hg) right arm Wrist. Pain Scale: 0. O2 Saturation: 99 (%) at rest. Entered by Cristo Grove RN 08/06/2023 01:37 PM Patient Assessment : Positive results Assessment : Labs Verified: Yes, Alert, oriented with appropriate behavior. Negative results Assessment : Gait Changes. Denies Neuropathy , Pain -0-No pain, Fatigue , Anxiety/Depression , Fever, Chills or Night Sweats ,Signs of Infection , Skin Changes , Dizziness , Headaches , Nausea , Breathing Changes , Cough , Mouth Sores/Stomatitis/Mucositis , Changes in Appetite , Vomiting , Diarrhea , Constipation , Urinary Changes , Bleeding . Entered By Cristo Grove RN on 01:46 PM IV Access/Lab Draw : IV Access-CVC - Port-A-Cath, Needle Type-Bailey, Needle Size-20 Gauge, Needle Length-3/4 inch, Access Site-Right Chest, Flush-20ml NS,500u Heparin, Site Assess List-Blood Return,No Redness,No Swelling,No Tenderness,No Bruising, Site Care Checklist-Aseptic Technique, Dressing Change-Chlorhexadine, Lab Drawn-No, Access Attempts-1 time(s), Comments-heparin on de-access. Entered By Cristo Grove RN on 03:31 PM IV De-Access : IV Access Method-CVC - Port-A-Cath, IV Access Type-Bailey, Line Flushed-20ml NS, Catheter-Dc'd, SiteCare-Bandage Applied,IV Infusion Completed,Therapy Completed Without Adverse Event,Port Deaccessed,Site Assess-Line Intact,No Redness,No Swelling,No Tenderness,No Bruising, Entered By Cristo Grove RN on 03:32 PM Discharge Note : Comments-Therapy completed without adverse event, Discharged from clinic, Stable, No new complaints, No Weakness, No c/o dizziness, Plan for next patient visit confirmed, Patient instructed to call office with any questions or problems, Accompanied By-Self, Discharge-Ambulatory, Discharge Time-08/06/2023 03:10 PM Entered By Cristo Grove RN on 03:32 PM Medication Administration : Incident to: Evans Royal MD IV Hydration - [facility] Fluids Sodium Chloride IV 0.9 %, 1000 mL intravenously once, Allow Substitution GIVEN: 1000 mL Pharmacy plan: Dispense/Waste: 1000/0 mL Pharmacy dispense: [facility]: [phone] Dispense/Waste: 1000/0 ML Given Dose/Discard: 1000/0 mL Admin Details: IV Administration: Infusion (Drip) Start Time: 01:45 PM, Entered By: Cristo Grove RN, Stop Time: 03:05 PM, Entered By: Cristo Grove RN Incident to: Evans Royal MD IV Hydration - [facility] Additional Medications Palonosetron IV, 0.25 mg intravenously once, Allow Substitution HELD (Reason: Patient declined/rejected) Entered By: Cristo Grove RN Free Text Note : Pt offers no c/o and reports they are feeling pretty good . Entered By Cristo Grove RN on 01:47 PM * Nurse Note for: 03-AUG-23 [facility] Nurse Note Print Location: Unknown Date/Time Printed: 03/20/2025 11:23 AM ([facility]) Patient: IVANA HENDRICKS Sex: Female : 1995 Date of Service: 08/03/2023 Allergies : Penicillins Vital Signs : Time: 03:00 AM. Height: 172.7 cm (67.99 in). Temperature: 97.7 F (36.50 C) tympanic. Pulse: 89 (/min) sitting. Respirations: 20 (/min) . Blood pressure: 105/70 (mm Hg) right arm Regular. O2 Saturation: 98 (%) at rest. Entered by Trina Carlos RN 08/03/2023 02:27 PM Time: 03:00 AM. Pain Scale: 0. Entered by Trina Carlos RN 08/03/2023 02:25 PM Patient Assessment : Positive results Assessment : Alert, oriented with appropriate behavior. Complains of Nausea, Vomiting. Negative results Assessment : Labs Verified: No, Gait Changes. Denies Neuropathy , Pain -0-No pain, Fatigue , Anxiety/Depression , Fever, Chills or Night Sweats ,Signs of Infection , Skin Changes , Dizziness , Headaches , Breathing Changes , Cough , Mouth Sores/Stomatitis/Mucositis , Changes in Appetite , Diarrhea , Constipation , Urinary Changes , Bleeding . Entered By Trina Carlos RN on 02:25 PM IV Access/Lab Draw : IV Access-Peripheral - New Start, Needle Type-Iv Cath, Needle Size-24 Gauge, Needle Length-3/4 inch, Access Site-Left Arm, Flush-10ml NS, Site Assess List- Blood Return,No Redness,No Swelling,No Tenderness,No Bruising, Site Care Checklist-Aseptic Technique, Lab Drawn-No, Access Attempts-1 time(s), Entered By Trina Carlos RN on 02:25 PM IV De-Access : IV Access Method-Peripheral - New Start, IV Access Type-Iv Cath, Catheter-Dc'd, Entered By Trina Carlos RN on 03:33 PM Discharge Note : Comments-Therapy completed without adverse event, Discharged from clinic, Stable, Accompanied By-Self, Discharge-Ambulatory Entered By Trina Carlos RN on 03:33 PM Medication Administration : Incident to: Puja Avalos MD IV Hydration - [facility] Fluids Sodium Chloride IV 0.9 %, 1000 mL intravenously once, Allow Substitution GIVEN: 1000 mL Pharmacy plan: Dispense/Waste: 1000/0 mL Given Dose/Discard: 1000/0 mL Admin Details: IV Administration: Infusion (Drip) Start Time: 02:20 PM, Entered By: Trina Carlos RN, Stop Time: 03:40 PM, Entered By: Trina Carlos RN Incident to: Puja Avalos MD IV Hydration - [facility] Additional Medications Palonosetron IV, 0.25 mg intravenously once, Allow Substitution GIVEN: 0.25 mg Pharmacy plan: Dispense/Waste: 0.25/0 mg Amount in mL: 5 Given Dose/Discard: 0.25/0 mg Admin Details: IV Administration: Push Start Time: 02:20 PM, Entered By: Trina Carlos RN, Stop Time: 02:21 PM, Entered By: Trina Carlos RN Free Text Note : hydration complete without incident Entered By Trina Carlos RN on 03:33 PM * Nurse Note for: 02-AUG-23 [facility] Nurse Note Print Location: Unknown Date/Time Printed: 03/20/2025 11:23 AM ([facility]) Patient: IVANA HENDRICKS Sex: Female : 1995 Date of Service: 08/02/2023 Allergies : Penicillins Vital Signs : Time: 02:08 PM. Pain Scale: 0. Entered by Sanjana Jamison NP 08/02/2023 04:43 PM Time: 02:08 PM. Height: 172.7 cm (67.99 in). Temperature: 97.9 F (36.61 C) forehead. Pulse: 65 (/min) sitting. Respirations: 16 (/min) . Blood pressure: 134/69 (mm Hg) left arm Wrist. O2 Saturation: 96 (%) at rest. Entered by Roxana Kelley MA 08/02/2023 02:09 PM Patient Assessment : Positive results Assessment : Labs Verified: Yes-reviewed with pt and MD Royal, Alert, oriented with appropriate behavior. Complains of Fatigue, Skin Changes-see general note regarding port . Negative results Assessment : Gait Changes. Denies Neuropathy , Pain -0-No pain, Anxiety/Depression , Fever, Chills or Night Sweats , Signs of Infection -see general note regarding port , Dizziness , Headaches , Nausea , Breathing Changes , Cough , Mouth Sores/Stomatitis/Mucositis , Changes in Appetite , Vomiting -improving att, reviewed antiemetic use , Diarrhea -improving with imodium , Constipation , Urinary Changes , Bleeding . Entered By Sanjana Jamison NP on 04:46 PM IV Access/Lab Draw : IV Access-Peripheral - New Start, Needle Type-Iv Cath, Needle Size-24 Gauge, Needle Length-3/4 inch, Access Site-Right Arm, Flush-10ml NS, Site Assess List- Blood Return,No Redness,No Swelling,No Tenderness,No Bruising, Lab Drawn-No, Access Attempts-3 time(s), Entered By Sanjana Jamison NP on 04:40 PM IV De-Access : IV Access Method-Peripheral - New Start, IV Access Type-Iv Cath, Line Flushed- 10ml NS, Catheter-Dc'd, Site Care-Site Dressing Applied,IV Infusion Completed,Therapy Completed Without Adverse Event,Occlusive Dressing Applied, Site Assess-Line Intact,No Redness,No Swelling,No Tenderness,No Bruising, Entered By Sanjana Jamison NP on 04:40 PM Discharge Note : Comments-Therapy completed without adverse event, Catheter removed intact, Dressing intact, Stable,Review side effects with patient, No new complaints, Self care instructions given, Teaching material given, Plan for next patient visit confirmed, Practice contact information given, Patient instructed to call office with any questions or problems, Accompanied By-Self, Discharge- Ambulatory, Discharge Time-08/02/2023 03:40 PM Entered By Sanjana Jamison NP on 04:40 PM Medication Administration : Incident to: Evans Royal MD IV Hydration - [facility] Fluids Sodium Chloride IV 0.9 %, 1000 mL intravenously once, Allow Substitution GIVEN: 1000 mL Pharmacy plan: Dispense/Waste: 1000/0 mL Given Dose/Discard: 1000/0 mL Admin Details: CIV Completion: Therapy Completed without adverse event Start Time: 02:30 PM, Entered By: Sanjana Jamison NP, Stop Time: 03:30 PM, Entered By: Sanjana Jamison NP Free Text Note : Pt here for hydration tolerated well, see general note today regarding labs/port. Entered By Sanjana Jamiosn NP on 04:41 PM Procedures : Established patient, minimal office visit - Associated Problem(s): Breast cancer, female *; Selected Billing Code(s): OFFICE/OUTPATIENT EST PT MAY NOT REQ PHYS/QHP (24002) Entered By Sanjana Jamison NP; Incident to Eavns Royal MD * Nurse Note for: 01-AUG-23 [facility] Nurse Note Print Location: Unknown Date/Time Printed: 03/20/2025 11:23 AM ([facility]) Patient: IVANA HENDRICKS Sex: Female : 1995 Date of Service: 08/01/2023 Allergies : Penicillins Vital Signs : Time: 03:00 AM. Height: 172.7 cm (67.99 in). Temperature: 97.8 F (36.56 C) tympanic. Pulse: 76 (/min) sitting. Respirations: 22 (/min) . Blood pressure: 105/61 (mm Hg) right arm Regular. O2 Saturation: 97 (%) at rest. Entered by Trina Carlos RN 08/01/2023 11:11 AM Time: 03:00 AM. Pain Scale: 0. Entered by Trina Carlos RN 08/01/2023 11:07 AM Patient Assessment : Positive results Assessment : Alert, oriented with appropriate behavior. Complains of Nausea, Vomiting. Negative results Assessment : Labs Verified: No, Gait Changes. Denies Neuropathy , Pain -0-No pain, Fatigue , Anxiety/Depression , Fever, Chills or Night Sweats ,Signs of Infection , Skin Changes , Dizziness , Headaches , Breathing Changes , Cough , Mouth Sores/Stomatitis/Mucositis , Changes in Appetite , Diarrhea , Constipation , Urinary Changes , Bleeding . Entered By Trina Carlos RN on 11:07 AM IV Access/Lab Draw : IV Access-CVC - Port-A-Cath, Needle Type-Bailey, Needle Size-20 Gauge, Needle Length-3/4 inch, Access Site-Right Chest, Flush-10ml NS,500u Heparin, Site Assess List-Blood Return,No Redness,No Swelling,No Tenderness,No Bruising, Site Care Checklist-Aseptic Technique, Lab Drawn-No, Access Attempts-1 time(s), Entered By Trina Carlos RN on 11:08 AM IV De-Access : IV Access Method-CVC - Port-A-Cath, IV Access Type-Bailey, Catheter-Dc'd, Entered By Trina Carlos RN on 12:29 PM Discharge Note : Comments-Therapy completed without adverse event, Discharged from clinic, Stable, Accompanied By-Self, Discharge-Ambulatory, Discharge Time-08/01/2023 12:29 PM Entered By Trina Carlos RN on 12:29 PM Medication Administration : Incident to: Evans Royal MD IV Hydration - [facility] Fluids Sodium Chloride IV 0.9 %, 1000 mL intravenously once, Allow Substitution GIVEN: 1000 mL Pharmacy plan: Dispense/Waste: 1000/0 mL Given Dose/Discard: 1000/0 mL Start Time: 11:06 AM, Entered By: Trina Carlos RN, Stop Time: 12:28 PM, Entered By: Trina Carlos RN Incident to: Evans Royal MD IV Hydration - [facility] Additional Medications Palonosetron IV, 0.25 mg intravenously once, Allow Substitution GIVEN: 0.25 mg Pharmacy plan: Dispense/Waste: 0.25/0 mg Given Dose/Discard: 0.25/0 mg Admin Details: IV Administration: Push Start Time: 11:33 AM, Entered By: Trina Carlos RN, Stop Time: 11:34 AM, Entered By: Trina Carlos RN Free Text Note : hydration complete without incident Entered By Trina Carlos RN on 12:29 PM * Nurse Note for: 27-JUL-23 [facility] Nurse Note Print Location: Unknown Date/Time Printed: 03/20/2025 11:23 AM ([facility]) Patient: IVANA HENDRICKS Sex: Female : 1995 Date of Service: 07/27/2023 Allergies : Penicillins Vital Signs : Time: 01:05 PM. Height: 172.7 cm (67.99 in). Temperature: 98.2 F (36.78 C). Pulse: 70 (/min) . Respirations: 16 (/min) . Blood pressure: 100/64 (mm Hg). O2 Saturation: 98 (%) . Entered by Joel Yañez RN 07/27/2023 01:05 PM Patient Assessment : Positive results Assessment : Alert, oriented with appropriate behavior. Entered By Joel Yañez RN on 03:47 PM IV Access/Lab Draw : IV Access-CVC - Port-A-Cath, Needle Type-Bailey, Needle Size-20 Gauge, Needle Length-3/4 inch, Access Site-Right Chest, Flush-10ml NS,500u Heparin, Site Assess List-Blood Return,No Redness,No Swelling,No Tenderness,No Bruising, Site Care Checklist-Aseptic Technique, Access Attempts-1 time(s), Entered By Joel Yañez RN on 03:47 PM IV De-Access : IV Access Method-CVC - Port-A-Cath, IV Access Type-Bailey, Line Flushed-10ml NS, Catheter-Dc'd, SiteCare-Bandage Applied,IV Infusion Completed,Blood Return Noted During Administration,Therapy Completed Without Adverse Event, Site Assess-Line Intact,No Redness,No Swelling,No Tenderness,No Bruising, Entered By Joel Yañez RN on 03:47 PM Discharge Note : Comments-Therapy completed without adverse event, Discharged from clinic, Stable, Patient instructed to call office with any questions or problems, Accompanied By-Self, Discharge-Ambulatory Entered By Joel Yañez RN on 03:47 PM Medication Administration : Incident to: Alexandria Eckert MD Doxorubicin + Cyclophosphamide (AC) Q14D Dose Dense fb Paclitaxel Weekly D1,8 Q14D Additional Medications [employer] (Pegfilgrastim-apgf Subcutaneous), 6 mg/0.6 mL syringe, 6 mg subcutaneously once, Instructions: Administer once per cycle at least 24 hours after and 14 days before chemotherapy. NOTE: This is [employer]., Allow Substitution GIVEN: 6 mg Pharmacy plan: Dose Form Description: 6 mg/0.6 mL syringe Dispense/Waste: 6/0 mg Pharmacy dispense: [facility]: [id number] Dispense/Waste: 6/0 mg Given Dose/Discard: 6/0 mg Time: 02:45 PM, Entered By: Joel Yañez RN Incident to: Alexandria Eckert MD IV Hydration - [facility] Fluids Sodium Chloride IV 0.9 %, 1000 mL intravenously once, Allow Substitution GIVEN: 1000 mL Pharmacy plan: Dispense/Waste: 1000/0 mL Given Dose/Discard: 1000/0 mL Start Time: 01:14 PM, Entered By: Joel Yañez RN, Stop Time: 02:35 PM, Entered By: Joel Yañez RN Free Text Note : Patient tolerated hydration and injection without incident. Entered By Joel Yañez RN on 03:48 PM * Nurse Note for: 26-JUL-23 [facility] Nurse Note Print Location: Unknown Date/Time Printed: 03/20/2025 11:23 AM ([facility]) Patient: IVANA HENDRICKS Sex: Female : 1995 Date of Service: 07/26/2023 Allergies : Penicillins Vital Signs : Time: 01:14 PM. Height: 172.7 cm (67.99 in). Temperature: 98.4 F (36.89 C). Pulse: 80 (/min) . Blood pressure: 111/72 (mm Hg). O2 Saturation: 99 (%) . Entered by Tenisha Murrieta RN 07/26/2023 01:45 PM Patient Assessment : Positive results Assessment : Labs Verified: Yes, Alert, oriented with appropriate behavior. Negative results Assessment : Denies Fever, Chills or Night Sweats , Signs of Infection , Breathing Changes , Cough . Entered By Tenisha Murrieta RN on 01:15 PM IV Access/Lab Draw : IV Access-CVC - Port-A-Cath, Primary Bag Fluid-0.9% Sodium Chloride, Primary Bag Volume-50 mL, Primary Bag Start Time-01:10 PM, Primary Bag Stop Time-03:25 PM, Needle Type-Bailey, Needle Size-20 Gauge, Needle Length-3/4 inch, Access Site- Right Chest, Flush-10ml NS,500u Heparin, Site Assess List-Blood Return,No Redness,No Swelling,No Tenderness,No Bruising, Site Care Checklist-Aseptic Technique, Lab Drawn-No, Access Attempts-1 time(s), Comments-500 u heparin given on de-access Entered By Tenisha Murrieta RN on 03:27 PM IV De-Access : IV Access Method-CVC - Port-A-Cath, IV Access Type-Bailey, Line Flushed-10ml NS, Catheter-Dc'd, SiteCare-Bandage Applied,Port Deaccessed, Site Assess-Line Intact,No Redness,No Swelling,No Tenderness,No Bruising, Entered By Tenisha Murrieta RN on 03:27 PM Discharge Note : Comments-Therapy completed without adverse event, Discharged from clinic, Stable, Patient instructed to call office with any questions or problems, Accompanied By-Self, Discharge-Ambulatory, Discharge Time-07/26/2023 03:27 PM Entered By Tenisha Murrieta RN on 03:27 PM Medication Administration : Incident to: Analia Keating MD Doxorubicin + Cyclophosphamide (AC) Q14D Dose Dense fb Paclitaxel Weekly D1,8 Q14D Chemotherapy Doxorubicin IV, 100 mg intravenously Push once, Instructions: CYCLES 1-4 ONLY. Doxorubicin is a vesicant., Allow Substitution GIVEN: 100 mg Pharmacy plan: Dispense/Waste: 100/0 mg Amount in mL: 50 Pharmacy dispense: [facility]: [id number] Dispense/Waste: 100/0 mg Given Dose/Discard: 100/0 mg Admin Details: IV Administration: Push Start Time: 02:16 PM, Entered By: eTnisha Murrieta RN, Stop Time: 02:27 PM, Entered By: Tenisha Murrieta RN Checked By: Cristo Grove RN on 07/26/2023 01:51 PM Incident to: Analia Keating MD Doxorubicin + Cyclophosphamide (AC) Q14D Dose Dense fb Paclitaxel Weekly D1,8 Q14D Chemotherapy Cyclophosphamide IV, 1000 mg intravenously Piggyback once, Instructions: CYCLES 1-4 ONLY.Dilute in D5W or NS. Cyclophosphamide is an irritant., Allow Substitution GIVEN: 1000 mg Pharmacy plan: Dispense/Waste: 1000/0 mg Amount in mL: 50 Pharmacy dispense: [facility]: [id number] Dispense/Waste: 1000/0 mg Given Dose/Discard: 1000/0 mg Start Time: 02:30 PM, Entered By: Tenisha Murrieta RN, Stop Time: 03:25 PM, Entered By: Tenisha Murrieta RN Admix Fluid: 0.9 % sodium chloride, Admix Fluid Volume: 250mL, Total Volume: 300mL Checked By: Cristo Grove RN on 07/26/2023 01:51 PM Incident to: Analia Keating MD Doxorubicin + Cyclophosphamide (AC) Q14D Dose Dense fb Paclitaxel Weekly D1,8 Q14D Premedications Palonosetron IV, 0.25 mg intravenously Push once, Instructions: CYCLES 1-4 ONLY., Allow Substitution GIVEN: 0.25 mg Pharmacy plan: Dispense/Waste: 0.25/0 mg Amount in mL: 5 Pharmacy dispense: [facility]: [id number] Dispense/Waste: 0.25/0 mg Given Dose/Discard: 0.25/0 mg Start Time: 01:10 PM, Entered By: Tenisha Murrieta RN, Stop Time: 01:12 PM, Entered By: Tenisha Murrieta RN Incident to: Analia Keating MD Doxorubicin + Cyclophosphamide (AC) Q14D Dose Dense fb Paclitaxel Weekly D1,8 Q14D Premedications Dexamethasone IV, 8 mg intravenously Piggyback once, Admin over: 20 minutes to 20 minutes, Instructions: CYCLES 1-4 ONLY., Allow Substitution GIVEN: 8 mg Pharmacy plan: Dispense/Waste: 8/0 mg Amount in mL: 0.8 Pharmacy dispense: [facility]: [id number] Dispense/Waste: 8/0 mg Given Dose/Discard: 8/0 mg Start Time: 01:13 PM, Entered By: Tenisha Murrieta RN, Stop Time: 01:36 PM, Entered By: Tenisha Murrieta RN Admix Fluid: 0.9 % sodium chloride, Admix Fluid Volume: 50mL, Total Volume: 50.8mL Incident to: Analia Keating MD Doxorubicin + Cyclophosphamide (AC) Q14D Dose Dense fb Paclitaxel Weekly D1,8 Q14D Premedications Fosaprepitant IV, 150 mg intravenously Piggyback once, Instructions: CYCLES 1-4 ONLY., Allow Substitution GIVEN: 150 mg Pharmacy plan: Dispense/Waste: 150/0 mg Amount in mL: 5 Pharmacy dispense: [facility]: [phone] Dispense/Waste: 150/0 mg Given Dose/Discard: 150/0 mg Start Time: 01:37 PM, Entered By: Tenisha Murrieta RN, Stop Time: 02:10 PM, Entered By: Tenisha Murrieta RN Admix Fluid: 0.9 % sodium chloride, Admix Fluid Volume: 150mL, Total Volume: 155mL * Nurse Note for: 19-JUL-23 [facility] Nurse Note Print Location: Unknown Date/Time Printed: 03/20/2025 11:23 AM ([facility]) Patient: IVANA HENDRICKS Sex: Female : 1995 Date of Service: 07/19/2023 Allergies : Penicillins Vital Signs : Time: 01:25 PM. Height: 172.7 cm (67.99 in). Temperature: 98.3 F (36.83 C) tympanic. Pulse: 63 (/min) . Respirations: 14 (/min) . Blood pressure: 91/63 (mm Hg) right arm Wrist Pt offered hydration but refused and stated they would push fluids at home. Pt denies s/s hypotension.. Pain Scale: 0. O2 Saturation: 99 (%) at rest. Entered by Cristo Grove RN 07/19/2023 02:57 PM Time: 02:55 PM. Height: 172.7 cm (67.99 in). Temperature: 98.3 F (36.83 C) tympanic. Pulse: 63 (/min) . Respirations: 14 (/min) . Blood pressure: 91/63 (mm Hg) right arm Wrist Pt offered hydration but refused and stated they would push fluids at home. Pt denies s/s hypotension.. Pain Scale: 0. O2 Saturation: 99 (%) at rest. Entered by Cristo Grove RN 07/19/2023 02:56 PM Patient Assessment : Negative results Assessment : Denies Pain -0-No pain. Discharge Note : Comments-Discharged from clinic, Stable, No new complaints, No Weakness, No c/o dizziness, Plan fornext patient visit confirmed, Patient instructed to call office with any questions or problems, Accompanied By-Self, Discharge- Ambulatory, Discharge Time-07/19/2023 01:36 PM Entered By Cristo Grove RN on 01:36 PM Free Text Note : Pt came in for nurse visit due to concern for a port infection. Upon arrival pt's VS taken and all WNL. Pt afebrile, denies any fevers or shaking chills. Port site assessed and incision above port site found to be pink around the edges and some stitches were visible as the incision was slightly apart superficially. Dr. Royal to see pt chairside and examined site. Per Dr. Royal this looks morelike an allergy to the stitches and he advised pt to use triple antibiotic ointment for a few days.If sx persist or worsen, pt advised to contact us. Pt advised to go to ER for any fevers, especially accompanied by shaking chills. Pt v/u of all of the above. Entered By Cristo Grove RN on 01:35 PM Procedures : Established patient, minimal office visit - Associated Problem(s): Breast cancer, female *; Comment: Suspected port infection. Dr. Royal.; Selected Billing Code(s): OFFICE/OUTPATIENT EST PT MAY NOTREQ PHYS/QHP (44627) Entered By Cristo Grove RN; Incident to Evans Royal MD * Nurse Note for: 13-JUL-23 [facility] Hematology Nurse Note Print Location: Unknown Date/Time Printed: 03/20/2025 11:23 AM ([facility]) Patient: IVANA HENDRICKS Sex: Female : 1995 Date of Service: 07/13/2023 Allergies : Penicillins Vital Signs : Time: 03:00 AM. Pain Scale: 0. Entered by Trina Carlos RN 07/13/2023 01:05 PM Patient Assessment : Positive results Assessment : Labs Verified: Yes, Alert, oriented with appropriate behavior. Negative results Assessment : Gait Changes. Denies Neuropathy , Pain -0-No pain, Fatigue , Anxiety/Depression , Fever, Chills or Night Sweats ,Signs of Infection , Skin Changes , Dizziness , Headaches , Nausea , Breathing Changes , Cough , Mouth Sores/Stomatitis/Mucositis , Changes in Appetite , Vomiting , Diarrhea , Constipation , Urinary Changes , Bleeding . Entered By Trina Carlos RN on 01:05 PM Discharge Note : Comments-Therapy completed without adverse event, Discharged from clinic, Stable, Accompanied By-Self, Discharge-Ambulatory, Discharge Time-07/13/2023 01:05 PM Entered By Trina Carlos RN on 01:05 PM Medication Administration : Incident to: Alexandria Eckert MD Doxorubicin + Cyclophosphamide (AC) Q14D Dose Dense fb Paclitaxel Weekly D1,8 Q14D Additional Medications [facility] (Pegfilgrastim-apgf Subcutaneous), 6 mg/0.6 mL syringe, 6 mg subcutaneously once, Instructions: Administer once per cycle at least 24 hours after and 14 days before chemotherapy. NOTE: This is [employer]., Allow Substitution GIVEN: 6 mg Pharmacy plan: Dose Form Description: 6 mg/0.6 mL syringe Dispense/Waste: 6/0 mg Pharmacy dispense: [facility]: [id number] Dispense/Waste: 6/0 mg Given Dose/Discard: 6/0 mg Admin Details: Injection Location: Right-Upper Arm Time: 01:04 PM Free Text Note : injection given without incident Entered By Trina Carlos RN on 01:05 PM * Nurse Note for: 12-JUL-23 [facility] Nurse Note Print Location: Unknown Date/Time Printed: 03/20/2025 11:23 AM ([facility]) Patient: IVANA HENDRICKS Sex: Female : 1995 Date of Service: 07/12/2023 Allergies : Penicillins Vital Signs : Time: 01:14 PM. Pain Scale: 0. Entered by Monalisa Cunha RN 07/12/2023 03:56 PM Time: 01:14 PM. Height: 172.7 cm (67.99 in). Temperature: 97.5 F (36.39 C) tympanic. Pulse: 97 (/min) supine. Respirations: 18 (/min) . Blood pressure: 104/71 (mm Hg) right arm Regular. O2 Saturation: 100 (%) at rest. Entered by Roxana Kelley MA 07/12/2023 01:16 PM Patient Assessment : Positive results Assessment : Labs Verified: Yes, Alert, oriented with appropriate behavior. Negative results Assessment : Gait Changes. Denies Neuropathy , Pain -0-No pain, Fatigue , Anxiety/Depression , Fever, Chills or Night Sweats ,Signs of Infection , Skin Changes , Dizziness , Headaches , Nausea , Breathing Changes , Cough , Mouth Sores/Stomatitis/Mucositis , Changes in Appetite , Vomiting , Diarrhea , Constipation , Urinary Changes , Bleeding . Entered By Monalisa Cunha RN on 03:56 PM IV Access/Lab Draw : IV Access-CVC - Port-A-Cath, Primary Bag Fluid-0.9% Sodium Chloride, Primary Bag Volume-250 mL, Primary Bag Start Time-01:00 PM, Primary Bag Stop Time-03:00 PM, Needle Type-Bailey, Needle Size-20 Gauge, Access Site-Right Chest, Flush-10ml NS,500u Heparin, Site Assess List-Blood Return,No Redness,No Swelling,No Tenderness,No Bruising, Site Care Checklist-Aseptic Technique, Lab Drawn-No, Access Attempts-1 time(s), Comments-500 units of heparin admin on de-access Entered By Monalisa Cunha RN on 03:56 PM IV De-Access : IV Access Method-CVC - Port-A-Cath, IV Access Type-Bailey, Line Flushed-10ml NS, Catheter-Dc'd, SiteCare-Site Dressing Applied, Site Assess-Line Intact,No Redness,No Swelling,No Tenderness,No Bruising, Entered By Monalisa Cunha RN on 03:56 PM Discharge Note : Comments-Therapy completed without adverse event, Stable, No new complaints, Accompanied By-Self, Discharge-Ambulatory, Discharge Time-07/12/2023 03:00 PM Entered By Monalisa Cunha RN on 03:56 PM Medication Administration : Incident to: Puja Avalos MD Doxorubicin + Cyclophosphamide (AC) Q14D Dose Dense fb Paclitaxel Weekly D1,8 Q14D Chemotherapy Doxorubicin IV, 100 mg intravenously Push once, Instructions: CYCLES 1-4 ONLY. Doxorubicin is a vesicant., Allow Substitution GIVEN: 100 mg Pharmacy plan: Dispense/Waste: 100/0 mg Amount in mL: 50 Pharmacy dispense: [facility]: [id number] Dispense/Waste: 100/0 mg Given Dose/Discard: 100/0 mg Admin Details: IV Administration: Push Start Time: 02:00 PM, Entered By: Monalisa Cunha RN, Stop Time: 02:12 PM, Entered By: Monalisa Cunha RN Double Checked By: Tenisha Murrieta RN on 07/12/2023 02:39 PM and Monalisa Cunha RN on 303:57 PM Incident to: Puja Avalos MD Doxorubicin + Cyclophosphamide (AC) Q14D Dose Dense fb Paclitaxel Weekly D1,8 Q14D Chemotherapy Cyclophosphamide IV, 1000 mg intravenously Piggyback once, Instructions: CYCLES 1-4 ONLY.Dilute in D5W or NS. Cyclophosphamide is an irritant., Allow Substitution GIVEN: 1000 mg Pharmacy plan: Dispense/Waste: 1000/0 mg Amount in mL: 50 Pharmacy dispense: [facility]: [id number] Dispense/Waste: 1000/0 mg Given Dose/Discard: 1000/0 mg Admin Details: IV Administration: Piggyback Start Time: 02:13 PM, Entered By: Monalisa Cunha RN, Stop Time: 02:50 PM, Entered By: Monalisa Cunha RN Admix Fluid: 0.9 % sodium chloride, Admix Fluid Volume: 250mL, Total Volume: 300mL Double Checked By: Tenisha Murrieta RN on 07/12/2023 02:39 PM and Monalisa Cunha RN on 303:57 PM Incident to: Puja Avalos MD Doxorubicin + Cyclophosphamide (AC) Q14D Dose Dense fb Paclitaxel Weekly D1,8 Q14D Premedications Palonosetron IV, 0.25 mg intravenously Push once, Instructions: CYCLES 1-4 ONLY., Allow Substitution GIVEN: 0.25 mg Pharmacy plan: Dispense/Waste: 0.25/0 mg Amount in mL: 5 Pharmacy dispense: [facility]: [id number] Dispense/Waste: 0.25/0 mg Given Dose/Discard: 0.25/0 mg Admin Details: IV Administration: Push Start Time: 01:00 PM, Entered By: Monalisa Cunha RN, Stop Time: 01:02 PM, Entered By: Monalisa Cunha RN Incident to: Puja Avalos MD Doxorubicin + Cyclophosphamide (AC) Q14D Dose Dense fb Paclitaxel Weekly D1,8 Q14D Premedications Dexamethasone IV, 8 mg intravenously Piggyback once, Admin over: 20 minutes to 20 minutes, Instructions: CYCLES 1-4 ONLY., Allow Substitution GIVEN: 8 mg Pharmacy plan: Dispense/Waste: 8/0 mg Amount in mL: 0.8 Pharmacy dispense: [facility]: [id number] Dispense/Waste: 8/0 mg Given Dose/Discard: 8/0 mg Admin Details: IV Administration: Piggyback Start Time: 01:02 PM, Entered By: Monalisa Cunha RN, Stop Time: 01:22 PM, Entered By: Monalisa Cunha RN Admix Fluid: 0.9 % sodium chloride, Admix Fluid Volume: 50mL, Total Volume: 50.8mL Incident to: Puja Avalos MD Doxorubicin + Cyclophosphamide (AC) Q14D Dose Dense fb Paclitaxel Weekly D1,8 Q14D Premedications Fosaprepitant IV, 150 mg intravenously Piggyback once, Instructions: CYCLES 1-4 ONLY., Allow Substitution GIVEN: 150 mg Pharmacy plan: Dispense/Waste: 150/0 mg Amount in mL: 5 Pharmacy dispense: [facility]: [id number] Dispense/Waste: 150/0 mg Given Dose/Discard: 150/0 mg Admin Details: IV Administration: Piggyback Start Time: 01:22 PM, Entered By: Monalisa Cunha RN, Stop Time: 01:52 PM, Entered By: Monalisa Cunha RN Admix Fluid: 0.9 % sodium chloride, Admix Fluid Volume: 150mL, Total Volume: 155mL * Nurse Note for: 29-JUN-23 [facility] [place] [facility] Nurse Note Print Location: Unknown Date/Time Printed: 03/20/2025 11:23 AM ([facility]) Patient: IVANA HENDRICKS Sex: Female : 1995 Date of Service: 06/29/2023 Allergies : Penicillins Patient Assessment : Positive results Assessment : Complains of Nausea-pt states that had nausea last night despite taking olanzapine and zofran but states they currently feel ok. Pt instructed to take PRN zofran every 8 hours continuously and if nausea does not resolve to call office tomorrow for something else. . Entered By Monalisa Cunha RN on 01:46 PM Discharge Note : Comments-Therapy completed without adverse event, Stable, No new complaints, Accompanied By-Self, Discharge-Ambulatory, Discharge Time-06/29/2023 01:34 PM Entered By Monalisa Cunha RN on 01:44 PM Medication Administration : Incident to: Evans Royal MD Doxorubicin + Cyclophosphamide (AC) Q14D Dose Dense fb Paclitaxel Weekly D1,8 Q14D Additional Medications [employer] (Pegfilgrastim-apgf Subcutaneous), 6 mg/0.6 mL syringe, 6 mg subcutaneously once, Instructions: Administer once per cycle at least 24 hours after and 14 days before chemotherapy. NOTE: This is [employer]., Allow Substitution GIVEN: 6 mg Pharmacy plan: Dose Form Description: 6 mg/0.6 mL syringe Dispense/Waste: 6/0 mg Pharmacy dispense: [facility]: [id number] Dispense/Waste: 6/0 mg Given Dose/Discard: 6/0 mg Admin Details: Injection Location: Right-Upper Arm Time: 01:30 PM * Nurse Note for: 28-JUN-23 [facility] Nurse Note Print Location: Unknown Date/Time Printed: 03/20/2025 11:23 AM ([facility]) Patient: IVANA HENDRICKS Sex: Female : 1995 Date of Service: 06/28/2023 Allergies : Penicillins Vital Signs : Time: 01:31 PM. Temperature: 97.9 F (36.61 C) tympanic. Pulse: 96 (/min) sitting. Entered by Roxana Kelley MA 06/28/2023 02:11 PM Time: 01:31 PM. Pain Scale: 0. Entered by Monalisa Cunha RN 06/28/2023 01:58 PM Time: 01:31 PM. Height: 172.7 cm (67.99 in). Temperature: 97.9 F (36.61 C). Pulse: 96 (/min) . Respirations: 20 (/min) . Blood pressure: 121/75 (mm Hg) left arm Regular. O2 Saturation: 100 (%) at rest. Entered by Roxana Kelley MA 06/28/2023 01:41 PM Patient Assessment : Positive results Assessment : Labs Verified: Yes, Alert, oriented with appropriate behavior. Negative results Assessment : Gait Changes. Denies Neuropathy , Pain -0-No pain, Fatigue , Anxiety/Depression , Fever, Chills or Night Sweats ,Signs of Infection , Skin Changes , Dizziness , Headaches , Nausea , Breathing Changes , Cough , Mouth Sores/Stomatitis/Mucositis , Changes in Appetite , Vomiting , Diarrhea , Constipation , Urinary Changes , Bleeding . Entered By Monalisa Cunha RN on 04:19 PM IV Access/Lab Draw : IV Access-CVC - Port-A-Cath, Primary Bag Fluid-0.9% Sodium Chloride, Primary Bag Volume-100 mL, Primary Bag Start Time-01:00 PM, Primary Bag Stop Time-03:55 PM, Needle Type-Bailey, Needle Size-20 Gauge, Needle Length-3/4 inch, Access Site- Right Chest, Flush-10ml NS,500u Heparin, Site Assess List-Blood Return,No Redness,No Swelling,No Tenderness,No Bruising, Site Care Checklist-Aseptic Technique, Lab Drawn-No, Access Attempts-1 time(s), Comments-500 units of heparin admin on de-access Entered By Tenisha Murrieta RN on 03:56 PM IV De-Access : IV Access Method-CVC - Port-A-Cath, IV Access Type-Bailey, Line Flushed-10ml NS, Catheter-Dc'd, SiteCare-Site Dressing Applied, Site Assess-Line Intact,No Redness,No Swelling,No Tenderness,No Bruising, Entered By Monalisa Cunha RN on 01:57 PM Discharge Note : Comments-Therapy completed without adverse event, Stable, No new complaints, Accompanied By-Self, Discharge-Ambulatory, Discharge Time-06/28/2023 04:00 PM Entered By Monalisa Cunha RN on 04:19 PM Medication Administration : Incident to: Analia Keating MD Doxorubicin + Cyclophosphamide (AC) Q14D Dose Dense fb Paclitaxel Weekly D1,8 Q14D Chemotherapy Doxorubicin IV, 100 mg intravenously Push once, Instructions: CYCLES 1-4 ONLY. Doxorubicin is a vesicant., Allow Substitution GIVEN: 100 mg Pharmacy plan: Dispense/Waste: 100/0 mg Amount in mL: 50 Pharmacy dispense: [facility]: [id number] Dispense/Waste: 100/0 mg Given Dose/Discard: 100/0 mg Admin Details: IV Administration: Push Start Time: 02:30 PM, Entered By: Monalisa Cunha RN, Stop Time: 02:42 PM, Entered By: Monalisa Cunha RN Checked By: Suzanna Bailey RN on 06/28/2023 02:17 PM Incident to: Analia Keating MD Doxorubicin + Cyclophosphamide (AC) Q14D Dose Dense fb Paclitaxel Weekly D1,8 Q14D Chemotherapy Cyclophosphamide IV, 1000 mg intravenously Piggyback once, Instructions: CYCLES 1-4 ONLY.Dilute in D5W or NS. Cyclophosphamide is an irritant., Allow Substitution GIVEN: 1000 mg Pharmacy plan: Dispense/Waste: 1000/0 mg Amount in mL: 50 Pharmacy dispense: [facility]: [id number] Dispense/Waste: 1000/0 mg Given Dose/Discard: 1000/0 mg Admin Details: IV Administration: Piggyback Start Time: 02:43 PM, Entered By: Monalisa Cunha RN, Stop Time: 03:57 PM, Entered By: Tenisha Murrieta RN Admix Fluid: 0.9 % sodium chloride, Admix Fluid Volume: 250mL, Total Volume: 300mL Checked By: Suzanna Bailey RN on 06/28/2023 02:17 PM Incident to: Analia Keating MD Doxorubicin + Cyclophosphamide (AC) Q14D Dose Dense fb Paclitaxel Weekly D1,8 Q14D Premedications Palonosetron IV, 0.25 mg intravenously Push once, Instructions: CYCLES 1-4 ONLY., Allow Substitution GIVEN: 0.25 mg Pharmacy plan: Dispense/Waste: 0.25/0 mg Amount in mL: 5 Pharmacy dispense: [facility]: [id number] Dispense/Waste: 0.25/0 mg Given Dose/Discard: 0.25/0 mg Admin Details: IV Administration: Push Start Time: 01:30 PM, Entered By: Monalisa Cunha RN, Stop Time: 01:32 PM, Entered By: Monalisa Cunha RN Incident to: Analia Keating MD Doxorubicin + Cyclophosphamide (AC) Q14D Dose Dense fb Paclitaxel Weekly D1,8 Q14D Premedications Dexamethasone IV, 8 mg intravenously Piggyback once, Admin over: 20 minutes to 20 minutes, Instructions: CYCLES 1-4 ONLY., Allow Substitution GIVEN: 8 mg Pharmacy plan: Dispense/Waste: 8/0 mg Amount in mL: 0.8 Pharmacy dispense: [facility]: [id number] Dispense/Waste: 8/0 mg Given Dose/Discard: 8/0 mg Admin Details: IV Administration: Piggyback Start Time: 01:32 PM, Entered By: Monalisa Cunha RN, Stop Time: 01:52 PM, Entered By: Monalisa Cunha RN Admix Fluid: 0.9 % sodium chloride, Admix Fluid Volume: 50mL, Total Volume: 50.8mL Incident to: Analia Keating MD Doxorubicin + Cyclophosphamide (AC) Q14D Dose Dense fb Paclitaxel Weekly D1,8 Q14D Premedications Fosaprepitant IV, 150 mg intravenously Piggyback once, Instructions: CYCLES 1-4 ONLY., Allow Substitution GIVEN: 150 mg Pharmacy plan: Dispense/Waste: 150/0 mg Amount in mL: 5 Pharmacy dispense: [facility]: [id number] Dispense/Waste: 150/0 mg Given Dose/Discard: 150/0 mg Admin Details: IV Administration: Piggyback Start Time: 01:52 PM, Entered By: Monalisa Cunha RN, Stop Time: 02:22 PM, Entered By: Monalisa Cunha RN Admix Fluid: 0.9 % sodium chloride, Admix Fluid Volume: 150mL, Total Volume: 155mL Free Text Note : discharge instructions reviewed and signed by pt. Pt tolerated 1st time tx without adverse event. Entered By Monalisa Cunha RN on 03:25 PM * Nurse Note for: 21-JUN-23 [facility] [place] [facility] Nurse Note Print Location: Unknown Date/Time Printed: 03/20/2025 11:23 AM ([facility]) Patient: IVANA HENDRICKS Sex: Female : 1995 Date of Service: 06/21/2023 Allergies : Penicillins Patient Assessment : Positive results Assessment : Alert, oriented with appropriate behavior. Entered By Jarrod Askew. Nursing Svcs on 02:10 PM Free Text Note : Patient came for education class with partner. Information reviewed for doxorubicin, cyclophosphamide & paclitaxel regimens. Patient was advised to contact the office in the interim with any questions or concerns that occur. Entered By Jarrod Askew. Nursing Svcs on 02:11 PM
--- OUTSIDE RECORDS SUMMARY | 2025-03-20 11:25 | XMS_ITS ---
Author Name Interface, [id number] Address [address] [place] [address] [facility] Address [address] [place] [address] Care Team Providers Care Journeyman Pressman Name Role Phone Mohan Prescott Unavailable Unavailable Allergies and Adverse Reactions Medication/Group [...] 10/31/2023 APPOINTMENT LAB 15 MIN-OV 15 MIN 11/07/2023 LABORDER CMP 11/07/2023 LABORDER CBC w/ [...] CHEMO INJECTION 15 MIN Encounters Date Name 10/31/2023 ADHD 10/31/2023 Anterior cervical ly mphadenopathy (disorder) 10/31/2023 Breast cancer, femal e 10/31/2023 Chemotherapy-induced nausea and vomiting (disorder) 10/31/2023 Drug-related alopeci a (disorder) 10/31/2023 Hot flashes 10/31/2023 Inherited mutation o f BRCA2 gene 10/31/2023 Neutropenia 10/31/2023 Other long-term curr ent use of drug therapy 10/31/2023 Vitamin D deficiency (disorder) 10/31/2023 Weight loss Diagnostic Results Date Type Test Units Lower Limit Upper Limit Result Flag Comments Status Ordered By Specimen Source Lab Address 10/31 [facility] Neutr ophil % (M) % 35.0 65.0 [address] [id number] 0 10/31 [facility] Band % % 0.0 5.[address] [id number] 0 10/31 [facility] Lymph ocyte % % 15.0 41.[address] [id number] 0 10/31 [facility] Monoc yte % % 4.0 10.[address] [id number] 0 10/31 Manua l diffe renti al Eosin ophil % % 0.0 6.0 1 FINAL [facility], [address] [facility] [id number] 0 10/31 Manua l diffe renti al Basop hil % % 0.0 2.0 1 FINAL [facility], [address] [facility] [id number] 0 10/31 Manua l diffe renti al Metam yeloc yte % % 0.0 0.0 7 High FINAL [facility], [address] [facility] [id number] 0 10/31 Manua l diffe renti al Myelo cyte % % 0.0 0.0 2 High FINAL [facility], [address] [facility] [id number] 0 10/31 Manua l diffe renti al Promy elocy te % % 0.0 0.0 0 FINAL [facility], [address] [facility] [id number] 0 10/31 Manua l diffe renti al Blast s % % 0.0 0.0 0 FINAL [facility], [address] [facility] [id number] 0 10/31 Manua l diffe renti al Atypi susan/V efren t I lymph ocyte % % 0.0 0.0 0 FINAL [facility], [address] [facility] [id number] 0 10/31 Manua l diffe renti al Hairy cell % 0.0 0.0 0 FINAL [facility], [address] [facility] [id number] 0 10/31 Manua l diffe renti al Plasm a cell % 0.0 0.0 0 FINAL [facility], [address] [facility] [id number] 0 12/06 /2023 Manua l diffe renti al Immat ure cell, % (M) % 0.0 0.0 0 FINAL [facility], [address] [facility] [id number] 0 10/31 Manua l diffe renti al NRBC (M) % 0.0 0.0 0 FINAL [facility], [address] [facility] [id number] 0 10/31 Manua l diffe renti al Plate let estim ate Adequat e FINAL [facility], [address] [facility] [id number] 0 10/31 Manua l diffe renti al Aniso cytos is (size ) 1+ FINAL [facility], [address] [facility] [id number] 0 10/31 Manua l diffe renti al Poiki locyt osis (shap e) 1+ FINAL [facility], [address] [facility] [id number] 0 10/31 Manua l diffe renti al Polyc hroma slim (M) Slight FINAL [facility], [address] [facility] [id number] 0 10/31 Manua l diffe renti al Manua l diff other None FINAL [facility], [address] [facility] [id number] 0 10/31 CMP Bilir ubin, total mg/dL 0.3 1.0 0.3 FINAL [facility], [address] [facility] [id number] 0 10/31 CMP AST/S GOT U/L 13.0 39.0 19 FINAL [facility], [address] [facility] [id number] 0 10/31 CMP ALT/S GPT U/L 7.0 52.0 19 FINAL [facility], [address] [facility] [id number] 0 10/31 CMP Alkal ine phosp hatas e U/L 34.0 104.0 111 High FINAL [facility], [address] [facility] [id number] 0 10/31 CMP Gluco se mg/dL 70.0 105.0 91 FINAL [facility], [address] [facility] [id number] 0 10/31 CMP BUN mg/dL 7.0 25.0 11 FINAL [facility], [address] [facility] [id number] 0 10/31 CMP Creat inine mg/dL 0.6 1.3 0.79 FINAL [facility], [address] [facility] [id number] 0 10/31 CMP Calci um mg/dL 8.4 10.5 9.5 FINAL [facility], [address] [facility] [id number] 0 10/31 CMP Total prote in g/dL 6.3 8.2 7.4 FINAL [facility], [address] [facility] [id number] 0 10/31 CMP Album in g/dL 3.5 5.0 4.6 FINAL [facility], [address] [facility] [id number] 0 10/31 CMP Sodiu m mEq/L 135.0 145.0 136 FINAL [facility], [address] [facility] [id number] 0 10/31 CMP Potas sium mEq/L 3.4 5.0 3.9 FINAL [facility], [address] [facility] [id number] 0 10/31 CMP Chlor uri, mEq/L mEq/L 96.0 107.0 102 FINAL [facility], [address] [facility] [id number] 0 10/31 CMP CO2 whitney nt mEq/L 21.0 31.0 29 FINAL [facility], [address] [facility] [id number] 0 10/31 CMP GFR estim ate mL/min /1.73m 2 86 Normal Range:Nor mal renal function >or= 60Moderat srinivas decreased 30 - 59Severel y decreased 15 - 29Renal Failure < 15Please note the GFR value should be multiplie d by 1.210 if the patient is -A merican. FINAL [facility], [address] [facility] [id number] 0 10/31 CBC w/ auto diff WBC x10^3/ uL 4.4 10.4 7.46 FINAL [facility], [address] [facility] [id number] 0 10/31 CBC w/ auto diff RBC x10^6/ uL 4.2 5.4 3.48 Low FINAL [facility], [facility] [address] [facility] [id number] 0 10/31 CBC w/ auto diff HGB g/dL 12.0 16.0 10.7 Low FINAL [facility], [address] [facility] [id number] 0 10/31 CBC w/ auto diff HCT % 37.0 47.0 33.6 Low FINAL [facility], [address] [facility] [id number] 0 10/31 CBC w/ auto diff MCV fL 80.0 98.0 96.6 FINAL [facility], [facility] [address] [facility] [id number] 0 10/31 CBC w/ auto diff MCH pg 28.0 32.0 30.7 FINAL [facility], [address] [facility] [id number] 0 10/31 CBC w/ auto diff MCHC g/dL 30.7 34.7 31.8 FINAL [facility], [address] [facility] [id number] 0 10/31 CBC w/ auto diff RDW-S D 37.0 54.0 50.90 FINAL [facility], [address] [facility] [id number] 0 10/31 CBC w/ auto diff RDW % 11.5 14.5 14.6 High FINAL [facility], [address] [facility] [id number] 0 10/31 CBC w/ auto diff PLT x10^3/ uL 120.0 400.0 226 FINAL [facility], [address] [place] [id number] 0 10/31 CBC w/ auto diff MPV fL 6.5 12.0 9.1 FINAL [facility], [address] [facility] [id number] 0 10/31 CBC w/ auto diff NRBC % /100WB C 0.0 9.0 0.0 FINAL [facility], [address] [facility] [id number] 0 10/31 CBC w/ auto diff NRBC, absol [place], x 10^3/ uL x10^3/ uL 0.0 0.1 0.00 FINAL [facility], [address] [facility] [id number] 0 10/31 CBC w/ auto diff Emily # (ANC) x10^3/ uL 2.0 8.4 4.26 FINAL [facility], [address] [facility] [id number] 0 11/07 CMP Bilir ubin, total mg/dL 0.3 1.0 0.3 FINAL [facility], [address] [facility] [id number] 0 11/07 CMP AST/S GOT U/L 13.0 39.0 22 FINAL [facility], [address] [facility] [id number] 0 11/07 CMP ALT/S GPT U/L 7.0 52.0 25 FINAL [facility], [address] [facility] [id number] 0 12/13 /2023 CMP Alkal ine phosp hatas e U/L 34.0 104.0 146 High FINAL [facility], [address] [facility] [id number] 0 11/07 CMP Gluco se mg/dL 70.0 105.0 97 FINAL [facility], [address] [facility] [id number] 0 11/07 CMP BUN mg/dL 7.0 25.0 11 FINAL [facility], [address] [facility] [id number] 0 11/07 CMP Creat inine mg/dL 0.6 1.3 0.72 FINAL [facility], [address] [facility] [id number] 0 11/07 CMP Calci um mg/dL 8.4 10.5 9.5 FINAL [facility], [address] [facility] [id number] 0 11/07 CMP Total prote in g/dL 6.3 8.2 7.2 FINAL [facility], [address] [facility] [id number] 0 11/07 CMP Album in g/dL 3.5 5.0 4.4 FINAL [facility], [address] [facility] [id number] 0 11/07 CMP Sodiu m mEq/L 135.0 145.0 137 FINAL [facility], [address] [facility] [id number] 0 11/07 CMP Potas sium mEq/L 3.4 5.0 4.3 FINAL [facility], [address] [facility] [id number] 0 11/07 CMP Chlor uri, mEq/L mEq/L 96.0 107.0 103 FINAL [facility], [address] [facility] [id number] 0 11/07 CMP CO2 whitney nt mEq/L 21.0 31.0 30 FINAL [facility], [address] [facility] [id number] 0 11/07 CMP GFR estim ate mL/min /1.73m 2 96 Normal Range:Nor mal renal function >or= 60Moderat srinivas decreased 30 - 59Severel y decreased 15 - 29Renal Failure < 15Please note the GFR value should be multiplie d by 1.210 if the patient is -A merican. FINAL [facility], [address] [facility] [id number] 0 11/07 CBC w/ auto diff WBC x10^3/ uL 4.4 10.4 9.63 FINAL [facility], [address] [facility] [id number] 0 11/07 CBC w/ auto diff RBC x10^6/ uL 4.2 5.4 3.59 Low FINAL [facility], [address] [facility] [facility] [id number] 0 11/07 CBC w/ auto diff HGB g/dL 12.0 16.0 10.9 Low FINAL [facility], [address] [place], [place] [address]on [facility]. [facility] [id number] 0 11/07 CBC w/ auto diff HCT % 37.0 47.0 34.8 Low FINAL [facility], [address] [facility] [facility] [id number] 0 11/07 CBC w/ auto diff MCV fL 80.0 98.0 96.9 FINAL [facility], [address] [place], [place] [address] [id number] 0 11/07 CBC w/ auto diff MCH pg 28.0 32.0 30.4 FINAL [facility], [address] [place], [place] [address]on [facility] [id number] 0 11/07 CBC w/ auto diff MCHC g/dL 30.7 34.7 31.3 FINAL [facility], [address] [facility] [id number] 0 11/07 CBC w/ auto diff RDW-S D 37.0 54.0 51.10 FINAL [facility], [address] [place], [place] [address]on [facility] [id number] 0 11/07 CBC w/ auto diff RDW % 11.5 14.5 14.5 FINAL [facility], [address] [facility] [id number] 0 11/07 CBC w/ auto diff PLT x10^3/ uL 120.0 400.0 188 FINAL [facility], [address] [facility] [id number] 0 11/07 CBC w/ auto diff MPV fL 6.5 12.0 9.4 FINAL [facility], [address] [facility] [id number] 0 11/07 CBC w/ auto diff Smear revie w None FINAL [facility], [address] [facility] [id number] 0 11/07 CBC w/ auto diff NRBC % /100WB C 0.0 9.0 0.0 FINAL [facility], [address] [facility] [id number] 0 11/07 CBC w/ auto diff NRBC, absol [place], x 10^3/ uL x10^3/ uL 0.0 0.1 0.00 FINAL [facility], [address] [facility] [id number] 0 11/07 CBC w/ auto diff Emily % % 40.0 70.0 75.9 High FINAL [facility], [address] [facility] [id number] 0 11/07 CBC w/ auto diff LY % % 15.0 41.0 9.9 Low FINAL [facility], [address] [facility] [id number] 0 11/07 CBC w/ auto diff MO % % 2.0 8.0 6.7 FINAL [facility], [address] [facility] [id number] 0 11/07 CBC w/ auto diff EO % % 0.0 3.0 1.2 FINAL [facility], [address] [facility] [id number] 0 11/07 CBC w/ auto diff BA % % 0.0 1.0 0.4 FINAL [facility], [address] [place] [id number] 0 11/07 CBC w/ auto diff IG % % 0.0 1.0 5.9 High FINAL [facility], [address] [place] [id number] 0 11/07 CBC w/ auto diff Emily # (ANC) x10^3/ uL 2.0 8.4 7.30 FINAL [facility] [place], [address] [place] [id number] 0 11/07 CBC w/ auto diff LY # x10^3/ uL 0.7 5.1 0.95 FINAL [facility], [address] [place] [id number] 0 11/07 CBC w/ auto diff MO # x10^3/ uL 0.0 1.6 0.65 FINAL [facility] [place], [address] [place] [id number] 0 11/07 CBC w/ auto diff EO # x10^3/ uL 0.0 1.1 0.12 FINAL [facility], [address] [place] [id number] 0 11/07 CBC w/ auto diff BA # x10^3/ uL 0.0 0.2 0.04 FINAL [facility] [place], [address] [place] [id number] 0 11/07 CBC w/ auto diff IG # x10^3/ uL 0.0 0.1 0.57 High FINAL [facility] [place], [address] [place] [id number] 0 11/14 CBC w/ auto diff BA % % 0.0 1.0 1.9 High FINAL [facility] [place], [address] [place] [id number] 0 11/14 CBC w/ auto diff IG % % 0.0 1.0 7.4 High FINAL [facility] [place], [address] [place] [id number] 0 11/14 CBC w/ auto diff Emily # (ANC) x10^3/ uL 2.0 8.4 5.05 FINAL [facility], [address] [facility] [id number] 0 11/14 CBC w/ auto diff LY # x10^3/ uL 0.7 5.1 1.07 FINAL [facility], [address] [facility] [id number] 0 11/14 CBC w/ auto diff MO # x10^3/ uL 0.0 1.6 0.77 FINAL [facility], [address] [facility] [id number] 0 11/14 CBC w/ auto diff EO # x10^3/ uL 0.0 1.1 0.12 FINAL [facility], [address] [facility] [id number] 0 11/14 CBC w/ auto diff BA # x10^3/ uL 0.0 0.2 0.15 FINAL [facility], [address] [facility] [id number] 0 11/14 CBC w/ auto diff IG # x10^3/ uL 0.0 0.1 0.57 High FINAL [facility], [address] [facility] [id number] 0 11/14 CBC w/ auto diff WBC x10^3/ uL 4.4 10.4 7.73 FINAL [facility], [address] [facility] [id number] 0 11/14 CBC w/ auto diff RBC x10^6/ uL 4.2 5.4 3.55 Low FINAL [facility], [address] [facility] [id number] 0 11/14 CBC w/ auto diff HGB g/dL 12.0 16.0 10.7 Low FINAL [facility], [address] [facility] [id number] 0 11/14 CBC w/ auto diff HCT % 37.0 47.0 35.1 Low FINAL [facility], [address] [facility] [id number] 0 11/14 CBC w/ auto diff MCV fL 80.0 98.0 98.9 High FINAL [facility], [address] [facility] [id number] 0 11/14 CBC w/ auto diff MCH pg 28.0 32.0 30.1 FINAL [facility], [address] [facility] [id number] 0 11/14 CBC w/ auto diff MCHC g/dL 30.7 34.7 30.5 Low FINAL [facility], [address] [facility] [id number] 0 11/14 CBC w/ auto diff RDW-S D 37.0 54.0 53.20 FINAL [facility], [address] [facility] [id number] 0 11/14 CBC w/ auto diff RDW % 11.5 14.5 14.6 High FINAL [facility], [address] [facility] [id number] 0 11/14 CBC w/ auto diff PLT x10^3/ uL 120.0 400.0 237 FINAL [facility], [address] [facility] [id number] 0 11/14 CBC w/ auto diff MPV fL 6.5 12.0 9.6 FINAL [facility], [address] [facility] [id number] 0 11/14 CBC w/ auto diff Smear revie w None FINAL [facility], [address] [facility] [id number] 0 11/14 CBC w/ auto diff NRBC % /100WB C 0.0 9.0 0.0 FINAL [facility], [address] [facility] [id number] 0 11/14 CBC w/ auto diff NRBC, absol [place], x 10^3/ uL x10^3/ uL 0.0 0.1 0.00 FINAL [facility], [address] [facility] [id number] 0 11/14 CBC w/ auto diff Emily % % 40.0 70.0 65.3 FINAL [facility], [address] [facility] [id number] 0 11/14 CBC w/ auto diff LY % % 15.0 41.0 13.8 Low FINAL [facility], [address] [facility] [id number] 0 11/14 CBC w/ auto diff MO % % 2.0 8.0 10.0 High FINAL [facility], [address] [facility] [id number] 0 11/14 CBC w/ auto diff EO % % 0.0 3.0 1.6 FINAL [facility], [address] [facility] [id number] 0 11/14 CMP Bilir ubin, total mg/dL 0.3 1.0 0.3 FINAL [facility], [address] [facility] [id number] 0 11/14 CMP AST/S GOT U/L 13.0 39.0 17 FINAL [facility], [address] [facility] [id number] 0 11/14 CMP ALT/S GPT U/L 7.0 52.0 19 FINAL [facility], [address] [facility] [id number] 0 11/14 CMP Alkal ine phosp hatas e U/L 34.0 104.0 139 High FINAL [facility], [address] [facility] [id number] 0 11/14 CMP Gluco se mg/dL 70.0 105.0 88 FINAL [facility], [address] [facility] [id number] 0 11/14 CMP BUN mg/dL 7.0 25.0 10 [facility] [address] [facility] [id number] 0 11/14 CMP Creat inine mg/dL 0.6 1.3 0.72 FINAL [facility], [address] [facility] [id number] 0 11/14 CMP Calci um mg/dL 8.4 10.5 9.0 FINAL [facility], [address] [facility] [id number] 0 11/14 CMP Total prote in g/dL 6.3 8.2 6.8 FINAL [facility], [address] [facility] [id number] 0 11/14 CMP Album in g/dL 3.5 5.0 4.3 FINAL [facility], [address] [place] [id number] 0 11/14 CMP Sodiu m mEq/L 135.0 145.0 136 FINAL [facility], [address] [facility] [place] [id number] 0 11/14 CMP Potas sium mEq/L 3.4 5.0 4.0 FINAL [facility], [address] [facility] [id number] 0 11/14 CMP Chlor uri, mEq/L mEq/L 96.0 107.0 103 FINAL [facility], [address] [facility] [id number] 0 11/14 CMP CO2 whitney nt mEq/L 21.0 31.0 29 FINAL [facility], [address] [facility] [facility] [id number] 0 11/14 CMP GFR estim ate mL/min /1.73m 2 96 Normal Range:Nor mal renal function >or= 60Moderat srinivas decreased 30 - 59Severel y decreased 15 - 29Renal Failure < 15Please note the GFR value should be multiplie d by 1.210 if the patient is -A merican. FINAL [facility], [address] [facility] [facility] [id number] 0 11/20 CMP Bilir ubin, total mg/dL 0.3 1.0 0.3 FINAL Lou [facility], [address] [facility] [facility] [id number] 0 11/20 CMP AST/S GOT U/L 13.0 39.0 18 FINAL [facility], [address] [facility] [id number] 0 11/20 CMP ALT/S GPT U/L 7.0 52.0 21 FINAL [facility] [place], [address] [facility] [id number] 0 11/20 CMP Alkal ine phosp hatas e U/L 34.0 104.0 174 High FINAL [facility] [address] [facility] [id number] 0 11/20 CMP Gluco se mg/dL 70.0 105.0 87 FINAL [facility], [address] [facility] [id number] 0 11/20 CMP BUN mg/dL 7.0 25.0 8 FINAL Lou [place], [address] [facility] [id number] 0 11/20 CMP Creat inine mg/dL 0.6 1.3 0.68 FINAL [facility], [address] [facility] [id number] 0 11/20 CMP Calci um mg/dL 8.4 10.5 9.8 FINAL Lou [place], [address] [facility] [id number] 0 11/20 CMP Total prote in g/dL 6.3 8.2 7.5 FINAL [facility], [address] [facility] [id number] 0 11/20 CMP Album in g/dL 3.5 5.0 4.7 FINAL [facility], [address] [facility] [id number] 0 11/20 CMP Sodiu m mEq/L 135.0 145.0 139 FINAL Lou [place], [address] [facility] [id number] 0 11/20 CMP Potas sium mEq/L 3.4 5.0 3.6 FINAL [facility], [address] [facility] [id number] 0 11/20 CMP Chlor uri, mEq/L mEq/L 96.0 107.0 100 FINAL Lou [place], [address] [facility] [facility] [id number] 0 11/20 CMP CO2 whit[place] nt mEq/L 21.0 31.0 34 High FINAL Lou [place], [address] [facility] [id number] 0 11/20 CMP GFR estim ate mL/min /1.73m 2 102 Normal Range:Nor mal renal function >or= 60Moderat srinivas decreased 30 - 59Severel y decreased 15 - 29Renal Failure < 15Please note the GFR value should be multiplie d by 1.210 if the patient is -A merican. FINAL Luo [place], [address] [facility] [id number] 11/20 CBC w/ auto diff WBC x10^3/ uL 4.4 10.4 25.84 High FINAL Lou [place], [address] [facility] [id number] 0 11/20 CBC w/ auto diff RBC x10^6/ uL 4.2 5.4 3.79 Low FINAL Lou Hines, [address] [facility]. [facility] [id number] 0 11/20 CBC w/ auto diff HGB g/dL 12.0 16.0 11.5 Low FINAL Lou Hines, [address] [facility]. [facility] [id number] 0 11/20 CBC w/ auto diff HCT % 37.0 47.0 36.1 Low FINAL Lou [place], [address] [facility] [place] [address] [id number] 0 11/20 CBC w/ auto diff MCV fL 80.0 98.0 95.3 FINAL Lou Hines, [address] [facility] [place] [address] [id number] 0 11/20 CBC w/ auto diff MCH pg 28.0 32.0 30.3 FINAL Lou Hines, [address] [facility] [address] [facility] [id number] 0 11/20 CBC w/ auto diff MCHC g/dL 30.7 34.7 31.9 FINAL Lou Olmed[place], [address] [facility] [id number] 0 11/20 CBC w/ auto diff RDW-S D 37.0 54.0 51.00 FINAL Lou Olmedoany, [address] [facility] [id number] 0 11/20 CBC w/ auto diff RDW % 11.5 14.5 14.6 High FINAL Lou Shaw [place], [address] [facility] [id number] 0 11/20 CBC w/ auto diff PLT x10^3/ uL 120.0 400.0 263 FINAL Lou Olmedoany, [address] [facility] [id number] 0 11/20 CBC w/ auto diff MPV fL 6.5 12.0 9.7 FINAL Lou Shaw [place], [address] [facility] [id number] 0 11/20 CBC w/ auto diff Smear revie w None FINAL Lou Shaw [place], [address] [facility] [id number] 0 11/20 CBC w/ auto diff NRBC % /100WB C 0.0 9.0 0.0 FINAL Lou Shaw [place], [address] [facility] [id number] 0 11/20 CBC w/ auto diff NRBC, absol [place], x 10^3/ uL x10^3/ uL 0.0 0.1 0.00 FINAL Lou Shaw [place], [address] [facility] [id number] 0 11/20 CBC w/ auto diff Emily % % 40.0 70.0 91.0 High FINAL Lou [place], [address] [facility] [id number] 0 11/20 CBC w/ auto diff LY % % 15.0 41.0 4.3 Low FINAL Lou [place], [address] [facility] [id number] 0 11/20 CBC w/ auto diff MO % % 2.0 8.0 2.6 FINAL Lou Olmed[place], [address] [facility] [id number] 0 11/20 CBC w/ auto diff EO % % 0.0 3.0 0.3 FINAL Lou Olmed[place], [address] [facility] [id number] 0 11/20 CBC w/ auto diff BA % % 0.0 1.0 0.2 FINAL Lou Shaw [place], [address] [facility] [id number] 0 11/20 CBC w/ auto diff IG % % 0.0 1.0 1.6 High FINAL Lou Olmed[place], [address] [facility] [id number] 0 11/20 CBC w/ auto diff Emily # (ANC) x10^3/ uL 2.0 8.4 23.52 High FINAL Lou Olmed[place], [address] [facility] [id number] 0 11/20 CBC w/ auto diff LY # x10^3/ uL 0.7 5.1 1.12 FINAL Lou Olmedoany, [address] [facility] [id number] 0 11/20 CBC w/ auto diff MO # x10^3/ uL 0.0 1.6 0.67 FINAL Lou Olmedoany, [address] [facility] [id number] 0 11/20 CBC w/ auto diff EO # x10^3/ uL 0.0 1.1 0.07 FINAL Lou Olmedo[place], [address] [facility] [id number] 0 11/20 CBC w/ auto diff BA # x10^3/ uL 0.0 0.2 0.04 FINAL Lou Olmed[place], [address] [facility] [id number] 0 12/26 /2023 CBC w/ auto diff IG # x10^3/ uL 0.0 0.1 0.42 High FINAL Lou Shaw [place], [address] [facility] [id number] 0 12/19 Magne sium panel Magne sium, mg/dL mg/dL 1.6 2.3 1.95 FINAL [facility], [address] [facility] [address] [facility] [id number] 0 12/19 CBC w/ auto diff WBC x10^3/ uL 4.4 10.4 4.43 FINAL [facility], [address] [facility] [id number] 0 12/19 CBC w/ auto diff RBC x10^6/ uL 4.2 5.4 4.14 Low FINAL [facility], [address] [place], [place] [address] [place] [address] [facility] [id number] 0 12/19 CBC w/ auto diff HGB g/dL 12.0 16.0 12.2 FINAL [facility], [address] [place], [place] [address] [place] [address] [facility] [id number] 0 12/19 CBC w/ auto diff HCT % 37.0 47.0 37.8 FINAL [facility], [address] [place], [place] [address]on [facility]. [facility] [id number] 0 12/19 CBC w/ auto diff MCV fL 80.0 98.0 91.3 FINAL [facility], [address] [place], [place] [address] [address] [facility] [id number] 0 12/19 CBC w/ auto diff MCH pg 28.0 32.0 29.5 FINAL [facility], [address] [place], [place] [address] [facility] [id number] 0 12/19 CBC w/ auto diff MCHC g/dL 30.7 34.7 32.3 FINAL [facility], [address] [place], [place] [address] [address] [facility] [id number] 0 12/19 CBC w/ auto diff RDW-S D 37.0 54.0 46.10 FINAL [facility], [address] [place], [place] [address] [facility] [id number] 0 12/19 CBC w/ auto diff RDW % 11.5 14.5 13.8 FINAL [facility], [address] [facility] [id number] 0 12/19 CBC w/ auto diff PLT x10^3/ uL 120.0 400.0 204 FINAL [facility], [address] [facility] [id number] 0 12/19 CBC w/ auto diff MPV fL 6.5 12.0 8.5 FINAL [facility], [address] [facility] [id number] 0 12/19 CBC w/ auto diff Smear revie w None FINAL [facility], [address] [facility] [id number] 0 12/19 CBC w/ auto diff NRBC % /100WB C 0.0 9.0 0.0 FINAL [facility], [address] [facility] [id number] 0 12/19 CBC w/ auto diff NRBC, absol [place], x 10^3/ uL x10^3/ uL 0.0 0.1 0.00 FINAL [facility], [address] [facility] [id number] 0 12/19 CBC w/ auto diff Emily % % 40.0 70.0 66.4 FINAL [facility], [address] [facility] [id number] 0 12/19 CBC w/ auto diff LY % % 15.0 41.0 19.9 FINAL [facility], [address] [facility] [id number] 0 12/19 CBC w/ auto diff MO % % 2.0 8.0 8.1 High FINAL [facility], [address] [facility] [id number] 0 12/19 CBC w/ auto diff EO % % 0.0 3.0 4.5 High FINAL [facility], [address] [facility] [id number] 0 12/19 CBC w/ auto diff BA % % 0.0 1.0 0.9 FINAL [facility], [address] [facility] [id number] 0 12/19 CBC w/ auto diff IG % % 0.0 1.0 0.2 FINAL [facility], [address] [facility] [id number] 0 12/19 CBC w/ auto diff Emily # (ANC) x10^3/ uL 2.0 8.4 2.94 FINAL [facility], [address] [facility] [id number] 0 12/19 CBC w/ auto diff LY # x10^3/ uL 0.7 5.1 0.88 FINAL [facility], [address] [facility] [id number] 0 12/19 CBC w/ auto diff MO # x10^3/ uL 0.0 1.6 0.36 FINAL [facility], [address] [facility] [id number] 0 12/19 CBC w/ auto diff EO # x10^3/ uL 0.0 1.1 0.20 FINAL [facility], [address] [facility] [id number] 0 12/19 CBC w/ auto diff BA # x10^3/ uL 0.0 0.2 0.04 FINAL [facility], [address] [facility] [id number] 0 12/19 CBC w/ auto diff IG # x10^3/ uL 0.0 0.1 0.01 FINAL [facility], [address] [facility] [id number] 0 12/19 CMP Bilir ubin, total mg/dL 0.3 1.0 0.6 FINAL [facility], [address] [facility] [id number] 0 12/19 CMP AST/S GOT U/L 13.0 39.0 17 FINAL [facility], [address] [facility] [id number] 0 12/19 CMP ALT/S GPT U/L 7.0 52.0 13 FINAL [facility] [place], [address] [facility] [id number] 0 12/19 CMP Alkal ine phosp hatas e U/L 34.0 104.0 74 FINAL [facility], [address] [facility] [place] [address] [id number] 0 12/19 CMP Gluco se mg/dL 70.0 105.0 90 FINAL [facility], [address] [facility] [place] [address] [facility] [id number] 0 12/19 CMP BUN mg/dL 7.0 25.0 11 FINAL [facility], [address] [facility] [id number] 0 12/19 CMP Creat inine mg/dL 0.6 1.3 0.83 FINAL [facility], [address] [facility] [id number] 0 12/19 CMP Calci um mg/dL 8.4 10.5 9.5 FINAL [facility], [address] [facility] [id number] 12/19 CMP Total prote in g/dL 6.3 8.2 7.6 FINAL [facility], [address] [facility]. [facility] [id number] 0 12/19 CMP Album in g/dL 3.5 5.0 4.7 FINAL [facility], [address] [facility] [id number] 0 12/19 CMP Sodiu m mEq/L 135.0 145.0 137 FINAL [facility], [address] [facility] [id number] 0 12/19 CMP Potas sium mEq/L 3.4 5.0 3.6 FINAL [facility], [address] [facility] [id number] 0 12/19 CMP Chlor uri, mEq/L mEq/L 96.0 107.0 99 FINAL [facility], [address] [facility] [place] [address] [facility] [id number] 0 12/19 CMP CO2 whitney nt mEq/L 21.0 31.0 33 High FINAL [facility], [address] [facility] [id number] 0 12/19 CMP GFR estim ate mL/min /1.73m 2 81 Normal Range:Nor mal renal function >or= 60Moderat srinivas decreased 30 - 59Severel y decreased 15 - 29Renal Failure < 15Please note the GFR value should be multiplie d by 1.210 if the patient is -A merican. FINAL [facility], [address] [facility] [id number] 0 02/14 CBC w/aut o diff with refle x WBC x10^3/ uL 4.4 10.4 2.80 Low FINAL [facility], [address] [facility] [id number] 0 02/14 CBC w/aut o diff with refle x RBC x10^6/ uL 4.2 5.4 4.79 FINAL [facility], [address] [place] [facility] [id number] 0 02/14 CBC w/aut o diff with refle x HGB g/dL 12.0 16.0 14.3 FINAL [facility], [address] [facility] [facility] [id number] 0 02/14 CBC w/aut o diff with refle x HCT % 37.0 47.0 42.1 FINAL [facility], [address] [facility] [place] [address] [facility] [id number] 0 02/14 CBC w/aut o diff with refle x MCV fL 80.0 98.0 87.9 FINAL [facility], [address] [facility] [id number] 0 02/14 CBC w/aut o diff with refle x MCH pg 28.0 32.0 29.9 FINAL [facility], [address] [facility] [id number] 0 02/14 CBC w/aut o diff with refle x MCHC g/dL 30.7 34.7 34.0 FINAL [facility], [address] [facility] [id number] 0 02/14 CBC w/aut o diff with refle x RDW-S D 37.0 54.0 43.00 FINAL [facility], [address] [facility] [id number] 0 02/14 CBC w/aut o diff with refle x RDW % 11.5 14.5 13.2 FINAL [facility], [address] [facility] [id number] 0 02/14 CBC w/aut o diff with refle x PLT x10^3/ uL 120.0 400.0 241 FINAL [facility], [address] [facility] [id number] 0 02/14 CBC w/aut o diff with refle x MPV fL 6.5 12.0 8.5 FINAL [facility], [address] [facility] [id number] 0 02/14 CBC w/aut o diff with refle x Smear revie w None FINAL [facility], [address] [facility] [id number] 0 02/14 CBC w/aut o diff with refle x NRBC % /100WB C 0.0 9.0 0.0 FINAL [facility], [address] [facility] [id number] 0 02/14 CBC w/aut o diff with refle x NRBC, absol [place], x 10^3/ uL x10^3/ uL 0.0 0.1 0.00 FINAL [facility], [address] [facility] [id number] 0 02/14 CBC w/aut o diff with refle x Emily % % 40.0 70.0 68.2 FINAL [facility], [address] [facility] [id number] 0 02/14 CBC w/aut o diff with refle x LY % % 15.0 41.0 18.6 [facility] [address] [place] [id number] 0 02/14 CBC w/aut o diff with refle x MO % % 2.0 8.0 9.6 High FINAL Kathrine Asmitan[place] n [place], [address] [place] [id number] 0 02/14 CBC w/aut o diff with refle x EO % % 0.0 3.0 2.5 FINAL Kathrine Asmitanm n [place], [address] [place] [id number] 0 02/14 CBC w/aut o diff with refle x BA % % 0.0 1.0 0.7 FINAL Kathrine [facility] n [place], [address] [place] [id number] 0 02/14 CBC w/aut o diff with refle x IG % % 0.0 1.0 0.4 FINAL Kathrine [facility] [place], [address] [facility] [id number] 02/14 CBC w/aut o diff with refle x Emily # (ANC) x10^3/ uL 2.0 8.4 1.91 Low FINAL Kathrine Asmitanm n [place], [address] [facility] [id number] 0 02/14 CBC w/aut o diff with refle x LY # x10^3/ uL 0.7 5.1 0.52 Low FINAL Kathrine [facility] n [place], [address] [facility] [id number] 0 02/14 CBC w/aut o diff with refle x MO # x10^3/ uL 0.0 1.6 0.27 FINAL Kathrine [facility] n [place], [address] [place] [id number] 0 02/14 CBC w/aut o diff with refle x EO # x10^3/ uL 0.0 1.1 0.07 FINAL Kathrine [facility] [place], [address] [place] [id number] 0 02/14 CBC w/aut o diff with refle x BA # x10^3/ uL 0.0 0.2 0.02 FINAL [facility], [address] [facility] [id number] 0 02/14 CBC w/aut o diff with refle x IG # x10^3/ uL 0.0 0.1 0.01 FINAL [facility], [address] [facility] [id number] 0 02/14 Magne sium panel Magne sium, mg/dL mg/dL 1.6 2.3 2.00 FINAL [facility], [address] [facility] [id number] 0 02/14 CMP Bilir ubin, total mg/dL 0.3 1.0 0.6 FINAL [facility], [address] [facility] [id number] 0 02/14 CMP AST/S GOT U/L 13.0 39.0 20 FINAL [facility], [address] [facility] [id number] 0 02/14 CMP ALT/S GPT U/L 7.0 52.0 14 FINAL [facility], [address] [facility] [id number] 0 02/14 CMP Alkal ine phosp hatas e U/L 34.0 104.0 84 FINAL [facility], [address] [facility] [id number] 0 02/14 CMP Gluco se mg/dL 70.0 105.0 101 FINAL [facility], [address] [facility] [id number] 0 02/14 CMP BUN mg/dL 7.0 25.0 11 FINAL [facility], [address] [facility] [id number] 0 02/14 CMP Creat inine mg/dL 0.6 1.3 0.84 FINAL [facility], [address] [facility] [id number] 0 02/14 CMP Calci um mg/dL 8.4 10.5 9.9 FINAL [facility], [address] [facility] [id number] 0 02/14 CMP Total prote in g/dL 6.3 8.2 8.2 FINAL [facility], [address] [facility] [id number] 0 02/14 CMP Album in g/dL 3.5 5.0 5.1 High FINAL [facility], [address] [facility] [id number] 0 02/14 CMP Sodiu m mEq/L 135.0 145.0 137 FINAL [facility], [address] [facility] [id number] 0 02/14 CMP Potas sium mEq/L 3.4 5.0 3.5 FINAL [facility], [address] [facility] [address] [facility] [id number] 0 02/14 CMP Chlor uri, mEq/L mEq/L 96.0 107.0 99 FINAL [facility], [address] [facility] [id number] 0 02/14 CMP CO2 whitney nt mEq/L 21.0 31.0 29 FINAL [facility], [address] [facility] [id number] 0 02/14 CMP GFR estim ate mL/min /1.73m 2 80 Normal Range:Nor mal renal function >or= 60Moderat srinivas decreased 30 - 59Severel y decreased 15 - 29Renal Failure < 15Please note the GFR value should be multiplie d by 1.210 if the patient is -A merican. FINAL [facility], [address] [facility] [id number] 0 02/14 Estra diol, ultra sensi tive panel Sendo uts I/F See Manual Report FINAL [facility], [address] [facility] [id number] 0 02/14 TSH panel TSH ulU/mL 0.35 5.5 1.52 Test performed on Siemen's Centaur at [facility] [address] [facility], [place] [address] FINAL Kathrine May n [facility], [address] [facility] [place] [id number] 0 02/14 Vitam in D monit oring panel Vitam in D, 25-hy droxy ng/mL 30.0 100.0 35.36 Test performed on [employer] at [facility] [address] [facility], [place] [address] FINAL [facility], [address] [facility] [place] [id number] 0 02/14 Phosp horus panel Phosp horus mg/dL 2.5 4.5 4.2 Test performed on the Estela Cande AU 480 at [facility], [address] [place] [address], [facility], [address] FINAL Kathrine May [facility], [address] [place] [address] Ave., Mail Code 7 [facility] [id number] 0 03/28 Estra diol, ultra sensi tive panel [facility] SCAN RESUL T See Scanned Result FINAL Kathrine ferrari [facility], [address] [facility] [id number] 0 03/28 CBC w/aut o diff with refle x WBC x10^3/ uL 4.4 10.4 2.87 Low FINAL Kathrine May [facility], [address] [facility] [id number] 0 03/28 CBC w/aut o diff with refle x RBC x10^6/ uL 4.2 5.4 4.54 FINAL Kathrine May [facility], [address] [facility] [id number] 0 03/28 CBC w/aut o diff with refle x HGB g/dL 12.0 16.0 13.4 FINAL Kathrinehailey May [facility], [address] [facility] [id number] 0 03/28 CBC w/aut o diff with refle x HCT % 37.0 47.0 40.9 FINAL Kathrinehailey May [facility], [facility] [address] [facility] [id number] 0 03/28 CBC w/aut o diff with refle x MCV fL 80.0 98.0 90.1 FINAL [facility], [address] [facility] [id number] 0 03/28 CBC w/aut o diff with refle x MCH pg 28.0 32.0 29.5 FINAL [facility], [address] [facility] [id number] 0 03/28 CBC w/aut o diff with refle x MCHC g/dL 30.7 34.7 32.8 FINAL [facility], [address] [facility] [id number] 0 03/28 CBC w/aut o diff with refle x RDW-S D 37.0 54.0 43.00 FINAL [facility], [address] [facility] [id number] 0 03/28 CBC w/aut o diff with refle x RDW % 11.5 14.5 13.0 FINAL [facility], [address] [facility] [id number] 0 03/28 CBC w/aut o diff with refle x PLT x10^3/ uL 120.0 400.0 216 FINAL [facility], [address] [facility] [id number] 0 03/28 CBC w/aut o diff with refle x MPV fL 6.5 12.0 8.6 FINAL [facility], [address] [facility] [id number] 0 03/28 CBC w/aut o diff with refle x Smear revie w None FINAL [facility], [address] [facility] [id number] 0 03/28 CBC w/aut o diff with refle x NRBC % /100WB C 0.0 9.0 0.0 FINAL [facility], [address] [facility] [id number] 0 05/03 /2024 CBC w/aut o diff with refle x NRBC, absol [place], x 10^3/ uL x10^3/ uL 0.0 0.1 0.00 FINAL Kathrine [place], [address] [place] [id number] 0 03/28 CBC w/aut o diff with refle x Emily % % 40.0 70.0 66.9 FINAL Kathrine [facility] n [place], [address] [facility] [id number] 0 03/28 CBC w/aut o diff with refle x LY % % 15.0 41.0 19.5 FINAL Kathrine [facility] [place], [address] [facility] [id number] 0 03/28 CBC w/aut o diff with refle x MO % % 2.0 8.0 9.4 High FINAL Kathrine [facility] [place], [address] [facility] [id number] 0 03/28 CBC w/aut o diff with refle x EO % % 0.0 3.0 3.5 High FINAL [facility] [place], [address] [facility] [id number] 0 03/28 CBC w/aut o diff with refle x BA % % 0.0 1.0 0.7 FINAL Kath[facility] [place], [address] [facility] [id number] 0 03/28 CBC w/aut o diff with refle x IG % % 0.0 1.0 0.0 FINAL [facility] [place], [address] [facility] [id number] 0 03/28 CBC w/aut o diff with refle x Emily # (ANC) x10^3/ uL 2.0 8.4 1.92 Low FINAL [facility] [place], [address] [facility] [id number] 0 03/28 CBC w/aut o diff with refle x LY # x10^3/ uL 0.7 5.1 0.56 Low FINAL [facility] [place], [address] [facility] [id number] 0 03/28 CBC w/aut o diff with refle x MO # x10^3/ uL 0.0 1.6 0.27 FINAL [facility], [address] [facility] [id number] 0 03/28 CBC w/aut o diff with refle x EO # x10^3/ uL 0.0 1.1 0.10 FINAL [facility], [address] [facility] [id number] 0 03/28 CBC w/aut o diff with refle x BA # x10^3/ uL 0.0 0.2 0.02 FINAL [facility], [address] [facility] [id number] 0 03/28 CBC w/aut o diff with refle x IG # x10^3/ uL 0.0 0.1 0.00 FINAL [facility], [address] [facility] [id number] 0 03/28 CMP Bilir ubin, total mg/dL 0.3 1.0 0.5 FINAL [facility], [address] [facility] [id number] 0 03/28 CMP AST/S GOT U/L 13.0 39.0 25 FINAL [facility], [address] [facility] [id number] 0 03/28 CMP ALT/S GPT U/L 7.0 52.0 17 [facility], [address] [facility] [id number] 0 03/28 CMP Alkal ine phosp hatas e U/L 34.0 104.0 78 FINAL [facility], [address] [facility] [id number] 03/28 CMP Gluco se mg/dL 70.0 105.0 104 FINAL [facility], [address] [facility] [id number] 03/28 CMP BUN mg/dL 7.0 25.0 11 FINAL [facility], [address] [facility] [id number] 03/28 CMP Creat inine mg/dL 0.6 1.3 0.82 FINAL [facility], [address] [facility] [id number] 0 03/28 CMP Calci um mg/dL 8.4 10.5 9.6 FINAL [facility], [address] [facility] [id number] 0 03/28 CMP Total prote in g/dL 6.3 8.2 7.7 FINAL [facility], [address] [facility] [id number] 0 03/28 CMP Album in g/dL 3.5 5.0 4.7 FINAL [facility], [address] [facility] [id number] 0 03/28 CMP Sodiu m mEq/L 135.0 145.0 138 FINAL [facility], [address] [facility] [id number] 0 03/28 CMP Potas sium mEq/L 3.4 5.0 3.7 FINAL [facility], [address] [facility] [id number] 0 03/28 CMP Chlor uri, mEq/L mEq/L 96.0 107.0 102 FINAL [facility], [address] [facility] [id number] 0 03/28 CMP CO2 whitney nt mEq/L 21.0 31.0 29 FINAL [facility], [address] [facility] [id number] 0 03/28 CMP GFR estim ate mL/min /1.73m 2 82 Normal Range:Nor mal renal function >or= 60Moderat srinivas decreased 30 - 59Severel y decreased 15 - 29Renal Failure < 15Please note the GFR value should be multiplie d by 1.210 if the patient is -A merican. FINAL [facility], [address] [facility] [id number] 0 03/28 Magne sium panel Magne sium, mg/dL mg/dL 1.6 2.3 1.97 FINAL [facility] [place], [address] [facility] [id number] 04/30 Estra diol, ultra sensi tive panel [facility] RP ESTRA DIOL MS pg/mL <1.0 This test was developed and its performan ce character isticsdet ermined by [facility]. It has not been cleared or approvedb y the Food and Drug Administr [facility]ec[facility].Ref erence Range:Ambrocio lt Females Follicula r: 30 - 100 Luteal: 70 - 300 Postmenop ausal: <15 FINAL [facility], [address] [facility] [id number] 0 04/30 Magne sium panel Magne sium, mg/dL mg/dL 1.6 2.3 2.12 FINAL [facility], [address] [facility] [id number] 0 04/30 CBC w/aut o diff with refle x WBC x10^3/ uL 4.4 10.4 3.24 Low FINAL [address] [facility]. [facility] [id number] 0 04/30 CBC w/aut o diff with refle x RBC x10^6/ uL 4.2 5.4 4.52 FINAL [address] [facility]. [facility] [id number] 0 04/30 CBC w/aut o diff with refle x HGB g/dL 12.0 16.0 13.3 FINAL [facility], [address] [place], [place] [address] [facility] [id number] 0 04/30 CBC w/aut o diff with refle x HCT % 37.0 47.0 40.6 [facility] [address] [facility] [id number] 0 04/30 CBC w/aut o diff with refle x MCV fL 80.0 98.0 89.8 FINAL [facility] [place], [address] [facility] [id number] 0 04/30 CBC w/aut o diff with refle x MCH pg 28.0 32.0 29.4 FINAL [facility], [address] [facility] [id number] 0 04/30 CBC w/aut o diff with refle x MCHC g/dL 30.7 34.7 32.8 FINAL [facility], [address] [facility] [id number] 0 04/30 CBC w/aut o diff with refle x RDW-S D 37.0 54.0 44.30 FINAL [facility], [address] [facility] [id number] 0 04/30 CBC w/aut o diff with refle x RDW % 11.5 14.5 13.5 FINAL [facility], [address] [facility] [id number] 0 04/30 CBC w/aut o diff with refle x PLT x10^3/ uL 120.0 400.0 220 FINAL [facility], [address] [facility] [id number] 0 04/30 CBC w/aut o diff with refle x MPV fL 6.5 12.0 9.0 FINAL [facility], [address] [facility] [id number] 0 04/30 CBC w/aut o diff with refle x Smear revie w None FINAL [facility], [address] [facility] [id number] 0 04/30 CBC w/aut o diff with refle x NRBC % /100WB C 0.0 9.0 0.0 FINAL [facility], [address] [facility] [id number] 0 04/30 CBC w/aut o diff with refle x NRBC, absol [place], x 10^3/ uL x10^3/ uL 0.0 0.1 0.00 FINAL [facility], [address] [facility] [id number] 0 04/30 CBC w/aut o diff with refle x Emily % % 40.0 70.0 66.1 FINAL [facility], [address] [facility] [id number] 0 04/30 CBC w/aut o diff with refle x LY % % 15.0 41.0 22.2 FINAL [facility], [address] [facility] [id number] 0 04/30 CBC w/aut o diff with refle x MO % % 2.0 8.0 8.6 High FINAL [facility], [address] [facility] [id number] 0 04/30 CBC w/aut o diff with refle x EO % % 0.0 3.0 1.9 FINAL [facility], [address] [facility] [id number] 0 04/30 CBC w/aut o diff with refle x BA % % 0.0 1.0 0.9 FINAL [facility], [address] [facility] [id number] 04/30 CBC w/aut o diff with refle x IG % % 0.0 1.0 0.3 FINAL [facility], [address] [facility] [id number] 0 04/30 CBC w/aut o diff with refle x Emily # (ANC) x10^3/ uL 2.0 8.4 2.14 FINAL [facility], [address] [facility] [id number] 0 04/30 CBC w/aut o diff with refle x LY # x10^3/ uL 0.7 5.1 0.72 FINAL [facility], [address] [facility] [id number] 0 04/30 CBC w/aut o diff with refle x MO # x10^3/ uL 0.0 1.6 0.28 FINAL [facility], [address] [facility] [id number] 0 04/30 CBC w/aut o diff with refle x EO # x10^3/ uL 0.0 1.1 0.06 FINAL [facility], [address] [facility] [id number] 0 04/30 CBC w/aut o diff with refle x BA # x10^3/ uL 0.0 0.2 0.03 FINAL [facility], [address] [facility] [id number] 0 04/30 CBC w/aut o diff with refle x IG # x10^3/ uL 0.0 0.1 0.01 FINAL [facility], [address] [facility] [id number] 0 04/30 CMP Bilir ubin, total mg/dL 0.3 1.0 0.7 FINAL [facility], [address] [facility] [id number] 0 04/30 CMP AST/S GOT U/L 13.0 39.0 22 FINAL [facility], [address] [facility] [id number] 0 04/30 CMP ALT/S GPT U/L 7.0 52.0 16 FINAL [facility], [address] [facility] [id number] 0 04/30 CMP Alkal ine phosp hatas e U/L 34.0 104.0 71 FINAL [facility], [address] [facility] [id number] 0 04/30 CMP Gluco se mg/dL 70.0 105.0 89 FINAL [facility], [address] [facility] [id number] 0 04/30 CMP BUN mg/dL 7.0 25.0 7 FINAL [facility], [address] [facility] [id number] 0 04/30 CMP Creat inine mg/dL 0.6 1.3 0.75 FINAL [facility], [address] [facility] [id number] 0 04/30 CMP Calci um mg/dL 8.4 10.5 9.1 FINAL [facility], [address] [facility]. [facility] [id number] 0 04/30 CMP Total prote in g/dL 6.3 8.2 7.4 FINAL [facility], [address] [facility] [id number] 0 04/30 CMP Album in g/dL 3.5 5.0 4.9 FINAL [facility], [address] [facility]. [facility] [id number] 0 04/30 CMP Sodiu m mEq/L 135.0 145.0 136 FINAL [facility], [address] [facility] [id number] 0 04/30 CMP Potas sium mEq/L 3.4 5.0 3.8 FINAL [facility], [address] [facility]. [facility] [id number] 0 04/30 CMP Chlor uri, mEq/L mEq/L 96.0 107.0 101 FINAL [facility], [address] [facility] [id number] 0 04/30 CMP CO2 whitney nt mEq/L 21.0 31.0 28 FINAL [facility], [address] [facility]. [facility] [id number] 0 04/30 CMP GFR estim ate mL/min /1.73m 2 91 Normal Range:Nor mal renal function >or= 60Moderat srinivas decreased 30 - 59Severel y decreased 15 - 29Renal Failure < 15Please note the GFR value should be multiplie d by 1.210 if the patient is -A merican. FINAL [facility], [address] [facility]. [facility] [id number] 0 04/30 CA 125 panel CA 125 U/ml 6.0 Test performed on [employer] at [facility] [address] [facility], [place] [address] FINAL [facility], [address] [facility] [id number] Medications Date Name Route Dose Frequency [...] pain Active Vital Signs Date Type Value 10/31/2023 Heart Beat 60.00 10/31/2023 Body Temperature 96.40 10/31/2023 BSA 1.65 10/31/2023 BMI 18.41 10/31/2023 Intravascular Systolic 117 10/31/2023 Intravascular Diastolic 70 10/31/2023 Weight 54.90 10/31/2023 Pain Scale 0.00 10/31/2023 Respiratory Rate 21.00 10/31/2023 Oxygen Saturation 100.00 10/31/2023 Height 172.70 11/01/2023 Respiratory Rate 18.00 11/01/2023 Pain Scale 0.00 11/01/2023 Height 172.70 11/01/2023 Intravascular Systolic 132 11/01/2023 Intravascular Diastolic 80 11/01/2023 Oxygen Saturation 96.00 11/01/2023 Heart Beat 66.00 11/01/2023 Body Temperature 97.10 11/08/2023 Body Temperature 97.80 11/08/2023 Intravascular Systolic 123 11/08/2023 Intravascular Diastolic 77 11/08/2023 Height 172.70 11/08/2023 Oxygen Saturation 100.00 11/08/2023 Respiratory Rate 18.00 11/08/2023 Heart Beat 79.00 11/20/2023 Oxygen Saturation 99.00 11/20/2023 Pain Scale 0.00 11/20/2023 Respiratory Rate 17.00 11/20/2023 Weight 55.00 11/20/2023 Height 172.70 11/20/2023 BMI 18.44 11/20/2023 BSA 1.65 11/20/2023 Intravascular Systolic 99 11/20/2023 Intravascular Diastolic 58 11/20/2023 Heart Beat 80.00 11/20/2023 Body Temperature 96.90 11/22/2023 Pain Scale 0.00 11/22/2023 Height 172.70 11/22/2023 Intravascular Systolic 138 11/22/2023 Intravascular Diastolic 71 11/22/2023 Oxygen Saturation 99.00 11/22/2023 Respiratory Rate 16.00 11/22/2023 Heart Beat 94.00 11/22/2023 Body Temperature 97.30 12/19/2023 Body Temperature 97.20 12/19/2023 Heart Beat 98.00 12/19/2023 Respiratory Rate 17.00 12/19/2023 Oxygen Saturation 99.00 12/19/2023 Intravascular Systolic 100 12/19/2023 Intravascular Diastolic 68 12/19/2023 Pain Scale 0.00 12/19/2023 Weight 55.50 12/19/2023 Height 172.70 12/19/2023 BMI 18.61 12/19/2023 BSA 1.66 12/20/2023 Pain Scale 0.00 02/15/2024 Height 172.70 02/15/2024 Weight 54.90 02/15/2024 Pain Scale 0.00 02/15/2024 Intravascular Systolic 104 02/15/2024 Intravascular Diastolic 76 02/15/2024 Respiratory Rate 16.00 02/15/2024 Heart Beat 100.00 02/15/2024 Body Temperature 96.30 02/15/2024 BSA 1.65 02/15/2024 BMI 18.41 02/15/2024 Oxygen Saturation 98.00 03/28/2024 BSA 1.65 03/28/2024 BMI 18.27 03/28/2024 Height 172.70 03/28/2024 Weight 54.50 03/28/2024 Pain Scale 0.00 03/28/2024 Intravascular Systolic 100 03/28/2024 Intravascular Diastolic 56 03/28/2024 Oxygen Saturation 98.00 03/28/2024 Respiratory Rate 16.00 03/28/2024 Heart Beat 86.00 03/28/2024 Body Temperature 96.60 04/24/2024 BMI 18.44 04/24/2024 BSA 1.65 04/24/2024 Height 172.70 04/24/2024 Weight 55.00 04/24/2024 Pain Scale 0.00 04/24/2024 Intravascular Systolic 112 04/24/2024 Intravascular Diastolic 58 04/24/2024 Oxygen Saturation 98.00 04/24/2024 Respiratory Rate 16.00 04/24/2024 Heart Beat 90.00 04/24/2024 Body Temperature 97.50 04/30/2024 Pain Scale 0.00 04/30/2024 Weight 55.50 04/30/2024 Body Temperature 97.50 04/30/2024 Heart Beat 60.00 04/30/2024 Oxygen Saturation 99.00 04/30/2024 Intravascular Systolic 92 04/30/2024 Intravascular Diastolic 53 04/30/2024 Height 172.70 04/30/2024 BMI 18.61 04/30/2024 BSA 1.66 04/30/2024 Respiratory Rate 17.00 05/28/2024 Pain Scale 0.00 05/30/2024 Pain Scale 0.00 05/30/2024 Height 172.70 07/11/2024 Height 172.70 07/11/2024 Pain Scale 0.00 Notes Section * Nurse Note for: 28-MAY-24 [facility] Nurse Note Print Location: Unknown Date/Time Printed: 03/20/2025 11:24 AM ([facility]) Patient: IVANA HENDRICKS Sex: Female : [...] Pharmacy plan: Dispense/Waste: 11.25/0 mg Pharmacy dispense: [facility]: [phone] Dispense/Waste: 11.25/0 mg Given Dose/Discard: 11.25/0 mg Admin Details: Injection Location: Left-Dorsogluteal Time: 01:44 PM Free Text Note : injection complete without incident Entered By Trina Carlos RN on 01:45 PM * Nurse Note for: 30-APR-24 [facility] Nurse Note Print Location: Unknown Date/Time Printed: 03/20/2025 11:24 AM ([facility]) Patient: IVANA HENDRICKS Sex: Female : [...] : Denies Pain -0-No pain. Entered By Cristo Grove RN on 04:00 PM Discharge Note : [...] Pharmacy plan: Dispense/Waste: 7.5/0 mg Pharmacy dispense: [facility]: [id number] Dispense/Waste: 7.5/0 mg Given Dose/Discard: 7.5/0 mg Admin Details: Injection Location: Right-Dorsogluteal Time: 03:58 PM Free Text Note : Pt seen and eval in clinic by Dr. Eckert. Injection without incident. Entered By Cristo Grove RN on 04:01 PM * Nurse Note for: 28-MAR-24 [facility] Nurse Note Print Location: Unknown Date/Time Printed: 03/20/2025 11:24 AM ([facility]) Patient: IVANA HENDRICKS Sex: Female : [...] Pharmacy plan: Dispense/Waste: 7.5/0 mg Pharmacy dispense: [facility]: [id number] Dispense/Waste: 7.5/0 mg Given Dose/Discard: 7.5/0 mg [...] mg Amount in mL: 5 Pharmacy dispense: [facility]: [id number] Dispense/Waste: 4/0 mg Given Dose/Discard: 4/0 mg Start Time: 02:30 PM, Entered By: Tenisha Murrieta RN, Stop Time: 02:56 PM, Entered By: Tenisha Murrieta RN Admix Fluid: 0.9 % sodium chloride, Admix Fluid Volume: 100mL, Total Volume: 105mL * Nurse Note for: 15-FEB-24 [facility] Nurse Note Print Location: Unknown Date/Time Printed: 03/20/2025 11:24 AM ([facility]) Patient: IVANA HENDRICKS Sex: Female : [...] plan: Dispense/Waste: 7.5/0 mg Pharmacy dispense: [facility]: [id number] Dispense/Waste: 7.5/0 mg Given Dose/Discard: 7.5/0 mg Admin Details: Injection Location: Left-Dorsogluteal Time: 12:07 PM Free Text Note : injection complete without incident Entered By Trina Carlos RN on 12:07 PM * Nurse Note for: 17-JAN-24 [facility] Nurse Note Print Location: Unknown Date/Time Printed: 03/20/2025 11:24 AM ([facility]) Patient: IVANA HENDRICKS Sex: Female : [...] plan: Dispense/Waste: 7.5/0 mg Pharmacy dispense: [facility]: [id number] Dispense/Waste: 7.5/0 mg Given Dose/Discard: 7.5/0 mg Admin Details: Injection Location: Right-Dorsogluteal Time: 01:46 PM Free Text Note : Injection completed without incident. Entered By Kathrin Gordillo RN on 01:46 PM * Nurse Note for: 20-DEC-23 [facility] Nurse Note Print Location: Unknown Date/Time Printed: 03/20/2025 11:24 AM ([facility]) Patient: IVANA HENDRICKS Sex: Female : [...] Pharmacy plan: Dispense/Waste: 7.5/0 mg Pharmacy dispense: [facility]: [phone] Dispense/Waste: 7.5/0 mg Given Dose/Discard: 7.5/0 mg Admin Details: Injection Location: Right-Dorsogluteal Time: 01:25 PM * Nurse Note for: 22-NOV-23 [facility] Nurse Note Print Location: Unknown Date/Time Printed: 03/20/2025 11:24 AM ([facility]) Patient: IVANA HENDRICKS Sex: Female : [...] Urinary Changes , Bleeding . Entered By Zohrhe Santos RN on 03:45 PM IV Access/Lab [...] Discharge Time-11/22/2023 03:00 PM Entered By Zohreh Santos RN on 03:45 PM Medication Administration : Incident to: Mohan Prescott MD Doxorubicin + Cyclophosphamide (AC) Q14D Dose Dense fb Paclitaxel Weekly D1,8 Q14D Chemotherapy Paclitaxel IV, 6 mg/mL concentrate, 132 mg intravenously Piggyback once, Admin over: 1 hours to 1 hours, Instructions: CYCLES 5-10 ONLY.Dilute in 250-500 mL NS. Final product concentration must be 0.3-1.2 mg/mL. Administer using Sxe-XGSF-rvgozsmrak equipment and through an in-line 0.22 micron filter. Paclitaxel is a vascular irritant., Allow Substitution GIVEN: 132 mg Pharmacy plan: Dispense/Waste: 132/0 mg Amount in mL: 22 Pharmacy dispense: [facility]: [id number] Dispense/Waste: 132/0 mg Given Dose/Discard: 132/0 mg [...] mcg Amount in mL: 1 Pharmacy dispense: [facility]: [id number] Dispense/Waste: 1000/0 mcg Given Dose/Discard: 1000/0 mcg [...] mg Amount in mL: 0.5 Pharmacy dispense: [facility]: [id number] Dispense/Waste: 25/0 mg Given Dose/Discard: 25/0 mg [...] Amount in mL: 2 Pharmacy dispense: [facility]: [id number] Dispense/Waste: 20/0 mg Given Dose/Discard: 20/0 mg [...] plan: Dispense/Waste: 7.5/0 mg Pharmacy dispense: [facility]: [id number] Dispense/Waste: 7.5/0 mg Given Dose/Discard: 7.5/0 mg Admin Details: Injection Location: Left-Dorsogluteal Time: 02:58 PM, Entered By: Zohreh Santos RN Checked By: Zohreh Santos RN on 11/22/2023 03:44 PM * Nurse Note for: 15-NOV-23 [facility] Nurse Note Print Location: Unknown Date/Time Printed: 03/20/2025 11:24 AM ([facility]) Patient: IVANA HENDRICKS Sex: Female : [...] concentration must be 0.3-1.2 mg/mL. Administer using Cbw-NVLE-tymuwntbch equipment and through an in-line 0.22 micron filter. Paclitaxel is a vascular irritant., Allow Substitution GIVEN: 132 mg Pharmacy plan: Dispense/Waste: 132/0 mg Amount in mL: 22 Pharmacy dispense: [facility]: [id number] Dispense/Waste: 132/0 mg Given Dose/Discard: 132/0 mg [...] mcg Amount in mL: 1 Pharmacy dispense: [facility]: [id number] Dispense/Waste: 1000/0 mcg Given Dose/Discard: 1000/0 mcg [...] mg Amount in mL: 0.5 Pharmacy dispense: [facility]: [id number] Dispense/Waste: 25/0 mg Given Dose/Discard: 25/0 mg [...] mg Amount in mL: 2 Pharmacy dispense: [facility]: [id number] Dispense/Waste: 20/0 mg Given Dose/Discard: 20/0 mg Start Time: 01:17 PM, Entered By: Joel Yañez RN, Stop Time: 01:18 PM, Entered By: Joel Yañez RN Admix Fluid: 0.9 % sodium chloride, Admix Fluid Volume: 3mL, Total Volume: 5mL Free Text Note : Patient tolerated infusion without incident. Entered By Joel Yañez RN on 04:48 PM * Nurse Note for: 08-NOV-23 [facility] Nurse Note Print Location: Unknown Date/Time Printed: 03/20/2025 11:24 AM ([facility]) Patient: IVANA HENDRICKS Sex: Female : [...] concentration must be 0.3-1.2 mg/mL. Administer using Wsn-RUVX-pcvebxinod equipment and through an in-line 0.22 micron filter. Paclitaxel is a vascular irritant., Allow Substitution GIVEN: 132 mg Pharmacy plan: Dispense/Waste: 132/0 mg Amount in mL: 22 Pharmacy dispense: [facility]: [id number] Dispense/Waste: 132/0 mg Given Dose/Discard: 132/0 mg [...] mcg Amount in mL: 1 Pharmacy dispense: [facility]: [id number] Dispense/Waste: 1000/0 mcg Given Dose/Discard: 1000/0 mcg [...] mg Amount in mL: 0.5 Pharmacy dispense: [facility]: [id number] Dispense/Waste: 25/0 mg Given Dose/Discard: 25/0 mg [...] mg Amount in mL: 2 Pharmacy dispense: [facility]: [id number] Dispense/Waste: 20/0 mg Given Dose/Discard: 20/0 mg Admin Details: IV Administration: Push Start Time: 01:22 PM, Entered By: Keri Forrest RN, Stop Time: 01:24 PM, Entered By: Keri Forrest RN Admix Fluid: 0.9 % sodium chloride, Admix Fluid Volume: 3mL, Total Volume: 5mL Free Text Note : Cryotherapy used Entered By Keri Forrest RN on 02:49 PM * Nurse Note for: 01-NOV-23 [facility] Nurse Note Print Location: Unknown Date/Time Printed: 03/20/2025 11:24 AM ([facility]) Patient: IVANA HENDRICKS Sex: Female : [...] concentration must be 0.3-1.2 mg/mL. Administer using Msu-YCUG-xsvyjvygwy equipment and through an in-line 0.22 micron filter. Paclitaxel is a vascular irritant., Allow Substitution GIVEN: 132 mg Pharmacy plan: Dispense/Waste: 132/0 mg Amount in mL: 22 Pharmacy dispense: [facility]: [id number] Dispense/Waste: 132/0 mg Given Dose/Discard: 132/0 mg Start Time: 01:52 PM, Entered By: Suzanna Bailey RN, Stop Time: 02:55 PM, Entered By: Suzanna Bailey RN Admix Fluid: 0.9 % sodium chloride, Admix Fluid Volume: 250mL, Total Volume: 272mL Double Checked By: Suzanna Bailey RN on 11/01/2023 01:28 PM and Trina Carlos RN on 11/01/2023 01:49 PM Incident to: Puja Avalos MD Doxorubicin + Cyclophosphamide (AC) Q14D Dose Dense fb Paclitaxel Weekly D1,8 Q14D Premedications Granisetron IV, 1000 mcg intravenously once, Instructions: CYCLES 5-10 ONLY., Allow Substitution GIVEN: 1000 mcg Pharmacy plan: Dispense/Waste: 1000/0 mcg Amount in mL: 1 Pharmacy dispense: [facility]: [id number] Dispense/Waste: 1000/0 mcg Given Dose/Discard: 1000/0 mcg [...] mg Amount in mL: 0.5 Pharmacy dispense: [facility]: [id number] Dispense/Waste: 25/0 mg Given Dose/Discard: 25/0 mg [...] mg Amount in mL: 2 Pharmacy dispense: [facility]: [id number] Dispense/Waste: 20/0 mg Given Dose/Discard: 20/0 mg Start Time: 01:19 PM, Entered By: Suzanna Bailey RN, Stop Time: 01:20 PM, Entered By: Suzanna Bailey RN Admix Fluid: 0.9 % sodium chloride, Admix Fluid Volume: 3mL, Total Volume: 5mL Free Text Note : Cryotherapy applied throughout Taxol infusion. Entered By Suzanna Bailey RN on 03:05 PM
--- OUTSIDE RECORDS SUMMARY | 2025-03-20 11:25 | XMS_ITS ---
Author Name Interface, [id number] lity Address [address] [place] [address] [facility] Address [address] [place] [address] Care Team Providers Care Social Worker Health Services Name Role Phone Evans Royal Unavailable Unavailable Allergies and Adverse Reactions Medication/Group [...] 1 HR 03/28/2024 APPOINTMENT OV 15 MIN 03/28/2024 LABORDER CBC w/auto diff with reflex [...] CHEMO INJECTION 15 MIN Encounters Date Name 03/28/2024 ADHD 03/28/2024 Anterior cervical ly mphadenopathy (disorder) 03/28/2024 Bone pain 03/28/2024 Breast cancer, femal e 03/28/2024 Diarrhea caused by d rug (disorder) 03/28/2024 Estrogen receptor po sitive status [ER+] 03/28/2024 Family history of BR CA2 gene mutation 03/28/2024 Hot flashes 03/28/2024 Inherited mutation o f BRCA2 gene 03/28/2024 Neutropenia 03/28/2024 Other long-term curr ent use of drug therapy 03/28/2024 Vitamin D deficiency (disorder) 03/28/2024 Weight loss Diagnostic Results Date Type Test Units Lower Limit Upper Limit Result Flag Comments Status Ordered By Specimen Source Lab Address 03/28 Estra diol, ultra sensi tive panel [facility] SCAN RESUL T See Scanned Result FINAL [facility], [address] [facility] [id number] 03/28 CBC w/aut o diff with refle x WBC x10^3/ uL 4.4 10.4 2.87 Low FINAL [facility], [address] [place] [address] [id number] 03/28 CBC w/aut o diff with refle x RBC x10^6/ uL 4.2 5.4 4.54 FINAL [facility], [address] [place] [address] [id number] 03/28 CBC w/aut o diff with refle x HGB g/dL 12.0 16.0 13.4 FINAL [facility], [address] [place] [address] [id number] 03/28 CBC w/aut o diff with refle x HCT % 37.0 47.0 40.9 FINAL [facility], [address] [facility] [id number] 0 03/28 CBC w/aut o diff with refle x MCV fL 80.0 98.0 90.1 FINAL [facility], [address] [facility] [id number] 0 03/28 CBC w/aut o diff with refle x MCH pg 28.0 32.0 29.5 FINAL [facility], [address] [facility] [id number] 0 03/28 CBC w/aut o diff with refle x MCHC g/dL 30.7 34.7 32.8 FINAL [facility], [address] [facility] [id number] 0 03/28 CBC w/aut o diff with refle x RDW-S D 37.0 54.0 43.00 FINAL [facility], [address] [facility] [id number] 0 03/28 CBC w/aut o diff with refle x RDW % 11.5 14.5 13.0 FINAL [facility], [address] [facility] [id number] 0 03/28 CBC w/aut o diff with refle x PLT x10^3/ uL 120.0 400.0 216 FINAL [facility], [address] [facility] [id number] 0 03/28 CBC w/aut o diff with refle x MPV fL 6.5 12.0 8.6 FINAL [facility], [address] [facility] [id number] 0 03/28 CBC w/aut o diff with refle x Smear revie w None FINAL [facility], [address] [facility] [id number] 0 03/28 CBC w/aut o diff with refle x NRBC % /100WB C 0.0 9.0 0.0 [facility], [address] [facility] [id number] 0 03/28 CBC w/aut o diff with refle x NRBC, absol lummi, x 10^3/ uL x10^3/ uL 0.0 0.1 0.00 FINAL [facility] [place], [address] [facility] [id number] 0 03/28 CBC w/aut o diff with refle x Emily % % 40.0 70.0 66.9 FINAL [facility], [address] [facility] [id number] 0 03/28 CBC w/aut o diff with refle x LY % % 15.0 41.0 19.5 FINAL [facility], [address] [facility] [id number] 0 03/28 CBC w/aut o diff with refle x MO % % 2.0 8.0 9.4 High FINAL [facility], [address] [facility] [id number] 0 03/28 CBC w/aut o diff with refle x EO % % 0.0 3.0 3.5 High FINAL [facility], [address] [facility] [id number] 0 03/28 CBC w/aut o diff with refle x BA % % 0.0 1.0 0.7 FINAL [facility], [address] [facility] [id number] 0 03/28 CBC w/aut o diff with refle x IG % % 0.0 1.0 0.0 FINAL [facility], [address] [facility] [id number] 0 03/28 CBC w/aut o diff with refle x Emily # (ANC) x10^3/ uL 2.0 8.4 1.92 Low FINAL [facility], [address] [facility] [id number] 0 03/28 CBC w/aut o diff with refle x LY # x10^3/ uL 0.7 5.1 0.56 Low FINAL [facility], [address] [facility] [id number] 0 03/28 CBC w/aut o diff with refle x MO # x10^3/ uL 0.0 1.6 0.27 FINAL [facility], [address] [facility] [id number] 0 03/28 CBC w/aut o diff with refle x EO # x10^3/ uL 0.0 1.1 0.10 FINAL [facility], [address] [facility] [id number] 0 03/28 CBC w/aut o diff with refle x BA # x10^3/ uL 0.0 0.2 0.02 FINAL [facility], [address] [facility] [id number] 0 03/28 CBC w/aut o diff with refle x IG # x10^3/ uL 0.0 0.1 0.00 FINAL [facility], [address] [facility] [id number] 0 03/28 CMP Bilir ubin, total mg/dL 0.3 1.0 0.5 FINAL [facility], [address] [facility] [id number] 0 03/28 CMP AST/S GOT U/L 13.0 39.0 25 FINAL [facility], [address] [facility] [id number] 0 03/28 CMP ALT/S GPT U/L 7.0 52.0 17 FINAL [facility], [address] [facility] [id number] 0 03/28 CMP Alkal ine phosp hatas e U/L 34.0 104.0 78 FINAL [facility], [address] [facility] [id number] 0 03/28 CMP Gluco se mg/dL 70.0 105.0 104 FINAL [facility], [address] [facility] [id number] 0 03/28 CMP BUN mg/dL 7.0 25.0 11 FINAL [facility], [address] [facility] [id number] 0 03/28 CMP Creat inine mg/dL 0.6 1.3 0.82 FINAL [facility], [address] [facility] [facility] [id number] 0 03/28 CMP Calci um mg/dL 8.4 10.5 9.6 FINAL [facility], [address] [facility] [id number] 0 03/28 CMP Total prote in g/dL 6.3 8.2 7.7 FINAL [facility], [address] [facility] [facility] [id number] 0 03/28 CMP Album in g/dL 3.5 5.0 4.7 FINAL [facility], [address] [facility] [facility] [id number] 0 03/28 CMP Sodiu m mEq/L 135.0 145.0 138 FINAL [facility], [address] [facility] [facility] [id number] 0 03/28 CMP Potas sium mEq/L 3.4 5.0 3.7 FINAL [facility], [address] [facility] [id number] 0 03/28 CMP Chlor uri, mEq/L mEq/L 96.0 107.0 102 FINAL [facility], [address] [facility] [address] [facility] [id number] 0 03/28 CMP CO2 whitney nt mEq/L 21.0 31.0 29 FINAL [facility], [address] [facility] [facility] [id number] 0 03/28 CMP GFR estim ate mL/min /1.73m 2 82 Normal Range:Nor mal renal function >or= 60Moderat sirnivas decreased 30 - 59Severel y decreased 15 - 29Renal Failure < 15Please note the GFR value should be multiplie d by 1.210 if the patient is -A merican. FINAL [facility] [place], [address] [facility] [id number] 0 03/28 Magne sium panel Magne sium, mg/dL mg/dL 1.6 2.3 1.97 FINAL [facility] [place], [address] [facility] [id number] 0 04/30 Estra diol, ultra sensi tive panel [facility] RP ESTRA DIOL MS pg/mL <1.0 This test was developed and its performan ce character isticsdet ermined by [facility]. It has not been cleared or approvedb y the Food and Drug Administr [facility].Ref erence Range:Ambrocio lt Females Follicula r: 30 - 100 Luteal: 70 - 300 Postmenop ausal: <15 FINAL [facility], [address] [facility] [id number] 0 04/30 CMP Bilir ubin, total mg/dL 0.3 1.0 0.7 FINAL [facility], [address] [facility] [id number] 0 04/30 CMP AST/S GOT U/L 13.0 39.0 22 FINAL [facility], [address] [place], [place] [address] [facility] [id number] 0 04/30 CMP ALT/S GPT U/L 7.0 52.0 16 FINAL [facility], [address] [place], [place] [address] [facility] [id number] 0 04/30 CMP Alkal ine phosp hatas e U/L 34.0 104.0 71 FINAL [facility], [address] [place], [place] [address] [facility] [id number] 0 04/30 CMP Gluco se mg/dL 70.0 105.0 89 FINAL [facility], [facility] [address] [facility] [id number] 0 04/30 CMP BUN mg/dL 7.0 25.0 7 FINAL [facility], [address] [place], [place] [address] [facility] [id number] 0 04/30 CMP Creat inine mg/dL 0.6 1.3 0.75 FINAL [facility], [address] [facility] [id number] 0 04/30 CMP Calci um mg/dL 8.4 10.5 9.1 FINAL [facility], [address] [facility] [facility] [id number] 0 04/30 CMP Total prote in g/dL 6.3 8.2 7.4 FINAL [facility], [address] [facility] [id number] 0 04/30 CMP Album in g/dL 3.5 5.0 4.9 FINAL [facility], [address] [facility] [facility] [id number] 0 04/30 CMP Sodiu m mEq/L 135.0 145.0 136 FINAL [facility], [address] [facility] [facility] [id number] 0 04/30 CMP Potas sium mEq/L 3.4 5.0 3.8 FINAL [facility], [address] [facility] [facility] [id number] 0 04/30 CMP Chlor uri, mEq/L mEq/L 96.0 107.0 101 FINAL [facility], [address] [facility] [facility] [id number] 0 04/30 CMP CO2 whitney nt mEq/L 21.0 31.0 28 FINAL [facility], [address] [facility] [facility] [id number] 0 04/30 CMP GFR estim ate mL/min /1.73m 2 91 Normal Range:Nor mal renal function >or= 60Moderat srinivas decreased 30 - 59Severel y decreased 15 - 29Renal Failure < 15Please note the GFR value should be multiplie d by 1.210 if the patient is -A merican. FINAL [facility], [address] [facility] [id number] 0 04/30 Magne sium panel Magne sium, mg/dL mg/dL 1.6 2.3 2.12 FINAL [facility], [address] [facility] [id number] 0 04/30 CBC w/aut o diff with refle x WBC x10^3/ uL 4.4 10.4 3.24 Low FINAL [facility], [address] [facility] [id number] 0 04/30 CBC w/aut o diff with refle x RBC x10^6/ uL 4.2 5.4 4.52 FINAL [facility], [address] [facility] [id number] 0 04/30 CBC w/aut o diff with refle x HGB g/dL 12.0 16.0 13.3 FINAL [facility], [address] [facility] [id number] 0 04/30 CBC w/aut o diff with refle x HCT % 37.0 47.0 40.6 FINAL [facility], [address] [facility] [id number] 0 04/30 CBC w/aut o diff with refle x MCV fL 80.0 98.0 89.8 FINAL [facility], [address] [facility] [id number] 0 04/30 CBC w/aut o diff with refle x MCH pg 28.0 32.0 29.4 FINAL [facility], [address] [facility] [id number] 0 04/30 CBC w/aut o diff with refle x MCHC g/dL 30.7 34.7 32.8 FINAL [facility], [address] [facility] [id number] 0 04/30 CBC w/aut o diff with refle x RDW-S D 37.0 54.0 44.30 FINAL [facility], [address] [facility] [id number] 0 04/30 CBC w/aut o diff with refle x RDW % 11.5 14.5 13.5 [facility], [address] [facility] [id number] 0 04/30 CBC w/aut o diff with refle x PLT x10^3/ uL 120.0 400.0 220 FINAL [facility], [address] [facility] [id number] 0 04/30 CBC w/aut o diff with refle x MPV fL 6.5 12.0 9.0 FINAL [facility], [address] [facility] [id number] 0 04/30 CBC w/aut o diff with refle x Smear revie w None FINAL [facility], [address] [facility] [id number] 0 04/30 CBC w/aut o diff with refle x NRBC % /100WB C 0.0 9.0 0.0 FINAL [facility], [address] [facility] [id number] 0 04/30 CBC w/aut o diff with refle x NRBC, absol lummi, x 10^3/ uL x10^3/ uL 0.0 0.1 0.00 FINAL [facility], [address] [facility] [id number] 0 04/30 CBC w/aut o diff with refle x Emily % % 40.0 70.0 66.1 FINAL [facility], [address] [facility] [id number] 0 04/30 CBC w/aut o diff with refle x LY % % 15.0 41.0 22.2 FINAL [facility], [address] [facility] [id number] 0 04/30 CBC w/aut o diff with refle x MO % % 2.0 8.0 8.6 High FINAL [facility], [address] [facility] [id number] 0 04/30 CBC w/aut o diff with refle x EO % % 0.0 3.0 1.9 FINAL [facility], [address] [facility] [id number] 0 04/30 CBC w/aut o diff with refle x BA % % 0.0 1.0 0.9 FINAL [facility], [address] [facility] [id number] 0 04/30 CBC w/aut o diff with refle x IG % % 0.0 1.0 0.3 FINAL [facility], [address] [facility] [id number] 0 04/30 CBC w/aut o diff with refle x Emily # (ANC) x10^3/ uL 2.0 8.4 2.14 FINAL [facility], [address] [facility] [id number] 0 04/30 CBC w/aut o diff with refle x LY # x10^3/ uL 0.7 5.1 0.72 FINAL [facility], [address] [facility] [id number] 0 04/30 CBC w/aut o diff with refle x MO # x10^3/ uL 0.0 1.6 0.28 FINAL [facility], [address] [facility] [id number] 0 04/30 CBC w/aut o diff with refle x EO # x10^3/ uL 0.0 1.1 0.06 FINAL [facility], [address] [facility] [id number] 0 04/30 CBC w/aut o diff with refle x BA # x10^3/ uL 0.0 0.2 0.03 FINAL [facility], [address] [facility] [id number] 0 04/30 CBC w/aut o diff with refle x IG # x10^3/ uL 0.0 0.1 0.01 FINAL [facility], [address] [facility] [id number] 0 04/30 CA 125 panel CA 125 U/ml 6.0 Test performed on [facility] [address] [facility], [place] [address] FINAL [facility] Amsterda m, [address] [facility] [id number] 0 Medications Date Name Route Dose Frequency [...] pain Active Vital Signs Date Type Value 03/28/2024 Body Temperature 96.60 03/28/2024 Heart Beat 86.00 03/28/2024 Respiratory Rate 16.00 03/28/2024 Oxygen Saturation 98.00 03/28/2024 BSA 1.65 03/28/2024 Pain Scale 0.00 03/28/2024 Weight 54.50 03/28/2024 Height 172.70 03/28/2024 BMI 18.27 03/28/2024 Intravascular Systolic 100 03/28/2024 Intravascular Diastolic 56 04/24/2024 BMI 18.44 04/24/2024 BSA 1.65 04/24/2024 [...] Notes Section * Nurse Note for: 28-MAY-24 [facility] Nurse Note Print Location: Unknown Date/Time Printed: 03/20/2025 11:23 AM ([facility]) Patient: IVANA HENDRICKS Sex: Female : [...] Pharmacy plan: Dispense/Waste: 11.25/0 mg Pharmacy dispense: [facility]: [id number] Dispense/Waste: 11.25/0 mg Given Dose/Discard: 11.25/0 mg Admin Details: Injection Location: Left-Dorsogluteal Time: 01:44 PM Free Text Note : injection complete without incident Entered By Trina Carlos RN on 01:45 PM * Nurse Note for: 30-APR-24 [facility] Nurse Note Print Location: Unknown Date/Time Printed: 03/20/2025 11:23 AM ([facility]) Patient: IVANA HENDRICKS Sex: Female : [...] Pharmacy plan: Dispense/Waste: 7.5/0 mg Pharmacy dispense: [facility]: [id number] Dispense/Waste: 7.5/0 mg Given Dose/Discard: 7.5/0 mg Admin Details: Injection Location: Right-Dorsogluteal Time: 03:58 PM Free Text Note : Pt seen and eval in clinic by Dr. Eckert. Injection without incident. Entered By Cristo Grove RN on 04:01 PM * Nurse Note for: 28-MAR-24 [facility] Nurse Note Print Location: Unknown Date/Time Printed: 03/20/2025 11:23 AM ([facility]) Patient: IVANA HENDRICKS Sex: Female : [...] Pharmacy plan: Dispense/Waste: 7.5/0 mg Pharmacy dispense: [place]: [id number] Dispense/Waste: 7.5/0 mg Given Dose/Discard: 7.5/0 mg [...] mg Amount in mL: 5 Pharmacy dispense: [facility]: [id number] Dispense/Waste: 4/0 mg Given Dose/Discard: 4/0 mg Start Time: 02:30 PM, Entered By: Tenisha Murrieta RN, Stop Time: 02:56 PM, Entered By: Tenisha Murrieta RN Admix Fluid: 0.9 % sodium chloride, Admix Fluid Volume: 100mL, Total Volume: 105mL
--- OUTSIDE RECORDS SUMMARY | 2025-03-20 11:25 | XMS_ITS ---
Author Organization [address] Address [address] [place] [address] Phone Care Team Providers Care Scientific Illustrator Name Role Phone Harmony Ewing MD Primary Care Provider + [phone] Active Problems Problem Noted Date Diagnosed Date Malignant neoplasm of upper- inner quadrant of left breast in female, estrogen receptor positive (CMS/HCC V24, CMS/HCC V28) 04/12/2023 Overview (04/12/2023): Added automatically from request for surgery [id number] Menorrhagia with irregular cycle 11/23/2022 BRCA2 positive 11/23/2022 Asthma 11/02/2022 Suspected severe acute respi ratory syndrome coronavirus 2 (SARS-CoV-2) infection 11/08/2020 Current Oncology Plans No current plan information found. Past Plans No past plan information found. Radiation Treatments * Plan Last Treated On Elapsed Days Fractions Treated Prescribed Fraction Dose Prescribed Total Dose L_CW [facility] 01/29/2024 41 5 of 5 200 cGy 1,000 cGy PTV_L_SC_Ax 01/18/2024 41 23 of 200 cGy 4,600 cG y PTVe_L_CW NB 01/22/2024 41 13 of 13 200 cGy 2,600 cGy PTVe_L_CW w/B 01/21/2024 41 12 of 12 200 cGy 2,400 cGy Reference Point Last Treated On Elapsed Days Session Dose Total Dose L_CW [facility] 01/29/2024 41 222 cGy 1,111 cGy L_CW_RC 01/22/2024 41 201 cGy 5,017 cGy PTV_L_SC_Ax 01/18/2024 41 200 cGy 4,600 cGy PTV_L_SC_Ax RC 01/18/2024 41 200 cGy 4,600 cGy PTVe_L_CW 01/22/2024 41 200 cGy 5,000 cGy Scar Bst PRP 01/29/2024 41 200 cGy 1,000 cGy
--- OUTSIDE RECORDS SUMMARY | 2025-03-20 11:25 | XMS_ITS ---
Author Name Interface, [id number] lity Address [address] [place] [address] [facility] matology Address [address] [place] [address] Care Team Providers Care Operations Trainer Name Role Phone Evans Royal Unavailable Unavailable [...] 15 MIN 08/02/2023 APPOINTMENT HYDRATION 2 HR 08/02/2023 LABORDER CMP 08/02/2023 LABORDER CBC w/ [...] CHEMO INJECTION 15 MIN Encounters Date Name 08/02/2023 ADHD 08/02/2023 Anterior cervical ly mphadenopathy (disorder) 08/02/2023 Diarrhea caused by d rug (disorder) 08/02/2023 Drug-induced mucosit is (disorder) 08/02/2023 Drug-related alopeci a (disorder) 08/02/2023 Dysgeusia 08/02/2023 Hot flashes 08/02/2023 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 Nausea 08/02/2023 Neutropenia 08/02/2023 Other long-term curr ent use of drug therapy 08/02/2023 Vitamin D deficiency (disorder) 08/02/2023 Weight loss Diagnostic Results Date Type Test Units Lower Limit Upper Limit Result Flag Comments Status Ordered By Specimen Source Lab Address 08/02 CBC w/ auto diff WBC x10^3/ uL 4.4 10.4 1.02 Criti susan Low FINAL [address] [id number] 08/02 CBC w/ auto diff RBC x10^6/ uL 4.2 5.4 3.76 Low FINAL [address] [id number] 0 08/02 CBC w/ auto diff HGB g/dL 12.0 16.0 10.6 Low FINAL [address] [id number] 0 08/02 CBC w/ auto diff HCT % 37.0 47.0 32.9 Low FINAL [address] [id number] 0 08/02 CBC w/ auto diff MCV fL 80.0 98.0 87.[address] [id number] 0 08/02 CBC w/ auto diff MCH pg 28.0 32.0 28.[address] [id number] 0 08/02 CBC w/ auto diff MCHC g/dL 30.7 34.7 32.2 FINAL [facility], [address] [facility] [id number] 0 08/02 CBC w/ auto diff RDW-S D 37.0 54.0 41.70 FINAL [facility], [address] [facility] [id number] 0 08/02 CBC w/ auto diff RDW % 11.5 14.5 13.8 FINAL [facility], [address] [facility] [id number] 0 08/02 CBC w/ auto diff PLT x10^3/ uL 120.0 400.0 182 FINAL [facility], [address] [facility] [id number] 0 08/02 CBC w/ auto diff MPV fL 6.5 12.0 9.0 FINAL [facility], [address] [facility] [id number] 0 08/02 CBC w/ auto diff Smear revie w None FINAL [facility], [address] [facility] [id number] 0 08/02 CBC w/ auto diff NRBC % /100WB C 0.0 9.0 0.0 [facility], [address] [facility] [id number] 0 08/02 CBC w/ auto diff NRBC, absol elem, x 10^3/ uL x10^3/ uL 0.0 0.1 0.00 [facility], [address] [facility] [id number] 0 08/02 CBC w/ auto diff Emily % % 40.0 70.0 55.9 [facility], [address] [facility] [id number] 0 08/02 CBC w/ auto diff LY % % 15.0 41.0 27.5 [facility], [address] [place] [id number] 0 08/02 CBC w/ auto diff MO % % 2.0 8.0 12.7 High FINAL [facility] [place], [address] [place] [id number] 0 08/02 CBC w/ auto diff EO % % 0.0 3.0 0.0 FINAL [facility] [place], [address] [place] [id number] 0 08/02 CBC w/ auto diff BA % % 0.0 1.0 2.9 High FINAL [facility] [place], [address] [place] [id number] 0 08/02 CBC w/ auto diff IG % % 0.0 1.0 1.0 FINAL [facility] [place], [address] [place] [id number] 0 08/02 CBC w/ auto diff Emily # (ANC) x10^3/ uL 2.0 8.4 0.57 Low FINAL [facility] [place], [address] [place] [id number] 0 08/02 CBC w/ auto diff LY # x10^3/ uL 0.7 5.1 0.28 Low FINAL [facility] [place], [address] [place] [id number] 0 08/02 CBC w/ auto diff MO # x10^3/ uL 0.0 1.6 0.13 FINAL [facility] [place], [address] [place] [id number] 0 08/02 CBC w/ auto diff EO # x10^3/ uL 0.0 1.1 0.00 FINAL [facility] [place], [address] [place] [id number] 0 08/02 CBC w/ auto diff BA # x10^3/ uL 0.0 0.2 0.03 FINAL [facility] [place], [address] [place] [id number] 0 08/02 CBC w/ auto diff IG # x10^3/ uL 0.0 0.1 0.01 FINAL [facility], [address] [facility] [id number] 0 08/02 Magne sium panel Magne sium, mg/dL mg/dL 1.6 2.3 1.95 FINAL [facility], [address] [facility] [id number] 0 08/02 CMP Bilir ubin, total mg/dL 0.3 1.0 0.6 FINAL [facility], [address] [facility] [id number] 0 08/02 CMP AST/S GOT U/L 13.0 39.0 11 Low FINAL [facility], [address] [facility] [id number] 0 08/02 CMP ALT/S GPT U/L 7.0 52.0 10 FINAL [facility], [address] [facility] [id number] 0 08/02 CMP Alkal ine phosp hatas e U/L 34.0 104.0 104 FINAL [facility], [address] [facility] [id number] 0 08/02 CMP Gluco se mg/dL 70.0 105.0 102 FINAL [facility], [address] [facility] [id number] 0 08/02 CMP BUN mg/dL 7.0 25.0 12 FINAL [facility], [address] [facility] [id number] 0 08/02 CMP Creat inine mg/dL 0.6 1.3 0.69 FINAL [facility], [address] [facility] [id number] 0 08/02 CMP Calci um mg/dL 8.4 10.5 9.6 FINAL [facility], [address] [facility] [id number] 0 08/02 CMP Total prote in g/dL 6.3 8.2 7.7 FINAL [facility], [address] [facility] [id number] 0 08/02 CMP Album in g/dL 3.5 5.0 4.8 FINAL [facility], [address] [facility] [id number] 0 08/02 CMP Sodiu m mEq/L 135.0 145.0 137 FINAL [facility], [address] [place] [id number] 0 08/02 CMP Potas sium mEq/L 3.4 5.0 4.1 FINAL [facility], [address] [facility] [id number] 0 08/02 CMP Chlor uri, mEq/L mEq/L 96.0 107.0 101 FINAL [facility], [address] [facility] [id number] 0 08/02 CMP CO2 whitney nt mEq/L 21.0 31.0 28 FINAL [facility], [address] [facility] [id number] 0 08/02 CMP GFR estim ate mL/min /1.73m 2 101 Normal Range:Nor mal renal function >or= 60Moderat srinivas decreased 30 - 59Severel y decreased 15 - 29Renal Failure < 15Please note the GFR value should be multiplie d by 1.210 if the patient is -A merican. FINAL [facility], [address] [facility] [address] [facility] [id number] 0 08/06 CMP Bilir ubin, total mg/dL 0.3 1.0 0.2 Low FINAL [facility], [address] [facility] [id number] 0 08/06 CMP AST/S GOT U/L 13.0 39.0 18 FINAL [facility], [address] [facility] [id number] 0 08/06 CMP ALT/S GPT U/L 7.0 52.0 13 FINAL [facility], [address] [facility] [id number] 0 08/06 CMP Alkal ine phosp hatas e U/L 34.0 104.0 100 FINAL [facility], [address] [facility] [id number] 0 08/06 CMP Gluco se mg/dL 70.0 105.0 100 FINAL [facility], [address] [facility] [id number] 0 08/06 CMP BUN mg/dL 7.0 25.0 6 Low FINAL [facility], [address] [facility] [id number] 0 08/06 CMP Creat inine mg/dL 0.6 1.3 0.92 FINAL [facility], [address] [facility] [id number] 0 08/06 CMP Calci um mg/dL 8.4 10.5 9.8 FINAL [facility], [address] [facility] [id number] 0 08/06 CMP Total prote in g/dL 6.3 8.2 8.0 FINAL [facility], [address] [facility] [id number] 0 08/06 CMP Album in g/dL 3.5 5.0 5.0 FINAL [facility], [address] [facility] [id number] 0 08/06 CMP Sodiu m mEq/L 135.0 145.0 137 FINAL [facility], [address] [facility] [id number] 0 08/06 CMP Potas sium mEq/L 3.4 5.0 4.5 FINAL [facility], [address] [facility] [id number] 0 08/06 CMP Chlor uri, mEq/L mEq/L 96.0 107.0 100 FINAL [facility], [address] [facility] [id number] 0 08/06 CMP CO2 whitney nt mEq/L 21.0 31.0 28 FINAL [facility], [address] [facility] [id number] 0 08/06 CMP GFR estim ate mL/min /1.73m 2 72 Normal Range:Nor mal renal function >or= 60Moderat srinivas decreased 30 - 59Severel y decreased 15 - 29Renal Failure < 15Please note the GFR value should be multiplie d by 1.210 if the patient is -A merican. FINAL [facility], [address] [facility] [id number] 0 08/06 Magne sium panel Magne sium, mg/dL mg/dL 1.6 2.3 2.06 FINAL [facility], [address] [facility] [id number] 0 08/06 Manua l diffe renti al Neutr ophil % (M) % 35.0 65.0 58 FINAL [facility], [address] [facility] [id number] 0 08/06 Manua l diffe renti al Band % % 0.0 5.0 7 High FINAL [facility], [address] [facility] [facility] [id number] 0 08/06 Manua l diffe renti al Lymph ocyte % % 15.0 41.0 9 Low FINAL [facility], [address] [facility] [id number] 0 08/06 Manua l diffe renti al Monoc yte % % 4.0 10.0 7 FINAL [facility], [address] [facility] [id number] 0 08/06 Manua l diffe renti al Eosin ophil % % 0.0 6.0 0 FINAL [facility], [address] [facility] [id number] 0 08/06 Manua l diffe renti al Basop hil % % 0.0 2.0 1 FINAL [facility], [address] [facility] [id number] 0 08/06 Manua l diffe renti al Metam yeloc yte % % 0.0 0.0 13 High FINAL [facility], [address] [facility] [id number] 0 08/06 Manua l diffe renti al Myelo cyte % % 0.0 0.0 5 High FINAL [facility], [address] [facility] [id number] 0 08/06 Manua l diffe renti al Promy elocy te % % 0.0 0.0 0 FINAL [facility], [address] [facility] [id number] 0 08/06 Manua l diffe renti al Blast s % % 0.0 0.0 0 FINAL [facility], [address] [facility] [id number] 0 08/06 Manua l diffe renti al Atypi susan/V efren t I lymph ocyte % % 0.0 0.0 0 FINAL [facility], [address] [facility] [id number] 0 08/06 Manua l diffe renti al Hairy cell % 0.0 0.0 0 FINAL [facility], [address] [facility] [id number] 0 08/06 Manua l diffe renti al Plasm a cell % 0.0 0.0 0 FINAL [facility], [address] [facility] [id number] 0 08/06 Manua l diffe renti al Immat ure cell, % (M) % 0.0 0.0 0 FINAL [facility], [address] [facility] [id number] 0 08/06 Manua l diffe renti al NRBC (M) % 0.0 0.0 0 FINAL [facility], [address] [facility] [id number] 0 08/06 Manua l diffe renti al Plate let estim ate Adequat e FINAL [facility], [address] [facility] [id number] 0 08/06 Manua l diffe renti al Aniso cytos is (size ) 1+ FINAL [facility], [address] [facility] [id number] 0 08/06 Manua l diffe renti al Polyc hroma slim (M) 1+ FINAL [facility], [address] [facility] [id number] 0 08/06 Manua l diffe renti al Manua l diff other None FINAL [facility], [address] [facility] [id number] 0 08/06 CBC w/ auto diff WBC x10^3/ uL 4.4 10.4 18.13 High FINAL [facility], [address] [facility] [id number] 0 08/06 CBC w/ auto diff RBC x10^6/ uL 4.2 5.4 3.95 Low FINAL [facility], [address] [facility] [id number] 0 08/06 CBC w/ auto diff HGB g/dL 12.0 16.0 11.2 Low FINAL [facility], [address] [facility] [id number] 0 08/06 CBC w/ auto diff HCT % 37.0 47.0 34.5 Low FINAL [facility], [address] [facility] [id number] 0 08/06 CBC w/ auto diff MCV fL 80.0 98.0 87.3 FINAL [facility], [address] [facility] [id number] 0 08/06 CBC w/ auto diff MCH pg 28.0 32.0 28.4 FINAL [facility], [address] [facility] [id number] 0 08/06 CBC w/ auto diff MCHC g/dL 30.7 34.7 32.5 FINAL [facility], [address] [facility] [id number] 0 08/06 CBC w/ auto diff RDW-S D 37.0 54.0 41.50 FINAL [facility], [address] [facility] [id number] 0 08/06 CBC w/ auto diff RDW % 11.5 14.5 14.8 High FINAL [facility], [address] [facility] [id number] 0 08/06 CBC w/ auto diff PLT x10^3/ uL 120.0 400.0 205 FINAL [facility], [address] [facility] [id number] 0 08/06 CBC w/ auto diff MPV fL 6.5 12.0 8.8 FINAL [facility], [address] [facility] [id number] 0 08/06 CBC w/ auto diff NRBC % /100WB C 0.0 9.0 0.4 FINAL [facility], [address] [facility] [id number] 0 08/06 CBC w/ auto diff NRBC, absol elem, x 10^3/ uL x10^3/ uL 0.0 0.1 0.07 FINAL [facility], [address] [facility] [id number] 0 08/06 CBC w/ auto diff Emily # (ANC) x10^3/ uL 2.0 8.4 9.62 High FINAL [facility], [address] [facility] [id number] 0 08/07 Manua l diffe renti al Neutr ophil % (M) % 35.0 65.0 59 FINAL [facility], [address] [facility] [id number] 0 08/07 Manua l diffe renti al Band % % 0.0 5.0 11 High FINAL [facility], [address] [facility] [id number] 0 08/07 Manua l diffe renti al Lymph ocyte % % 15.0 41.0 9 Low FINAL [facility], [address] [facility] [id number] 0 08/07 Manua l diffe renti al Monoc yte % % 4.0 10.0 4 FINAL [facility], [address] [facility] [id number] 0 08/07 Manua l diffe renti al Eosin ophil % % 0.0 6.0 0 FINAL [facility], [address] [facility] [id number] 0 08/07 Manua l diffe renti al Basop hil % % 0.0 2.0 1 FINAL [facility], [address] [facility] [id number] 0 08/07 Manua l diffe renti al Metam yeloc yte % % 0.0 0.0 12 High FINAL [facility], [address] [facility] [id number] 0 08/07 Manua l diffe renti al Myelo cyte % % 0.0 0.0 4 High FINAL [facility], [address] [facility] [id number] 0 08/07 Manua l diffe renti al Promy elocy te % % 0.0 0.0 0 FINAL [facility], [address] [facility] [id number] 0 08/07 Manua l diffe renti al Blast s % % 0.0 0.0 0 FINAL [facility], [address] [facility] [id number] 0 08/07 Manua l diffe renti al Atypi susan/V efren t I lymph ocyte % % 0.0 0.0 0 FINAL [facility], [address] [facility] [id number] 0 08/07 Manua l diffe renti al Hairy cell % 0.0 0.0 0 FINAL [facility], [address] [place] [id number] 0 08/07 Manua l diffe renti al Plasm a cell % 0.0 0.0 0 FINAL [facility], [address] [facility] [id number] 0 08/07 Manua l diffe renti al Immat ure cell, % (M) % 0.0 0.0 0 FINAL [facility], [address] [facility] [id number] 0 08/07 Manua l diffe renti al NRBC (M) % 0.0 0.0 0 FINAL [facility], [address] [facility] [id number] 0 08/07 Manua l diffe renti al Plate let estim ate Adequat e FINAL [facility], [address] [facility] [id number] 0 08/07 Manua l diffe renti al Aniso cytos is (size ) 1+ FINAL [facility], [address] [facility] [id number] 0 08/07 Manua l diffe renti al Manua l diff other None FINAL [facility], [address] [facility] [id number] 0 08/07 CMP Bilir ubin, total mg/dL 0.3 1.0 0.2 Low FINAL [facility], [address] [facility] [id number] 0 08/07 CMP AST/S GOT U/L 13.0 39.0 18 FINAL [facility], [address] [facility] [id number] 0 08/07 CMP ALT/S GPT U/L 7.0 52.0 12 FINAL [facility], [address] [facility] [id number] 0 08/07 CMP Alkal ine phosp hatas e U/L 34.0 104.0 98 FINAL [facility], [address] [place] [id number] 0 08/07 CMP Gluco se mg/dL 70.0 105.0 93 FINAL [facility], [address] [place] [id number] 0 08/07 CMP BUN mg/dL 7.0 25.0 6 Low FINAL [facility], [address] [facility] [id number] 0 08/07 CMP Creat inine mg/dL 0.6 1.3 0.95 FINAL [facility], [address] [facility] [id number] 0 08/07 CMP Calci um mg/dL 8.4 10.5 9.3 FINAL [facility], [address] [facility] [id number] 0 08/07 CMP Total prote in g/dL 6.3 8.2 7.6 FINAL [facility], [address] [facility] [id number] 0 08/07 CMP Album in g/dL 3.5 5.0 4.8 FINAL [facility], [address] [facility] [id number] 0 08/07 CMP Sodiu m mEq/L 135.0 145.0 135 FINAL [facility], [address] [facility] [id number] 0 08/07 CMP Potas sium mEq/L 3.4 5.0 3.6 FINAL [facility], [address] [facility] [id number] 0 08/07 CMP Chlor uri, mEq/L mEq/L 96.0 107.0 100 FINAL [facility], [address] [facility] [id number] 0 08/07 CMP CO2 whitney nt mEq/L 21.0 31.0 29 FINAL [facility], [address] [facility] [id number] 0 08/07 CMP GFR estim ate mL/min /1.73m 2 70 Normal Range:Nor mal renal function >or= 60Moderat srinivas decreased 30 - 59Severel y decreased 15 - 29Renal Failure < 15Please note the GFR value should be multiplie d by 1.210 if the patient is -A merican. FINAL [facility], [address] [facility] [id number] 0 08/07 CBC w/ auto diff WBC x10^3/ uL 4.4 10.4 18.48 High FINAL [facility], [address] [place] [address]. [facility] [id number] 0 08/07 CBC w/ auto diff RBC x10^6/ uL 4.2 5.4 3.78 Low FINAL [facility], [address] [place] [address]. [facility] [id number] 0 08/07 CBC w/ auto diff HGB g/dL 12.0 16.0 10.8 Low FINAL [facility], [address] [place] [address]. [facility] [id number] 0 08/07 CBC w/ auto diff HCT % 37.0 47.0 33.6 Low FINAL [facility], [address] [facility]. [facility] [id number] 0 08/07 CBC w/ auto diff MCV fL 80.0 98.0 88.9 FINAL [facility], [address] [place], [place] [address]on [facility]. [facility] [id number] 0 08/07 CBC w/ auto diff MCH pg 28.0 32.0 28.6 FINAL [facility], [address] [place], [place] [address]on [facility] [id number] 0 08/07 CBC w/ auto diff MCHC g/dL 30.7 34.7 32.1 FINAL [facility], [address] [facility] [id number] 0 08/07 CBC w/ auto diff RDW-S D 37.0 54.0 43.10 FINAL [facility], [address] [facility] [id number] 0 08/07 CBC w/ auto diff RDW % 11.5 14.5 15.4 High FINAL [facility], [address] [facility] [id number] 0 08/07 CBC w/ auto diff PLT x10^3/ uL 120.0 400.0 185 FINAL [facility], [address] [facility] [id number] 0 08/07 CBC w/ auto diff MPV fL 6.5 12.0 9.3 FINAL [facility], [address] [facility] [id number] 0 08/07 CBC w/ auto diff NRBC % /100WB C 0.0 9.0 0.2 FINAL [facility], [address] [facility] [id number] 0 08/07 CBC w/ auto diff NRBC, absol elem, x 10^3/ uL x10^3/ uL 0.0 0.1 0.03 FINAL [facility], [address] [facility] [id number] 0 08/07 CBC w/ auto diff Emily # (ANC) x10^3/ uL 2.0 8.4 10.45 High FINAL [facility], [address] [facility] [id number] 0 08/22 CMP Bilir ubin, total mg/dL 0.3 1.0 0.3 FINAL [facility], [address] [facility] [id number] 0 08/22 CMP AST/S GOT U/L 13.0 39.0 13 FINAL [facility], [address] [facility] [id number] 0 08/22 CMP ALT/S GPT U/L 7.0 52.0 9 FINAL [facility], [address] [facility] [id number] 0 08/22 CMP Alkal ine phosp hatas e U/L 34.0 104.0 79 FINAL [facility], [address] [facility] [id number] 0 08/22 CMP Gluco se mg/dL 70.0 105.0 88 FINAL [facility], [address] [facility] [id number] 0 08/22 CMP BUN mg/dL 7.0 25.0 12 FINAL [facility], [address] [facility] [id number] 0 08/22 CMP Creat inine mg/dL 0.6 1.3 0.66 FINAL [facility], [address] [facility] [id number] 0 08/22 CMP Calci um mg/dL 8.4 10.5 9.2 FINAL [facility], [address] [facility] [id number] 0 08/22 CMP Total prote in g/dL 6.3 8.2 7.0 [facility], [address] [facility] [id number] 0 08/22 CMP Album in g/dL 3.5 5.0 4.6 [facility], [address] [facility] [id number] 0 08/22 CMP Sodiu m mEq/L 135.0 145.0 137 [facility], [address] [facility] [id number] 0 08/22 CMP Potas sium mEq/L 3.4 5.0 3.9 [facility], [address] [facility] [id number] 0 08/22 CMP Chlor uri, mEq/L mEq/L 96.0 107.0 102 [facility] [facility], [address] [facility] [id number] 0 08/22 CMP CO2 whitney nt mEq/L 21.0 31.0 30 FINAL [facility], [address] [facility] [id number] 0 08/22 CMP GFR estim ate mL/min /1.73m 2 106 Normal Range:Nor mal renal function >or= 60Moderat srinivas decreased 30 - 59Severel y decreased 15 - 29Renal Failure < 15Please note the GFR value should be multiplie d by 1.210 if the patient is -A merican. FINAL [facility], [address] [facility] [facility] [id number] 0 08/22 Magne sium panel Magne sium, mg/dL mg/dL 1.6 2.3 2.03 FINAL [facility], [address] [facility] [facility] [id number] 0 08/22 CBC w/ auto diff WBC x10^3/ uL 4.4 10.4 7.93 FINAL [facility], [address] [place] [address]. [facility] [id number] 0 08/22 CBC w/ auto diff RBC x10^6/ uL 4.2 5.4 3.45 Low FINAL [facility], [address] [facility] [facility] [id number] 0 08/22 CBC w/ auto diff HGB g/dL 12.0 16.0 9.9 Low FINAL [facility], [address] [place] [address]. [facility] [id number] 0 08/22 CBC w/ auto diff HCT % 37.0 47.0 31.3 Low FINAL [facility], [address] [place] [address]. [facility] [id number] 0 08/22 CBC w/ auto diff MCV fL 80.0 98.0 90.7 FINAL [facility], [address] [place], [place] [address]. [facility] [id number] 0 08/22 CBC w/ auto diff MCH pg 28.0 32.0 28.7 FINAL [facility], [address] [place], [place] [address]on [facility]. [facility] [id number] 0 08/22 CBC w/ auto diff MCHC g/dL 30.7 34.7 31.6 FINAL [facility], [address] [facility] [id number] 0 08/22 CBC w/ auto diff RDW-S D 37.0 54.0 49.40 FINAL [facility], [address] [facility] [id number] 0 08/22 CBC w/ auto diff RDW % 11.5 14.5 16.8 High FINAL [facility], [address] [facility] [id number] 0 08/22 CBC w/ auto diff PLT x10^3/ uL 120.0 400.0 149 FINAL [facility], [address] [facility] [id number] 0 08/22 CBC w/ auto diff MPV fL 6.5 12.0 9.7 FINAL [facility], [address] [facility] [id number] 0 08/22 CBC w/ auto diff Smear revie w None FINAL [facility], [address] [facility] [id number] 0 08/22 CBC w/ auto diff NRBC % /100WB C 0.0 9.0 0.3 FINAL [facility], [address] [facility] [id number] 0 08/22 CBC w/ auto diff NRBC, absol elem, x 10^3/ uL x10^3/ uL 0.0 0.1 0.02 FINAL [facility], [address] [facility] [id number] 0 08/22 CBC w/ auto diff Emily % % 40.0 70.0 51.4 FINAL [facility], [address] [facility] [id number] 0 08/22 CBC w/ auto diff LY % % 15.0 41.0 10.2 Low FINAL [facility], [address] [facility] [id number] 0 08/22 CBC w/ auto diff MO % % 2.0 8.0 10.5 High FINAL [facility] [place], [address] [facility] [id number] 0 08/22 CBC w/ auto diff EO % % 0.0 3.0 0.1 FINAL [facility] [place], [address] [place] [id number] 0 08/22 CBC w/ auto diff BA % % 0.0 1.0 0.6 [facility] [address] [place] [id number] 0 08/22 CBC w/ auto diff IG % % 0.0 1.0 27.2 High [facility], [address] [facility] [id number] 0 08/22 CBC w/ auto diff Emily # (ANC) x10^3/ uL 2.0 8.4 4.07 FINAL [facility], [address] [facility] [id number] 0 08/22 CBC w/ auto diff LY # x10^3/ uL 0.7 5.1 0.81 [facility], [address] [facility] [id number] 0 08/22 CBC w/ auto diff MO # x10^3/ uL 0.0 1.6 0.83 FINAL [facility], [address] [facility] [id number] 0 08/22 CBC w/ auto diff EO # x10^3/ uL 0.0 1.1 0.01 [facility], [address] [facility] [id number] 0 08/22 CBC w/ auto diff BA # x10^3/ uL 0.0 0.2 0.05 [facility], [address] [facility] [id number] 0 08/22 CBC w/ auto diff IG # x10^3/ uL 0.0 0.1 2.16 High [facility], [address] [facility] [id number] 0 08/29 CBC w/ auto diff WBC x10^3/ uL 4.4 10.4 1.89 Low FINAL [facility], [address] [facility] [id number] 0 08/29 CBC w/ auto diff RBC x10^6/ uL 4.2 5.4 3.26 Low FINAL [facility], [address] [facility] [id number] 0 08/29 CBC w/ auto diff HGB g/dL 12.0 16.0 9.5 Low FINAL [facility], [address] [facility] [id number] 0 08/29 CBC w/ auto diff HCT % 37.0 47.0 29.9 Low FINAL [facility], [address] [facility] [id number] 0 08/29 CBC w/ auto diff MCV fL 80.0 98.0 91.7 FINAL [facility], [address] [facility] [id number] 0 08/29 CBC w/ auto diff MCH pg 28.0 32.0 29.1 FINAL [facility], [address] [facility] [id number] 0 08/29 CBC w/ auto diff MCHC g/dL 30.7 34.7 31.8 FINAL [facility], [address] [facility] [id number] 0 08/29 CBC w/ auto diff RDW-S D 37.0 54.0 55.50 High FINAL [facility], [address] [facility] [id number] 0 08/29 CBC w/ auto diff RDW % 11.5 14.5 17.5 High FINAL [facility], [address] [facility] [id number] 0 08/29 CBC w/ auto diff PLT x10^3/ uL 120.0 400.0 285 FINAL [facility], [address] [facility] [id number] 0 08/29 CBC w/ auto diff MPV fL 6.5 12.0 9.2 FINAL [facility], [address] [facility] [id number] 0 08/29 CBC w/ auto diff Smear revie w None [facility], [address] [place] [id number] 0 08/29 CBC w/ auto diff NRBC % /100WB C 0.0 9.0 0.0 [facility], [address] [facility] [id number] 0 08/29 CBC w/ auto diff NRBC, absol elem, x 10^3/ uL x10^3/ uL 0.0 0.1 0.00 [facility], [address] [facility] [id number] 0 08/29 CBC w/ auto diff Emily % % 40.0 70.0 62.4 FINAL [facility], [address] [facility] [id number] 0 08/29 CBC w/ auto diff LY % % 15.0 41.0 18.0 [facility], [address] [place] [id number] 0 08/29 CBC w/ auto diff MO % % 2.0 8.0 15.9 High [facility], [address] [facility] [id number] 0 08/29 CBC w/ auto diff EO % % 0.0 3.0 0.5 FINAL [facility], [address] [facility] [id number] 0 08/29 CBC w/ auto diff BA % % 0.0 1.0 2.1 High [facility], [address] [facility] [id number] 0 08/29 CBC w/ auto diff IG % % 0.0 1.0 1.1 High [facility], [address] [facility] [id number] 0 08/29 CBC w/ auto diff Emily # (ANC) x10^3/ uL 2.0 8.4 1.18 Low [facility], [address] [place] [id number] 0 08/29 CBC w/ auto diff LY # x10^3/ uL 0.7 5.1 0.34 Low FINAL [facility] [place], [address] [place] [id number] 0 08/29 CBC w/ auto diff MO # x10^3/ uL 0.0 1.6 0.30 FINAL [facility], [address] [place] [id number] 0 08/29 CBC w/ auto diff EO # x10^3/ uL 0.0 1.1 0.01 FINAL [facility], [address] [place] [id number] 0 08/29 CBC w/ auto diff BA # x10^3/ uL 0.0 0.2 0.04 FINAL [facility], [address] [facility] [id number] 0 08/29 CBC w/ auto diff IG # x10^3/ uL 0.0 0.1 0.02 FINAL [facility], [address] [facility] [id number] 0 08/29 CMP Bilir ubin, total mg/dL 0.3 1.0 0.4 FINAL [facility], [address] [facility] [id number] 0 08/29 CMP AST/S GOT U/L 13.0 39.0 24 FINAL [facility], [address] [facility] [id number] 0 08/29 CMP ALT/S GPT U/L 7.0 52.0 36 FINAL [facility], [address] [facility] [id number] 0 08/29 CMP Alkal ine phosp hatas e U/L 34.0 104.0 62 FINAL [facility], [address] [facility] [id number] 0 08/29 CMP Gluco se mg/dL 70.0 105.0 93 FINAL [facility], [address] [facility] [id number] 0 08/29 CMP BUN mg/dL 7.0 25.0 12 FINAL [facility], [address] [facility] [id number] 0 08/29 CMP Creat inine mg/dL 0.6 1.3 0.67 FINAL [facility], [address] [facility] [address] [facility] [id number] 0 08/29 CMP Calci um mg/dL 8.4 10.5 9.1 FINAL [facility], [address] [facility] [id number] 0 08/29 CMP Total prote in g/dL 6.3 8.2 7.0 FINAL [facility], [address] [facility] [facility] [id number] 0 08/29 CMP Album in g/dL 3.5 5.0 4.5 FINAL [facility], [address] [facility] [facility] [id number] 0 08/29 CMP Sodiu m mEq/L 135.0 145.0 138 FINAL [facility], [address] [facility] [facility] [id number] 0 08/29 CMP Potas sium mEq/L 3.4 5.0 4.1 FINAL [facility], [address] [facility] [facility] [id number] 0 08/29 CMP Chlor uri, mEq/L mEq/L 96.0 107.0 101 FINAL [facility], [address] [facility] [facility] [id number] 0 08/29 CMP CO2 whitney nt mEq/L 21.0 31.0 29 FINAL [facility], [address] [facility] [id number] 0 08/29 CMP GFR estim ate mL/min /1.73m 2 104 Normal Range:Nor mal renal function >or= 60Moderat srinivas decreased 30 - 59Severel y decreased 15 - 29Renal Failure < 15Please note the GFR value should be multiplie d by 1.210 if the patient is -A merican. FINAL [facility], [address] [facility] [id number] 0 09/05 CBC w/ auto diff WBC x10^3/ uL 4.4 10.4 2.66 Low FINAL [facility], [address] [facility] [id number] 0 09/05 CBC w/ auto diff RBC x10^6/ uL 4.2 5.4 3.68 Low FINAL [facility], [address] [facility] [id number] 0 09/05 CBC w/ auto diff HGB g/dL 12.0 16.0 10.9 Low FINAL [facility], [address] [facility] [id number] 0 09/05 CBC w/ auto diff HCT % 37.0 47.0 33.9 Low FINAL [facility], [address] [facility] [id number] 0 09/05 CBC w/ auto diff MCV fL 80.0 98.0 92.1 FINAL [facility], [address] [facility] [id number] 0 09/05 CBC w/ auto diff MCH pg 28.0 32.0 29.6 FINAL [facility], [address] [facility] [id number] 0 09/05 CBC w/ auto diff MCHC g/dL 30.7 34.7 32.2 FINAL [facility], [address] [facility] [id number] 0 09/05 CBC w/ auto diff RDW-S D 37.0 54.0 59.20 High FINAL [facility], [address] [facility] [id number] 0 09/05 CBC w/ auto diff RDW % 11.5 14.5 18.6 High FINAL [facility], [address] [facility] [id number] 0 09/05 CBC w/ auto diff PLT x10^3/ uL 120.0 400.0 235 FINAL [facility], [address] [facility] [id number] 0 09/05 CBC w/ auto diff MPV fL 6.5 12.0 9.3 FINAL [facility], [address] [facility] [id number] 0 09/05 CBC w/ auto diff Smear revie w None FINAL [facility], [address] [facility] [id number] 0 09/05 CBC w/ auto diff NRBC % /100WB C 0.0 9.0 0.8 FINAL [facility], [address] [facility] [id number] 0 09/05 CBC w/ auto diff NRBC, absol elem, x 10^3/ uL x10^3/ uL 0.0 0.1 0.02 FINAL [facility], [address] [facility] [id number] 0 09/05 CBC w/ auto diff Emily % % 40.0 70.0 7.5 Low FINAL [facility], [address] [facility] [id number] 0 09/05 CBC w/ auto diff LY % % 15.0 41.0 16.9 FINAL [facility], [address] [facility] [id number] 0 09/05 CBC w/ auto diff MO % % 2.0 8.0 39.5 High FINAL [facility], [address] [facility] [id number] 0 09/05 CBC w/ auto diff EO % % 0.0 3.0 1.5 [facility], [address] [facility] [id number] 0 09/05 CBC w/ auto diff BA % % 0.0 1.0 1.5 High [facility], [address] [facility] [id number] 0 09/05 CBC w/ auto diff IG % % 0.0 1.0 33.1 High FINAL [facility], [address] [facility] [id number] 0 09/05 CBC w/ auto diff Emily # (ANC) x10^3/ uL 2.0 8.4 0.20 Low FINAL [facility], [address] [facility] [id number] 0 09/05 CBC w/ auto diff LY # x10^3/ uL 0.7 5.1 0.45 Low FINAL [facility], [address] [facility] [id number] 0 09/05 CBC w/ auto diff MO # x10^3/ uL 0.0 1.6 1.05 FINAL [facility], [address] [facility] [id number] 0 09/05 CBC w/ auto diff EO # x10^3/ uL 0.0 1.1 0.04 FINAL [facility], [address] [facility] [id number] 0 09/05 CBC w/ auto diff BA # x10^3/ uL 0.0 0.2 0.04 FINAL [facility], [address] [facility] [id number] 0 09/05 CBC w/ auto diff IG # x10^3/ uL 0.0 0.1 0.88 High FINAL [facility], [address] [facility] [id number] 0 09/05 CMP Bilir ubin, total mg/dL 0.3 1.0 0.5 FINAL [facility], [address] [facility] [id number] 0 09/05 CMP AST/S GOT U/L 13.0 39.0 21 FINAL [facility], [address] [facility] [id number] 0 09/05 CMP ALT/S GPT U/L 7.0 52.0 30 FINAL [facility], [address] [facility] [id number] 0 09/05 CMP Alkal ine phosp hatas e U/L 34.0 104.0 66 FINAL [facility], [address] [facility] [id number] 0 09/05 CMP Gluco se mg/dL 70.0 105.0 113 High FINAL [facility], [address] [facility] [id number] 0 09/05 CMP BUN mg/dL 7.0 25.0 9 FINAL [facility], [address] [facility] [id number] 0 09/05 CMP Creat inine mg/dL 0.6 1.3 0.77 FINAL [facility], [address] [facility] [facility] [id number] 0 09/05 CMP Calci um mg/dL 8.4 10.5 9.5 FINAL [facility], [address] [facility] [id number] 0 09/05 CMP Total prote in g/dL 6.3 8.2 7.5 FINAL [facility], [address] [facility] [id number] 0 09/05 CMP Album in g/dL 3.5 5.0 4.8 FINAL [facility], [address] [facility] [id number] 0 09/05 CMP Sodiu m mEq/L 135.0 145.0 136 FINAL [facility], [address] [facility] [id number] 0 09/05 CMP Potas sium mEq/L 3.4 5.0 3.5 FINAL [facility], [address] [place], [place] [address]. [facility] [id number] 0 09/05 CMP Chlor uri, mEq/L mEq/L 96.0 107.0 101 FINAL [facility], [address] [facility] [facility] [id number] 0 09/05 CMP CO2 whitney nt mEq/L 21.0 31.0 29 FINAL [facility], [address] [facility] [facility] [id number] 0 09/05 CMP GFR estim ate mL/min /1.73m 2 89 Normal Range:Nor mal renal function >or= 60Moderat srinivas decreased 30 - 59Severel y decreased 15 - 29Renal Failure < 15Please note the GFR value should be multiplie d by 1.210 if the patient is -A merican. FINAL [facility] [place], [address] [facility] [id number] 0 09/12 CBC w/ auto diff WBC x10^3/ uL 4.4 10.4 3.40 Low FINAL Debbie Sánchez [place], [address] [facility] [id number] 0 09/12 CBC w/ auto diff RBC x10^6/ uL 4.2 5.4 3.95 Low FINAL Debbie Sánchez [place], [address] [facility] [id number] 0 09/12 CBC w/ auto diff HGB g/dL 12.0 16.0 11.4 Low FINAL Debbie Sánchez [place], [address] [facility] [id number] 0 09/12 CBC w/ auto diff HCT % 37.0 47.0 36.2 Low FINAL Debbie Sánchez [place], [address] [facility] [id number] 0 09/12 CBC w/ auto diff MCV fL 80.0 98.0 91.6 FINAL Debbie Sánchez [place], [address] [facility] [id number] 0 09/12 CBC w/ auto diff MCH pg 28.0 32.0 28.9 FINAL Debbie Sánchez [place], [address] [facility] [id number] 0 09/12 CBC w/ auto diff MCHC g/dL 30.7 34.7 31.5 FINAL Debbie Sánchez [place], [address] [facility] [id number] 0 09/12 CBC w/ auto diff RDW-S D 37.0 54.0 59.10 High FINAL Debbie Sánchez [place], [address] [facility] [id number] 0 09/12 CBC w/ auto diff RDW % 11.5 14.5 17.7 High FINAL Debbie Sánchez [place], [address] [facility] [id number] 0 09/12 CBC w/ auto diff PLT x10^3/ uL 120.0 400.0 183 FINAL Debbie jolly Sánchez [place], [address] [facility] [id number] 0 09/12 CBC w/ auto diff MPV fL 6.5 12.0 8.9 FINAL Debbie jolly Sánchez [place], [address] [facility] [id number] 0 09/12 CBC w/ auto diff Smear revie w None FINAL Debbie jolly Sánchez [place], [address] [facility] [id number] 0 09/12 CBC w/ auto diff NRBC % /100WB C 0.0 9.0 0.0 FINAL Debbie jolly Sánchez [place], [address] [facility] [id number] 0 09/12 CBC w/ auto diff NRBC, absol elem, x 10^3/ uL x10^3/ uL 0.0 0.1 0.00 FINAL Debbie jolly Sánchez [place], [address] [facility] [id number] 0 09/12 CBC w/ auto diff Emily % % 40.0 70.0 32.0 Low FINAL Debbienathen Sánchez [place], [address] [facility] [id number] 0 09/12 CBC w/ auto diff LY % % 15.0 41.0 45.3 High FINAL Debbie jolly Sánchez [place], [address] [facility] [id number] 0 09/12 CBC w/ auto diff MO % % 2.0 8.0 10.9 High FINAL Debbie jolly Sánchez [place], [address] [facility] [id number] 0 09/12 CBC w/ auto diff EO % % 0.0 3.0 3.8 High FINAL Debbie jolly Sánchez [place], [address] [facility] [id number] 0 09/12 CBC w/ auto diff BA % % 0.0 1.0 1.8 High FINAL Debbie jolly [place], [address] [place] [id number] 0 09/12 CBC w/ auto diff IG % % 0.0 1.0 6.2 High FINAL Debbie jolly [facility] [place], [address] [place] [id number] 0 09/12 CBC w/ auto diff Emily # (ANC) x10^3/ uL 2.0 8.4 1.09 Low FINAL Debbie jolly [place], [address] [facility] [id number] 0 09/12 CBC w/ auto diff LY # x10^3/ uL 0.7 5.1 1.54 FINAL Debbie jolly [place], [address] [facility] [id number] 0 09/12 CBC w/ auto diff MO # x10^3/ uL 0.0 1.6 0.37 FINAL Debbie jolly [place], [address] [facility] [id number] 0 09/12 CBC w/ auto diff EO # x10^3/ uL 0.0 1.1 0.13 FINAL Debbie jolly Sánchez [place], [address] [facility] [id number] 0 09/12 CBC w/ auto diff BA # x10^3/ uL 0.0 0.2 0.06 FINAL Debbie jolly Sánchez [place], [address] [facility] [id number] 0 09/12 CBC w/ auto diff IG # x10^3/ uL 0.0 0.1 0.21 High FINAL Debbie jolly Sánchez [place], [address] [facility] [id number] 0 09/12 CMP Bilir ubin, total mg/dL 0.3 1.0 0.5 FINAL Debbie jolly [facility] [place], [address] [facility] [id number] 0 09/12 CMP AST/S GOT U/L 13.0 39.0 19 FINAL Debbie jolly [facility] [place], [address] [facility] [id number] 0 09/12 CMP ALT/S GPT U/L 7.0 52.0 22 FINAL [facility] jolly [facility], [address] [facility] [id number] 0 09/12 CMP Alkal ine phosp hatas e U/L 34.0 104.0 58 FINAL [facility] jolly [facility], [address] [facility] [id number] 0 09/12 CMP Gluco se mg/dL 70.0 105.0 97 FINAL Debbie jolly [facility], [address] [facility] [id number] 0 09/12 CMP BUN mg/dL 7.0 25.0 10 FINAL [facility] jolly [facility], [address] [facility] [address] [facility] [id number] 0 09/12 CMP Creat inine mg/dL 0.6 1.3 0.88 FINAL [facility] jolly [facility], [address] [facility] [id number] 0 09/12 CMP Calci um mg/dL 8.4 10.5 9.4 FINAL [facility] jolly [facility], [address] [facility] [id number] 0 09/12 CMP Total prote in g/dL 6.3 8.2 7.6 FINAL [facility] jolly [facility], [address] [facility] [id number] 0 09/12 CMP Album in g/dL 3.5 5.0 4.7 FINAL [facility] jolly [facility], [address] [facility] [id number] 0 09/12 CMP Sodiu m mEq/L 135.0 145.0 136 FINAL [facility] jolly [facility], [address] [facility] [id number] 0 09/12 CMP Potas sium mEq/L 3.4 5.0 3.7 FINAL [facility] jolly [facility], [address] [facility] [id number] 0 09/12 CMP Chlor uri, mEq/L mEq/L 96.0 107.0 102 FINAL [facility] [place], [address] [facility] [facility] [id number] 0 09/12 CMP CO2 whitney nt mEq/L 21.0 31.0 29 FINAL [facility] [place], [address] [facility] [facility] [address] [facility] [id number] 0 09/12 CMP GFR estim ate mL/min /1.73m 2 76 Normal Range:Nor mal renal function >or= 60Moderat srinivas decreased 30 - 59Severel y decreased 15 - 29Renal Failure < 15Please note the GFR value should be multiplie d by 1.210 if the patient is -A merican. FINAL [facility] [place], [address] [facility]. [facility] [id number] 0 09/19 CBC w/ auto diff WBC x10^3/ uL 4.4 10.4 7.11 FINAL [facility] [place], [address] [facility]. [facility] [id number] 0 09/19 CBC w/ auto diff RBC x10^6/ uL 4.2 5.4 3.70 Low FINAL [facility], [address] [place], [place] [address]on [facility]. [facility] [id number] 0 09/19 CBC w/ auto diff HGB g/dL 12.0 16.0 11.0 Low FINAL [facility], [address] [place] [address]. [facility] [id number] 0 09/19 CBC w/ auto diff HCT % 37.0 47.0 34.1 Low FINAL [facility], [address] [place], [place] [address]on [facility]. [facility] [id number] 0 09/19 CBC w/ auto diff MCV fL 80.0 98.0 92.2 FINAL [facility] [place], [address] [facility] [id number] 0 09/19 CBC w/ auto diff MCH pg 28.0 32.0 29.7 FINAL [facility], [address] [facility] [address] [facility] [id number] 0 09/19 CBC w/ auto diff MCHC g/dL 30.7 34.7 32.3 [facility]AL [facility] [address] [facility] [id number] 0 09/19 CBC w/ auto diff RDW-S D 37.0 54.0 58.20 High [facility], [address] [facility] [id number] 0 09/19 CBC w/ auto diff RDW % 11.5 14.5 17.2 High [facility], [address] [facility] [id number] 0 09/19 CBC w/ auto diff PLT x10^3/ uL 120.0 400.0 207 [facility], [address] [facility] [id number] 0 09/19 CBC w/ auto diff MPV fL 6.5 12.0 8.9 [facility], [address] [facility] [id number] 0 09/19 CBC w/ auto diff Smear revie w None [facility], [address] [facility] [id number] 0 09/19 CBC w/ auto diff NRBC % /100WB C 0.0 9.0 0.0 [facility], [address] [facility] [id number] 0 09/19 CBC w/ auto diff NRBC, absol elem, x 10^3/ uL x10^3/ uL 0.0 0.1 0.00 [facility], [address] [facility] [id number] 0 09/19 CBC w/ auto diff Emily % % 40.0 70.0 59.6 [facility], [address] [facility] [id number] 0 09/19 CBC w/ auto diff LY % % 15.0 41.0 13.9 Low [facility], [address] [facility] [id number] 0 09/19 CBC w/ auto diff MO % % 2.0 8.0 13.1 High [facility], [address] [place] [id number] 0 09/19 CBC w/ auto diff EO % % 0.0 3.0 4.2 High FINAL [facility] [place], [address] [place] [id number] 0 09/19 CBC w/ auto diff BA % % 0.0 1.0 2.0 High FINAL [facility], [address] [place] [id number] 0 09/19 CBC w/ auto diff IG % % 0.0 1.0 7.2 High FINAL [facility], [address] [facility] [id number] 0 09/19 CBC w/ auto diff Emily # (ANC) x10^3/ uL 2.0 8.4 4.24 FINAL [facility], [address] [facility] [id number] 0 09/19 CBC w/ auto diff LY # x10^3/ uL 0.7 5.1 0.99 FINAL [facility], [address] [facility] [id number] 0 09/19 CBC w/ auto diff MO # x10^3/ uL 0.0 1.6 0.93 FINAL [facility], [address] [place] [id number] 0 09/19 CBC w/ auto diff EO # x10^3/ uL 0.0 1.1 0.30 FINAL [facility], [address] [facility] [id number] 0 09/19 CBC w/ auto diff BA # x10^3/ uL 0.0 0.2 0.14 [facility], [address] [facility] [id number] 0 09/19 CBC w/ auto diff IG # x10^3/ uL 0.0 0.1 0.51 High FINAL [facility], [address] [facility] [id number] 0 09/19 Magne sium panel Magne sium, mg/dL mg/dL 1.6 2.3 1.96 FINAL [facility], [address] [place] [id number] 0 09/19 CMP Bilir ubin, total mg/dL 0.3 1.0 0.3 FINAL [facility], [address] [place] [id number] 0 09/19 CMP AST/S GOT U/L 13.0 39.0 16 FINAL [facility], [address] [facility] [id number] 0 09/19 CMP ALT/S GPT U/L 7.0 52.0 20 FINAL [facility], [address] [facility] [id number] 0 09/19 CMP Alkal ine phosp hatas e U/L 34.0 104.0 107 High FINAL [facility], [address] [facility] [id number] 0 09/19 CMP Gluco se mg/dL 70.0 105.0 86 FINAL [facility], [address] [facility] [id number] 0 09/19 CMP BUN mg/dL 7.0 25.0 11 FINAL [facility], [address] [facility] [id number] 0 09/19 CMP Creat inine mg/dL 0.6 1.3 0.71 FINAL [facility], [address] [facility] [id number] 0 09/19 CMP Calci um mg/dL 8.4 10.5 9.3 FINAL [facility], [address] [facility] [id number] 0 09/19 CMP Total prote in g/dL 6.3 8.2 7.5 FINAL [facility], [address] [facility] [id number] 0 09/19 CMP Album in g/dL 3.5 5.0 4.7 FINAL [facility], [address] [facility] [id number] 0 09/19 CMP Sodiu m mEq/L 135.0 145.0 139 FINAL [facility], [address] [facility] [id number] 0 09/19 CMP Potas sium mEq/L 3.4 5.0 3.5 FINAL [facility], [address] [facility] [id number] 0 09/19 CMP Chlor uri, mEq/L mEq/L 96.0 107.0 102 FINAL [facility], [address] [facility]. [facility] [id number] 0 09/19 CMP CO2 whitney nt mEq/L 21.0 31.0 33 High FINAL [facility], [address] [facility]. [facility] [id number] 0 09/19 CMP GFR estim ate mL/min /1.73m 2 98 Normal Range:Nor mal renal function >or= 60Moderat srinivas decreased 30 - 59Severel y decreased 15 - 29Renal Failure < 15Please note the GFR value should be multiplie d by 1.210 if the patient is -A merican. FINAL [facility], [address] [facility]. [facility] [id number] 0 09/26 CMP Bilir ubin, total mg/dL 0.3 1.0 0.4 FINAL [facility], [address] [facility]. [facility] [id number] 0 09/26 CMP AST/S GOT U/L 13.0 39.0 17 FINAL [facility], [address] [facility]. [facility] [id number] 0 09/26 CMP ALT/S GPT U/L 7.0 52.0 19 FINAL [facility], [address] [facility] [id number] 0 09/26 CMP Alkal ine phosp hatas e U/L 34.0 104.0 142 High FINAL [facility], [address] [facility] [id number] 0 09/26 CMP Gluco se mg/dL 70.0 105.0 90 FINAL [facility], [address] [place], [place] [address]. [facility] [id number] 0 09/26 CMP BUN mg/dL 7.0 25.0 9 FINAL [facility], [address] [facility] [id number] 0 09/26 CMP Creat inine mg/dL 0.6 1.3 0.70 FINAL [facility], [address] [facility] [address] [facility] [id number] 0 09/26 CMP Calci um mg/dL 8.4 10.5 9.4 FINAL [facility], [address] [facility] [id number] 0 09/26 CMP Total prote in g/dL 6.3 8.2 7.3 FINAL [facility], [address] [facility]. [facility] [id number] 0 09/26 CMP Album in g/dL 3.5 5.0 4.5 FINAL [facility], [address] [facility]. [facility] [id number] 0 09/26 CMP Sodiu m mEq/L 135.0 145.0 137 FINAL [facility], [address] [facility] [id number] 0 09/26 CMP Potas sium mEq/L 3.4 5.0 4.1 FINAL [facility], [address] [facility]. [facility] [id number] 0 09/26 CMP Chlor uri, mEq/L mEq/L 96.0 107.0 102 FINAL [facility], [address] [facility] [id number] 0 09/26 CMP CO2 whitney nt mEq/L 21.0 31.0 31 FINAL [facility], [address] [facility] [id number] 0 09/26 CMP GFR estim ate mL/min /1.73m 2 99 Normal Range:Nor mal renal function >or= 60Moderat srinivas decreased 30 - 59Severel y decreased 15 - 29Renal Failure < 15Please note the GFR value should be multiplie d by 1.210 if the patient is -A merican. FINAL [facility] [place], [address] [facility] [id number] 0 09/26 CBC w/ auto diff WBC x10^3/ uL 4.4 10.4 10.01 FINAL [facility], [address] [facility] [id number] 0 09/26 CBC w/ auto diff RBC x10^6/ uL 4.2 5.4 3.61 Low FINAL [facility], [address] [facility] [id number] 0 09/26 CBC w/ auto diff HGB g/dL 12.0 16.0 10.8 Low FINAL [facility], [address] [facility] [id number] 0 09/26 CBC w/ auto diff HCT % 37.0 47.0 34.3 Low FINAL [facility], [address] [facility] [address] [facility] [id number] 0 09/26 CBC w/ auto diff MCV fL 80.0 98.0 95.0 FINAL [facility], [address] [facility] [id number] 0 09/26 CBC w/ auto diff MCH pg 28.0 32.0 29.9 FINAL [facility], [address] [facility] [id number] 0 09/26 CBC w/ auto diff MCHC g/dL 30.7 34.7 31.5 FINAL [facility], [address] [facility] [address] [facility] [id number] 0 09/26 CBC w/ auto diff RDW-S D 37.0 54.0 60.20 High FINAL [facility], [address] [facility] [id number] 0 09/26 CBC w/ auto diff RDW % 11.5 14.5 17.4 High FINAL [facility], [address] [facility] [id number] 0 09/26 CBC w/ auto diff PLT x10^3/ uL 120.0 400.0 211 FINAL [facility], [address] [facility] [id number] 0 09/26 CBC w/ auto diff MPV fL 6.5 12.0 9.1 FINAL [facility], [address] [facility] [id number] 0 09/26 CBC w/ auto diff Smear revie w None FINAL [facility], [address] [facility] [id number] 0 09/26 CBC w/ auto diff NRBC % /100WB C 0.0 9.0 0.0 FINAL [facility], [address] [facility] [id number] 0 09/26 CBC w/ auto diff NRBC, absol elem, x 10^3/ uL x10^3/ uL 0.0 0.1 0.00 FINAL [facility], [address] [facility] [id number] 0 09/26 CBC w/ auto diff Emily % % 40.0 70.0 65.6 FINAL [facility], [address] [facility] [id number] 0 09/26 CBC w/ auto diff LY % % 15.0 41.0 11.0 Low FINAL [facility], [address] [facility] [id number] 0 09/26 CBC w/ auto diff MO % % 2.0 8.0 7.6 FINAL [facility], [address] [facility] [id number] 0 09/26 CBC w/ auto diff EO % % 0.0 3.0 2.2 FINAL [facility], [address] [facility] [id number] 0 09/26 CBC w/ auto diff BA % % 0.0 1.0 0.6 FINAL [facility], [address] [facility] [id number] 0 09/26 CBC w/ auto diff IG % % 0.0 1.0 13.0 High FINAL [facility], [address] [facility] [id number] 0 09/26 CBC w/ auto diff Emily # (ANC) x10^3/ uL 2.0 8.4 6.57 FINAL [facility], [address] [facility] [id number] 0 09/26 CBC w/ auto diff LY # x10^3/ uL 0.7 5.1 1.10 FINAL [facility], [address] [facility] [id number] 0 09/26 CBC w/ auto diff MO # x10^3/ uL 0.0 1.6 0.76 FINAL [facility], [address] [facility] [id number] 0 09/26 CBC w/ auto diff EO # x10^3/ uL 0.0 1.1 0.22 FINAL [facility], [address] [facility] [id number] 0 09/26 CBC w/ auto diff BA # x10^3/ uL 0.0 0.2 0.06 FINAL [facility], [address] [facility] [id number] 0 09/26 CBC w/ auto diff IG # x10^3/ uL 0.0 0.1 1.30 High FINAL [facility], [address] [facility] [id number] 0 10/03 CBC w/ auto diff WBC x10^3/ uL 4.4 10.4 7.48 FINAL [facility], [address] [facility] [id number] 0 10/03 CBC w/ auto diff RBC x10^6/ uL 4.2 5.4 3.67 Low FINAL [facility], [address] [facility] [id number] 0 10/03 CBC w/ auto diff HGB g/dL 12.0 16.0 11.1 Low FINAL [facility], [address] [facility] [id number] 0 10/03 CBC w/ auto diff HCT % 37.0 47.0 35.0 Low FINAL [facility], [address] [facility] [id number] 0 10/03 CBC w/ auto diff MCV fL 80.0 98.0 95.4 FINAL [facility], [address] [facility] [id number] 0 10/03 CBC w/ auto diff MCH pg 28.0 32.0 30.2 FINAL [facility], [address] [facility] [address] [facility] [id number] 0 10/03 CBC w/ auto diff MCHC g/dL 30.7 34.7 31.7 FINAL [facility], [address] [facility] [address] [facility] [id number] 0 10/03 CBC w/ auto diff RDW-S D 37.0 54.0 59.40 High FINAL [facility], [address] [facility] [address] [facility] [id number] 0 10/03 CBC w/ auto diff RDW % 11.5 14.5 17.0 High FINAL [facility], [address] [facility] [place] [facility]. [facility] [id number] 0 10/03 CBC w/ auto diff PLT x10^3/ uL 120.0 400.0 253 FINAL [facility], [address] [facility]. [facility] [id number] 0 10/03 CBC w/ auto diff MPV fL 6.5 12.0 8.8 [facility], [address] [facility] [place] [facility]. [facility] [id number] 0 10/03 CBC w/ auto diff Smear revie w None FINAL [facility], [address] [facility] [id number] 0 10/03 CBC w/ auto diff NRBC % /100WB C 0.0 9.0 0.0 [facility], [address] [facility] [id number] 0 10/03 CBC w/ auto diff NRBC, absol elem, x 10^3/ uL x10^3/ uL 0.0 0.1 0.00 FINAL [facility], [address] [facility] [address] [facility] [id number] 0 10/03 CBC w/ auto diff Emily % % 40.0 70.0 61.6 FINAL [facility] [place], [address] [facility] [id number] 0 10/03 CBC w/ auto diff LY % % 15.0 41.0 12.7 Low FINAL [facility] [place], [address] [facility] [id number] 0 10/03 CBC w/ auto diff MO % % 2.0 8.0 10.3 High [facility] [address] [facility] [id number] 0 10/03 CBC w/ auto diff EO % % 0.0 3.0 2.4 FINAL [facility] [place], [address] [facility] [id number] 0 10/03 CBC w/ auto diff BA % % 0.0 1.0 2.7 High [facility], [address] [facility] [id number] 0 10/03 CBC w/ auto diff IG % % 0.0 1.0 10.3 High [facility], [address] [facility] [id number] 0 10/03 CBC w/ auto diff Emily # (ANC) x10^3/ uL 2.0 8.4 4.61 [facility], [address] [facility] [id number] 0 10/03 CBC w/ auto diff LY # x10^3/ uL 0.7 5.1 0.95 [facility], [address] [facility] [id number] 0 10/03 CBC w/ auto diff MO # x10^3/ uL 0.0 1.6 0.77 FINAL [facility] [place], [address] [facility] [id number] 0 10/03 CBC w/ auto diff EO # x10^3/ uL 0.0 1.1 0.18 FINAL [facility] [place], [address] [facility] [id number] 0 11/08 /2023 CBC w/ auto diff BA # x10^3/ uL 0.0 0.2 0.20 FINAL [facility], [address] [facility] [id number] 0 10/03 CBC w/ auto diff IG # x10^3/ uL 0.0 0.1 0.77 High FINAL [facility], [address] [facility] [id number] 0 10/03 CMP Bilir ubin, total mg/dL 0.3 1.0 0.4 FINAL [facility], [address] [facility] [id number] 0 10/03 CMP AST/S GOT U/L 13.0 39.0 26 FINAL [facility], [address] [facility] [address] [address] [facility] [id number] 0 10/03 CMP ALT/S GPT U/L 7.0 52.0 38 FINAL [facility], [address] [facility] [id number] 0 10/03 CMP Alkal ine phosp hatas e U/L 34.0 104.0 137 High FINAL [facility], [address] [facility] [id number] 0 10/03 CMP Gluco se mg/dL 70.0 105.0 91 FINAL [facility], [address] [place], [place] [address] [place] [address] [facility] [id number] 0 10/03 CMP BUN mg/dL 7.0 25.0 12 FINAL [facility], [address] [facility] [id number] 0 10/03 CMP Creat inine mg/dL 0.6 1.3 0.73 FINAL [facility], [address] [facility] [id number] 0 10/03 CMP Calci um mg/dL 8.4 10.5 9.5 FINAL [facility], [address] [facility] [id number] 0 10/03 CMP Total prote in g/dL 6.3 8.2 7.4 [facility] [address] [facility] [address] [address] [facility] [id number] 0 10/03 CMP Album in g/dL 3.5 5.0 4.8 FINAL [facility], [address] [facility] [address] [facility] [id number] 0 10/03 CMP Sodiu m mEq/L 135.0 145.0 139 FINAL [facility], [address] [facility] [address] [facility] [id number] 0 10/03 CMP Potas sium mEq/L 3.4 5.0 3.8 FINAL [facility], [address] [facility] [address] [facility] [id number] 0 10/03 CMP Chlor uri, mEq/L mEq/L 96.0 107.0 102 FINAL [facility], [address] [facility] [address] [facility] [id number] 0 10/03 CMP CO2 whitney nt mEq/L 21.0 31.0 30 FINAL [facility], [address] [facility] [id number] 0 10/03 CMP GFR estim ate mL/min /1.73m 2 95 Normal Range:Nor mal renal function >or= 60Moderat srinivas decreased 30 - 59Severel y decreased 15 - 29Renal Failure < 15Please note the GFR value should be multiplie d by 1.210 if the patient is -A merican. FINAL [facility], [address] [facility] [facility] [id number] 0 10/10 CBC w/ auto diff WBC x10^3/ uL 4.4 10.4 4.43 FINAL [facility], [address] [facility] [id number] 0 10/10 CBC w/ auto diff RBC x10^6/ uL 4.2 5.4 3.51 Low FINAL [facility], [address] [facility] [address] [facility] [id number] 0 10/10 CBC w/ auto diff HGB g/dL 12.0 16.0 10.8 Low FINAL [facility], [address] [facility] [address] [facility] [id number] 0 10/10 CBC w/ auto diff HCT % 37.0 47.0 33.5 Low FINAL [facility], [address] [facility] [id number] 0 10/10 CBC w/ auto diff MCV fL 80.0 98.0 95.4 FINAL [facility], [address] [facility] [id number] 0 10/10 CBC w/ auto diff MCH pg 28.0 32.0 30.8 FINAL [facility], [address] [facility] [id number] 0 10/10 CBC w/ auto diff MCHC g/dL 30.7 34.7 32.2 FINAL [facility], [address] [facility] [address] [facility] [id number] 0 10/10 CBC w/ auto diff RDW-S D 37.0 54.0 57.60 High FINAL [facility], [address] [facility] [address] [facility] [id number] 0 10/10 CBC w/ auto diff RDW % 11.5 14.5 16.5 High FINAL [facility], [address] [facility] [address] [facility] [id number] 0 10/10 CBC w/ auto diff PLT x10^3/ uL 120.0 400.0 252 FINAL [facility], [address] [facility] [facility] [id number] 0 10/10 CBC w/ auto diff MPV fL 6.5 12.0 9.4 FINAL [facility], [address] [facility] [address] [facility] [id number] 0 10/10 CBC w/ auto diff NRBC % /100WB C 0.0 9.0 0.0 FINAL [facility], [address] [facility] [id number] 0 10/10 CBC w/ auto diff NRBC, absol elem, x 10^3/ uL x10^3/ uL 0.0 0.1 0.00 FINAL [facility], [address] [facility] [address] [facility] [id number] 0 10/10 CBC w/ auto diff Emiyl # (ANC) x10^3/ uL 2.0 8.4 2.46 FINAL [facility], [address] [facility] [id number] 0 10/10 CMP Bilir ubin, total mg/dL 0.3 1.0 0.4 FINAL [facility], [address] [facility] [id number] 0 10/10 CMP AST/S GOT U/L 13.0 39.0 27 FINAL [facility], [address] [facility] [id number] 0 10/10 CMP ALT/S GPT U/L 7.0 52.0 51 FINAL [facility], [address] [facility] [id number] 0 10/10 CMP Alkal ine phosp hatas e U/L 34.0 104.0 117 High FINAL [facility], [address] [facility] [id number] 0 10/10 CMP Gluco se mg/dL 70.0 105.0 87 FINAL [facility], [address] [facility] [id number] 0 10/10 CMP BUN mg/dL 7.0 25.0 14 FINAL [facility], [address] [facility] [id number] 0 10/10 CMP Creat inine mg/dL 0.6 1.3 0.81 FINAL [facility], [address] [facility] [id number] 0 10/10 CMP Calci um mg/dL 8.4 10.5 9.2 FINAL [facility], [address] [facility] [id number] 0 10/10 CMP Total prote in g/dL 6.3 8.2 7.2 FINAL [facility], [address] [facility] [id number] 0 10/10 CMP Album in g/dL 3.5 5.0 4.6 FINAL [facility], [address] [facility] [id number] 0 10/10 CMP Sodiu m mEq/L 135.0 145.0 136 FINAL [facility], [address] [address] [facility] [id number] 0 10/10 CMP Potas sium mEq/L 3.4 5.0 3.6 FINAL [facility], [address] [facility] [id number] 0 10/10 CMP Chlor uri, mEq/L mEq/L 96.0 107.0 102 FINAL [facility], [address] [facility] [facility] [id number] 0 10/10 CMP CO2 whitney nt mEq/L 21.0 31.0 29 FINAL [facility], [address] [facility] [id number] 0 10/10 CMP GFR estim ate mL/min /1.73m 2 84 Normal Range:Nor mal renal function >or= 60Moderat srinivas decreased 30 - 59Severel y decreased 15 - 29Renal Failure < 15Please note the GFR value should be multiplie d by 1.210 if the patient is -A merican. FINAL [facility], [address] [facility] [facility] [id number] 0 10/10 Manua l diffe renti al Neutr ophil % (M) % 35.0 65.0 56 FINAL [facility], [address] [facility] [id number] 0 10/10 Manua l diffe renti al Band % % 0.0 5.0 6 High FINAL [facility], [address] [facility] [facility] [id number] 0 10/10 Manua l diffe renti al Lymph ocyte % % 15.0 41.0 23 FINAL [facility], [address] [facility] [id number] 0 10/10 Manua l diffe renti al Monoc yte % % 4.0 10.0 11 High FINAL [facility], [address] [facility] [id number] 0 10/10 Manua l diffe renti al Eosin ophil % % 0.0 6.0 0 FINAL [facility], [address] [facility] [id number] 0 10/10 Manua l diffe renti al Basop hil % % 0.0 2.0 0 FINAL [facility], [address] [facility] [id number] 0 10/10 Manua l diffe renti al Metam yeloc yte % % 0.0 0.0 2 High FINAL [facility], [address] [facility] [id number] 0 10/10 Manua l diffe renti al Myelo cyte % % 0.0 0.0 2 High FINAL [facility], [address] [facility] [id number] 0 10/10 Manua l diffe renti al Promy elocy te % % 0.0 0.0 0 FINAL [facility], [address] [facility] [id number] 0 10/10 Manua l diffe renti al Blast s % % 0.0 0.0 0 FINAL [facility], [address] [facility] [id number] 0 10/10 Manua l diffe renti al Atypi susan/V efren t I lymph ocyte % % 0.0 0.0 0 FINAL [facility], [address] [facility] [id number] 0 10/10 Manua l diffe renti al Hairy cell % 0.0 0.0 0 FINAL [facility], [address] [facility] [id number] 0 10/10 Manua l diffe renti al Plasm a cell % 0.0 0.0 0 FINAL [facility], [address] [facility] [id number] 0 10/10 Manua l diffe renti al Immat ure cell, % (M) % 0.0 0.0 0 FINAL [facility], [address] [facility] [id number] 0 10/10 Manua l diffe renti al NRBC (M) % 0.0 0.0 0 FINAL [facility], [address] [facility] [id number] 0 10/10 Manua l diffe renti al Plate let estim ate Adequat e FINAL [facility], [address] [facility] [id number] 0 10/10 Manua l diffe renti al Aniso cytos is (size ) 1+ FINAL [facility], [address] [facility] [id number] 0 10/10 Manua l diffe renti al Ovalo cyte SLIGHT FINAL [facility], [address] [facility] [id number] 0 10/10 Manua l diffe renti al Schis tocyt e Slight FINAL [facility], [address] [facility] [id number] 0 10/10 Manua l diffe renti al Teard rop cells Slight FINAL [facility], [address] [facility] [id number] 0 10/10 Manua l diffe renti al Manua l diff other None FINAL [facility], [address] [facility] [id number] 0 10/24 CBC w/ auto diff WBC x10^3/ uL 4.4 10.4 2.47 Low FINAL [facility], [address] [facility] [id number] 0 10/24 CBC w/ auto diff RBC x10^6/ uL 4.2 5.4 3.48 Low FINAL [facility], [address] [facility] [id number] 0 10/24 CBC w/ auto diff HGB g/dL 12.0 16.0 10.6 Low FINAL [facility], [address] [facility] [id number] 0 10/24 CBC w/ auto diff HCT % 37.0 47.0 34.5 Low FINAL [facility], [address] [facility] [id number] 0 10/24 CBC w/ auto diff MCV fL 80.0 98.0 99.1 High FINAL [facility], [address] [facility] [id number] 0 10/24 CBC w/ auto diff MCH pg 28.0 32.0 30.5 FINAL [facility], [address] [facility] [id number] 0 10/24 CBC w/ auto diff MCHC g/dL 30.7 34.7 30.7 FINAL [facility], [address] [facility] [id number] 0 10/24 CBC w/ auto diff RDW-S D 37.0 54.0 53.90 FINAL [facility], [address] [facility] [id number] 0 10/24 CBC w/ auto diff RDW % 11.5 14.5 14.7 High FINAL [facility], [address] [facility] [id number] 0 10/24 CBC w/ auto diff PLT x10^3/ uL 120.0 400.0 262 FINAL [facility], [address] [facility] [id number] 0 10/24 CBC w/ auto diff MPV fL 6.5 12.0 9.0 FINAL [facility], [address] [facility] [id number] 0 10/24 CBC w/ auto diff Smear revie w None FINAL [facility], [address] [facility] [id number] 0 10/24 CBC w/ auto diff NRBC % /100WB C 0.0 9.0 0.0 FINAL [facility], [address] [facility] [id number] 0 10/24 CBC w/ auto diff NRBC, absol elem, x 10^3/ uL x10^3/ uL 0.0 0.1 0.00 FINAL [facility] [place], [address] [place] [id number] 0 10/24 CBC w/ auto diff Emily % % 40.0 70.0 46.5 FINAL [facility] [place], [address] [place] [id number] 0 10/24 CBC w/ auto diff LY % % 15.0 41.0 33.6 FINAL [facility] [place], [address] [place] [id number] 0 10/24 CBC w/ auto diff MO % % 2.0 8.0 12.6 High FINAL [facility] [place], [address] [facility] [id number] 0 10/24 CBC w/ auto diff EO % % 0.0 3.0 4.9 High FINAL [facility] [place], [address] [facility] [id number] 0 10/24 CBC w/ auto diff BA % % 0.0 1.0 1.2 High FINAL [facility] [place], [address] [facility] [id number] 0 10/24 CBC w/ auto diff IG % % 0.0 1.0 1.2 High FINAL [facility] [place], [address] [facility] [id number] 0 10/24 CBC w/ auto diff Emily # (ANC) x10^3/ uL 2.0 8.4 1.15 Low FINAL [facility] [place], [address] [facility] [id number] 0 10/24 CBC w/ auto diff LY # x10^3/ uL 0.7 5.1 0.83 FINAL [facility] [place], [address] [facility] [id number] 0 10/24 CBC w/ auto diff MO # x10^3/ uL 0.0 1.6 0.31 FINAL [facility] [place], [address] [facility] [id number] 0 10/24 CBC w/ auto diff EO # x10^3/ uL 0.0 1.1 0.12 FINAL [facility] [place], [address] [place] [id number] 0 10/24 CBC w/ auto diff BA # x10^3/ uL 0.0 0.2 0.03 FINAL [facility] [place], [address] [place] [id number] 0 10/24 CBC w/ auto diff IG # x10^3/ uL 0.0 0.1 0.03 [facility] [address] [place] [id number] 0 10/24 CMP Bilir ubin, total mg/dL 0.3 1.0 0.5 FINAL [facility], [address] [place] [id number] 0 10/24 CMP AST/S GOT U/L 13.0 39.0 17 FINAL [facility], [address] [facility] [id number] 0 10/24 CMP ALT/S GPT U/L 7.0 52.0 20 FINAL [facility], [address] [facility] [id number] 0 10/24 CMP Alkal ine phosp hatas e U/L 34.0 104.0 78 FINAL [facility], [address] [facility] [id number] 0 10/24 CMP Gluco se mg/dL 70.0 105.0 88 FINAL [facility], [address] [place] [id number] 0 10/24 CMP BUN mg/dL 7.0 25.0 11 [facility] [address] [facility] [id number] 0 10/24 CMP Creat inine mg/dL 0.6 1.3 0.73 FINAL [facility] [place], [address] [place] [id number] 0 10/24 CMP Calci um mg/dL 8.4 10.5 9.4 [facility] [address] [place] [id number] 0 10/24 CMP Total prote in g/dL 6.3 8.2 7.0 FINAL [facility], [address] [facility] [address] [facility] [id number] 0 10/24 CMP Album in g/dL 3.5 5.0 4.5 FINAL [facility], [address] [facility] [id number] 0 10/24 CMP Sodiu m mEq/L 135.0 145.0 139 FINAL [facility], [address] [facility] [id number] 0 10/24 CMP Potas sium mEq/L 3.4 5.0 4.0 FINAL [facility], [address] [facility] [id number] 0 10/24 CMP Chlor uri, mEq/L mEq/L 96.0 107.0 103 FINAL [facility], [address] [facility]. [facility] [id number] 0 10/24 CMP CO2 whitney nt mEq/L 21.0 31.0 31 FINAL [facility], [address] [facility] [id number] 0 10/24 CMP GFR estim ate mL/min /1.73m 2 94 Normal Range:Nor mal renal function >or= 60Moderat srinivas decreased 30 - 59Severel y decreased 15 - 29Renal Failure < 15Please note the GFR value should be multiplie d by 1.210 if the patient is -A merican. FINAL [facility], [address] [facility]. [facility] [id number] 0 10/31 Manua l diffe renti al Neutr ophil % (M) % 35.0 65.0 63 FINAL [facility], [address] [place], [place] [address]on [facility] [id number] 0 10/31 Manua l diffe renti al Band % % 0.0 5.0 2 FINAL [facility], [address] [place], [place] [address]on [facility] [id number] 0 10/31 Manua l diffe renti al Lymph ocyte % % 15.0 41.0 15 FINAL [facility], [address] [facility] [id number] 0 10/31 Manua l diffe renti al Monoc yte % % 4.0 10.0 9 FINAL [facility], [address] [facility] [id number] 0 10/31 Manua l diffe renti al Eosin ophil % % 0.0 6.0 1 FINAL [facility], [address] [facility] [id number] 0 10/31 Manua l diffe renti al Basop hil % % 0.0 2.0 1 FINAL [facility], [address] [facility] [id number] 0 10/31 Manua l diffe renti al Metam yeloc yte % % 0.0 0.0 7 High FINAL [facility], [address] [facility] [id number] 0 10/31 Manua l diffe renti al Myelo cyte % % 0.0 0.0 2 High FINAL [facility], [address] [facility] [id number] 0 10/31 Manua l diffe renti al Promy elocy te % % 0.0 0.0 0 FINAL [facility], [address] [facility] [id number] 0 10/31 Manua l diffe renti al Blast s % % 0.0 0.0 0 FINAL [facility], [address] [facility] [id number] 0 10/31 Manua l diffe renti al Atypi susan/V efren t I lymph ocyte % % 0.0 0.0 0 FINAL [facility], [address] [facility] [id number] 0 10/31 Manua l diffe renti al Hairy cell % 0.0 0.0 0 FINAL [facility], [address] [facility] [id number] 0 10/31 Manua l diffe renti al Plasm a cell % 0.0 0.0 0 FINAL [facility], [address] [facility] [id number] 0 10/31 Manua l diffe renti al Immat ure cell, % (M) % 0.0 0.0 0 FINAL [facility], [address] [facility] [id number] 0 10/31 Manua l diffe renti al NRBC (M) % 0.0 0.0 0 FINAL [facility], [address] [facility] [id number] 0 10/31 Manua l diffe renti al Plate let estim ate Adequat e FINAL [facility], [address] [facility] [id number] 0 10/31 Manua l diffe renti al Aniso cytos is (size ) 1+ FINAL [facility], [address] [facility] [id number] 0 10/31 Manua l diffe renti al Poiki locyt osis (shap e) 1+ FINAL [facility], [address] [facility] [id number] 0 10/31 Manua l diffe renti al Polyc hroma slim (M) Slight FINAL [facility], [address] [facility] [id number] 0 10/31 Manua l diffe renti al Manua l diff other None FINAL [facility], [address] [facility] [id number] 0 10/31 CBC w/ auto diff WBC x10^3/ uL 4.4 10.4 7.46 FINAL [facility], [address] [facility] [id number] 0 10/31 CBC w/ auto diff RBC x10^6/ uL 4.2 5.4 3.48 Low [facility] [address] [facility] [id number] 0 10/31 CBC w/ auto diff HGB g/dL 12.0 16.0 10.7 Low [facility] [address] [facility] [id number] 0 10/31 CBC w/ auto diff HCT % 37.0 47.0 33.6 Low [facility] [address] [facility] [id number] 0 10/31 CBC w/ auto diff MCV fL 80.0 98.0 96.6 [facility] [address] [facility] [id number] 0 10/31 CBC w/ auto diff MCH pg 28.0 32.0 30.7 [facility]AL [facility] [address] [facility] [id number] 0 10/31 CBC w/ auto diff MCHC g/dL 30.7 34.7 31.8 [facility]AL [facility] [address] [facility] [id number] 0 10/31 CBC w/ auto diff RDW-S D 37.0 54.0 50.90 FINAL [facility] [address] [facility] [id number] 0 10/31 CBC w/ auto diff RDW % 11.5 14.5 14.6 High [facility]AL [facility] [address] [facility] [id number] 0 10/31 CBC w/ auto diff PLT x10^3/ uL 120.0 400.0 226 [facility] [address] [facility] [id number] 0 10/31 CBC w/ auto diff MPV fL 6.5 12.0 9.1 FINAL [facility] [address] [facility] [id number] 0 10/31 CBC w/ auto diff NRBC % /100WB C 0.0 9.0 0.0 FINAL [facility], [address] [facility] [id number] 0 10/31 CBC w/ auto diff NRBC, absol elem, x 10^3/ uL x10^3/ uL 0.0 0.1 0.00 FINAL [facility], [address] [facility] [id number] 0 10/31 CBC w/ auto diff Emily # (ANC) x10^3/ uL 2.0 8.4 4.26 FINAL [facility], [address] [facility] [id number] 0 10/31 CMP Bilir ubin, total mg/dL 0.3 1.0 0.3 FINAL [facility], [address] [facility] [id number] 0 10/31 CMP AST/S GOT U/L 13.0 39.0 19 FINAL [facility], [address] [facility] [id number] 0 10/31 CMP ALT/S GPT U/L 7.0 52.0 19 FINAL [facility], [address] [facility] [id number] 0 10/31 CMP Alkal ine phosp hatas e U/L 34.0 104.0 111 High FINAL [facility], [address] [facility] [id number] 0 10/31 CMP Gluco se mg/dL 70.0 105.0 91 FINAL [facility], [address] [facility] [id number] 0 10/31 CMP BUN mg/dL 7.0 25.0 11 FINAL [facility], [address] [facility] [id number] 0 10/31 CMP Creat inine mg/dL 0.6 1.3 0.79 FINAL [facility], [address] [facility] [id number] 0 10/31 CMP Calci um mg/dL 8.4 10.5 9.5 FINAL [facility], [address] [facility] [id number] 0 10/31 CMP Total prote in g/dL 6.3 8.2 7.4 FINAL [facility], [address] [facility] [id number] 0 10/31 CMP Album in g/dL 3.5 5.0 4.6 FINAL [facility], [address] [place] [id number] 0 10/31 CMP Sodiu m mEq/L 135.0 145.0 136 FINAL [facility], [address] [facility] [address] [facility] [id number] 0 10/31 CMP Potas sium mEq/L 3.4 5.0 3.9 FINAL [facility], [address] [facility] [address] [facility] [id number] 0 10/31 CMP Chlor uri, mEq/L mEq/L 96.0 107.0 102 FINAL [facility], [address] [facility] [address] [facility] [id number] 0 10/31 CMP CO2 whitney nt mEq/L 21.0 31.0 29 FINAL [facility], [address] [facility] [id number] 0 10/31 CMP GFR estim ate mL/min /1.73m 2 86 Normal Range:Nor mal renal function >or= 60Moderat srinivas decreased 30 - 59Severel y decreased 15 - 29Renal Failure < 15Please note the GFR value should be multiplie d by 1.210 if the patient is -A merican. FINAL [facility], [address] [facility] [id number] 0 11/07 CBC w/ auto diff WBC x10^3/ uL 4.4 10.4 9.63 FINAL [facility] [place], [address] [facility] [id number] 0 11/07 CBC w/ auto diff RBC x10^6/ uL 4.2 5.4 3.59 Low FINAL [facility], [address] [facility] [id number] 0 11/07 CBC w/ auto diff HGB g/dL 12.0 16.0 10.9 Low FINAL [facility], [address] [facility] [id number] 0 11/07 CBC w/ auto diff HCT % 37.0 47.0 34.8 Low FINAL [facility], [address] [facility] [id number] 0 11/07 CBC w/ auto diff MCV fL 80.0 98.0 96.9 FINAL [facility], [address] [facility] [id number] 0 11/07 CBC w/ auto diff MCH pg 28.0 32.0 30.4 FINAL [facility], [address] [facility] [id number] 0 11/07 CBC w/ auto diff MCHC g/dL 30.7 34.7 31.3 FINAL [facility], [address] [facility] [id number] 0 11/07 CBC w/ auto diff RDW-S D 37.0 54.0 51.10 FINAL [facility], [address] [facility] [id number] 0 11/07 CBC w/ auto diff RDW % 11.5 14.5 14.5 FINAL [facility], [address] [facility] [id number] 0 11/07 CBC w/ auto diff PLT x10^3/ uL 120.0 400.0 188 FINAL [facility], [address] [facility] [id number] 0 11/07 CBC w/ auto diff MPV fL 6.5 12.0 9.4 FINAL [facility], [address] [facility] [id number] 0 11/07 CBC w/ auto diff Smear revie w None FINAL [facility], [address] [facility] [id number] 0 11/07 CBC w/ auto diff NRBC % /100WB C 0.0 9.0 0.0 [facility] [address] [facility] [id number] 0 11/07 CBC w/ auto diff NRBC, absol elem, x 10^3/ uL x10^3/ uL 0.0 0.1 0.00 [facility]AL [facility] [address] [facility] [id number] 0 11/07 CBC w/ auto diff Emily % % 40.0 70.0 75.9 High [facility] [address] [facility] [id number] 0 11/07 CBC w/ auto diff LY % % 15.0 41.0 9.9 Low [facility] [address] [facility] [id number] 0 11/07 CBC w/ auto diff MO % % 2.0 8.0 6.7 [facility] [address] [facility] [id number] 0 11/07 CBC w/ auto diff EO % % 0.0 3.0 1.2 [facility] [address] [facility] [id number] 0 11/07 CBC w/ auto diff BA % % 0.0 1.0 0.4 [facility] [address] [facility] [id number] 0 11/07 CBC w/ auto diff IG % % 0.0 1.0 5.9 High [facility] [address] [facility] [id number] 0 11/07 CBC w/ auto diff Emily # (ANC) x10^3/ uL 2.0 8.4 7.30 [facility] [address] [facility] [id number] 0 11/07 CBC w/ auto diff LY # x10^3/ uL 0.7 5.1 0.95 [facility] [address] [facility] [id number] 0 11/07 CBC w/ auto diff MO # x10^3/ uL 0.0 1.6 0.65 [facility] [address] [facility] [id number] 0 11/07 CBC w/ auto diff EO # x10^3/ uL 0.0 1.1 0.12 FINAL [facility], [address] [facility] [id number] 0 11/07 CBC w/ auto diff BA # x10^3/ uL 0.0 0.2 0.04 FINAL [facility], [address] [facility] [id number] 0 11/07 CBC w/ auto diff IG # x10^3/ uL 0.0 0.1 0.57 High FINAL [facility], [address] [facility] [id number] 0 11/07 CMP Bilir ubin, total mg/dL 0.3 1.0 0.3 FINAL [facility], [address] [facility] [id number] 0 11/07 CMP AST/S GOT U/L 13.0 39.0 22 FINAL [facility], [address] [facility] [id number] 0 11/07 CMP ALT/S GPT U/L 7.0 52.0 25 FINAL [facility], [address] [facility] [id number] 0 11/07 CMP Alkal ine phosp hatas e U/L 34.0 104.0 146 High FINAL [facility], [address] [facility] [id number] 0 11/07 CMP Gluco se mg/dL 70.0 105.0 97 FINAL [facility], [address] [facility] [id number] 0 11/07 CMP BUN mg/dL 7.0 25.0 11 FINAL [facility], [address] [facility] [id number] 0 11/07 CMP Creat inine mg/dL 0.6 1.3 0.72 FINAL [facility], [address] [facility] [id number] 0 11/07 CMP Calci um mg/dL 8.4 10.5 9.5 FINAL [facility], [address] [facility] [id number] 0 11/07 CMP Total prote in g/dL 6.3 8.2 7.2 FINAL [facility], [address] [facility] [id number] 0 11/07 CMP Album in g/dL 3.5 5.0 4.4 FINAL [facility], [address] [facility] [id number] 0 11/07 CMP Sodiu m mEq/L 135.0 145.0 137 FINAL [facility], [address] [facility] [id number] 0 11/07 CMP Potas sium mEq/L 3.4 5.0 4.3 FINAL [facility], [address] [facility] [id number] 0 11/07 CMP Chlor uri, mEq/L mEq/L 96.0 107.0 103 FINAL [facility], [address] [facility] [id number] 0 11/07 CMP CO2 whitney nt mEq/L 21.0 31.0 30 FINAL [facility], [address] [facility] [id number] 0 11/07 CMP GFR estim ate mL/min /1.73m 2 96 Normal Range:Nor mal renal function >or= 60Moderat srinivas decreased 30 - 59Severel y decreased 15 - 29Renal Failure < 15Please note the GFR value should be multiplie d by 1.210 if the patient is -A merican. FINAL [facility], [address] [facility] [id number] 0 11/14 CMP Bilir ubin, total mg/dL 0.3 1.0 0.3 FINAL [facility], [address] [place] [id number] 0 11/14 CMP AST/S GOT U/L 13.0 39.0 17 FINAL [facility], [address] [place] [id number] 0 11/14 CMP ALT/S GPT U/L 7.0 52.0 19 FINAL [facility], [address] [place] [id number] 0 11/14 CMP Alkal ine phosp hatas e U/L 34.0 104.0 139 High FINAL [facility], [address] [place] [id number] 0 11/14 CMP Gluco se mg/dL 70.0 105.0 88 FINAL [facility], [address] [facility] [id number] 0 11/14 CMP BUN mg/dL 7.0 25.0 10 FINAL [facility], [address] [facility] [id number] 0 11/14 CMP Creat inine mg/dL 0.6 1.3 0.72 FINAL [facility], [address] [facility] [id number] 0 11/14 CMP Calci um mg/dL 8.4 10.5 9.0 FINAL [facility], [address] [facility] [id number] 0 11/14 CMP Total prote in g/dL 6.3 8.2 6.8 FINAL [facility], [address] [facility] [id number] 0 11/14 CMP Album in g/dL 3.5 5.0 4.3 FINAL [facility], [address] [facility] [id number] 0 11/14 CMP Sodiu m mEq/L 135.0 145.0 136 FINAL [facility], [address] [facility] [id number] 0 11/14 CMP Potas sium mEq/L 3.4 5.0 4.0 FINAL [facility], [address] [facility] [id number] 0 11/14 CMP Chlor uri, mEq/L mEq/L 96.0 107.0 103 FINAL [facility] [place], [address] [facility] [id number] 0 11/14 CMP CO2 whitney nt mEq/L 21.0 31.0 29 FINAL [facility] [place], [address] [facility] [id number] 0 11/14 CMP GFR estim ate mL/min /1.73m 2 96 Normal Range:Nor mal renal function >or= 60Moderat srinivas decreased 30 - 59Severel y decreased 15 - 29Renal Failure < 15Please note the GFR value should be multiplie d by 1.210 if the patient is -A merican. FINAL [facility] [place], [address] [facility]. [facility] [id number] 0 11/14 CBC w/ auto diff BA % % 0.0 1.0 1.9 High FINAL [facility], [address] [facility]. [facility] [id number] 0 11/14 CBC w/ auto diff IG % % 0.0 1.0 7.4 High FINAL [facility] [place], [address] [facility] [id number] 0 11/14 CBC w/ auto diff Emily # (ANC) x10^3/ uL 2.0 8.4 5.05 FINAL [facility], [address] [facility] [facility] [id number] 0 11/14 CBC w/ auto diff LY # x10^3/ uL 0.7 5.1 1.07 FINAL [facility], [address] [facility] [id number] 0 11/14 CBC w/ auto diff MO # x10^3/ uL 0.0 1.6 0.77 FINAL [facility], [address] [facility] [id number] 0 11/14 CBC w/ auto diff EO # x10^3/ uL 0.0 1.1 0.12 FINAL [facility], [address] [facility] [id number] 0 11/14 CBC w/ auto diff BA # x10^3/ uL 0.0 0.2 0.15 FINAL [facility], [address] [facility] [id number] 0 11/14 CBC w/ auto diff IG # x10^3/ uL 0.0 0.1 0.57 High FINAL [facility], [address] [facility] [id number] 0 11/14 CBC w/ auto diff WBC x10^3/ uL 4.4 10.4 7.73 FINAL [facility], [address] [facility] [id number] 0 11/14 CBC w/ auto diff RBC x10^6/ uL 4.2 5.4 3.55 Low FINAL [facility], [address] [facility] [id number] 0 11/14 CBC w/ auto diff HGB g/dL 12.0 16.0 10.7 Low FINAL [facility], [address] [facility] [id number] 0 11/14 CBC w/ auto diff HCT % 37.0 47.0 35.1 Low FINAL [facility], [address] [facility] [id number] 0 11/14 CBC w/ auto diff MCV fL 80.0 98.0 98.9 High FINAL [facility], [address] [facility] [id number] 0 11/14 CBC w/ auto diff MCH pg 28.0 32.0 30.1 FINAL [facility], [address] [facility] [id number] 0 11/14 CBC w/ auto diff MCHC g/dL 30.7 34.7 30.5 Low FINAL [facility], [address] [facility] [id number] 0 11/14 CBC w/ auto diff RDW-S D 37.0 54.0 53.20 FINAL [facility], [address] [facility] [id number] 0 11/14 CBC w/ auto diff RDW % 11.5 14.5 14.6 High FINAL [facility], [address] [facility] [id number] 0 11/14 CBC w/ auto diff PLT x10^3/ uL 120.0 400.0 237 FINAL [facility], [address] [facility] [id number] 0 11/14 CBC w/ auto diff MPV fL 6.5 12.0 9.6 FINAL [facility], [address] [facility] [id number] 0 11/14 CBC w/ auto diff Smear revie w None FINAL [facility], [address] [facility] [id number] 0 11/14 CBC w/ auto diff NRBC % /100WB C 0.0 9.0 0.0 FINAL [facility], [address] [facility] [id number] 0 11/14 CBC w/ auto diff NRBC, absol elem, x 10^3/ uL x10^3/ uL 0.0 0.1 0.00 FINAL [facility], [address] [facility] [id number] 0 11/14 CBC w/ auto diff Emily % % 40.0 70.0 65.3 FINAL [facility], [address] [facility] [id number] 0 11/14 CBC w/ auto diff LY % % 15.0 41.0 13.8 Low FINAL [facility], [address] [facility] [id number] 0 11/14 CBC w/ auto diff MO % % 2.0 8.0 10.0 High FINAL [facility], [address] [facility] [id number] 0 11/14 CBC w/ auto diff EO % % 0.0 3.0 1.6 FINAL [facility], [address] [facility] [id number] 0 11/20 CMP Bilir ubin, total mg/dL 0.3 1.0 0.3 FINAL [facility], [address] [facility] [id number] 0 11/20 CMP AST/S GOT U/L 13.0 39.0 18 FINAL [facility], [address] [facility] [id number] 0 11/20 CMP ALT/S GPT U/L 7.0 52.0 21 FINAL [facility] [place], [address] [facility] [id number] 0 11/20 CMP Alkal ine phosp hatas e U/L 34.0 104.0 174 High [facility] [address] [facility] [id number] 0 11/20 CMP Gluco se mg/dL 70.0 105.0 87 FINAL [facility] [place], [address] [facility] [facility] [id number] 0 11/20 CMP BUN mg/dL 7.0 25.0 8 FINAL [facility] [place], [address] [facility] [id number] 0 11/20 CMP Creat inine mg/dL 0.6 1.3 0.68 FINAL [facility] [address] [facility] [id number] 0 11/20 CMP Calci um mg/dL 8.4 10.5 9.8 FINAL [facility] [address] [facility] [id number] 0 11/20 CMP Total prote in g/dL 6.3 8.2 7.5 FINAL Lou Proctor [place], [address] [facility] [id number] 0 11/20 CMP Album in g/dL 3.5 5.0 4.7 [facility]AL [facility] [address] [facility] [id number] 0 11/20 CMP Sodiu m mEq/L 135.0 145.0 139 FINAL [facility], [address] [facility] [address] [facility] [id number] 0 11/20 CMP Potas sium mEq/L 3.4 5.0 3.6 FINAL [facility], [address] [facility] [address] [facility] [id number] 0 11/20 CMP Chlor uri, mEq/L mEq/L 96.0 107.0 100 FINAL [facility], [address] [facility] [facility] [id number] 0 11/20 CMP CO2 whitney nt mEq/L 21.0 31.0 34 High FINAL [facility], [address] [facility] [id number] 0 11/20 CMP GFR estim ate mL/min /1.73m 2 102 Normal Range:Nor mal renal function >or= 60Moderat srinivas decreased 30 - 59Severel y decreased 15 - 29Renal Failure < 15Please note the GFR value should be multiplie d by 1.210 if the patient is -A merican. FINAL [facility], [address] [facility] [id number] 0 11/20 CBC w/ auto diff WBC x10^3/ uL 4.4 10.4 25.84 High FINAL [facility], [address] [facility] [id number] 0 11/20 CBC w/ auto diff RBC x10^6/ uL 4.2 5.4 3.79 Low FINAL [facility], [address] [facility] [facility] [id number] 0 11/20 CBC w/ auto diff HGB g/dL 12.0 16.0 11.5 Low FINAL Lou [facility], [address] [facility] [facility] [id number] 0 11/20 CBC w/ auto diff HCT % 37.0 47.0 36.1 Low FINAL [facility], [address] [facility] [facility] [id number] 0 11/20 CBC w/ auto diff MCV fL 80.0 98.0 95.3 FINAL Lou Hines, [address] [facility] [id number] 0 11/20 CBC w/ auto diff MCH pg 28.0 32.0 30.3 FINAL Lou Hines, [address] [facility] [id number] 0 11/20 CBC w/ auto diff MCHC g/dL 30.7 34.7 31.9 FINAL [facility], [address] [facility] [id number] 0 11/20 CBC w/ auto diff RDW-S D 37.0 54.0 51.00 FINAL Lou Hines, [address] [facility] [id number] 0 11/20 CBC w/ auto diff RDW % 11.5 14.5 14.6 High FINAL [facility], [address] [facility] [id number] 0 11/20 CBC w/ auto diff PLT x10^3/ uL 120.0 400.0 263 FINAL [facility], [address] [facility] [id number] 0 11/20 CBC w/ auto diff MPV fL 6.5 12.0 9.7 FINAL Lou Shaw [place], [address] [facility] [id number] 0 11/20 CBC w/ auto diff Smear revie w None FINAL [facility], [address] [facility] [id number] 0 11/20 CBC w/ auto diff NRBC % /100WB C 0.0 9.0 0.0 FINAL Lou Hines, [address] [facility] [id number] 0 11/20 CBC w/ auto diff NRBC, absol elem, x 10^3/ uL x10^3/ uL 0.0 0.1 0.00 FINAL [facility], [address] [facility] [id number] 0 11/20 CBC w/ auto diff Emily % % 40.0 70.0 91.0 High FINAL Lou Hines, [address] [facility] [id number] 0 11/20 CBC w/ auto diff LY % % 15.0 41.0 4.3 Low FINAL [facility], [address] [facility] [id number] 0 11/20 CBC w/ auto diff MO % % 2.0 8.0 2.6 FINAL [facility], [address] [facility] [id number] 0 11/20 CBC w/ auto diff EO % % 0.0 3.0 0.3 FINAL Lou Hines, [address] [facility] [id number] 0 11/20 CBC w/ auto diff BA % % 0.0 1.0 0.2 FINAL [facility], [address] [facility] [id number] 0 11/20 CBC w/ auto diff IG % % 0.0 1.0 1.6 High FINAL [facility], [address] [facility] [id number] 0 11/20 CBC w/ auto diff Emily # (ANC) x10^3/ uL 2.0 8.4 23.52 High FINAL [facility], [address] [facility] [id number] 0 11/20 CBC w/ auto diff LY # x10^3/ uL 0.7 5.1 1.12 FINAL [facility], [address] [facility] [id number] 0 11/20 CBC w/ auto diff MO # x10^3/ uL 0.0 1.6 0.67 FINAL Lou Hines, [address] [facility] [id number] 0 11/20 CBC w/ auto diff EO # x10^3/ uL 0.0 1.1 0.07 FINAL Lou Hines, [address] [facility] [id number] 0 11/20 CBC w/ auto diff BA # x10^3/ uL 0.0 0.2 0.04 FINAL Lou Shaw [place], [address] [facility] [id number] 0 11/20 CBC w/ auto diff IG # x10^3/ uL 0.0 0.1 0.42 High [facility]AL [facility] [address] [facility] [id number] 0 12/19 CBC w/ auto diff WBC x10^3/ uL 4.4 10.4 4.43 [facility] [address] [facility] [id number] 0 12/19 CBC w/ auto diff RBC x10^6/ uL 4.2 5.4 4.14 Low FINAL [facility], [address] [facility] [address] [facility] [id number] 0 12/19 CBC w/ auto diff HGB g/dL 12.0 16.0 12.2 FINAL [facility], [address] [facility] [id number] 0 12/19 CBC w/ auto diff HCT % 37.0 47.0 37.8 FINAL [facility], [address] [facility] [address] [facility] [id number] 0 12/19 CBC w/ auto diff MCV fL 80.0 98.0 91.3 FINAL [facility], [address] [facility] [id number] 0 12/19 CBC w/ auto diff MCH pg 28.0 32.0 29.5 FINAL [facility], [address] [facility] [id number] 0 12/19 CBC w/ auto diff MCHC g/dL 30.7 34.7 32.3 FINAL [facility], [address] [facility] [id number] 0 12/19 CBC w/ auto diff RDW-S D 37.0 54.0 46.10 FINAL [facility], [address] [facility] [id number] 0 12/19 CBC w/ auto diff RDW % 11.5 14.5 13.8 FINAL [facility], [address] [facility] [id number] 0 12/19 CBC w/ auto diff PLT x10^3/ uL 120.0 400.0 204 FINAL [facility], [address] [facility] [id number] 0 12/19 CBC w/ auto diff MPV fL 6.5 12.0 8.5 FINAL [facility], [address] [facility] [id number] 0 12/19 CBC w/ auto diff Smear revie w None FINAL [facility], [address] [facility] [id number] 0 12/19 CBC w/ auto diff NRBC % /100WB C 0.0 9.0 0.0 FINAL [facility], [address] [facility] [id number] 0 12/19 CBC w/ auto diff NRBC, absol elem, x 10^3/ uL x10^3/ uL 0.0 0.1 0.00 FINAL [facility], [address] [facility] [id number] 0 12/19 CBC w/ auto diff Emily % % 40.0 70.0 66.4 FINAL [facility], [address] [facility] [id number] 0 12/19 CBC w/ auto diff LY % % 15.0 41.0 19.9 FINAL [facility], [address] [facility] [id number] 0 12/19 CBC w/ auto diff MO % % 2.0 8.0 8.1 High FINAL [facility], [address] [facility] [id number] 0 12/19 CBC w/ auto diff EO % % 0.0 3.0 4.5 High FINAL [facility], [address] [facility] [id number] 0 12/19 CBC w/ auto diff BA % % 0.0 1.0 0.9 [facility] [address] [facility] [id number] 0 12/19 CBC w/ auto diff IG % % 0.0 1.0 0.2 FINAL [facility], [address] [facility] [id number] 0 12/19 CBC w/ auto diff Emily # (ANC) x10^3/ uL 2.0 8.4 2.94 FINAL [facility], [address] [facility] [id number] 0 12/19 CBC w/ auto diff LY # x10^3/ uL 0.7 5.1 0.88 FINAL [facility], [address] [facility] [id number] 0 12/19 CBC w/ auto diff MO # x10^3/ uL 0.0 1.6 0.36 FINAL [facility], [address] [facility] [id number] 0 12/19 CBC w/ auto diff EO # x10^3/ uL 0.0 1.1 0.20 FINAL [facility], [address] [facility] [id number] 0 12/19 CBC w/ auto diff BA # x10^3/ uL 0.0 0.2 0.04 FINAL [facility], [address] [facility] [id number] 0 12/19 CBC w/ auto diff IG # x10^3/ uL 0.0 0.1 0.01 FINAL [facility], [address] [facility] [id number] 0 12/19 CMP Bilir ubin, total mg/dL 0.3 1.0 0.6 FINAL [facility], [address] [facility] [id number] 0 12/19 CMP AST/S GOT U/L 13.0 39.0 17 FINAL [facility], [address] [facility] [id number] 0 12/19 CMP ALT/S GPT U/L 7.0 52.0 13 FINAL [facility], [address] [facility] [id number] 0 12/19 CMP Alkal ine phosp hatas e U/L 34.0 104.0 74 FINAL [facility], [address] [facility] [id number] 0 12/19 CMP Gluco se mg/dL 70.0 105.0 90 FINAL [facility], [address] [facility] [id number] 0 12/19 CMP BUN mg/dL 7.0 25.0 11 FINAL [facility], [address] [facility] [address] [facility] [id number] 0 12/19 CMP Creat inine mg/dL 0.6 1.3 0.83 FINAL [facility], [address] [facility] [id number] 0 12/19 CMP Calci um mg/dL 8.4 10.5 9.5 FINAL [facility], [address] [facility] [id number] 0 12/19 CMP Total prote in g/dL 6.3 8.2 7.6 FINAL [facility], [address] [facility] [id number] 0 12/19 CMP Album in g/dL 3.5 5.0 4.7 FINAL [facility], [address] [facility] [id number] 0 12/19 CMP Sodiu m mEq/L 135.0 145.0 137 FINAL [facility], [address] [facility] [id number] 0 12/19 CMP Potas sium mEq/L 3.4 5.0 3.6 FINAL [facility], [address] [facility] [id number] 0 12/19 CMP Chlor uri, mEq/L mEq/L 96.0 107.0 99 FINAL [facility], [address] [facility] [id number] 0 12/19 CMP CO2 whitney nt mEq/L 21.0 31.0 33 High FINAL [facility], [address] [facility] [id number] 0 12/19 CMP GFR estim ate mL/min /1.73m 2 81 Normal Range:Nor mal renal function >or= 60Moderat srinivas decreased 30 - 59Severel y decreased 15 - 29Renal Failure < 15Please note the GFR value should be multiplie d by 1.210 if the patient is -A merican. FINAL [facility], [address] [facility] [id number] 0 12/19 Magne sium panel Magne sium, mg/dL mg/dL 1.6 2.3 1.95 FINAL [facility], [address] [facility] [id number] 0 02/14 Magne sium panel Magne sium, mg/dL mg/dL 1.6 2.3 2.00 FINAL [facility], [address] [facility] [id number] 0 02/14 CMP Bilir ubin, total mg/dL 0.3 1.0 0.6 FINAL [facility], [address] [facility] [id number] 0 02/14 CMP AST/S GOT U/L 13.0 39.0 20 FINAL [facility], [address] [facility] [id number] 0 02/14 CMP ALT/S GPT U/L 7.0 52.0 14 FINAL [facility], [address] [facility] [id number] 0 02/14 CMP Alkal ine phosp hatas e U/L 34.0 104.0 84 FINAL [facility], [address] [facility] [id number] 0 02/14 CMP Gluco se mg/dL 70.0 105.0 101 FINAL [facility], [address] [facility] [id number] 0 02/14 CMP BUN mg/dL 7.0 25.0 11 FINAL [facility], [address] [facility] [id number] 0 02/14 CMP Creat inine mg/dL 0.6 1.3 0.84 FINAL [facility], [address] [facility] [id number] 0 02/14 CMP Calci um mg/dL 8.4 10.5 9.9 FINAL [facility], [address] [facility] [id number] 0 02/14 CMP Total prote in g/dL 6.3 8.2 8.2 FINAL [facility], [address] [facility] [address] [facility] [id number] 0 02/14 CMP Album in g/dL 3.5 5.0 5.1 High FINAL [facility], [address] [facility] [id number] 0 02/14 CMP Sodiu m mEq/L 135.0 145.0 137 FINAL [facility], [address] [facility] [id number] 0 02/14 CMP Potas sium mEq/L 3.4 5.0 3.5 FINAL [facility], [address] [facility] [id number] 0 02/14 CMP Chlor uri, mEq/L mEq/L 96.0 107.0 99 FINAL [facility], [address] [facility] [id number] 0 02/14 CMP CO2 whitney nt mEq/L 21.0 31.0 29 FINAL [facility], [address] [facility] [id number] 0 02/14 CMP GFR estim ate mL/min /1.73m 2 80 Normal Range:Nor mal renal function >or= 60Moderat srinivas decreased 30 - 59Severel y decreased 15 - 29Renal Failure < 15Please note the GFR value should be multiplie d by 1.210 if the patient is -A merican. FINAL [facility], [address] [facility] [id number] 0 02/14 CBC w/aut o diff with refle x WBC x10^3/ uL 4.4 10.4 2.80 Low FINAL [facility], [address] [facility] [id number] 0 02/14 CBC w/aut o diff with refle x RBC x10^6/ uL 4.2 5.4 4.79 FINAL [facility], [address] [facility] [id number] 0 02/14 CBC w/aut o diff with refle x HGB g/dL 12.0 16.0 14.3 FINAL [facility], [address] [facility] [id number] 0 02/14 CBC w/aut o diff with refle x HCT % 37.0 47.0 42.1 FINAL [facility], [address] [facility] [id number] 0 02/14 CBC w/aut o diff with refle x MCV fL 80.0 98.0 87.9 FINAL [facility], [address] [facility] [id number] 0 02/14 CBC w/aut o diff with refle x MCH pg 28.0 32.0 29.9 FINAL [facility], [address] [facility] [id number] 0 02/14 CBC w/aut o diff with refle x MCHC g/dL 30.7 34.7 34.0 FINAL [facility], [address] [facility] [id number] 0 02/14 CBC w/aut o diff with refle x RDW-S D 37.0 54.0 43.00 FINAL [facility], [address] [facility] [id number] 0 02/14 CBC w/aut o diff with refle x RDW % 11.5 14.5 13.2 FINAL [facility], [address] [facility] [id number] 0 02/14 CBC w/aut o diff with refle x PLT x10^3/ uL 120.0 400.0 241 FINAL [facility], [address] [facility] [id number] 0 02/14 CBC w/aut o diff with refle x MPV fL 6.5 12.0 8.5 FINAL [facility], [address] [facility] [id number] 0 02/14 CBC w/aut o diff with refle x Smear revie w None FINAL [facility], [address] [facility] [id number] 0 02/14 CBC w/aut o diff with refle x NRBC % /100WB C 0.0 9.0 0.0 FINAL [facility], [address] [facility] [id number] 0 02/14 CBC w/aut o diff with refle x NRBC, absol elem, x 10^3/ uL x10^3/ uL 0.0 0.1 0.00 FINAL [facility], [address] [facility] [id number] 0 02/14 CBC w/aut o diff with refle x Emily % % 40.0 70.0 68.2 FINAL [facility], [address] [facility] [id number] 0 02/14 CBC w/aut o diff with refle x LY % % 15.0 41.0 18.6 FINAL [facility], [address] [facility] [id number] 0 02/14 CBC w/aut o diff with refle x MO % % 2.0 8.0 9.6 High FINAL [facility], [address] [facility] [id number] 0 02/14 CBC w/aut o diff with refle x EO % % 0.0 3.0 2.5 FINAL [facility], [address] [place] [id number] 0 02/14 CBC w/aut o diff with refle x BA % % 0.0 1.0 0.7 FINAL [facility], [address] [place] [id number] 0 02/14 CBC w/aut o diff with refle x IG % % 0.0 1.0 0.4 FINAL [facility] [place], [address] [place] [id number] 0 02/14 CBC w/aut o diff with refle x Emily # (ANC) x10^3/ uL 2.0 8.4 1.91 Low FINAL [facility], [address] [facility] [id number] 0 02/14 CBC w/aut o diff with refle x LY # x10^3/ uL 0.7 5.1 0.52 Low FINAL [facility], [address] [place] [id number] 0 02/14 CBC w/aut o diff with refle x MO # x10^3/ uL 0.0 1.6 0.27 FINAL [facility], [address] [place] [id number] 0 02/14 CBC w/aut o diff with refle x EO # x10^3/ uL 0.0 1.1 0.07 FINAL [facility] [place], [address] [place] [id number] 0 02/14 CBC w/aut o diff with refle x BA # x10^3/ uL 0.0 0.2 0.02 FINAL [facility], [address] [place] [id number] 0 02/14 CBC w/aut o diff with refle x IG # x10^3/ uL 0.0 0.1 0.01 FINAL [facility], [address] [facility] [id number] 0 02/14 Estra diol, ultra sensi tive panel Sendo uts I/F See Manual Report FINAL Kathrine May [facility], [address] [facility] [id number] 0 02/14 TSH panel TSH ulU/mL 0.35 5.5 1.52 Test performed on Siemen's Centaur at [facility] [address] [place], [place] [address] FINAL [facility] [address] [facility] [id number] 0 02/14 Vitam in D monit oring panel Vitam in D, 25-hy droxy ng/mL 30.0 100.0 35.36 Test performed on SiemAirpowered's Centaur at [facility] [address] [place], [facility] [address] FINAL [facility], [address] [facility] [id number] 0 02/14 Phosp horus panel Phosp horus mg/dL 2.5 4.5 4.2 Test performed on the Estela Cande AU 480 at [facility], [address] [place] [address] MC-7, [facility], [address] FINAL [facility], [address] [place] [address]., Mail Code 7 [facility] [id number] 0 03/28 Estra diol, ultra sensi tive panel [facility] SCAN RESUL T See Scanned Result FINAL Kathrine May [facility], [address] [facility] [id number] 0 03/28 CBC w/aut o diff with refle x WBC x10^3/ uL 4.4 10.4 2.87 Low [facility] [address] [facility] [id number] 0 03/28 CBC w/aut o diff with refle x RBC x10^6/ uL 4.2 5.4 4.54 [facility] [address] [facility] [id number] 0 03/28 CBC w/aut o diff with refle x HGB g/dL 12.0 16.0 13.4 FINAL [facility], [address] [facility] [id number] 0 03/28 CBC w/aut o diff with refle x HCT % 37.0 47.0 40.9 FINAL [facility], [address] [facility] [id number] 0 03/28 CBC w/aut o diff with refle x MCV fL 80.0 98.0 90.1 FINAL [facility], [address] [facility] [id number] 0 03/28 CBC w/aut o diff with refle x MCH pg 28.0 32.0 29.5 FINAL [facility], [address] [facility] [id number] 0 03/28 CBC w/aut o diff with refle x MCHC g/dL 30.7 34.7 32.8 FINAL [facility], [address] [facility] [id number] 0 03/28 CBC w/aut o diff with refle x RDW-S D 37.0 54.0 43.00 FINAL [facility], [address] [facility] [id number] 0 03/28 CBC w/aut o diff with refle x RDW % 11.5 14.5 13.0 FINAL [facility], [address] [facility] [id number] 0 03/28 CBC w/aut o diff with refle x PLT x10^3/ uL 120.0 400.0 216 FINAL [facility], [address] [facility] [id number] 0 03/28 CBC w/aut o diff with refle x MPV fL 6.5 12.0 8.6 FINAL [facility], [address] [facility] [id number] 0 03/28 CBC w/aut o diff with refle x Smear revie w None FINAL [facility], [address] [facility] [id number] 0 03/28 CBC w/aut o diff with refle x NRBC % /100WB C 0.0 9.0 0.0 FINAL [facility], [address] [facility] [id number] 0 03/28 CBC w/aut o diff with refle x NRBC, absol elem, x 10^3/ uL x10^3/ uL 0.0 0.1 0.00 FINAL [facility], [address] [facility] [id number] 0 03/28 CBC w/aut o diff with refle x Emily % % 40.0 70.0 66.9 FINAL [facility], [address] [facility] [id number] 0 03/28 CBC w/aut o diff with refle x LY % % 15.0 41.0 19.5 FINAL [facility], [address] [facility] [id number] 0 03/28 CBC w/aut o diff with refle x MO % % 2.0 8.0 9.4 High FINAL [facility], [address] [facility] [id number] 0 03/28 CBC w/aut o diff with refle x EO % % 0.0 3.0 3.5 High FINAL [facility], [address] [facility] [id number] 0 03/28 CBC w/aut o diff with refle x BA % % 0.0 1.0 0.7 FINAL [facility], [address] [facility] [id number] 0 03/28 CBC w/aut o diff with refle x IG % % 0.0 1.0 0.0 FINAL [facility], [address] [facility] [id number] 0 03/28 CBC w/aut o diff with refle x Emily # (ANC) x10^3/ uL 2.0 8.4 1.92 Low FINAL [facility], [address] [facility] [id number] 0 03/28 CBC w/aut o diff with refle x LY # x10^3/ uL 0.7 5.1 0.56 Low FINAL [facility], [address] [facility] [id number] 0 03/28 CBC w/aut o diff with refle x MO # x10^3/ uL 0.0 1.6 0.27 FINAL [facility], [address] [facility] [id number] 0 03/28 CBC w/aut o diff with refle x EO # x10^3/ uL 0.0 1.1 0.10 FINAL [facility], [address] [facility] [id number] 0 03/28 CBC w/aut o diff with refle x BA # x10^3/ uL 0.0 0.2 0.02 FINAL [facility], [address] [facility] [id number] 0 03/28 CBC w/aut o diff with refle x IG # x10^3/ uL 0.0 0.1 0.00 FINAL [facility], [address] [facility] [id number] 0 03/28 CMP Bilir ubin, total mg/dL 0.3 1.0 0.5 FINAL [facility], [address] [facility] [id number] 0 03/28 CMP AST/S GOT U/L 13.0 39.0 25 FINAL [facility], [address] [facility] [id number] 0 03/28 CMP ALT/S GPT U/L 7.0 52.0 17 FINAL [facility], [address] [facility] [id number] 0 03/28 CMP Alkal ine phosp hatas e U/L 34.0 104.0 78 FINAL [facility], [address] [facility] [id number] 0 03/28 CMP Gluco se mg/dL 70.0 105.0 104 FINAL [facility], [address] [facility] [facility] [id number] 0 03/28 CMP BUN mg/dL 7.0 25.0 11 FINAL [facility], [address] [facility] [id number] 0 03/28 CMP Creat inine mg/dL 0.6 1.3 0.82 FINAL [facility], [address] [facility] [id number] 0 03/28 CMP Calci um mg/dL 8.4 10.5 9.6 FINAL [facility], [address] [facility] [id number] 0 03/28 CMP Total prote in g/dL 6.3 8.2 7.7 FINAL [facility], [address] [facility] [id number] 0 03/28 CMP Album in g/dL 3.5 5.0 4.7 FINAL [facility], [address] [facility]. [facility] [id number] 0 03/28 CMP Sodiu m mEq/L 135.0 145.0 138 FINAL [facility], [address] [facility] [id number] 0 03/28 CMP Potas sium mEq/L 3.4 5.0 3.7 FINAL [facility], [address] [facility] [id number] 0 03/28 CMP Chlor uri, mEq/L mEq/L 96.0 107.0 102 FINAL [facility], [address] [facility] [facility] [id number] 0 03/28 CMP CO2 whitney nt mEq/L 21.0 31.0 29 FINAL [facility], [address] [facility] [id number] 0 03/28 CMP GFR estim ate mL/min /1.73m 2 82 Normal Range:Nor mal renal function >or= 60Moderat srinivas decreased 30 - 59Severel y decreased 15 - 29Renal Failure < 15Please note the GFR value should be multiplie d by 1.210 if the patient is -A merican. FINAL [facility], [address] [facility] [id number] 0 03/28 Magne sium panel Magne sium, mg/dL mg/dL 1.6 2.3 1.97 FINAL [facility] [place], [address] [facility] [id number] 0 04/30 Estra diol, ultra sensi tive panel [facility] RP ESTRA DIOL MS pg/mL <1.0 This test was developed and its performan ce character isticsdet ermined by [facility]. It has not been cleared or approvedb y the Food and Drug Administr [facility].Ref erence Range:Ambrocio lt Females Follicula r: 30 - 100 Luteal: 70 - 300 Postmenop ausal: <15 FINAL [facility], [address] [facility] [id number] 0 04/30 Magne sium panel Magne sium, mg/dL mg/dL 1.6 2.3 2.12 FINAL [facility], [address] [place], [place] [address]on [facility] [id number] 0 04/30 CBC w/aut o diff with refle x WBC x10^3/ uL 4.4 10.4 3.24 Low FINAL [facility], [address] [place], [place] [address] [facility] [id number] 0 04/30 CBC w/aut o diff with refle x RBC x10^6/ uL 4.2 5.4 4.52 FINAL [facility], [address] [place], [place] [address] [facility] [id number] 0 04/30 CBC w/aut o diff with refle x HGB g/dL 12.0 16.0 13.3 FINAL [facility], [address] [place], [place] [address] [facility] [id number] 0 04/30 CBC w/aut o diff with refle x HCT % 37.0 47.0 40.6 FINAL [facility], [address] [facility] [id number] 0 04/30 CBC w/aut o diff with refle x MCV fL 80.0 98.0 89.8 FINAL [facility], [address] [facility] [id number] 0 04/30 CBC w/aut o diff with refle x MCH pg 28.0 32.0 29.4 FINAL [facility], [address] [facility] [id number] 0 04/30 CBC w/aut o diff with refle x MCHC g/dL 30.7 34.7 32.8 FINAL [facility], [address] [facility] [id number] 0 04/30 CBC w/aut o diff with refle x RDW-S D 37.0 54.0 44.30 FINAL [facility], [address] [facility] [id number] 0 04/30 CBC w/aut o diff with refle x RDW % 11.5 14.5 13.5 FINAL [facility], [address] [facility] [id number] 0 04/30 CBC w/aut o diff with refle x PLT x10^3/ uL 120.0 400.0 220 FINAL [facility], [address] [facility] [id number] 0 04/30 CBC w/aut o diff with refle x MPV fL 6.5 12.0 9.0 [facility], [address] [facility] [id number] 0 04/30 CBC w/aut o diff with refle x Smear revie w None FINAL [facility], [address] [facility] [id number] 0 04/30 CBC w/aut o diff with refle x NRBC % /100WB C 0.0 9.0 0.0 [facility] [address] [facility] [id number] 0 04/30 CBC w/aut o diff with refle x NRBC, absol elem, x 10^3/ uL x10^3/ uL 0.0 0.1 0.00 FINAL [facility], [address] [facility] [id number] 0 04/30 CBC w/aut o diff with refle x Emily % % 40.0 70.0 66.1 FINAL [facility], [address] [facility] [id number] 0 04/30 CBC w/aut o diff with refle x LY % % 15.0 41.0 22.2 FINAL [facility], [address] [facility] [id number] 0 04/30 CBC w/aut o diff with refle x MO % % 2.0 8.0 8.6 High FINAL [facility], [address] [facility] [id number] 0 04/30 CBC w/aut o diff with refle x EO % % 0.0 3.0 1.9 FINAL [facility], [address] [facility] [id number] 0 04/30 CBC w/aut o diff with refle x BA % % 0.0 1.0 0.9 FINAL [facility], [address] [facility] [id number] 0 04/30 CBC w/aut o diff with refle x IG % % 0.0 1.0 0.3 FINAL [facility], [address] [facility] [id number] 0 04/30 CBC w/aut o diff with refle x Emily # (ANC) x10^3/ uL 2.0 8.4 2.14 FINAL [facility], [address] [facility] [id number] 0 04/30 CBC w/aut o diff with refle x LY # x10^3/ uL 0.7 5.1 0.72 FINAL [facility], [address] [facility] [id number] 0 04/30 CBC w/aut o diff with refle x MO # x10^3/ uL 0.0 1.6 0.28 FINAL [facility], [address] [facility] [id number] 0 04/30 CBC w/aut o diff with refle x EO # x10^3/ uL 0.0 1.1 0.06 FINAL [facility], [address] [facility] [id number] 0 04/30 CBC w/aut o diff with refle x BA # x10^3/ uL 0.0 0.2 0.03 FINAL [facility], [address] [facility] [id number] 0 04/30 CBC w/aut o diff with refle x IG # x10^3/ uL 0.0 0.1 0.01 FINAL [facility], [address] [facility] [id number] 0 04/30 CMP Bilir ubin, total mg/dL 0.3 1.0 0.7 FINAL [facility], [address] [facility] [id number] 0 04/30 CMP AST/S GOT U/L 13.0 39.0 22 FINAL [facility], [address] [facility] [id number] 0 04/30 CMP ALT/S GPT U/L 7.0 52.0 16 FINAL [facility], [address] [facility] [id number] 0 04/30 CMP Alkal ine phosp hatas e U/L 34.0 104.0 71 FINAL [facility], [address] [facility] [id number] 0 04/30 CMP Gluco se mg/dL 70.0 105.0 89 FINAL [facility], [address] [facility] [id number] 0 04/30 CMP BUN mg/dL 7.0 25.0 7 [facility]AL [facility] [address] [facility]. [facility] [id number] 0 04/30 CMP Creat inine mg/dL 0.6 1.3 0.75 FINAL [facility], [address] [facility]. [facility] [id number] 0 04/30 CMP Calci um mg/dL 8.4 10.5 9.1 FINAL [facility], [address] [facility]. [facility] [id number] 0 04/30 CMP Total prote in g/dL 6.3 8.2 7.4 FINAL [facility], [address] [facility]. [facility] [id number] 0 04/30 CMP Album in g/dL 3.5 5.0 4.9 FINAL [facility], [address] [facility]. [facility] [id number] 0 04/30 CMP Sodiu m mEq/L 135.0 145.0 136 FINAL [facility], [address] [facility]. [facility] [id number] 0 04/30 CMP Potas sium mEq/L 3.4 5.0 3.8 FINAL [facility], [address] [place] [address]. [facility] [id number] 0 04/30 CMP Chlor uri, mEq/L mEq/L 96.0 107.0 101 FINAL [facility], [address] [place] [address]. [facility] [id number] 0 04/30 CMP CO2 whitney nt mEq/L 21.0 31.0 28 FINAL [facility], [address] [place] [address]. [facility] [id number] 0 04/30 CMP GFR estim ate mL/min /1.73m 2 91 Normal Range:Nor mal renal function >or= 60Moderat srinivas decreased 30 - 59Severel y decreased 15 - 29Renal Failure < 15Please note the GFR value should be multiplie d by 1.210 if the patient is -A merican. FINAL [facility], [address] [place] [address]. [facility] [id number] 0 04/30 CA 125 panel CA 125 U/ml 6.0 Test performed on ubitus's Centaur at [facility] [address] [facility], [place] [address] FINAL [facility], [address] [facility] [id number] 0 Medications Date Name Route Dose Frequency [...] pain Active Vital Signs Date Type Value 08/02/2023 Body Temperature 97.90 08/02/2023 Heart Beat 65.00 08/02/2023 Respiratory Rate 16.00 08/02/2023 Oxygen Saturation 96.00 08/02/2023 Intravascular Systolic 134 08/02/2023 Intravascular Diastolic 69 08/02/2023 Height 172.70 08/02/2023 Pain Scale 0.00 08/03/2023 Pain Scale 0.00 08/03/2023 Body Temperature 97.70 08/03/2023 Heart Beat 89.00 08/03/2023 Respiratory Rate 20.00 08/03/2023 Oxygen Saturation 98.00 08/03/2023 Intravascular Systolic 105 08/03/2023 Intravascular Diastolic 70 08/03/2023 Height 172.70 08/06/2023 Oxygen Saturation 99.00 08/06/2023 Intravascular Systolic 127 08/06/2023 Intravascular Diastolic 77 08/06/2023 Pain Scale 0.00 08/06/2023 Height 172.70 08/06/2023 Body Temperature 97.60 08/06/2023 Heart Beat 80.00 08/06/2023 Respiratory Rate 14.00 08/07/2023 BMI 17.70 08/07/2023 Height 172.70 08/07/2023 Weight 52.80 08/07/2023 Intravascular Systolic 114 08/07/2023 Intravascular Diastolic 82 08/07/2023 Respiratory Rate 21.00 08/07/2023 BSA 1.62 08/07/2023 Oxygen Saturation 100.00 08/07/2023 Heart Beat 70.00 08/07/2023 Body Temperature 96.60 08/07/2023 Pain Scale 0.00 08/09/2023 Body Temperature 97.10 08/09/2023 Heart Beat 70.00 08/09/2023 Respiratory Rate 18.00 08/09/2023 Intravascular Systolic 109 08/09/2023 Intravascular Diastolic 66 08/09/2023 Height 172.70 08/09/2023 Oxygen Saturation 99.00 08/10/2023 Intravascular Systolic 102 08/10/2023 Intravascular Diastolic 68 08/10/2023 Pain Scale 0.00 08/10/2023 Body Temperature 98.20 08/10/2023 Heart Beat 68.00 08/10/2023 Respiratory Rate 18.00 08/10/2023 Oxygen Saturation 98.00 08/10/2023 Height 172.70 08/13/2023 Pain Scale 0.00 08/13/2023 Intravascular Systolic 144 08/13/2023 Intravascular Diastolic 84 08/13/2023 Oxygen Saturation 99.00 08/13/2023 Respiratory Rate 14.00 08/13/2023 Heart Beat 86.00 08/13/2023 Body Temperature 97.20 08/13/2023 Height 172.70 08/22/2023 Height 172.70 08/22/2023 Body Temperature 97.80 08/22/2023 Heart Beat 65.00 08/22/2023 Respiratory Rate 16.00 08/22/2023 Oxygen Saturation 99.00 08/22/2023 Intravascular Systolic 90 08/22/2023 Intravascular Diastolic 59 08/22/2023 Pain Scale 0.00 08/22/2023 BSA 1.66 08/22/2023 BMI 18.71 08/22/2023 Weight 55.80 08/23/2023 Height 172.70 08/23/2023 Pain Scale 0.00 08/23/2023 Body Temperature 97.80 08/23/2023 Heart Beat 101.00 08/23/2023 Respiratory Rate 18.00 08/23/2023 Oxygen Saturation 100.00 08/23/2023 Intravascular Systolic 115 08/23/2023 Intravascular Diastolic 76 08/30/2023 Body Temperature 97.70 08/30/2023 Oxygen Saturation 98.00 08/30/2023 Pain Scale 0.00 08/30/2023 Heart Beat 77.00 08/30/2023 Respiratory Rate 18.00 08/30/2023 Intravascular Systolic 104 08/30/2023 Intravascular Diastolic 68 08/30/2023 Height 172.70 08/31/2023 Pain Scale 0.00 09/03/2023 Pain Scale 0.00 09/12/2023 BSA 1.63 09/12/2023 BMI 17.80 09/12/2023 Height 172.70 09/12/2023 Weight 53.10 09/12/2023 Pain Scale 0.00 09/12/2023 Intravascular Systolic 101 09/12/2023 Intravascular Diastolic 69 09/12/2023 Oxygen Saturation 99.00 09/12/2023 Respiratory Rate 16.00 09/12/2023 Body Temperature 96.30 09/12/2023 Heart Beat 62.00 09/13/2023 Height 172.70 09/13/2023 Intravascular Systolic 117 09/13/2023 Intravascular Diastolic 77 09/13/2023 Oxygen Saturation 99.00 09/13/2023 Respiratory Rate 18.00 09/13/2023 Heart Beat 120.00 09/13/2023 Pain Scale 0.00 09/13/2023 Body Temperature 97.80 09/20/2023 Body Temperature 98.80 09/20/2023 Heart Beat 74.00 09/20/2023 Respiratory Rate 17.00 09/20/2023 Oxygen Saturation 100.00 09/20/2023 Intravascular Systolic 111 09/20/2023 Intravascular Diastolic 75 09/20/2023 Height 172.70 09/27/2023 Height 172.70 09/27/2023 Intravascular Systolic 145 09/27/2023 Intravascular Diastolic 80 09/27/2023 Oxygen Saturation 97.00 09/27/2023 Respiratory Rate 18.00 09/27/2023 Heart Beat 87.00 09/27/2023 Body Temperature 97.20 09/27/2023 Pain Scale 0.00 10/03/2023 Body Temperature 97.30 10/03/2023 BSA 1.64 10/03/2023 BMI 18.11 10/03/2023 Height 172.70 10/03/2023 Weight 54.00 10/03/2023 Pain Scale 0.00 10/03/2023 Intravascular Systolic 94 10/03/2023 Intravascular Diastolic 58 10/03/2023 Oxygen Saturation 99.00 10/03/2023 Respiratory Rate 16.00 10/03/2023 Heart Beat 83.00 10/04/2023 Intravascular Systolic 121 10/04/2023 Intravascular Diastolic 68 10/04/2023 Respiratory Rate 20.00 10/04/2023 Heart Beat 69.00 10/04/2023 Body Temperature 96.90 10/04/2023 Pain Scale 0.00 10/04/2023 Oxygen Saturation 100.00 10/04/2023 Height 172.70 10/11/2023 Pain Scale 0.00 10/25/2023 Pain Scale 0.00 10/25/2023 Oxygen Saturation 100.00 10/25/2023 Respiratory Rate 18.00 10/25/2023 Heart Beat 98.00 10/25/2023 Body Temperature 97.70 10/25/2023 Height 172.70 10/25/2023 Intravascular Systolic 103 10/25/2023 Intravascular Diastolic 67 10/31/2023 Oxygen Saturation 100.00 10/31/2023 Respiratory Rate 21.00 10/31/2023 Pain Scale 0.00 10/31/2023 Weight 54.90 10/31/2023 Intravascular Systolic 117 10/31/2023 Intravascular Diastolic 70 10/31/2023 BMI 18.41 10/31/2023 BSA 1.65 10/31/2023 Body Temperature 96.40 10/31/2023 Heart Beat 60.00 10/31/2023 Height 172.70 11/01/2023 Body Temperature 97.10 11/01/2023 Heart Beat 66.00 11/01/2023 Respiratory Rate 18.00 11/01/2023 Oxygen Saturation 96.00 11/01/2023 Intravascular Systolic 132 11/01/2023 Intravascular Diastolic 80 11/01/2023 Height 172.70 11/01/2023 Pain Scale 0.00 11/08/2023 Intravascular Systolic 123 11/08/2023 Intravascular Diastolic 77 11/08/2023 Oxygen Saturation 100.00 11/08/2023 Respiratory Rate 18.00 11/08/2023 Heart Beat 79.00 11/08/2023 Body Temperature 97.80 11/08/2023 Height 172.70 11/20/2023 Pain Scale 0.00 11/20/2023 Intravascular Systolic 99 11/20/2023 Intravascular Diastolic 58 11/20/2023 BSA 1.65 11/20/2023 BMI 18.44 11/20/2023 Height 172.70 11/20/2023 Weight 55.00 11/20/2023 Respiratory Rate 17.00 11/20/2023 Body Temperature 96.90 11/20/2023 Heart Beat 80.00 11/20/2023 Oxygen Saturation 99.00 11/22/2023 Intravascular Systolic 138 11/22/2023 Intravascular Diastolic 71 11/22/2023 Height 172.70 11/22/2023 Body Temperature 97.30 11/22/2023 Heart Beat 94.00 11/22/2023 Respiratory Rate 16.00 11/22/2023 Oxygen Saturation 99.00 11/22/2023 Pain Scale 0.00 12/19/2023 Body Temperature 97.20 12/19/2023 Heart Beat 98.00 12/19/2023 Respiratory Rate 17.00 12/19/2023 Oxygen Saturation 99.00 12/19/2023 Intravascular Systolic 100 12/19/2023 Intravascular Diastolic 68 12/19/2023 Pain Scale 0.00 12/19/2023 Weight 55.50 12/19/2023 Height 172.70 12/19/2023 BMI 18.61 12/19/2023 BSA 1.66 12/20/2023 Pain Scale 0.00 02/15/2024 Weight 54.90 02/15/2024 BSA 1.65 02/15/2024 BMI 18.41 02/15/2024 Height 172.70 02/15/2024 Pain Scale 0.00 02/15/2024 Intravascular Systolic 104 02/15/2024 Intravascular Diastolic 76 02/15/2024 Oxygen Saturation 98.00 02/15/2024 Respiratory Rate 16.00 02/15/2024 Heart Beat 100.00 02/15/2024 Body Temperature 96.30 03/28/2024 BSA 1.65 03/28/2024 BMI 18.27 03/28/2024 Height 172.70 03/28/2024 Weight 54.50 03/28/2024 Body Temperature 96.60 03/28/2024 Intravascular Systolic 100 03/28/2024 Intravascular Diastolic 56 03/28/2024 Oxygen Saturation 98.00 03/28/2024 Respiratory Rate 16.00 03/28/2024 Heart Beat 86.00 03/28/2024 Pain Scale 0.00 04/24/2024 BMI 18.44 04/24/2024 Height 172.70 04/24/2024 Weight 55.00 04/24/2024 BSA 1.65 04/24/2024 Pain Scale 0.00 04/24/2024 Intravascular Systolic 112 04/24/2024 Intravascular Diastolic 58 04/24/2024 Oxygen Saturation 98.00 04/24/2024 Respiratory Rate 16.00 04/24/2024 Body Temperature 97.50 04/24/2024 Heart Beat 90.00 04/30/2024 Pain Scale 0.00 04/30/2024 Respiratory Rate 17.00 04/30/2024 Height 172.70 04/30/2024 BMI 18.61 04/30/2024 BSA 1.66 04/30/2024 Intravascular Systolic 92 04/30/2024 Intravascular Diastolic 53 04/30/2024 Oxygen Saturation 99.00 04/30/2024 Heart Beat 60.00 04/30/2024 Body Temperature 97.50 04/30/2024 Weight 55.50 05/28/2024 Pain Scale 0.00 05/30/2024 Pain Scale 0.00 05/30/2024 Height 172.70 07/11/2024 Height 172.70 07/11/2024 Pain Scale 0.00 Notes Section * Nurse Note for: 28-MAY-24 [facility] Nurse Note Print Location: Unknown Date/Time Printed: 03/20/2025 11:23 AM ([facility]) Patient: IVANA HENDRICKS Sex: Female : [...] Pharmacy plan: Dispense/Waste: 11.25/0 mg Pharmacy dispense: [facility]: [id number] Dispense/Waste: 11.25/0 mg Given Dose/Discard: 11.25/0 mg Admin Details: Injection Location: Left-Dorsogluteal Time: 01:44 PM Free Text Note : injection complete without incident Entered By Trina Carlos RN on 01:45 PM * Nurse Note for: 30-APR-24 [facility] Nurse Note Print Location: Unknown Date/Time Printed: 03/20/2025 11:23 AM ([facility]) Patient: IVANA HENDRICKS Sex: Female : [...] Pharmacy plan: Dispense/Waste: 7.5/0 mg Pharmacy dispense: [facility]: [id number] Dispense/Waste: 7.5/0 mg Given Dose/Discard: 7.5/0 mg Admin Details: Injection Location: Right-Dorsogluteal Time: 03:58 PM Free Text Note : Pt seen and eval in clinic by Dr. Eckert. Injection without incident. Entered By Cristo Grove RN on 04:01 PM * Nurse Note for: 28-MAR-24 [facility] Nurse Note Print Location: Unknown Date/Time Printed: 03/20/2025 11:23 AM ([facility]) Patient: IVANA HENDRICKS Sex: Female : 1995 [...] Pharmacy plan: Dispense/Waste: 7.5/0 mg Pharmacy dispense: [facility]: [id number] Dispense/Waste: 7.5/0 mg Given Dose/Discard: 7.5/0 mg Admin Details: Injection Location: Left-Dorsogluteal Time: 03:03 PM, Entered By: Tenisha Murireta RN Incident to: Evans Royal MD Zoledronic acid (Zometa) Q6M Medications Zoledronic Acid IV (Zometa), 4 mg/5 mL solution, 4 mg intravenously Piggyback once, Admin over: 15 minutes to 30 minutes, Allow Substitution GIVEN: 4 mg Pharmacy plan: Dispense/Waste: 4/0 mg Amount in mL: 5 Pharmacy dispense: [facility]: [id number] Dispense/Waste: 4/0 mg Given Dose/Discard: 4/0 mg Start Time: 02:30 PM, Entered By: Tenisha Murrieta RN, Stop Time: 02:56 PM, Entered By: Tenisha Murrieta RN Admix Fluid: 0.9 % sodium chloride, Admix Fluid Volume: 100mL, Total Volume: 105mL * Nurse Note for: 15-FEB-24 [facility] Nurse Note Print Location: Unknown Date/Time Printed: 03/20/2025 11:23 AM ([facility]) Patient: IVANA HENDRICKS Sex: Female : 1995 [...] Pharmacy plan: Dispense/Waste: 7.5/0 mg Pharmacy dispense: [facility]: [id number] Dispense/Waste: 7.5/0 mg Given Dose/Discard: 7.5/0 mg Admin Details: Injection Location: Left-Dorsogluteal Time: 12:07 PM Free Text Note : injection complete without incident Entered By Trina Carlos RN on 12:07 PM * Nurse Note for: 17-JAN-24 [facility] Nurse Note Print Location: Unknown Date/Time Printed: 03/20/2025 11:23 AM ([facility]) Patient: IVANA HENDRICKS Sex: Female : 1995 [...] plan: Dispense/Waste: 7.5/0 mg Pharmacy dispense: [facility]: [id number] Dispense/Waste: 7.5/0 mg Given Dose/Discard: 7.5/0 mg Admin Details: Injection Location: Right-Dorsogluteal Time: 01:46 PM Free Text Note : Injection completed without incident. Entered By Kathrin Gordillo RN on 01:46 PM * Nurse Note for: 20-DEC-23 [facility] Nurse Note Print Location: Unknown Date/Time Printed: 03/20/2025 11:23 AM ([facility]) Patient: IVANA HENDRICKS Sex: Female : [...] plan: Dispense/Waste: 7.5/0 mg Pharmacy dispense: [facility]: [id number] Dispense/Waste: 7.5/0 mg Given Dose/Discard: 7.5/0 mg Admin Details: Injection Location: Right-Dorsogluteal Time: 01:25 PM * Nurse Note for: 22-NOV-23 [facility] Nurse Note Print Location: Unknown Date/Time Printed: 03/20/2025 11:23 AM ([facility]) Patient: IVANA HENDRICKS Sex: Female : [...] concentration must be 0.3-1.2 mg/mL. Administer using Hve-EMCR-ppbqrfkooj equipment and through an in-line 0.22 micron filter. Paclitaxel is a vascular irritant., Allow Substitution GIVEN: 132 mg Pharmacy plan: Dispense/Waste: 132/0 mg Amount in mL: 22 Pharmacy dispense: [facility]: [id number] Dispense/Waste: 132/0 mg Given Dose/Discard: 132/0 mg [...] mcg Amount in mL: 1 Pharmacy dispense: [facility]: [id number] Dispense/Waste: 1000/0 mcg Given Dose/Discard: 1000/0 mcg [...] mg Amount in mL: 0.5 Pharmacy dispense: [facility]: [id number] Dispense/Waste: 25/0 mg Given Dose/Discard: 25/0 mg [...] mg Amount in mL: 2 Pharmacy dispense: [facility]: [id number] Dispense/Waste: 20/0 mg Given Dose/Discard: 20/0 mg [...] Pharmacy plan: Dispense/Waste: 7.5/0 mg Pharmacy dispense: [facility]: [id number] Dispense/Waste: 7.5/0 mg Given Dose/Discard: 7.5/0 mg Admin Details: Injection Location: Left-Dorsogluteal Time: 02:58 PM, Entered By: Zohreh Santos RN Checked By: Zohreh Santos RN on 11/22/2023 03:44 PM * Nurse Note for: 15-NOV-23 [facility] Nurse Note Print Location: Unknown Date/Time Printed: 03/20/2025 11:23 AM ([facility]) Patient: IVANA HENDRICKS Sex: Female : 1995 [...] concentration must be 0.3-1.2 mg/mL. Administer using Ify-FWYR-euziepducw equipment and through an in-line 0.22 micron filter. Paclitaxel is a vascular irritant., Allow Substitution GIVEN: 132 mg Pharmacy plan: Dispense/Waste: 132/0 mg Amount in mL: 22 Pharmacy dispense: [facility]: [id number] Dispense/Waste: 132/0 mg Given Dose/Discard: 132/0 mg [...] mcg Amount in mL: 1 Pharmacy dispense: [facility]: [id number] Dispense/Waste: 1000/0 mcg Given Dose/Discard: 1000/0 mcg [...] mg Amount in mL: 0.5 Pharmacy dispense: [facility]: [id number] Dispense/Waste: 25/0 mg Given Dose/Discard: 25/0 mg [...] mg Amount in mL: 2 Pharmacy dispense: [facility]: [id number] Dispense/Waste: 20/0 mg Given Dose/Discard: 20/0 mg Start Time: 01:17 PM, Entered By: Joel Yañez RN, Stop Time: 01:18 PM, Entered By: Joel Yañez RN Admix Fluid: 0.9 % sodium chloride, Admix Fluid Volume: 3mL, Total Volume: 5mL Free Text Note : Patient tolerated infusion without incident. Entered By Joel Yañez RN on 04:48 PM * Nurse Note for: 08-NOV-23 [facility] Nurse Note Print Location: Unknown Date/Time Printed: 03/20/2025 11:23 AM ([facility]) Patient: IVANA HENDRICKS Sex: Female : 1995 [...] concentration must be 0.3-1.2 mg/mL. Administer using Flh-EVGV-kofwjltnsp equipment and through an in-line 0.22 micron filter. Paclitaxel is a vascular irritant., Allow Substitution GIVEN: 132 mg Pharmacy plan: Dispense/Waste: 132/0 mg Amount in mL: 22 Pharmacy dispense: [facility]: [id number] Dispense/Waste: 132/0 mg Given Dose/Discard: 132/0 mg [...] on 11/08/2023 02:43 PM Incident to: Alexandria Ecekrt MD Doxorubicin + Cyclophosphamide (AC) Q14D Dose Dense fb Paclitaxel Weekly D1,8 Q14D Premedications Granisetron IV, 1000 mcg intravenously once, Instructions: CYCLES 5-10 ONLY., Allow Substitution GIVEN: 1000 mcg Pharmacy plan: Dispense/Waste: 1000/0 mcg Amount in mL: 1 Pharmacy dispense: [facility]: [id number] Dispense/Waste: 1000/0 mcg Given Dose/Discard: 1000/0 mcg [...] mg Amount in mL: 0.5 Pharmacy dispense: [facility]: [id number] Dispense/Waste: 25/0 mg Given Dose/Discard: 25/0 mg [...] mg Amount in mL: 2 Pharmacy dispense: [facility]: [id number] Dispense/Waste: 20/0 mg Given Dose/Discard: 20/0 mg Admin Details: IV Administration: Push Start Time: 01:22 PM, Entered By: Keri Forrest RN, Stop Time: 01:24 PM, Entered By: Keri Forrest RN Admix Fluid: 0.9 % sodium chloride, Admix Fluid Volume: 3mL, Total Volume: 5mL Free Text Note : Cryotherapy used Entered By Keri Forrest RN on 02:49 PM * Nurse Note for: 01-NOV-23 [facility] Nurse Note Print Location: Unknown Date/Time Printed: 03/20/2025 11:23 AM ([facility]) Patient: IVANA HENDRICKS Sex: Female : 1995 [...] Redness,No Swelling,No Tenderness,No Bruising, Entered By Suzanna Bailey, JENA on 03:05 PM Discharge Note : Comments-Therapy completed without adverse event, Discharged from clinic, Stable, No new complaints, Plan for next patient visit confirmed, Patient instructed to call office with any questions or problems, Accompanied By-Self, Discharge-Ambulatory, Discharge Time-11/01/2023 03:00 PM Entered By Suzanna Bailye, RN on 03:06 PM Medication Administration : Incident to: Puja Avalos MD Doxorubicin + Cyclophosphamide (AC) Q14D Dose Dense fb Paclitaxel Weekly D1,8 Q14D Chemotherapy Paclitaxel IV, 6 mg/mL concentrate, 132 mg intravenously Piggyback once, Admin over: 1 hours to 1 hours, Instructions: CYCLES 5-10 ONLY.Dilute in 250-500 mL NS. Final product concentration must be 0.3-1.2 mg/mL. Administer using Ybz-YZAP-adyrkzzppt equipment and through an in-line 0.22 micron filter. Paclitaxel is a vascular irritant., Allow Substitution GIVEN: 132 mg Pharmacy plan: Dispense/Waste: 132/0 mg Amount in mL: 22 Pharmacy dispense: [facility]: [id number] Dispense/Waste: 132/0 mg Given Dose/Discard: 132/0 mg [...] mcg Amount in mL: 1 Pharmacy dispense: [facility]: [id number] Dispense/Waste: 1000/0 mcg Given Dose/Discard: 1000/0 mcg [...] mg Amount in mL: 0.5 Pharmacy dispense: [facility]: [id number] Dispense/Waste: 25/0 mg Given Dose/Discard: 25/0 mg [...] mg Amount in mL: 2 Pharmacy dispense: [facility]: [id number] Dispense/Waste: 20/0 mg Given Dose/Discard: 20/0 mg Start Time: 01:19 PM, Entered By: Suzanna Bailey RN, Stop Time: 01:20 PM, Entered By: Suzanna Bailey RN Admix Fluid: 0.9 % sodium chloride, Admix Fluid Volume: 3mL, Total Volume: 5mL Free Text Note : Cryotherapy applied throughout Taxol infusion. Entered By Suzanna Bailey RN on 03:05 PM * Nurse Note for: 25-OCT-23 [facility] Nurse Note Print Location: Unknown Date/Time Printed: 03/20/2025 11:23 AM ([facility]) Patient: IVANA HENDRICKS Sex: Female : 1995 [...] concentration must be 0.3-1.2 mg/mL. Administer using Khv-ZKER-kxszcgehrh equipment and through an in-line 0.22 micron [...] 03:33 PM * Nurse Note for: 11-OCT-23 [facility] Nurse Note Print Location: Unknown Date/Time Printed: 03/20/2025 11:23 AM ([facility]) Patient: IVANA HENDRICKS Sex: Female : 1995 [...] concentration must be 0.3-1.2 mg/mL. Administer using Plt-YEPU-phaxbfuwxf equipment and through an in-line 0.22 micron filter. Paclitaxel is a vascular irritant., Allow Substitution GIVEN: 132 mg Pharmacy plan: Dispense/Waste: 132/0 mg Amount in mL: 22 Pharmacy dispense: [facility]: [id number] Dispense/Waste: 132/0 mg Given Dose/Discard: 132/0 mg [...] mcg Amount in mL: 1 Pharmacy dispense: [facility]: [id number] Dispense/Waste: 1000/0 mcg Given Dose/Discard: 1000/0 mcg Admin Details: IV Administration: Push Start Time: 01:26 PM, Entered By: Cristo Grove RN, Stop Time: 01:27 PM, Entered By: Cristo rGove RN Incident to: Puja Avalos MD Doxorubicin + Cyclophosphamide (AC) Q14D Dose Dense fb Paclitaxel Weekly D1,8 Q14D Premedications Diphenhydramine IV, 25 mg intravenously once, Instructions: Administer 30-60 minutes prior to paclitaxel., Allow Substitution GIVEN: 25 mg Pharmacy plan: Dispense/Waste: 25/0 mg Amount in mL: 0.5 Pharmacy dispense: [facility]: [id number] Dispense/Waste: 25/0 mg Given Dose/Discard: 25/0 mg Admin Details: IV Administration: Push Start Time: 01:28 PM, Entered By: Edward Perfecto, RN, Stop Time: 01:29 PM, Entered By: Cristo Grove RN Incident to: Puja Avalos MD Doxorubicin + Cyclophosphamide (AC) Q14D Dose Dense fb Paclitaxel Weekly D1,8 Q14D Premedications Famotidine IV, 20 mg intravenously once, Instructions: Administer 30-60 minutes prior to paclitaxel., Allow Substitution GIVEN: 20 mg Pharmacy plan: Dispense/Waste: 20/0 mg Amount in mL: 2 Pharmacy dispense: [facility]: [id number] Dispense/Waste: 20/0 mg Given Dose/Discard: 20/0 mg [...] 02:15 PM * Nurse Note for: 04-OCT-23 [facility] Nurse Note Print Location: Unknown Date/Time Printed: 03/20/2025 11:23 AM ([facility]) Patient: IVANA HENDRICKS Sex: Female : 1995 [...] concentration must be 0.3-1.2 mg/mL. Administer using Vsw-XXWL-kzhurifvip equipment and through an in-line 0.22 micron filter. Paclitaxel is a vascular irritant., Allow Substitution GIVEN: 132 mg Pharmacy plan: Dispense/Waste: 132/0 mg Amount in mL: 22 Pharmacy dispense: [facility]: [id number] Dispense/Waste: 132/0 mg Given Dose/Discard: 132/0 mg [...] mcg Amount in mL: 1 Pharmacy dispense: [facility]: [id number] Dispense/Waste: 1000/0 mcg Given Dose/Discard: 1000/0 mcg [...] mg Amount in mL: 0.5 Pharmacy dispense: [facility]: [id number] Dispense/Waste: 25/0 mg Given Dose/Discard: 25/0 mg [...] mg Amount in mL: 2 Pharmacy dispense: [facility]: [id number] Dispense/Waste: 20/0 mg Given Dose/Discard: 20/0 mg [...] 02:55 PM * Nurse Note for: 27-SEP-23 [facility] Nurse Note Print Location: Unknown Date/Time Printed: 03/20/2025 11:23 AM ([facility]) Patient: IVANA HENDRICKS Sex: Female : 1995 [...] Urinary Changes , Bleeding . Entered By Tirna Carlos RN on 12:55 PM IV Access/Lab [...] concentration must be 0.3-1.2 mg/mL. Administer using Jin-TNXF-hffryvutax equipment and through an in-line 0.22 micron filter. Paclitaxel is a vascular irritant., Allow Substitution GIVEN: 132 mg Pharmacy plan: Dispense/Waste: 132/0 mg Amount in mL: 22 Pharmacy dispense: [facility]: [id number] Dispense/Waste: 132/0 mg Given Dose/Discard: 132/0 mg [...] mcg Amount in mL: 1 Pharmacy dispense: [place]: [id number] Dispense/Waste: 1000/0 mcg Given Dose/Discard: 1000/0 mcg [...] mg Amount in mL: 0.5 Pharmacy dispense: [facility]: [id number] Dispense/Waste: 25/0 mg Given Dose/Discard: 25/0 mg [...] mg Amount in mL: 2 Pharmacy dispense: [facility]: [id number] Dispense/Waste: 20/0 mg Given Dose/Discard: 20/0 mg [...] 02:46 PM * Nurse Note for: 20-SEP-23 [facility] Nurse Note Print Location: Unknown Date/Time Printed: 03/20/2025 11:23 AM ([facility]) Patient: IVANA HENDRICKS Sex: Female : 1995 [...] concentration must be 0.3-1.2 mg/mL. Administer using Ngr-VPZP-jmhjshnzrr equipment and through an in-line 0.22 micron filter. Paclitaxel is a vascular irritant., Allow Substitution GIVEN: 132 mg Pharmacy plan: Dispense/Waste: 132/0 mg Amount in mL: 22 Pharmacy dispense: [facility]: [id number] Dispense/Waste: 132/0 mg Given Dose/Discard: 132/0 mg [...] mcg Amount in mL: 1 Pharmacy dispense: [facility]: [id number] Dispense/Waste: 1000/0 mcg Given Dose/Discard: 1000/0 mcg [...] Entered By: Dorothea Espitia RN Incident to: Pjua Avalos MD Doxorubicin + Cyclophosphamide (AC) Q14D Dose Dense fb Paclitaxel Weekly D1,8 Q14D Premedications Diphenhydramine IV, 25 mg intravenously once, Instructions: Administer 30-60 minutes prior to paclitaxel., Allow Substitution GIVEN: 25 mg Pharmacy plan: Dispense/Waste: 25/0 mg Amount in mL: 0.5 Pharmacy dispense: [facility]: [id number] Dispense/Waste: 25/0 mg Given Dose/Discard: 25/0 mg [...] mg Amount in mL: 2 Pharmacy dispense: [facility]: [id number] Dispense/Waste: 20/0 mg Given Dose/Discard: 20/0 mg [...] 01:00 PM * Nurse Note for: 13-SEP-23 [facility] Nurse Note Print Location: Unknown Date/Time Printed: 03/20/2025 11:23 AM ([facility]) Patient: IVANA HENDRICKS Sex: Female : 1995 [...] concentration must be 0.3-1.2 mg/mL. Administer using Nzx-PSUL-veyczyuaug equipment and through an in-line 0.22 micron filter. Paclitaxel is a vascular irritant., Allow Substitution GIVEN: 132 mg Pharmacy plan: Dispense/Waste: 132/0 mg Amount in mL: 22 Pharmacy dispense: [facility]: [id number] Dispense/Waste: 132/0 mg Given Dose/Discard: 132/0 mg [...] mcg Amount in mL: 1 Pharmacy dispense: [facility]: [id number] Dispense/Waste: 1000/0 mcg Given Dose/Discard: 1000/0 mcg [...] Pharmacy plan: Dispense/Waste: 10/0 mg Pharmacy dispense: [facility]: [id number] Dispense/Waste: 10/0 mg Given Dose/Discard: 10/0 mg Admin Details: IV Administration: Piggyback, Comments: pt missed PO dose Start Time: 01:16 PM, Entered By: Trina Carlos RN, Stop Time: 01:37 PM, Entered By: Trina Carlos RN Admix Fluid: 0.9 % sodium chloride, Admix Fluid Volume: 50mL Incident to: Puja Avalos MD Doxorubicin + Cyclophosphamide (AC) Q14D Dose Dense fb Paclitaxel Weekly D1,8 Q14D Premedications Diphenhydramine IV, 25 mg intravenously once, Instructions: Administer 30-60 minutes prior to paclitaxel., Allow Substitution GIVEN: 25 mg Pharmacy plan: Dispense/Waste: 25/0 mg Amount in mL: 0.5 Pharmacy dispense: [facility]: [id number] Dispense/Waste: 25/0 mg Given Dose/Discard: 25/0 mg [...] mg Amount in mL: 2 Pharmacy dispense: [facility]: [id number] Dispense/Waste: 20/0 mg Given Dose/Discard: 20/0 mg [...] 02:42 PM * Nurse Note for: 03-SEP-23 [facility] Nurse Note Print Location: Unknown Date/Time Printed: 03/20/2025 11:23 AM ([facility]) Patient: IVANA HENDRICKS Sex: Female : 1995 [...] Pharmacy plan: Dispense/Waste: 300/0 mcg Pharmacy dispense: [facility]: [id number] Dispense/Waste: 300/0 mcg Given Dose/Discard: 300/0 mcg Admin Details: Injection Location: Right-Upper Arm Time: 03:30 PM * Nurse Note for: 01-SEP-23 [facility] Nurse Note Print Location: Unknown Date/Time Printed: 03/20/2025 11:23 AM ([facility]) Patient: IVANA HENDRICKS Sex: Female : 1995 Date of Service: 09/01/2023 Allergies : Penicillins Patient Assessment : Medication Administration : Incident to: Britta Nelson NP Filgrastim Medications Zarxio (Filgrastim-Sndz Subcutaneous), 300 mcg/0.5 mL syringe, 300 mcg subcutaneously once, Instructions: NOTE: This is Zarxio., Allow Substitution GIVEN: 300 mcg Pharmacy plan: Dispense/Waste: 300/0 mcg Pharmacy dispense: [facility]: [id number] Dispense/Waste: 300/0 mcg Given Dose/Discard: 300/0 mcg Admin Details: Injection Location: Left-Upper Arm Time: 11:25 AM * Nurse Note for: 31-AUG-23 [facility] Nurse Note Print Location: Unknown Date/Time Printed: 03/20/2025 11:23 AM ([facility]) Patient: IVANA HENDRICKS Sex: Female : [...] 03:55 PM * Nurse Note for: 30-AUG-23 [facility] Nurse Note Print Location: Unknown Date/Time Printed: 03/20/2025 11:23 AM ([facility]) Patient: IVANA HENDRICKS Sex: Female : 1995 [...] concentration must be 0.3-1.2 mg/mL. Administer using Knw-UYWM-ekopraglpa equipment and through an in-line 0.22 micron filter. Paclitaxel is a vascular irritant., Allow Substitution GIVEN: 132 mg Pharmacy plan: Dispense/Waste: 132/0 mg Amount in mL: 22 Pharmacy dispense: [facility]: [id number] Dispense/Waste: 132/0 mg Given Dose/Discard: 132/0 mg [...] mcg Amount in mL: 1 Pharmacy dispense: [facility]: [id number] Dispense/Waste: 1000/0 mcg Given Dose/Discard: 1000/0 mcg [...] Pharmacy plan: Dispense/Waste: 10/0 mg Pharmacy dispense: [facility]: [id number] Dispense/Waste: 10/0 mg Given Dose/Discard: 10/0 mg [...] mg Amount in mL: 0.5 Pharmacy dispense: [facility]: [id number] Dispense/Waste: 25/0 mg Given Dose/Discard: 25/0 mg [...] mg Amount in mL: 2 Pharmacy dispense: [facility]: [id number] Dispense/Waste: 20/0 mg Given Dose/Discard: 20/0 mg Admin Details: IV Administration: Push Start Time: 01:25 PM, Entered By: Monalisa Cunha RN, Stop Time: 01:27 PM, Entered By: Monalisa Cunha RN Admix Fluid: 0.9 % sodium chloride, Admix Fluid Volume: 3mL, Total Volume: 5mL * Nurse Note for: 23-AUG-23 [facility] Nurse Note Print Location: Unknown Date/Time Printed: 03/20/2025 11:23 AM ([facility]) Patient: IVANA HENDRICKS Sex: Female : 1995 [...] . Entered By Trina Carlos RN on 01:42 PM IV Access/Lab Draw [...] Discharge-Ambulatory, Discharge Time-08/23/2023 03:46 PM Entered By Trina Carlos RN on 03:46 PM Medication Administration : Incident to: Evans Royal MD Doxorubicin + Cyclophosphamide (AC) Q14D Dose Dense fb Paclitaxel Weekly D1,8 Q14D Chemotherapy Paclitaxel IV, 6 mg/mL concentrate, 132 mg intravenously Piggyback once, Admin over: 1 hours to 1 hours, Instructions: CYCLES 5-10 ONLY.Dilute in 250-500 mL NS. Final product concentration must be 0.3-1.2 mg/mL. Administer using Qbr-MBWV-fhocquxbqm equipment and through an in-line 0.22 micron filter. Paclitaxel is a vascular irritant., Allow Substitution GIVEN: 132 mg Pharmacy plan: Dispense/Waste: 132/0 mg Amount in mL: 22 [facility] CLINICS: [id number] Dispense/Waste: 132/0 mg Given Dose/Discard: 132/0 mg [...] mcg Amount in mL: 1 Pharmacy dispense: [facility]: [id number] Dispense/Waste: 1000/0 mcg Given Dose/Discard: 1000/0 mcg [...] mg Amount in mL: 0.5 Pharmacy dispense: [facility]: [id number] Dispense/Waste: 25/0 mg Given Dose/Discard: 25/0 mg [...] mg Amount in mL: 2 Pharmacy dispense: [facility]: [id number] Dispense/Waste: 20/0 mg Given Dose/Discard: 20/0 mg [...] 03:46 PM * Nurse Note for: 13-AUG-23 [facility] Nurse Note Print Location: Unknown Date/Time Printed: 03/20/2025 11:23 AM ([facility]) Patient: IVANA HENDRICKS Sex: Female : 1995 [...] Pharmacy plan: Dispense/Waste: 1000/0 mL Pharmacy dispense: [facility]: [id number] Dispense/Waste: 1000/0 ML Given Dose/Discard: 1000/0 mL Admin Details: IV Administration: Infusion (Drip) Start Time: 01:28 PM, Entered By: Cristo Grove RN, Stop Time: 02:50 PM, Entered By: Cristo Grove RN Incident to: Alexandria Eckert MD IV Hydration - [facility] Additional Medications Palonosetron IV, 0.25 mg intravenously once, Allow Substitution HELD (Reason: Patient declined/rejected) Entered By: Cristo Grove RN Free Text Note : Pt offers no c/o. Pt reporting nausea well controlled with consistent use of lorazepam. Entered By Cristo Grove RN on 01:31 PM * Nurse Note for: 10-AUG-23 [facility] Nurse Note Print Location: Unknown Date/Time Printed: 03/20/2025 11:23 AM ([facility]) Patient: IVANA HENDRICKS Sex: Female : 1995 [...] mL syringe Dispense/Waste: 6/0 mg Pharmacy dispense: [facility]: [id number] Dispense/Waste: 6/0 mg Given Dose/Discard: 6/0 mg Admin Details: Injection Location: Left-Upper Arm Time: 02:26 PM, Entered By: Trina Carlos RN Incident to: Analia Keating MD IV Hydration - [facility] Fluids Sodium Chloride IV 0.9 %, 1000 mL intravenously once, Allow Substitution GIVEN: 1000 mL Pharmacy plan: Dispense/Waste: 1000/0 mL Pharmacy dispense: [place]: [id number] Dispense/Waste: 1000/0 ML Given Dose/Discard: 1000/0 mL Admin Details: IV Administration: Infusion (Drip) Start Time: 01:03 PM, Entered By: Trina Carlos RN, Stop Time: 02:23 PM, Entered By: Trina Carlos RN Incident to: Analia Keating MD IV Hydration - [facility] Additional Medications Palonosetron IV, 0.25 mg intravenously once, Allow Substitution HELD (Reason: Not given - other reason) Entered By: Levi Ingram Free Text Note : hydration and injection complete without incident Entered By Trina Carlos RN on 02:30 PM * Nurse Note for: 09-AUG-23 [facility] Nurse Note Print Location: Unknown Date/Time Printed: 03/20/2025 11:23 AM ([facility]) Patient: IVANA HENDRICKS Sex: Female : 1995 [...] mg Amount in mL: 50 Pharmacy dispense: [facility]: [id number] Dispense/Waste: 100/0 mg Given Dose/Discard: 100/0 mg [...] mg Amount in mL: 50 Pharmacy dispense: [facility]: [id number] Dispense/Waste: 1000/0 mg Given Dose/Discard: 1000/0 mg [...] mg Amount in mL: 5 Pharmacy dispense: [facility]: [id number] Dispense/Waste: 0.25/0 mg Given Dose/Discard: 0.25/0 mg [...] mg Amount in mL: 0.8 Pharmacy dispense: [facility]: [id number] Dispense/Waste: 8/0 mg Given Dose/Discard: 8/0 mg [...] mg Amount in mL: 5 Pharmacy dispense: [facility]: [id number] Dispense/Waste: 150/0 mg Given Dose/Discard: 150/0 mg Admin Details: IV Administration: Piggyback Start Time: 01:32 PM, Entered By: Tenisha Murrieta RN, Stop Time: 02:02 PM, Entered By: Tenisha Murrieta RN Admix Fluid: 0.9 % sodium chloride, Admix Fluid Volume: 150mL, Total Volume: 155mL * Nurse Note for: 06-AUG-23 [facility] Nurse Note Print Location: Unknown Date/Time Printed: 03/20/2025 11:23 AM ([facility]) Patient: IVANA HENDRICKS Sex: Female : 1995 [...] Urinary Changes , Bleeding . Entered By Crisot Grove RN on 01:46 PM IV Access/Lab [...] Pharmacy plan: Dispense/Waste: 1000/0 mL Pharmacy dispense: [facility]: [id number] Dispense/Waste: 1000/0 ML Given Dose/Discard: 1000/0 mL [...] 01:47 PM * Nurse Note for: 03-AUG-23 [facility] Nurse Note Print Location: Unknown Date/Time Printed: 03/20/2025 11:23 AM ([facility]) Patient: IVANA HENDRICKS Sex: Female : 1995 [...] to: Puja Avalos MD IV Hydration - [facility] Fluids Sodium Chloride IV 0.9 %, 1000 mL intravenously once, Allow Substitution GIVEN: 1000 mL Pharmacy plan: Dispense/Waste: 1000/0 mL Given Dose/Discard: 1000/0 mL Admin Details: IV Administration: Infusion (Drip) Start Time: 02:20 PM, Entered By: Trina Carlos RN, Stop Time: 03:40 PM, Entered By: Trina Carlos RN Incident to: Puja Avalos MD IV Hydration - [facility] Additional Medications Palonosetron IV, 0.25 mg intravenously [...] 03:33 PM * Nurse Note for: 02-AUG-23 [facility] Nurse Note Print Location: Unknown Date/Time Printed: 03/20/2025 11:23 AM ([facility]) Patient: IVANA HENDRICKS Sex: Female : 1995 [...] note today regarding labs/port. Entered By Sanjana Jamison NP on 04:41 PM Procedures : Established patient, minimal office visit - Associated Problem(s): Breast cancer, female *; Selected Billing Code(s): OFFICE/OUTPATIENT EST PT MAY NOT REQ PHYS/QHP (33221) Entered By Sanjana Jamison NP; Incident to Evans Royal MD
--- OUTSIDE RECORDS SUMMARY | 2025-03-20 11:25 | XMS_ITS | Clinical Summary ---
[facility] Address [address] [place] [address] Phone Care Team Providers Care Server Support Technician Name Role Phone Harmony Ewing MD Primary Care Provider [phone] Allergies Active Allergy Reactions Criticality Noted Date Comments Lactose Other,GI intolerance Medium 03/19/2023 Other: gas Penicillins Hives,Rash Medium 04/25/2021 Medications copper (ParaGard T 380A) 380 square mm IUD 1 each. 0 032 Active budesonide-formo teroL (SYMBICORT) 80-4.5 mcg/actuation inhaler Inhale 2 puffs 2 (two) times a day. 10.2 each 1 2 Active Additional Information Patient taking differently:2 puff inhalationAs needed, prn, Reported on 02/18/2024 albuterol HFA (ProAir HFA) 90 mcg/actuation inhalerIndicatio ns:Mild intermittent asthma, unspecified whether complicated Inhale 2 puffs every 4 (four) hours if needed for wheezing or shortness of breath. 8.5 g 3 3 Active Additional Information Patient taking differently:2 puff inhalation Every 4 hours PRN, wheezing, shortness of breath,prn, Reported on 02/18/2024 leuprolide (LUPRON DEPOT) 3.75 mg Inject 3.75 mg into the shoulder, thigh, or buttocks every 28 (twenty-eight) days. Patient is not sure of dosage on lupron Active letrozole (FEMARA) 2.5 mg tablet Take 1 tablet (2.5 mg total) by mouth Every other day 4 Active atomoxetine (STRATTERA) 18 mg capsule TAKE 1 CAPSULE (18 MG TOTAL) BY MOUTH 1 (ONE) TIME EACH DAY FOR 15 DAYS. SWALLOW CAPSULE WHOLE DO NOT OPEN. IF OPENED ACCIDENTALLY, DO NOT TOUCH EYES WASH HANDS IMMEDIATELY (PRODUCT IS AN EYE IRRITANT). 90 capsule 4 Active Active Problems Problem Noted Date Diagnosed Date Malignant neoplasm of upper- inner quadrant of left breast in female, estrogen receptor positive ([facility] V24, [facility] V28) 04/12/2023 Overview (04/12/2023): Added automatically from request for surgery [id number] Menorrhagia with irregular cycle 11/23/2022 BRCA2 positive 11/23/2022 Asthma 11/02/2022 Suspected severe acute respi ratory syndrome coronavirus 2 (SARS-CoV-2) infection 11/08/2020 Immunizations Name Administration Dates Next Due Influenza Quadravalent, MDCK , 0.5ml, preservative free (Flucelvax) 6mo and older 08/26/2019 Influenza Quadravalent, lainey mbinant, 0.5ml, preservative free (Flublok) 18yo and older 11/23/2022 Influenza Quadrivalent, 0.5m l, preservative free (Fluarix; FluLaval; Fluzone) ages 6mo and older (Afluria) 3yo and older 09/25/2023,11/10/2021 Moderna SARS-CoV-2 COVID-19, mRNA, LNP-S, preservative free 03/24/2021,02/24/2021 Tdap Tetanus diptheria acell ular pertussis (Boostrix; Adacel) 7yo and older 12/12/2023 Surgical History Surgery Date Site/Laterality Comments BREAST BIOPSY 11/26/2022 - 11/25/2023 Left sched mastectomy 05/22/23 WISDOM TOOTH EXTRACTION 11/26/2012 - 11/25/2013 x 4 MASTECTOMY 05/22/2023 Bilateral Medical History Medical History Date Comments Asthma BRCA gene mutation positive in female Mother: + brca gene mutation, dx breast cancer age 57 Anemia Allergies seasonal, mild Depression Cancer ([facility] V24, [facility] V28) 04/03/2023 invasive ductal carcinoma PTSD (post-traumatic stress disorder) 2020 hx of, treated. Planning to go back to therapist - Dietary lactose intolerance Requ esting special diet- lactose free ADHD (attention deficit hype ractivity disorder) Family History Medical History Relation Name Comments Crohn's disease Father Ovarian cancer Maternal Grandmother Nolvia Breast cancer Maternal Great-Grandmother BRCA2 Positive Mother Shanika Breast cancer Mother Shanika Breast cancer Other 1 Maternal great aunt Cancer Paternal Grandmother Rere Colon cancer Paternal Grandmother Rere Relation Name Status Comments Father Alive Maternal Grandmother Nolvia Maternal Great-Grandmother Alive Mother Shanika Alive 53 when diagnos ed Other 1 Other 2 Alive Paternal Grandmother Rere Social History Tobacco Use Types Packs/Day Years Used Date Smoking Tobacco: Former Cigarettes 2 - 03/2023 Passive Smoke Exposure: Never Smokeless Tobacco: Never Tobacco Cessation:Counseling Given: Not Answered Comments:Socially, not even 1/4 pack per day. Alcohol Use Standard Drinks/Week Comments Not Currently 0 (1 standard drink = 0.6 oz pur e alcohol) chemo treatment Housing Instability Answer Date Recorde d Are you worried that in the next 2 months you may not have stable housing? No 05/15/2023 Food Access & Nutrition Answer Date Rec orded Do you have access to a vari ety of food including fruits and vegetables? Yes 05/15/2023 Access to Healthcare Answer Date Record ed Within the last 3 months, ho w many times did you visit the emergency department for your medical care? 0 05/15/2023 Financial Risk Answer Date Recorded How hard is it for you to pa y for the very basics like food, housing, medical care, and air conditioning / heating? Not very hard 05/15/2023 Transportation Answer Date Recorded Has the lack of transportati on kept you from meetings, work, or from getting things needed for daily living? No Has the lack of transportati on kept you from medical appointments or from getting medications? No 05/15/2023 Social Isolation Answer Date Recorded How often do you feel lonely or isolated from th ose around you? Never 05/15/2023 Food Risk Answer Date Recorded Within the past 12 months we worried whether our food would run out before we got money to buy more. Never true 05/15/2023 Within the past 12 months th e food we bought just didn't last and we didn't have money to get more. Never true 05/15/2023 [facility] Answer Date Re corded How often do you need to hav e someone help you when you read instructions, pamphlets, or other written material from your doctor or pharmacy? Never 05/15/2023 Caregiver: How often do you need to have someone help you when you read instructions, pamphlets, or other written material from your doctor or pharmacy? 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 Not on file Not on file Not on file Obstetrics History Para Term AB IAB SAB Ectopic Multiple Livin g Live Births 0 0 0 0 0 0 0 0 0 0 0 Last Filed Vital Signs Vital Sign Reading Time Taken Comments Blood Pressure 118/76 02/26/2024 1:43 PM EDT Pulse 92 02/26/2024 1:43 PM EDT Temperature 36.5 ??C (97.7 ??F) 02/26/2024 1:43 PM ED T Respiratory Rate 16 02/26/2024 1:43 PM EDT Oxygen Saturation 100% 02/26/2024 1:43 PM EDT Inhaled Oxygen Concentration - - Weight 54.4 kg (120 lb) 02/26/2024 1:43 PM EDT Height 172.7 cm (5' 8 ) 02/18/2024 1:45 PM EDT Body Mass Index 18.25 02/18/2024 1:45 PM EDT Plan of Treatment Health Maintenance Due Date Last Done Comments Social Influencers of Health Screening 01/15/2021 COVID-19 Vaccine ( season) 2024 08/26/2023, 08/12/2022, 10/26/2021, Additional history exists Cervical Cancer Screening: Pap Smear 08/16/2024 08/16/2021 Depression Screening 08/30/2024 08/30/2023 Influenza Vaccine (Season Ended) 2025 09/25/2023, 11/23/2022, 11/10/2021, Additional history exists DTaP,Tdap,and Td Vaccines (2 - Td or Tdap) 12/12/2033 12/12/2023 HIB Vaccines Aged Out No longer eligi ble based on patient's age to complete this topic HIV Screening Discontinued HPV Vaccines Aged Out No longer eligi ble based on patient's age to complete this topic Hepatitis A Vaccines Discontinued Hepatitis B Vaccines Discontinued Hepatitis C Screening Discontinued IPV Vaccines Aged Out No longer eligi ble based on patient's age to complete this topic MMR Vaccines Aged Out No longer eligi ble based on patient's age to complete this topic Meningococcal ACWY Vaccine Aged Out N o longer eligible based on patient's age to complete this topic Meningococcal B Vaccine Aged Out No l onger eligible based on patient's age to complete this topic Pneumococcal Vaccine: Pediatrics (0 to 5 Years) and At-Risk Patients (6 to 64 Years) Discontinued RSV Immunization Patients Under 20 months Aged Out No longer eligible based on patient's age to complete this topic Varicella Vaccines Aged Out No longer eligible based on patient's age to complete this topic Goals Goal Patient Goal Type Associated Problems Recent Progress Patient-Stated? Author patient has good understanding for risk reduction Lymphedema L UE General No Cristina, Karen, PT Note: Patient educated on Lymphedema Risk Reduction, High Risk Activities, Diaphragmatic Breathing, Exercise Packet Issued: Exercises including ROM, Strengthening and Self Stretches, resistive exercises. patient with FULL BILATERAL UE ROM General No Cristina, Karen, PT Axillary and truncal cordinfg resolve General No [place], Karen, PT Note: Left UE cording Released right truncal cords patient independent with HEP General No Cristina, Karen, PT pain Bilat breast/trunk region lessens 50% General No Cristina , Karen, PT patient able to make a meal without pain General No Cristina, Karen, PT Medical Devices Implanted Type Area Shop Blacksmith Device Identifier Shelf Expiration Date Model / Serial / Lot Marker Tiss Coil Ndl [id number] Ultraclip Ii 3mm [facility] - [id number] - [id number] Implanted:Qt y: 1 on 03/30/2023 by Teodoro Casey MD at [facility] Imaging Implants Left: Breast CR [employer] [id number] 08/23/2025 [id number] / [id number] / [id number] Procedures Procedure Name Priority Date/Time Associated Diagnosis Comments PAP SMEAR Routine 08/16/2021 9:25 AM EDT Screening for cervical cancer from Last 3 Months or Most Recently Relevant to Health Maintenance Results * Pap smear (08/16/2021 9:25 AM EDT) Interpretation Negative for intraepithelial lesion or malignancy 08/19/2021 1:37 PM EDT [facility] Specimen Adequacy Satisfactory for evaluation, endocervical/glover sformation zone component present 08/19/2021 1:37 PM EDT [facility] LMP 08/15/2021 08/19/2021 1:37 PM EDT [facility] Disclaimer The technical components of this case were performed at [facility] [address] [place] [address] 08/19/2021 1:37 PM EDT [facility] Brushing/Spatula Cervix uteri structure / Unknown 08/16/2021 9:25 AM EDT 08/16/2021 9:25 AM EDT us [facility] CYTOLOGY ORDERABLES Final Result [facility] [address] [place] [address] from Last 3 Months or Most Recently Relevant to Health Maintenance Insurance [employer] Advance Directives * Full Code - Default (Latest Code Status on File) Date Activated Date Inactivated Comments 05/22/2023 2:46 PM 05/22/2023 6:33 PM This is orde r is used when code status has not been discussed with the patient, or code status is otherwise unknown/unconfirmed To update the patient's code status, place a code status order. Do not modify or discontinue any currently active code status orders. * Full Code - Default Date Activated Date Inactivated Comments 05/22/2023 10:11 AM 05/22/2023 2:46 PM This is ord er is used when code status has not been discussed with the patient, or code status is otherwise unknown/unconfirmed To update the patient's code status, place a code status order. Do not modify or discontinue any currently active code status orders. Care Teams Server Support Technician Relationship Specialty Start Date End Date Harmony Ewing MD [address] [place] [id number] PCP - General Family Medicine 11/23/22
--- OUTSIDE RECORDS SUMMARY | 2025-03-20 11:26 | XMS_ITS ---
Author Name Interface, [id number] lity Address [address] [place] [address] [facility] matology Address [address] [place] [address] Care Team Providers Care Front End Architect Name Role Phone Lucrecia Crews Unavailable Unavailable Allergies and Adverse Reactions Medication/Group [...] APPOINTMENT NEW PT CONSULT 4 5 MIN 04/24/2024 LABORDER U/S pelvis 04/30/2024 LABORDER Estradiol, ultra sensitive panel 04/30/2024 LABORDER CA 125 panel 04/30/2024 LABORDER CBC w/auto diff with reflex 04/30/2024 LABORDER CMP 04/30/2024 LABORDER Estradiol, ultra sensitive panel 04/30/2024 LABORDER Magnesium panel Reason for Visit NON CHEMO INJECTION 15 MIN Encounters Date Name 04/24/2024 Breast cancer, femal e 04/24/2024 Estrogen receptor po sitive status [ER+] 04/24/2024 Family history of BR CA2 gene mutation 04/24/2024 Hot flashes 04/24/2024 Inherited mutation o f BRCA2 gene Diagnostic Results Date Type Test Units Lower Limit Upper Limit Result Flag Comments Status Ordered By Specimen Source Lab Address 04/30 Estra diol, ultra sensi tive panel [facility] RP ESTRA DIOL MS pg/mL <1.0 This test was developed and its performan ce character isticsdet ermined by [facility]. It has not been cleared or approvedb y the Food and Drug Administr ation.Ref erence Range:Ambrocio lt Females Follicula r: 30 - 100 Luteal: 70 - 300 Postmenop ausal: <15 FINAL [facility] EPIC, [address] [id number] 0 04/30 CMP Bilir ubin, total mg/dL 0.3 1.0 0.7 FINAL [facility], [address] [facility] [id number] 0 04/30 CMP AST/S GOT U/L 13.0 39.0 22 FINAL [facility], [address] [facility] [id number] 0 04/30 CMP ALT/S GPT U/L 7.0 52.0 16 FINAL [facility], [address] [facility] [id number] 0 04/30 CMP Alkal ine phosp hatas e U/L 34.0 104.0 71 FINAL [facility], [facility] [address] [facility] [id number] 0 04/30 CMP Gluco se mg/dL 70.0 105.0 89 FINAL [facility], [facility] [address] [facility] [id number] 0 04/30 CMP BUN mg/dL 7.0 25.0 7 FINAL [facility], [facility] [address] [facility] [id number] 0 04/30 CMP Creat inine mg/dL 0.6 1.3 0.75 FINAL [facility], [address] [facility] [id number] 0 04/30 CMP Calci um mg/dL 8.4 10.5 9.1 FINAL [facility], [address] [facility] [id number] 0 04/30 CMP Total prote in g/dL 6.3 8.2 7.4 FINAL [facility] [place], [address] [facility] [id number] 0 04/30 CMP Album in g/dL 3.5 5.0 4.9 FINAL [facility], [address] [facility] [id number] 0 04/30 CMP Sodiu m mEq/L 135.0 145.0 136 FINAL [facility], [address] [facility] [id number] 0 04/30 CMP Potas sium mEq/L 3.4 5.0 3.8 FINAL [facility], [address] [facility] [id number] 0 04/30 CMP Chlor uri, mEq/L mEq/L 96.0 107.0 101 FINAL [facility] [place], [address] [facility] [id number] 0 04/30 CMP CO2 whitney nt mEq/L 21.0 31.0 28 FINAL [facility], [address] [facility] [id number] 0 04/30 CMP GFR estim ate mL/min /1.73m 2 91 Normal Range:Nor mal renal function >or= 60Moderat srinivas decreased 30 - 59Severel y decreased 15 - 29Renal Failure < 15Please note the GFR value should be multiplie d by 1.210 if the patient is -A merican. FINAL [facility] [place], [address] [facility] [id number] 0 04/30 CBC w/aut o diff with refle x WBC x10^3/ uL 4.4 10.4 3.24 Low FINAL [facility], [address] [facility] [id number] 0 04/30 CBC w/aut o diff with refle x RBC x10^6/ uL 4.2 5.4 4.52 FINAL [facility], [address] [facility] [id number] 0 04/30 CBC w/aut o diff with refle x HGB g/dL 12.0 16.0 13.3 FINAL [facility], [address] [facility] [id number] 0 04/30 CBC w/aut o diff with refle x HCT % 37.0 47.0 40.6 FINAL [facility], [address] [facility] [id number] 0 04/30 CBC w/aut o diff with refle x MCV fL 80.0 98.0 89.8 FINAL [facility], [address] [facility] [id number] 0 04/30 CBC w/aut o diff with refle x MCH pg 28.0 32.0 29.4 FINAL [facility], [address] [facility] [id number] 0 04/30 CBC w/aut o diff with refle x MCHC g/dL 30.7 34.7 32.8 FINAL [facility], [address] [facility] [id number] 0 04/30 CBC w/aut o diff with refle x RDW-S D 37.0 54.0 44.30 FINAL [facility], [address] [facility] [id number] 0 04/30 CBC w/aut o diff with refle x RDW % 11.5 14.5 13.5 FINAL [facility], [address] [facility] [id number] 0 04/30 CBC w/aut o diff with refle x PLT x10^3/ uL 120.0 400.0 220 FINAL [facility], [address] [facility] [id number] 0 04/30 CBC w/aut o diff with refle x MPV fL 6.5 12.0 9.0 FINAL [facility], [address] [facility] [id number] 0 04/30 CBC w/aut o diff with refle x Smear revie w None FINAL [facility], [address] [facility] [id number] 0 04/30 CBC w/aut o diff with refle x NRBC % /100WB C 0.0 9.0 0.0 FINAL [facility], [address] [facility] [id number] 0 04/30 CBC w/aut o diff with refle x NRBC, absol [place], x 10^3/ uL x10^3/ uL 0.0 0.1 0.00 FINAL [facility], [address] [facility] [id number] 0 04/30 CBC w/aut o diff with refle x Emily % % 40.0 70.0 66.1 FINAL [facility], [address] [facility] [id number] 0 04/30 CBC w/aut o diff with refle x LY % % 15.0 41.0 22.2 FINAL [facility], [address] [facility] [id number] 0 04/30 CBC w/aut o diff with refle x MO % % 2.0 8.0 8.6 High FINAL [facility], [address] [facility] [id number] 0 04/30 CBC w/aut o diff with refle x EO % % 0.0 3.0 1.9 FINAL [facility], [address] [facility] [id number] 0 04/30 CBC w/aut o diff with refle x BA % % 0.0 1.0 0.9 FINAL [facility], [address] [facility] [id number] 0 04/30 CBC w/aut o diff with refle x IG % % 0.0 1.0 0.3 FINAL [facility], [address] [facility] [id number] 0 04/30 CBC w/aut o diff with refle x Emily # (ANC) x10^3/ uL 2.0 8.4 2.14 FINAL [facility], [address] [facility] [id number] 0 04/30 CBC w/aut o diff with refle x LY # x10^3/ uL 0.7 5.1 0.72 FINAL [facility], [address] [facility] [id number] 0 04/30 CBC w/aut o diff with refle x MO # x10^3/ uL 0.0 1.6 0.28 FINAL [facility], [address] [facility] [id number] 0 04/30 CBC w/aut o diff with refle x EO # x10^3/ uL 0.0 1.1 0.06 FINAL [facility], [address] [facility] [id number] 0 04/30 CBC w/aut o diff with refle x BA # x10^3/ uL 0.0 0.2 0.03 FINAL [facility], [address] [facility] [id number] 0 04/30 CBC w/aut o diff with refle x IG # x10^3/ uL 0.0 0.1 0.01 FINAL [facility], [address] [facility] [id number] 0 04/30 Magne sium panel Magne sium, mg/dL mg/dL 1.6 2.3 2.12 FINAL [facility], [address] [facility] [id number] 0 04/30 CA 125 panel CA 125 U/ml 6.0 Test performed on [facility] at [facility] [address], [place] [address] FINAL [facility], [address] [id number] 0 Medications Date Name Route Dose Frequency [...] pain Active Vital Signs Date Type Value 04/24/2024 Oxygen Saturation 98.00 04/24/2024 Respiratory Rate 16.00 04/24/2024 Heart Beat 90.00 04/24/2024 Body Temperature 97.50 04/24/2024 Intravascular Systolic 112 04/24/2024 Intravascular Diastolic 58 04/24/2024 Weight 55.00 04/24/2024 BSA 1.65 04/24/2024 Height 172.70 04/24/2024 BMI 18.44 04/24/2024 Pain Scale 0.00 04/30/2024 BSA 1.66 04/30/2024 BMI 18.61 04/30/2024 Weight 55.50 04/30/2024 Pain Scale 0.00 04/30/2024 Respiratory Rate 17.00 04/30/2024 Intravascular Systolic 92 04/30/2024 Intravascular Diastolic 53 04/30/2024 Oxygen Saturation 99.00 04/30/2024 Heart Beat 60.00 04/30/2024 Body Temperature 97.50 04/30/2024 Height 172.70 05/28/2024 Pain Scale 0.00 05/30/2024 Pain Scale 0.00 05/30/2024 Height 172.70 07/11/2024 Height 172.70 07/11/2024 Pain Scale 0.00 Notes Section * BEHAVIORAL INSTRUCTOR - Initial Consult Patient Name: IVANA HENDRICKS Patient : 1995 Patient Primary Oncologist: Lucrecia Vincent (Hematology/Oncology) BEHAVIORAL INSTRUCTOR Oncologist: Lucrecia Crews DO Referring Physician: Joi Zuluaga MD (Surgical Oncology) OBGYN Physician: Primary Care: Date of Service: 04/24/2024 Chief Complaint; * Breast cancer, female ( Stage Date: Unknown, Stage IB (T1c, pN1mi, M0, ER Status: Positive, CO Status: Positive, HER-2/emily Status: Negative) Histopathologic Type: Ductal invasive carcinoma; Menopausal Status: Premenopausal; ) * Inherited mutation of BRCA2 gene HPI; 29 yo with BRCA2 gene mutation. Patient presents to discuss risk reducing strategies.?? Past Medical History; Breast cancer, as above Pathogenic BRCA2 mutation ADHD Anxiety Asthma Surgical History; ? Bilateral mastectomy + L SLNBx, 05/22/2023 ?? OBGYN History; ? Menarche:??13 y/o OCP use:??3 years. Has copper??IUD??in place. No history of infertility treatment Egg retrieval performed prior to initiation of chemotherapy with [place] [facility] LMP:??Monthly menses prior to chemo;??LMP 08/04/2023 Allergies * Penicillins Medications * Letrozole Oral 2.5 mg tablet 1 tablet orally every other day. * Zarxio (Filgrastim-Sndz Subcutaneous) 480 mcg/0.8 mL syringe 480 mcg subcutaneously daily. Instructions: Administer x4 days beginning on day 1 after chemotherapy. * Amphetamine-Dextroamphetamine Oral 10 mg tablet 1 tablet orally as needed Social History; Tobacco use: Former smoker.?? Alcohol use:?? prior 1 drink per week. None currently. Recreational drug use: None, THC tincture. 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 She was positive for the BRCA2 gene mutation. MGM??was diagnosed with ovarian cancer at 56??and breast cancer??at age 67. Maternal great grandmother had breast cancer. Maternal great aunt had breast cancer. PGM?from advanced??colon cancer. [place] ancestry. Additional Information, if applicable Health Maintenance: ? Review of Systems; Constitutional: No weight loss, No fever, No chills, No night sweats. Energy level good. Eyes: No diplopia, No transient or permanent loss of vision, No scotomata. ENT / Mouth: No epistaxis, No dysphagia, No hoarseness, No oral ulcers, No gingival bleeding. No sore throat, No postnasal drip, No nasal drip, No mouth pain, No sinus pain, No tinnitus, Normal hearing. Cardiovascular: No chest pain, No palpitations, No syncope, No upper extremity edema, No lower extremity edema, No calf discomfort. Respiratory: No cough. No hemoptysis, No pleurisy, No wheezing, No dyspnea. Breast: No breast mass, No pain, No nipple discharge, No change in size, No change in shape. Gastrointestinal: No abdominal pain, No abdominal cramping, No nausea, No vomiting, No constipation, No diarrhea, No hematochezia, No melena, No jaundice, No dyspepsia, No dysphagia. Urinary: No dysuria, No hematuria, No urinary incontinence. Genitalia: No discharge, No suprapubic pain, No abnormal bleeding. Musculoskeletal: No muscle pain, No swollen joints, No joint redness, No bone pain, No spine tenderness. Skin: No rash, No nodules, No pruritus, No lesions. Neurologic: No confusion, No seizures, No syncope, No tremor, No speech change, No headache, No hiccups, No abnormal gait, No sensory changes, No weakness. Psychiatric: No depression, No anxiety, Concentration normal. Endocrine: No polyuria, No polydipsia, No hot flashes, No thyroid symptoms. Hematologic: No epistaxis, No gingival bleeding, No petechiae, No ecchymosis. Lymphatic: No lymphadenopathy, No lymphedema. Allergy / Immunologic: No eczema, No frequent mucous infections, No frequent respiratory infections, No recurrent urticarial, No frequent skin infections. Vital SignsBlood pressure: 112/58, Pulse: 90, Temperature: 97.5 F, Respirations: 16, O2 sat: 98%, Pain Scale: 0, Height: 172.7 cm, Weight: 55 kg, BSA: 1.65, BMI: 18.44 kg/m2 Karnofsky Status 90% Able to carry on normal activity; minor signs or symptoms of disease. (Date: 03/28/2024) Depression Screening:?Was not screened Reason: Patient Refused; Screening Date: 04/30/2024 Pain Scale Value 0 Pain Management Plan: Physical Exam; CONSTITUTIONAL: awake, alert, cooperative, no apparent distress EYES: pupils equal, round and reactive to light, sclera clear and conjunctiva normal ENT: Normocephalic, without obvious abnormality, atraumatic NECK: supple, symmetrical HEMATOLOGIC/LYMPHATIC: no cervical, supraclavicular or inguinal lymphadenopathy LUNGS: no increased work of breathing. ABDOMEN: soft, non-distended, non-tender, no masses palpated, no hepatosplenomegaly MUSCULOSKELETAL: full range of motion noted, tone is normal NEUROLOGIC: awake, alert, oriented to name, place and time. Motor skills grossly intact. SKIN: Normal skin color, texture, turgor and no jaundice. appears intact EXTREMITIES: Without cyanosis, clubbing, edema or asymmetry GYNECOLOGIC:??External genitalia:??Normal. No discharge at introitus.??Ureteral meatus:??Normal,??Urethra:??Urethra appears normal,??Vagina:??No blood noted in vault. Normal for age with no lesions,??Cervix:??Midline??Uterus:??mid position,??Adnexa:NO masses??Vaginal??exam confirms no masses, thickening or tenderness.?? Labs CBC Lab Results 03/28/2024 02/15/2024 12/19/2023 11/20/2023 11/14/20 23 11/07/2023 ?CBC ?WBC x 10^3/uL 2.87 (L) 2.80 (L) 4.43 25.84 (H) 7.73 9.63 ?RBC x 10^6/uL 4.54 4.79 4.14 (L) 3.79 (L) 3.55 (L) 3.59 (L) ?NRBC, absolute, x 10^3/uL 0 0 0 0 0 0 ?NRBC % /100 wbc 0.0 0.0 0.0 0.0 0.0 0.0 ?HGB g/dL 13.4 14.3 12.2 11.5 (L) 10.7 (L) 10.9 (L) ?HCT % 40.9 42.1 37.8 36.1 (L) 35.1 (L) 34.8 (L) ?MCV fL 90.1 87.9 91.3 95.3 98.9 (H) 96.9 ?MCH pg 29.5 29.9 29.5 30.3 30.1 30.4 ?MCHC g/dL 32.8 34.0 32.3 31.9 30.5 (L) 31.3 ?RDW % 13.0 13.2 13.8 14.6 (H) 14.6 (H) 14.5 ?RDW-SD fL 43 43 46.10 51 53.20 51.10 ?PLT x 10^3/uL 216 241 204 263 237 188 ?MPV fL 8.6 8.5 8.5 9.7 9.6 9.4 ?Eimly % 66.9 68.2 66.4 91.0 (H) 65.3 75.9 (H) ?LY % 19.5 18.6 19.9 4.3 (L) 13.8 (L) 9.9 (L) ?MO % 9.4 (H) 9.6 (H) 8.1 (H) 2.6 10.0 (H) 6.7 ?EO % 3.5 (H) 2.5 4.5 (H) 0.3 1.6 1.2 ?IG % 0.0 0.4 0.2 1.6 (H) 7.4 (H) 5.9 (H) ?Emily # (ANC) x 10^3/uL 1.92 (L) 1.91 (L) 2.94 23.52 (H) 5.05 7.30 ?BA % 0.7 0.7 0.9 0.2 1.9 (H) 0.4 ?MO # x 10^3/uL 0.27 0.27 0.36 0.67 0.77 0.65 ?EO # x 10^3/uL 0.10 0.07 0.20 0.07 0.12 0.12 ?BA # x 10^3/uL 0.02 0.02 0.04 0.04 0.15 0.04 ?IG # x 10^3/uL 0 0.01 0.01 0.42 (H) 0.57 (H) 0.57 (H) ?LY # x 10^3/uL 0.56 (L) 0.52 (L) 0.88 1.12 1.07 0.95 ?Smear review None None None None None None CMP Lab Results 03/28/2024 02/15/2024 12/19/2023 11/20/2023 11/14/20 23 11/07/2023 ?Chemistries ?Glucose mg/dL 104 101 90 87 88 97 ?BUN mg/dL 11 11 11 8 10 11 ?Creatinine mg/dL 0.82 0.84 0.83 0.68 0.72 0.72 ?Sodium mmol/L 138 137 137 139 136 137 ?Potassium mmol/L 3.7 3.5 3.6 3.6 4.0 4.3 ?Calcium mg/dL 9.6 9.9 9.5 9.8 9.0 9.5 ?Chloride, mEq/L 102 99 99 100 103 103 ?Albumin g/dL 4.7 5.1 (H) 4.7 4.7 4.3 4.4 ?Total protein g/dL 7.7 8.2 7.6 7.5 6.8 7.2 ?Bilirubin, total mg/dL 0.5 0.6 0.6 0.3 0.3 0.3 ?Alkaline phosphatase U/L 78 84 74 174 (H) 139 (H) 146 (H) ?AST/SGOT U/L 25 20 17 18 17 22 ?ALT/SGPT U/L 17 14 13 21 19 25 ?GFR estimate mL/min/1.73m2 82 80 81 102 96 96 ?Magnesium, mg/dL 1.97 2 1.95 ?Phosphorus mg/dL 4.2 ?Vitamin D, 25-hydroxy ng/mL 35.36 ?CO2 content mEq/L 29 29 33 (H) 34 (H) 29 30 Lab Results 03/28/2024 02/15/2024 12/19/2023 11/20/2023 11/14/2011/07/2023 ?Tumor Markers ? Lab Results 03/28/2024 02/15/2024 12/19/2023 11/20/2023 11/14/2011/07/2023 ?Urine OCM - Patient Care Management; Pain, if applicable: ? Performance Status: Karnofsky 90% Able to carry on normal activity; minor signs or symptoms of disease. (Date: 03/28/2024) Depression Status: Was not screened Reason: Patient Refused; Screening Date: 04/30/2024 Psycho-social PHQ-9 Follow-up Plan (if applicable): Assessment & Plan; 29 yo with BRCA 2 gene mutation.?? Plan for pelvic US CA 125 Discussed risk reducing strategies, risk of oophorectomy and timing there of. We also discussed bone health, concern for dementia, heart health. Follow up in 2 weeks for discussion of pelvic US Orders * 04/24/2024, U/S pelvis, Instructions: TV/JESSICA Dowling, Perform Date: Prior to Next Visit, Associated problem(s): Breast cancer, female * (C50.212); Inherited mutation of BRCA2 gene * (Z15.02) , Chart Comments: SCHEDULED AT [facility] 04/28 AT 730AM//ORDER FAXED TO [facility] * 04/24/2024, CA 125 panel, Perform Date: 04/30/2024, Perform Location: [place] [address], Associated problem(s): Breast cancer, female * (C50.212); Inherited mutation of BRCA2 gene * (Z15.02) * 04/24/2024, RTC MD/Telehealth, Perform Date: 2 Weeks, Associated problem(s): Breast cancer, female * (C50.212); Inherited mutation of BRCA2 gene * (Z15.02) ? Diagnosis * Breast cancer, female ( ICD-10:C50.212 ;Malignant neoplasm of upper-inner quadrant of left female breast ) * Inherited mutation of BRCA2 gene ( ICD-10:Z15.02 ;Genetic susceptibility to malignant neoplasm of ovary ) Problem List * Breast cancer, female ( ICD-10:C50.212 ;Malignant neoplasm of upper-inner quadrant of left female breast ) * Inherited mutation of BRCA2 gene ( ICD-10:Z15.02 ;Genetic susceptibility to malignant neoplasm of ovary ) * ADHD ( ICD-10:F90.9 ;Attention-deficit hyperactivity disorder, unspecified type ) * Anterior cervical lymphadenopathy (disorder) ( ICD-10:R59.0 ;Localized enlarged lymph nodes ) * Bone pain ( ICD-10:M85.80 ;Other specified disorders of bone density and structure, unspecified site ) * Cancer risk assessment ( ICD-10:Z13.71 ;Encounter for nonprocreative screening for genetic disease carrier status ) * Chemotherapy-induced nausea and vomiting (disorder) ( ICD-10:R11.2 ;Nausea with vomiting, unspecified ) * Diarrhea caused by drug (disorder) ( ICD-10:R19.7 ;Diarrhea, unspecified ) * Drug-induced mucositis (disorder) ( ICD-10:K12.31 ;Oral mucositis (ulcerative) due to antineoplastic therapy ) * Drug-related alopecia (disorder) ( ICD-10:L64.0 ;Drug-induced androgenic alopecia ) * Dysgeusia ( ICD-10:R43.8 ;Other disturbances of smell and taste ) * Estrogen receptor positive status [ER+] ( ICD-10:Z17.0 ;Estrogen receptor positive status [ER+] ) * Family history of BRCA2 gene mutation ( ICD-10:Z84.81 ;Family history of carrier of genetic disease) * Family history of malignant neoplasm of breast (situation) ( ICD-10:Z80.3 ;Family history of malignant neoplasm of breast ) * Family history of malignant neoplasm of ovary (situation) ( ICD-10:Z80.41 ;Family history of malignant neoplasm of ovary ) * Hot flashes ( ICD-10:N95.1 ;Menopausal and female climacteric states ) * Nausea ( ICD-10:R11.0 ;Nausea ) * Neutropenia ( ICD-10:D70.2 ;Other drug-induced agranulocytosis ) * Other long-term current use of drug therapy ( ICD-10:Z79.899 ;Other mcfp (current) drug therapy ) * Vitamin D deficiency (disorder) ( ICD-10:E55.9 ;Vitamin D deficiency, unspecified ) * Weight loss ( ICD-10:R63.4 ;Abnormal weight loss ) . Lucrecia Crews, cc: ? Electronically signed by Lucrecia Crews DO 05/25/2024 06:55 PM EDT * Nurse Note for: 28-MAY-24 [facility] Nurse Note Print Location: Unknown Date/Time Printed: 03/20/2025 11:24 AM ([facility]) Patient: IVANA HENDRICKS Sex: Female : [...] Pharmacy plan: Dispense/Waste: 11.25/0 mg Pharmacy dispense: [facility]: [phone] Dispense/Waste: 11.25/0 mg Given Dose/Discard: 11.25/0 mg Admin Details: Injection Location: Left-Dorsogluteal Time: 01:44 PM Free Text Note : injection complete without incident Entered By Trina Carlos RN on 01:45 PM * Nurse Note for: 30-APR-24 [facility] Nurse Note Print Location: Unknown Date/Time Printed: 03/20/2025 11:24 AM ([facility]) Patient: IVANA HENDRICKS Sex: Female : [...] Pharmacy plan: Dispense/Waste: 7.5/0 mg Pharmacy dispense: [facility]: [id number] Dispense/Waste: 7.5/0 mg Given Dose/Discard: 7.5/0 mg Admin Details: Injection Location: Right-Dorsogluteal Time: 03:58 PM Free Text Note : Pt seen and eval in clinic by Dr. Eckert. Injection without incident. Entered By Cristo Grove RN on 04:01 PM
--- OUTSIDE RECORDS SUMMARY | 2025-03-20 11:26 | XMS_ITS | CCD ---
Author Name Interface, [id number] lity Address [address] [place] [id number] [facility] Address [address] [place] [address] Care Team Providers Care Plant Tour Guide Name Role Phone Lucrecia Crews Unavailable Unavailable Negandhi, Ami Unavailable Unavailable Care Plan Reason for Visit Encounters Functional Status Diagnostic Results Medications Administered Medications Problems Procedures Social History Vital Signs
--- OUTSIDE RECORDS SUMMARY | 2025-03-20 11:26 | XMS_ITS ---
Author Name Interface, [id number] lity Address [address] [place] [address] Organization [facility] Address [address] [place] [address] Care Team Providers Care Process Analyst Name Role Phone Alexandria Eckert Unavailable Unavailable Allergies and Adverse Reactions Medication/Group Name Reaction Severity Date Penicillins 07/11/2024 Plan Date Type Value 08/26/2024 APPOINTMENT NON CHEMO INJECT ION 15 MIN 08/20/2024 APPOINTMENT INJECTION 15 MIN 08/15/[address] [facility] PATIENT 15 MIN 07/11/2024 APPOINTMENT TELEPHONE VISIT 15 MINS Reason for Visit NON CHEMO INJECTION 15 MIN Encounters Date Name 07/11/2024 Bone pain 07/11/2024 Breast cancer, femal e 07/11/2024 Estrogen receptor po sitive status [ER+] 07/11/2024 Inherited mutation o f BRCA2 gene Medications Date Name Route Dose Frequency Instructions [...] pain Active Vital Signs Date Type Value 07/11/2024 Height 172.70 07/11/2024 Pain Scale 0.00 Notes Section * Telemedicine Follow-up Patient Name: IVANA HENDRICKS Patient : 1995 Patient Primary Oncologist: Lucrecia Vincent (Hematology/Oncology) Referring Physician: Joi Zuluaga MD (Surgical Oncology) Date of Service: 07/11/2024 APPOINTMENT TYPE: VERBAL PATIENT CONSENT RECEIVED FOR THIS PATIENT-INITIATED TELEPHONIC COMMUNICATION BASED ON TELEHEALTH GUIDELINES. Participants: Ivana Hendricks Chief Complaint Clinically detected, stage IB, pT1c pN1mi, invasive ductal carcinoma of the left breast. ER/AR positive. On lupron. BRCA2 pathogenic mutation. Exemestane toxicity assessment. Interval History 07/11/2024: This is a scheduled follow-up telephone appointment for Ivana Hendricks. They are in the middle of moving to [place]. Garrett started exmestant after a meal every other day about 5 weeksago. They don't have an appt with a new oncologist there due to health insurance. They are taking exemestane 1 tablet QOD. They still have diarrhea. Now using Imodium. Stopped coffee with minimal improvement. They stopped letrozole 1 month ago with improvement in diarrhea. This is not resolved, though. Hot flashes are manageable. No arthralgias. Vaginal dryness is much improved with regular use of HyaloGyn with lubricant with intercourse. No change in self-chest wall exam. They will be moving to [place], [place] on 06/26 and will be looking to establish care with a local oncologist there. No SOB, chest pain, or bony pain. No other new complaints today.?? The ROS and PFSH have all been reviewed and any updates have been noted, otherwise unchanged. 07/11/2024 HPI Ivana Hendricks is a 29 y/o premenopausal??non-binary individual (biologically female at ) with extremely dense breasts who had??genetic testing??in 2020 which confirmed a??pathogenic BRCA2 mutation ([id number]).?They had an unremarkable screening mammogram in June 2021.?They??self-palpateda lump in their left breast??in early 2022.?Breast MRI on 03/29/2023 showed a 1.8 cm??enhancing mass in the upper inner left breast??with numerous additional enhancing satellite lesions??in this area. An??enhancing nodule was noted in the upper outer left??breast axillary tail. ??No internal mamm elijah??lymphadenopathy.?? Right breast with no abnormalities noted. Left breast biopsy in 03/30/2023 showed??a??grade 2 invasive ductal carcinoma, 4 mm in greatest dimension.?? ER 95%, AR 80%, HER2 1+ by IHC and Ki-67 of 25%. Ivana??had a??left mastectomy, left sentinel lymph node biopsy and??prophylactic right mastectomy on 05/22/2023.?? Pathology showed??a 1.5 (?) cm, grade 2,??invasive??ductal carcinoma??with focal lymphovascular invasion present??and negative margins.?? 1 sentinel lymph node contained a??micrometastatic,??0.1 cm, focus of malignancy??with no extranodal extension.?? Right breast??pathology was benign. AJCC (8th Ed) pathologic stage: pT1c pN1mi(sn), stage IB,??invasive ductal carcinoma of the left breast. Oncotype DX recurrence score is 25. They had a port placed in preparation for chemotherapy. DD-AC was initiated on 06/28/2023. This was completed 11/22/23. Lupron was initiated on 11/22/2023. They completed RT on 01/29/2024. They started letrozole in late January 2024. Letrozole was held in April4due to diarrhea. She started exemestane in May 2024. Past Medical History Breast cancer, as above Pathogenic BRCA2 mutation ADHD Anxiety Asthma Surgical History Bilateral mastectomy + L SLNBx, 05/22/2023 ?? SHOT LIGHTER Menarche:??13 y/o OCP use:??3 years. Has copper??IUD??in place. No history of infertility treatment Egg retrieval performed prior to initiation of chemotherapy with Zanoni IVF LMP:??Monthly menses prior to chemo;??LMP 08/04/2023 Allergies * Penicillins Medications * Amphetamine-Dextroamphetamine Oral 10 mg tablet 1 tablet orally as needed * Zarxio (Filgrastim-Sndz Subcutaneous) 480 mcg/0.8 mL syringe 480 mcg subcutaneously daily. Instructions: Administer x4 days beginning on day 1 after chemotherapy. * Exemestane Oral 25 mg tablet 1 tablet orally every other day. Take ever other day after a meal. Social History Tobacco use: Former smoker.?? Alcohol use:?? prior 1 drink per week. None currently. Recreational drug use: None, THC tincture. 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 She was positive for the BRCA2 gene mutation. MGM??was diagnosed with ovarian cancer at 56??and breast cancer??at age 67. Maternal great grandmother had breast cancer. Maternal great aunt had breast cancer. PGM?from advanced??colon cancer. Ashkenazi Religion ancestry. Review of Systems As in Interval History. 10 point ROS otherwise negative.??07/11/2024 Vital Signs Blood pressure: , Pulse: , Temperature: , Respirations: , O2 sat: , Pain Scale: 0, Height: 172.7 cm, Weight: , BSA: , BMI: Karnofsky Status 90% Able to carry on normal activity; minor signs or symptoms of disease. (Date: 03/28/2024) Depression Screening:?Was screened; Outcome positive: No; Screening Date: 05/30/2024; Screening Tool: PRIME THOMAS-PHQ2; Total depression score: 0 Pain Scale Value 0 Pain Management Plan: Result Comments Labs obtained today, 07/11/2024, personally reviewed and listed below. Labs Lab Results 04/30/2024 03/28/2024 02/15/2024 12/19/2023 11/20/2011/14/2023 ?CBC ?WBC x 10^3/uL 3.24 (L) 2.87 (L) 2.80 (L) 4.43 25.84 (H) 7.73 ?RBC x 10^6/uL 4.52 4.54 4.79 4.14 (L) 3.79 (L) 3.55 (L) ?NRBC, absolute, x 10^3/uL 0 0 0 0 0 0 ?NRBC % /100 wbc 0.0 0.0 0.0 0.0 0.0 0.0 ?HGB g/dL 13.3 13.4 14.3 12.2 11.5 (L) 10.7 ( L) ?HCT % 40.6 40.9 42.1 37.8 36.1 (L) 35.1 (L) ?MCV fL 89.8 90.1 87.9 91.3 95.3 98.9 (H) ?MCH pg 29.4 29.5 29.9 29.5 30.3 30.1 ?MCHC g/dL 32.8 32.8 34.0 32.3 31.9 30.5 ( L) ?RDW % 13.5 13.0 13.2 13.8 14.6 (H) 14.6 (H) ?RDW-SD fL 44.30 43 43 46.10 51 53.20 ?PLT x 10^3/uL 220 216 241 204 263 237 ?MPV fL 9.0 8.6 8.5 8.5 9.7 9.6 ?Emily % 66.1 66.9 68.2 66.4 91.0 (H) 65.3 ?LY % 22.2 19.5 18.6 19.9 4.3 (L) 13.8 (L) ?MO % 8.6 (H) 9.4 (H) 9.6 (H) 8.1 (H) 2.6 10.0 (H) ?EO % 1.9 3.5 (H) 2.5 4.5 (H) 0.3 1.6 ?IG % 0.3 0.0 0.4 0.2 1.6 (H) 7.4 (H) ?Emily # (ANC) x 10^3/uL 2.14 1.92 (L) 1.91 (L) 2.94 23.52 (H) 5.05 ?BA % 0.9 0.7 0.7 0.9 0.2 1.9 (H) ?MO # x 10^3/uL 0.28 0.27 0.27 0.36 0.67 0.77 ?EO # x 10^3/uL 0.06 0.10 0.07 0.20 0.07 0.12 ?BA # x 10^3/uL 0.03 0.02 0.02 0.04 0.04 0.15 ?IG # x 10^3/uL 0.01 0 0.01 0.01 0.42 (H) 0.57 (H) ?LY # x 10^3/uL 0.72 0.56 (L) 0.52 (L) 0.88 1.12 1.07 ?Smear review None None None None None None Lab Results 04/30/2024 03/28/2024 02/15/2024 12/19/2023 11/20/20 23 11/14/2023 ?Chemistries ?Glucose mg/dL 89 104 101 90 87 88 ?BUN mg/dL 7 11 11 11 8 10 ?Creatinine mg/dL 0.75 0.82 0.84 0.83 0.68 0.72 ?Sodium mmol/L 136 138 137 137 139 136 ?Potassium mmol/L 3.8 3.7 3.5 3.6 3.6 4.0 ?Calcium mg/dL 9.1 9.6 9.9 9.5 9.8 9.0 ?Chloride, mEq/L 101 102 99 99 100 103 ?Albumin g/dL 4.9 4.7 5.1 (H) 4.7 4.7 4.3 ?Total protein g/dL 7.4 7.7 8.2 7.6 7.5 6.8 ?Bilirubin, total mg/dL 0.7 0.5 0.6 0.6 0.3 0.3 ?Alkaline phosphatase U/L 71 78 84 74 174 (H) 139 (H) ?AST/SGOT U/L 22 25 20 17 18 17 ?ALT/SGPT U/L 16 17 14 13 21 19 ?GFR estimate mL/min/1.73m2 91 82 80 81 102 96 ?Magnesium, mg/dL 2.12 1.97 2 1.95 ?Phosphorus mg/dL 4.2 ?Vitamin D, 25-hydroxy ng/mL 35.36 ?CO2 content mEq/L 28 29 29 33 (H) 34 (H) 29 Lab Results 04/30/2024 03/28/2024 02/15/2024 12/19/2023 11/20/20 23 11/14/2023 ?Tumor Markers ?CA 125 U/mL 6.0 ? Imaging 06/21/2023 ECHO: LVEF 65 to 74%.??GLS -21.3%. 09/21/2023 US pelvic: Intrauterine device in lower uterine segment. Trace fluid within endometrial canal. Normal-appearing ovaries.?? 03/14/2024 US head/neck soft tissue: bilateral cervical lymph nodes do not appear pathologically enlarged and maintain normal morphologies. 03/20/2024 DEXA: Bone density within normal limits.? Pathology Assessment & Plan 29??y/o non-binary individual (biologically female) with clinically detected??stage IB, pT1c pN1mi,invasive ductal carcinoma of the left breast. ER/AR positive. On Lupron/exemestane. * Cervical lymphadenopathy:? * No abnormal LAD on most recent exam. * Recent CT neck??showed no abnormality. Patient reassured. * Breast cancer:* They completed radiation therapy with Dr. Garcia on 01/29/2024. * Now on Lupron q12 weeks.??Will follow estradiol levels. E2 level drawn on 04/30 was undetectable. * They will continue exemestane QOD for now. Will discuss increase to M-F at next appt. * They are s/p bilateral mastectomy. Routine breast imaging not required.?? * Cardiac:* Will monitor BP and lipid panel while on endocrine therapy. * Lipid panel to be monitored by PCP.?? * Bone Health: * ??Baseline DEXA scan from 02/2024 with normal bone density.?? Will repeat Q2 years.?? * Dental clearance obtained.??Denies dental issues or upcoming dental procedures. * Zometa initiated in March 2024; plan for a total of 6 doses. Dose #2/6 due in September 2024. * Vit D level from 01/2024 was normal.? * Diarrhea: Improved with Imodium and less coffee, but not resolved. Not worse on exemestane. Recommend she add a probiotic to her regimen. * Weight loss: Stable, per patient. * Fertility:??* They are not interested in fertility preservation and declined lupron with chemotherapy for fertility preservation. * Ivana has several eggs already frozen with Zanoni IVF. * They understand that chemotherapy can cause permanent infertility. Garrett has a copper IUD in place.??IUD was replaced 01/03/2024.?? * BRCA2 mutation:?? * Mx. Hendricks is recommended [facility] evaluation for their??BRCA2 mutation. They had a consultation with Dr. Crews on 04/02/2024. * Increased risk of melanoma. They plan to see dermatology in [place], [place]. * They do not meet pancreatic screening criteria per NCCN guidelines. * GSM: Stable with use of of nonhormonal vaginal moisturizers (HyaloGyn) and lubricant with intercourse.?? * Hot flashes* Currently tolerable.?? * They will try acupuncture in [place], when insurance will cover this. * ADHD * Recently changed to Adderall by psych provider from??[facility] though has been unable to follow up.?? * They are now seeing??Azeb Gamez NP. * Goal of care: Curative. Ivana will have a telehealth appt in 1 month, or sooner, for follow-up. They are aware to call the office if issues or concerns arise in the interim.?? 11 minutes were spent on this telephone appointment today. Orders ? Diagnosis * Breast cancer, female ( [...] use of drug therapy ( ICD-10:Z79.899 ;Other keno terminal operator (current) drug therapy ) * Vitamin D deficiency (disorder) ( ICD-10:E55.9 ;Vitamin D deficiency, unspecified ) * Weight loss ( ICD-10:R63.4 ;Abnormal weight loss ) . Alexandria Eckert MD cc: MD Suresh Azul MD, MD Sarah Pesek, MD (Referring) Electronically signed by Alexandria Eckert MD 07/11/2024 03:44 PM EDT
== END 2025-03-20 11:27 | disposition home or self-care (01) ==
LOC: HO.HMCSH 10:41
PROVIDERS: PCP Internal Medicine; Visit Provider Physician Assistant Medical
DX: Z76.89 Persons encountering health services in other specified circumstances (principal); Z85.3 Personal history of malignant neoplasm of breast; Z15.01 Genetic susceptibility to malignant neoplasm of breast; Z15.09 Genetic susceptibility to other malignant neoplasm; K64.4 Residual hemorrhoidal skin tags; F90.9 Attention-deficit hyperactivity disorder, unspecified type; J45.909 Unspecified asthma, uncomplicated

== ENCOUNTER → 2025-03-20 10:41 | Outpatient (BNVA) | payer OTHER, SELFPAY | PROVIDERS: PCP Internal Medicine; Visit Provider Physician Assistant Medical | DX: Z76.89 Persons encountering health services in other specified circumstances (principal); K64.4 Residual hemorrhoidal skin tags; F90.9 Attention-deficit hyperactivity disorder, unspecified type; J45.909 Unspecified asthma, uncomplicated; Z85.3 Personal history of malignant neoplasm of breast; Z15.01 Genetic susceptibility to malignant neoplasm of breast; Z15.09 Genetic susceptibility to other malignant neoplasm | CPT/HCPCS: 96127 ==

== ENCOUNTER 2025-04-17 16:06 | Outpatient (REF) | payer OTHER, SELFPAY ==
--- NOTE | ~2025-04-17 | US_ITS ---
EXAMINATION: US THYROID CLINICAL INFORMATION: Nontoxic single thyroid nodule. COMPARISON: None available. TECHNIQUE: Linear transducer grayscale and color Doppler examination with attention to the region of the thyroid. FINDINGS: SIZE: Measurements of the thyroid lobes and nodules are given in sagittal, anteroposterior and transverse dimensions respectively. Right Thyroid Lobe: 5.1 x 1.4 x 1.2 cm, volume 4.5 mL. Parenchyma: The gland echotexture is homogeneous. Thyroid vascularity is normal. Left Thyroid Lobe: 4.5 x 1.2 x 0.9 cm, volume 2.5 mL. Parenchyma: The gland echotexture is homogeneous. Thyroid vascularity is normal. Isthmus: 0.2 cm in maximum AP dimension. Estimated total number of nodules greater than or equal to 1 cm: 0. There are no discrete solid nodules. There is a subcentimeter colloid cyst. NODES: No lymphadenopathy is seen in the tissue surrounding the thyroid gland. US/US thyroid IMPRESSION: Normal examination of the thyroid gland. No nodules. Electronically signed by: Austin Gonzalez MD 04/21/2025 12:38 PM EDT
== END 2025-04-17 16:07 | disposition home or self-care (01) ==
LOC: HO.US 16:06
PROVIDERS: PCP Internal Medicine; Visit Provider Physician Assistant Medical
DX: E04.1 Nontoxic single thyroid nodule (principal)
CPT/HCPCS: 76536

== ENCOUNTER → 2025-04-17 16:08 | Outpatient (BNV) | payer OTHER, SELFPAY | PROVIDERS: PCP Internal Medicine; Visit Provider Radiology Diagnostic Radiology | DX: E04.1 Nontoxic single thyroid nodule (principal) | CPT/HCPCS: 76536 ==

== ENCOUNTER 2025-06-03 08:32 | Outpatient (AMB) | payer OTHER, SELFPAY ==
--- OUTSIDE RECORDS SUMMARY | 2024-03-28 05:16 | XMS_ITS | Continuity of Care Document ---
Author Organization [facility] Address [address] [place] [address] Phone Care Team Providers Care Participant Administrator Name Role Phone Radha Murphy PA-C, PA-C Unavailable Unavaila ble Allergies, Adverse Reactions, Alerts Substance Reaction Status Criticality Penicillins Active No Information Medications Medication Instructions Dosage Effective Dates (start - stop) Status Comments Strattera 18 mg capsule take 2 capsule by oral route 2 times every day 36 MG - Active Procedures Procedure Date Nasal Endoscopy, Dx Office/Outpatient Visit, New Advance Directives Directive Yes / No Effective Date File Name No Information Encounters Encounter Description Practice Location Reason(s) For Visit Diagnoses Date Provider Providers Copied on Encounter [facility], [address] [place] [address], [address] [place] [address] , [phone] Medical Records No Information 4 Katherine Garcia. [address] [place] [address], [id number] , . tel:[phone] Office/Outpa tient Visit, [facility], [address] [place] [address], [id number] , tel:[phone] Katherine Barton patient allergy (chief complaint) Other allergic rhinitisAnterior cervical lymphadenopathyMalign ant neoplasm of left breast in female, estrogen receptor positive, unspecified site of breastEstrogen receptor positive status [ER+] 4 Katherine Garcia. [address] [place], [place], [id number] , . tel:[phone] Referring Provider: Harmony Ewing MD, [address] [place] [address], [place], [address]. tel:[phone] Family History Family Member Type Diagnosis Age At Onset Brother Problem (finding) Alive and Doing Well Mother Problem (finding) Environmental Allergies Father Problem (finding) Environmental Allergies Mother Problem (finding) Asthma Mother Problem (finding) Cancer Mother Problem (finding) Alive and Doing Well Father Problem (finding) Alive and Doing Well Payers Payer name Insurance type Covered democrat ID Jabier sinha(s) HUNG [id number] Social History Type Description Quantity Date Captured Comments Alcohol Use Details Unknown Caffeine Use Details Unknown Tobacco Use Status No Information Smoking Status No Information Sex Female Chief Complaint And Reason For Visit No Information Reason For Referral Reason For Referral No Information History Of Present Illness Encounter Date Complaint History Of Prese nt Illness New patient allergy New patient presents to the office today requesting allergy testing as she wishes to receive immunotherapy for cats as her roommate is getting a cat and she has a known cat allergy. She reports that cats cause her to experience congestion, rhinorrhea, sneezing, and itchy, watery, and swollen eyes. Occasional sinus pressure. She reports that she has tried oral antihistamines and this does not completely alleviate her symptoms. Patient denies any facial pain purulent nasal drainage. Functional Status Date Functional Assessmen t No Information Instructions Date Instruction Additional Infor mation No Information Assessments Type Assessment Date No Information Patient Care Teams Name Effective Dates (start - stop) Status Members No Information
--- NOTE | 2025-06-03 08:40 | A.OFFVIS_ITS ---
Vital Signs 06/03/25 08:46 Height 5 ft 8 in Weight 124 lb BMI 18.9 BP 102/58 L Blood Pressure Location Rt brachial Position Sitting Pulse 53 Intake Visit Reasons: Residual hemorrhoidal skin tags Intake Note: Patient referred by pcp Theresa Cruz PA-C for evaluation of external hemorrhoid. Patient c/o: bleeding noticed after wiping, painful. Denies constipation, diarrhea. Electro Mechanic Required: No Accompanied by: Self / Same As Patient Allergies Penicillins Allergy (Mild, Verified 06/03/25 08:45) rash Medication List - Last Reconciled 06/03/25 by Star Bowles MD dextroamphetamine-amphetamine 10 mg (Adderall) 10 mg PO DAILY exemestane 25 mg PO DAILY leuprolide acetate (6 month) (Lupron Depot) 45 mg IM [id number] zoledronic acid 4 mg IV [id number] HPI HPI Residual hemorrhoidal skin tags: Details: 30-year old female referred for hemorrhoid issues. She says that she has had hemorrhoids for many years. She describes being itching on the area outside her hemorrhoids. She says she has had issues with periodic diarrhea. She had been seen by hospice clinical marketer before but she says she has not been diagnosed to have IBS. She denies constipation. She does have a history of breast cancer with BRCA. She had a bilateral mastectomy in [place] in 2021. [facility] Medical History (Updated 06/03/25 @ 09:08 by Star Bowles MD) Hemorrhoids with complication Thyroid nodule Asthma ADHD Establishing care with new doctor, encounter for External hemorrhoid BRCA gene mutation positive History of breast cancer Surgical History Hx of bilateral mastectomy Family History Mother Breast CA Father Crohn's disease Social History Housing: House Alcohol intake: current Alcohol intake frequency: does not drink Patient Tobacco Use Status: Former Tobacco user service: No Current occupational status: employed Cognitive needs: No Hearing needs: No Vision needs: Yes (rx glasses) Review of Systems Const Denies chills and Denies fever(s) Card Denies chest pain, Denies dyspnea and Denies dyspnea on exertion Resp Denies cough, Denies dyspnea and Denies dyspnea on exertion GI Reports hematochezia, Denies change in bowel habits and Reports diarrhea Denies hematuria Musc Denies back pain and Denies limited range of motion Neuro Denies focal weakness and Denies convulsions Psych Denies depression and Denies mood swings Physical Exam Vital Signs: Last Vital Signs Pulse 53 06/03/25 08:46 BP 102/58 L 06/03/25 08:46 BMI result Body Mass Index 18.9 Const General: comfortable and no acute distress Orientation/consciousness: patient oriented x3 Neck Neck: Yes no lymphadenopathy Resp Auscultation: clear to auscultation bilaterally Cardio Rhythm: regular rhythm GI Other: Rectal exam shows external hemorrhoidal columns anteriorly and posteriorly Palpation (GI): Soft to palpation, nontender and no guarding Neuro General: patient oriented x3 Office Procedures Anoscopy She was in kneeling manny-knife position. The anoscope was gently inserted. A full examination of the anal canal was done. There were was a column of mixed internal external hemorrhoids anteriorly. There was another column posteriorly. There were no lesions seen. There was no fissure or ulceration. There was no bleeding. There was no induration on digital exam. [id number] Assessment & Plan Assessment & Plan (1) Hemorrhoids with complication: Code(s): K64.8 - Other hemorrhoids Category: Medical Plan: She has hemorrhoids, internal and external with a long history of pain, swelling and itching. She also says she occasionally sees bleeding with wiping She wants to proceed with hemorrhoidectomy. I had a long discussion with her about the technique of exam under anesthesia and hemorrhoidectomy. I reviewed the risks including but not limited to bleeding, infections, postop pain, poor healing, sphincter dysfunction, as well as the benefits and alternatives. I reviewed with her what to expect postoperatively She says she understands and wants to proceed. Coding Level of Care Code New Pt Level 3 (62802) Diagnoses Hemorrhoids with complication K64.8 CPT Codes Details - CPT: 75885-[id number] ([id number])
--- OUTSIDE RECORDS SUMMARY | 2025-06-03 08:45 | XMS_ITS ---
Author Name Interface, [id number] lity Address [address] [facility] Address [address] [place] [address] Allergies and Adverse Reactions Plan Reason for Visit Encounters Diagnostic Results Medications Problems Vital Signs Notes Section
--- OUTSIDE RECORDS SUMMARY | 2025-06-03 08:45 | XMS_ITS ---
Author Organization [address] Address [address] [place] [address] Phone Care Team Providers Care Golf Course Assistant Name Role Phone Harmony Ewing MD Primary Care Provider [phone] Active Problems Problem Noted Date Diagnosed Date Malignant neoplasm of upper- inner quadrant of left breast in female, estrogen receptor positive (CMS/HCC V24, CMS/HCC V28) 04/12/2023 Overview (04/12/2023): Added automatically from request for surgery [id number] Menorrhagia with irregular cycle 11/23/2022 BRCA2 positive 11/23/2022 Asthma 11/02/2022 Suspected severe acute respi ratory syndrome coronavirus 2 (SARS-CoV-2) infection 11/08/2020 Current Oncology Plans No current plan information found. Past Plans No past plan information found. Radiation Treatments * Plan Last Treated On Elapsed Days Fractions Treated Prescribed Fraction Dose Prescribed Total Dose L_CW [facility] 01/29/2024 41 5 of 5 200 cGy 1,000 cGy PTV_L_SC_Ax 01/18/2024 41 23 of 200 cGy 4,600 cG y PTVe_L_CW NB 01/22/2024 41 13 of 13 200 cGy 2,600 cGy PTVe_L_CW w/B 01/21/2024 41 12 of 12 200 cGy 2,400 cGy Reference Point Last Treated On Elapsed Days Session Dose Total Dose L_CW [facility] 01/29/2024 41 222 cGy 1,111 cGy L_CW_RC 01/22/2024 41 201 cGy 5,017 cGy PTV_L_SC_Ax 01/18/2024 41 200 cGy 4,600 cGy PTV_L_SC_Ax RC 01/18/2024 41 200 cGy 4,600 cGy PTVe_L_CW 01/22/2024 41 200 cGy 5,000 cGy Scar [facility] 01/29/2024 41 200 cGy 1,000 cGy
[2025-06-03 08:46] VITALS: BP 102/58; PULSE 53; BMI 18.9
== END 2025-06-03 09:08 | disposition home or self-care (01) ==
LOC: HO.HGS 08:32
PROVIDERS: PCP Internal Medicine; Visit Provider Surgery
DX: K64.8 Other hemorrhoids (principal)
CPT/HCPCS: 46600; 99203

== ENCOUNTER → 2025-06-03 08:32 | Outpatient (BNVA) | payer OTHER, SELFPAY | PROVIDERS: PCP Internal Medicine; Visit Provider Surgery | DX: K64.8 Other hemorrhoids (principal) | CPT/HCPCS: 46600 ==